=== PATIENT | female | born 1955 | race Caucasian/White ===

== ENCOUNTER 2017-07-23 15:02 | Inpatient (IN) | payer MEDICARE, OTHER ==
[2017-07-23] MEDS ORDERED: SODIUM CHLORIDE 0.9% 500 ML IV STA (15:19)
[2017-07-23] MEDS ORDERED: SODIUM CHLORIDE 0.9% 1,000 ML IV STA ×2 (15:19→16:59)
--- NOTE | 2017-07-23 15:21 | ED ---
General Adult HPI - General Chief complaint: Fall Stated complaint: FALL Time Seen by Provider: 07/23/17 15:08 Source: patient, RN notes reviewed, old records reviewed Mode of arrival: EMS Limitations: altered mental status - History of Present Illness Initial comments: This is a 62-year-old female the ER for evaluation. Patient's grandma ER for being found down. Patient apparently been lying on the ground for 4 days. Not acting appropriately. History pain from EMS and patient staff - Related Data Home Medications Medication Instructions Recorded Confirmed Ergocalciferol [Vitamin D2 50,000 units PO Q7D 06/15/14 07/23/17 (DRISDOL)] Levothyroxine Sodium [Synthroid] 50 mcg PO HS 06/15/14 07/23/17 Phenytoin Sodium Extended 100 mg PO TID 11/16/14 07/23/17 [Dilantin] Famotidine [Pepcid] 20 mg PO DAILY 01/28/15 07/23/17 Furosemide [Lasix] 40 mg PO HS 03/12/15 07/23/17 Divalproex [Depakote] 500 mg PO TID 03/15/15 07/23/17 Apixaban [Eliquis] 2.5 mg PO HS 07/23/17 07/23/17 Baclofen 5 mg PO Q8H 07/23/17 07/23/17 Betamethasone Dipropionate 1 applic TOPICAL DAILY 07/23/17 07/23/17 [Diprolene AF 0.05% Cream] Carbidopa-Levodopa 25-100 mg 1 tab PO BID 07/23/17 07/23/17 [Sinemet 25-100] Clotrimazole/Betamethasone Dip 1 applic TOPICAL DAILY 07/23/17 07/23/17 [Lotrisone Cream] Gabapentin [Neurontin] 300 mg PO Q8H 07/23/17 07/23/17 HYDROmorphone [Dilaudid] 2 mg PO DAILY 07/23/17 07/23/17 Hydrocortisone [Anusol-Hc] 1 applic RECTAL Q12H PRN 07/23/17 07/23/17 Melatonin 3 mg PO HS 07/23/17 07/23/17 Morphine Sulfate ER [Ms Contin] 30 mg PO Q8H PRN 07/23/17 07/23/17 Topiramate [Topamax] 50 mg PO BID 07/23/17 07/23/17 clonazePAM [KlonoPIN] 0.5 mg PO Q6H 07/23/17 07/23/17 Previous Rx's Medication Instructions Recorded Nystatin 100,000 Unit/gm Powd 1 applic TOPICAL BID applic 03/26/15 [Mycostatin Powder] traZODone HCL [Desyrel] 50 mg PO HS #30 tab 03/26/15 Allergies Allergy/AdvReac Type Severity Reaction Status Date / Time adhesive Allergy Severe Rash/Hives Verified 07/23/17 15:10 celecoxib [From Celebrex] Allergy Severe Vomiting Verified 07/23/17 15:10 citalopram hydrobromide Allergy Unknown Vomiting Verified 07/23/17 15:10 [From Celexa] ketorolac tromethamine Allergy Unknown Vomiting Verified 07/23/17 15:10 [From Toradol] latex Allergy Unknown Rash/Hives Verified 07/23/17 15:10 Phenothiazines Allergy Unknown Unknown Verified 07/23/17 15:10 aspirin Allergy Rash/Hives Verified 07/23/17 15:10 bee pollen [Bee Pollen] Allergy Rash/Hives Verified 07/23/17 15:10 metoclopramide Allergy Rash/Hives Verified 07/23/17 15:10 Penicillins Allergy Rash/Hives Verified 07/23/17 15:10 prochlorperazine edisylate Allergy Vomiting Verified 07/23/17 15:10 [From Compazine] prochlorperazine maleate Allergy Vomiting Verified 07/23/17 15:10 [From Compazine] rofecoxib [From Vioxx] Allergy Rash/Hives Verified 07/23/17 15:10 Salicylates Allergy Vomiting Verified 07/23/17 15:10 Review of Systems ROS Statement: Those systems with pertinent positive or pertinent negative responses have been documented in the HPI. ROS Other: All systems not noted in ROS Statement are negative. Past Medical History Past Medical History: GERD/Reflux, Hearing Disorder / Deafness, Hypertension, Osteoarthritis (OA), Seizure Disorder Additional Past Medical History / Comment(s): SEIZURES CONTROLLED BY MEDICATION , (states last seizure was 7 years ago) open wound in left buttock from removal of intrathecal pump Last Myocardial Infarction Date:: 2012 History of Any Multi-Drug Resistant Organisms: None Reported Past Surgical History: Appendectomy Additional Past Surgical History / Comment(s): 02/10/15 Pain pump insertion, 3/ gastrectomy due to ulcers, BOWEL obstruction with surgery (2003), left knee athroscopy, Past Anesthesia/Blood Transfusion Reactions: No Reported Reaction Past Psychological History: No Psychological Hx Reported Smoking Status: Never smoker Past Alcohol Use History: None Reported Past Drug Use History: None Reported - Past Family History Father Additional Family Medical History / Comment(s): UNKNOWN Mother Additional Family Medical History / Comment(s): UNKNOWN General Exam - General Exam Comments Initial Comments: large area of abdominal intertrigo Limitations: no limitations General appearance: alert, in no apparent distress Head exam: Present: atraumatic, normocephalic, normal inspection Eye exam: Present: normal appearance, PERRL, EOMI. Absent: scleral icterus, conjunctival injection, periorbital swelling ENT exam: Present: normal exam, mucous membranes moist Neck exam: Present: normal inspection. Absent: tenderness, meningismus, lymphadenopathy Respiratory exam: Present: normal lung sounds bilaterally. Absent: respiratory distress, wheezes, rales, rhonchi, stridor Cardiovascular Exam: Present: regular rate, normal rhythm, normal heart sounds. Absent: systolic murmur, diastolic murmur, rubs, gallop, clicks GI/Abdominal exam: Present: soft, normal bowel sounds. Absent: distended, tenderness, guarding, rebound, rigid Extremities exam: Present: normal inspection, full ROM, normal capillary refill. Absent: tenderness, pedal edema, joint swelling, calf tenderness Back exam: Present: normal inspection Neurological exam: Present: alert, oriented X3, CN II-XII intact Psychiatric exam: Present: normal affect, normal mood Skin exam: Present: warm, dry, intact, normal color. Absent: rash Course Vital Signs 07/23/17 15:10 Temperature 98.5 F Pulse Rate 83 Respiratory 17 Rate Blood Pressure 141/63 O2 Sat by Pulse 100 Oximetry - Reevaluation(s) Reevaluation #1: 07/23/17 16:26 Patient with no significant clinical changes or improvement EKG Findings - EKG Comments: EKG Findings:: EKG shows normal sinus rate of 80, SD 140, QRS or 2, QTC 02/24 Medical Decision Making - Medical Decision Making 62 female ER for evaluation of being found down off mental status. Unresponsiveness. Multiple days on the ground with inability to take care of herself inability to move. Patient has severe abdomen lysis and dehydration - Lab Data Result diagrams: 07/23/17 15:27 07/23/17 15:27 Lab Results 07/23/17 07/23/17 07/23/17 Range/Units 15:27 15: 15:27 WBC 8.9 (3.8-10.6) k/uL RBC 4.14 (3.80-5.40) m/uL Hgb 11.2 L (11.4-16.0) gm/dL Hct 36.4 (34.0-46.0) % MCV 88.1 (80.0-100.0) fL MCH 27.1 (25.0-35.0) pg MCHC 30.7 L (31.0-37.0) g/dL RDW 15.5 (11.5-15.5) % Plt Count 195 (150-450) k/uL Neutrophils % 86 % Lymphocytes % 6 % Monocytes % 7 % Eosinophils % 1 % Basophils % 0 % Neutrophils # 7.7 (1.3-7.7) k/uL Lymphocytes # 0.5 L (1.0-4.8) k/uL Monocytes # 0.6 (0-1.0) k/uL Eosinophils # 0.1 (0-0.7) k/uL Basophils # 0.0 (0-0.2) k/uL Hypochromasia Slight PT (9.0-12.0) sec INR (<1.2) APTT (22.0-30.0) sec Sodium 140 (137-145) mmol/L Potassium 2.8 L* (3.5-5.1) mmol/L Chloride 101 (98-107) mmol/L Carbon Dioxide 27 (22-30) mmol/L Anion Gap 12 mmol/L BUN 25 H (7-17) mg/dL Creatinine 0.60 (0.52-1.04) mg/dL Est GFR (MDRD) Af Amer >60 (>60 ml/min/1.73 sqM) Est GFR (MDRD) Non-Af >60 (>60 ml/min/1.73 sqM) Glucose 133 H (74-99) mg/dL Plasma Lactic Acid Esvin (0.7-2.0) mmol/L Calcium 8.5 (8.4-10.2) mg/dL Phosphorus 2.8 (2.5-4.5) mg/dL Magnesium 2.1 (1.6-2.3) mg/dL Total Bilirubin 0.5 (0.2-1.3) mg/dL AST 99 H (14-36) U/L ALT 57 H (9-52) U/L Alkaline Phosphatase 111 (38-126) U/L Total Creatine Kinase 4911 H (30-135) U/L CK-MB (CK-2) 10.0 H* (0.0-2.4) ng/mL CK-MB (CK-2) Rel Index Troponin I <0.012 (0.000-0.034) ng/mL Total Protein 5.6 L (6.3-8.2) g/dL Albumin 2.9 L (3.5-5.0) g/dL 07/23/17 07/23/17 Range/Units 15:27 15:27 WBC (3.8-10.6) k/uL RBC (3.80-5.40) m/uL Hgb (11.4-16.0) gm/dL Hct (34.0-46.0) % MCV (80.0-100.0) fL MCH (25.0-35.0) pg MCHC (31.0-37.0) g/dL RDW (11.5-15.5) % Plt Count (150-450) k/uL Neutrophils % % Lymphocytes % % Monocytes % % Eosinophils % % Basophils % % Neutrophils # (1.3-7.7) k/uL Lymphocytes # (1.0-4.8) k/uL Monocytes # (0-1.0) k/uL Eosinophils # (0-0.7) k/uL Basophils # (0-0.2) k/uL Hypochromasia PT 11.7 (9.0-12.0) sec INR 1.2 H (<1.2) APTT 21.6 L (22.0-30.0) sec Sodium (137-145) mmol/L Potassium (3.5-5.1) mmol/L Chloride (98-107) mmol/L Carbon Dioxide (22-30) mmol/L Anion Gap mmol/L BUN (7-17) mg/dL Creatinine (0.52-1.04) mg/dL Est GFR (MDRD) Af Amer (>60 ml/min/1.73 sqM) Est GFR (MDRD) Non-Af (>60 ml/min/1.73 sqM) Glucose (74-99) mg/dL Plasma Lactic Acid Esvin 1.0 (0.7-2.0) mmol/L Calcium (8.4-10.2) mg/dL Phosphorus (2.5-4.5) mg/dL Magnesium (1.6-2.3) mg/dL Total Bilirubin (0.2-1.3) mg/dL AST (14-36) U/L ALT (9-52) U/L Alkaline Phosphatase (38-126) U/L Total Creatine Kinase (30-135) U/L CK-MB (CK-2) (0.0-2.4) ng/mL CK-MB (CK-2) Rel Index Troponin I (0.000-0.034) ng/mL Total Protein (6.3-8.2) g/dL Albumin (3.5-5.0) g/dL - Radiology Data Radiology results: report reviewed (CT brain and C-spine, chest 100 pelvis x- ray negative for traumatic injury), image reviewed Disposition Clinical Impression: Fall, Rhabdomyolysis, Weakness, Hypokalemia, Dehydration, Altered mental state Disposition: ADMITTED IP TO THIS [facility] Condition: Serious Referrals: Roc Clements MD [Primary Care Provider] - 1-2 days
[2017-07-23 15:43] LABS: Basophils % (A) 0 %; CH 27.7; CHCM 31.6; Eosinophils # (A) 0.1 k/uL (0-0.7); Eosinophils % (A) 1 %; HCT 36.4 % (34.0-46.0); HDW 2.81; HGB 11.2 gm/dL (11.4-16.0); Hypochromasia Slight; Luc # (Auto) 0.03; Luc % (Auto) 0; Lymphocytes # (A) 0.5 k/uL (1.0-4.8); Lymphocytes % (A) 6 %; MCH 27.1 pg (25.0-35.0); MCHC 30.7 g/dL (31.0-37.0); MCV 88.1 fL (80.0-100.0); Mean Platelet Volume 7.6; Monocytes # (A) 0.6 k/uL (0-1.0); Monocytes % (A) 7 %; Neutrophils # (A) 7.7 k/uL (1.3-7.7); Neutrophils % (A) 86 %; RBC 4.14 m/uL (3.80-5.40); RDW 15.5 % (11.5-15.5); WBC 8.9 k/uL (3.8-10.6); WBC (Perox) 9.23
[2017-07-23 15:47] LABS: INR 1.2 (<1.2); Prothrombin Time 11.7 sec (9.0-12.0)
[2017-07-23 15:52] LABS: ALT 57 U/L (9-52); AST 99 U/L (14-36); Alkaline Phosphatase 111 U/L (38-126); Anion Gap 12 mmol/L; Blood Urea Nitrogen 25 mg/dL (7-17); Calcium 8.5 mg/dL (8.4-10.2); Carbon Dioxide 27 mmol/L (22-30); Chloride 101 mmol/L (98-107); Glucose 133 mg/dL (74-99); Magnesium 2.1 mg/dL (1.6-2.3); Non-African American GFR(MDRD) >60 (>60 ml/min/1.73 sqM); Phosphorus 2.8 mg/dL (2.5-4.5); Sodium 140 mmol/L (137-145); Total Bilirubin 0.5 mg/dL (0.2-1.3); Total Protein 5.6 g/dL (6.3-8.2)
[2017-07-23 15:58] LABS: Partial Thromboplastin Time 21.6 sec (22.0-30.0)
[2017-07-23 16:00] LABS: Potassium 2.8 mmol/L (3.5-5.1)
[2017-07-23] MEDS ORDERED: LORazepam 2 MG/ML INJ IV STA (16:08)
[2017-07-23] MEDS ORDERED: POTASSIUM BICARB-CITRIC ACID 25 MEQ TABLET.EFF PO STA (16:08)
[2017-07-23] MEDS ORDERED: ONDANSETRON 4 MG/2 ML VIAL IVP STA ×3 (16:08→18:57)
[2017-07-23 16:11] LABS: Troponin I <0.012 ng/mL (0.000-0.034)
[2017-07-23 16:20] LABS: Creatine Kinase 4911 U/L (30-135)
--- NOTE | 2017-07-23 16:42 | CT ---
EXAMINATION TYPE: CT brain chante chávez DATE OF EXAM: 07/23/2017 COMPARISON: Head CT scan 12/17/2013 HISTORY: FALL INJURY. CT DLP: 1170.2 mGycm Automated exposure control for dose reduction was used. TECHNIQUE: CT scan of the head and cervical spine are performed without contrast. FINDINGS: There is mild cerebral cortical atrophy. There is no mass effect nor midline shift. There is no sign of intracranial hemorrhage. There is old left temporal craniotomy defect. Cervical vertebra have normal alignment. There is mild spurring at C5-6 C6-7. Facet joints are intact . There is no evidence of a compression fracture. The skull base is intact. IMPRESSION: Mild cerebral atrophy. No acute intracranial abnormality. No change. Mild spondylotic changes in the cervical spine. No fracture.
[2017-07-23] MEDS: POTASSIUM CHLORIDE 10 MEQ, LIDOCAINE 2% INJ 10 MG in SODIUM CHLORIDE 0.9% 100 ML IVPB SCH ×4 (16:47→22:44)
--- NOTE | 2017-07-23 16:53 | XR ---
EXAMINATION TYPE: XR pelvis AP view DATE OF EXAM: 07/23/2017 COMPARISON: 02/13/2015 HISTORY: Fell 4 days ago. Pain. TECHNIQUE: Single view FINDINGS: Pelvic ring is intact. Proximal femurs and hip joints are intact. There is extensive calcif ication over both iliac crests consistent with injection sites. The sacroiliac joints are intact. IMPRESSION: No acute abnormality of the pelvis. No change.
--- NOTE | 2017-07-23 16:54 | XR ---
EXAMINATION TYPE: XR chest 1V DATE OF EXAM: 07/23/2017 COMPARISON: 02/14/2015 HISTORY: Chest pain TECHNIQUE: Single frontal view of the chest is obtained. FINDINGS: There is mild coarsening of interstitial markings. There is no heart failure. Heart size i s normal. There is no sign of pleural effusion or pneumothorax. IMPRESSION: Mild pulmonary fibrotic changes. Chest x-ray stable compared to old exam.
[2017-07-23] MEDS ORDERED: SODIUM CHLORIDE 0.9% 1,000 ML IV ONE (17:00)
--- NOTE | 2017-07-23 19:34 | P.HPIM ---
History of Present Illness H&P Date: 07/23/17 Chief Complaint: fall at home 62-year-old female with past medical history of multiple sclerosis and hypertension. Patient presented to [facility] emergency department after being found down at her room in a unsupervised mcc. She reports that she gets visiting nurse once every week to help her with food in grocery. And she gets visited by the mcc process owner once a week. Otherwise she is independent in her activities of daily living and that she utilizes a walker to ambulate. She reports that on she was trying to reach out for her medications while using the walker when her hand slipped and fell to the ground she reports that she hit her head but did not lose consciousness however she was unable to get up due to diffuse body aches and feeling weak. She remained on the floor screamed for help however she did not get any response. She remained on the floor in her room rotating herself [id number] otherwise unable to move around urinating and pooping on herself. No axis to food or water until Sunday today 4 days later when the mcc process owner visited her in the room and found her on the ground and called EMS and brought to the hospital Currently she is awake and alert denies any chest pain or trouble breathing denies any fevers or chills, nausea or vomiting. She reports chronic weakness in her lower extremity unchanged from baseline and chronic low back pain unchanged from baseline. Denies any changes in her urination or bowel movements. In the ED aggressive resuscitation with IV fluid hydration was done as patient was found to be in acute rhabdo. This most likely secondary to being down on the floor Imaging with CAT scan of the head and spine and x-rays of the pelvis was unremarkable for any acute process Patient otherwise provides very limited history upon revision of her medications she wasn't sure why she takes Eliquis. She did not remember what different medications that she is taking and upon verification of her medication list she couldn't give any clear answers as currently she is slightly confused and tired Review of Systems This is possibly not very reliable due to patient confusion Constitutional: Patient reports no fever, no chills, no night sweating, no significant weight changes Eyes: Patient reports no visual changes, no eye pain ENT: Patient reports no ear pain, no rhinorrhea, no sore throat . She admits to poor hearing Cardiovascular: Patient reports no chest pain, no exertional dyspnea, no peripheral leg edema, no orthopnea, no paroxysmal nocturnal dyspnea Respiratory:Patient reports no cough, no wheezing, no shortness of breath Gastrointestinal: Patient reports no diarrhea, no constipation, no nausea no vomiting, no abdominal pain Genitourinary: Patient reports no dysuria, no hematuria, no changes in urinary habits, no genital lesions Musculoskeletal: Patient reports no muscle pain, she admits to chronic lower extremity pain and back pain Psychiatric: Patient reports no changes in mood or memory, no suicidal ideation , no anxiety Endocrine: Patient reports no heat intolerance, no cold intolerance, no excessive thirst, no polyuria Neurological: Patient reports no focal neurologic deficits, no weakness, no numbness, no tingling, chronic weakness in her lower extremities utilizing walker to walk around and dependent in her activities daily living Hem/Lymphatic: Patient reports no bleeding tendency, no bruising, no swollen lymph glands Allergic/Immun: Patient reports no recent allergic reactions Skin: Patient reports chronic rash in her lower abdomen with pain to superficial touch of the belly Past Medical History Past Medical History: GERD/Reflux, Hearing Disorder / Deafness, Hypertension, Osteoarthritis (OA), Seizure Disorder Additional Past Medical History / Comment(s): SEIZURES CONTROLLED BY MEDICATION , (states last seizure was 7 years ago) open wound in left buttock from removal of intrathecal pump, multiple sclerosis Last Myocardial Infarction Date:: 2012 History of Any Multi-Drug Resistant Organisms: None Reported Past Surgical History: Appendectomy Additional Past Surgical History / Comment(s): 02/10/15 Pain pump insertion, 3/ gastrectomy due to ulcers, BOWEL obstruction with surgery (2003), left knee athroscopy, Past Anesthesia/Blood Transfusion Reactions: No Reported Reaction Past Psychological History: No Psychological Hx Reported Smoking Status: Never smoker Past Alcohol Use History: None Reported Past Drug Use History: None Reported - Past Family History Father Additional Family Medical History / Comment(s): With colon cancer Mother Additional Family Medical History / Comment(s): UNKNOWN Medications and Allergies Home Medications and Allergies Comment(s): Reviewed with the patient however she is only able to give very limited information about her current medications Home Medications Medication Instructions Recorded Confirmed Type Ergocalciferol [Vitamin D2 50,000 units PO Q7D 06/15/14 07/23/17 History (DRISDOL)] Levothyroxine Sodium [Synthroid] 50 mcg PO HS 06/15/14 07/23/17 History Phenytoin Sodium Extended 100 mg PO TID 11/16/14 07/23/17 History [Dilantin] Famotidine [Pepcid] 20 mg PO DAILY 01/28/15 07/23/17 History Furosemide [Lasix] 40 mg PO HS 03/12/15 07/23/17 History Divalproex [Depakote] 500 mg PO TID 03/15/15 07/23/17 History Nystatin 100,000 Unit/gm Powd 1 applic TOPICAL BID applic 03/26/15 07/23/17 Rx [Mycostatin Powder] traZODone HCL [Desyrel] 50 mg PO HS #30 tab 03/26/15 07/23/17 Rx Apixaban [Eliquis] 2.5 mg PO HS 07/23/17 07/23/17 History Baclofen 5 mg PO Q8H 07/23/17 07/23/17 History Betamethasone Dipropionate 1 applic TOPICAL DAILY 07/23/17 07/23/17 History [Diprolene AF 0.05% Cream] Carbidopa-Levodopa 25-100 mg 1 tab PO BID 07/23/17 07/23/17 History [Sinemet 25-100] Clotrimazole/Betamethasone Dip 1 applic TOPICAL DAILY 07/23/17 07/23/17 History [Lotrisone Cream] Gabapentin [Neurontin] 300 mg PO Q8H 07/23/17 07/23/17 History HYDROmorphone [Dilaudid] 2 mg PO DAILY 07/23/17 07/23/17 History Hydrocortisone [Anusol-Hc] 1 applic RECTAL Q12H PRN 07/23/17 07/23/17 History Melatonin 3 mg PO HS 07/23/17 07/23/17 History Morphine Sulfate ER [Ms Contin] 30 mg PO Q8H PRN 07/23/17 07/23/17 History Topiramate [Topamax] 50 mg PO BID 07/23/17 07/23/17 History clonazePAM [KlonoPIN] 0.5 mg PO Q6H 07/23/17 07/23/17 History Allergies Allergy/AdvReac Type Severity Reaction Status Date / Time adhesive Allergy Severe Rash/Hives Verified 07/23/17 15:10 celecoxib [From Celebrex] Allergy Severe Vomiting Verified 07/23/17 15:10 citalopram hydrobromide Allergy Unknown Vomiting Verified 07/23/17 15:10 [From Celexa] ketorolac tromethamine Allergy Unknown Vomiting Verified 07/23/17 15:10 [From Toradol] latex Allergy Unknown Rash/Hives Verified 07/23/17 15:10 Phenothiazines Allergy Unknown Unknown Verified 07/23/17 15:10 aspirin Allergy Rash/Hives Verified 07/23/17 15:10 bee pollen [Bee Pollen] Allergy Rash/Hives Verified 07/23/17 15:10 metoclopramide Allergy Rash/Hives Verified 07/23/17 15:10 Penicillins Allergy Rash/Hives Verified 07/23/17 15:10 prochlorperazine edisylate Allergy Vomiting Verified 07/23/17 15:10 [From Compazine] prochlorperazine maleate Allergy Vomiting Verified 07/23/17 15:10 [From Compazine] rofecoxib [From Vioxx] Allergy Rash/Hives Verified 07/23/17 15:10 Salicylates Allergy Vomiting Verified 07/23/17 15:10 Physical Exam Vitals: Vital Signs Temp Pulse Resp BP Pulse Ox 07/23/17 18:25 83 17 117/56 99 07/23/17 15:10 98.5 F 83 17 141/63 100 Intake and Output 07/23/17 07/23/17 07/23/17 06:59 14:59 22:59 Other: Weight 80.739 kg Patient Weight 07/24/17 06:59 Weight 80.739 kg Constitutional: No acute distress, conversant, pleasantly confused Eyes: Anicteric sclerae, moist conjunctiva, no lid-lag Pupils equal round reactive to light ENMT: NC/AT Oropharynx clear, no erythema, exudates Neck: Supple, FROM, no masses, or JVD No carotid bruits No thyromegaly Lungs: Clear to auscultation Clear to percussion Normal respiratory effort, no accessory muscle use Cardiovascular: Heart regular in rate and rhythm, No murmurs, gallops, or rubs No peripheral edema Abdominal: Soft Nontender, no guarding, rebound or rigidity Abdomen moving with respiration Normoactive bowel sounds No hepatomegaly, No splenomegaly No palpable mass No abdominal wall hernia noted Diffuse rash erythematous over the lower abdominal intertriginous moisture and slight discharge Skin: Normal temperature, tone, texture, turgor No induration No subcutaneous nodules No rash, lesions No ulcers Capillary refill is immediate over bilateral toes and fingers Tanning of the skin of the lower and upper extremities patient claimed that she was exposed to sun recently Extremities: No digital cyanosis No clubbing Pedal pulses intact and symmetrical Radial pulses intact and symmetrical No calf tenderness Psychiatric: Alert and oriented to person only Appropriate affect Neuro Muscles Strength 4/5 in upper extremities Lower extremities 3 out of 5 in strength bilaterally in proximal and distal muscle groups Sensation to light touch grossly present throughout Cranial nerves II-XII grossly intact except of hard of hearing No focal sensory deficits Lymphatics: no palpable cervical or supraclavicular , or inguinal lymph nodes Results Results: Review of CBC & Chem 7: 07/23/17 15:27 07/23/17 15:27 Labs: Abnormal Lab Results - Last 24 Hours (Table) 07/23/17 07/23/17 07/23/17 Range/Units 15:27 15:27 15:27 Hgb 11.2 L (11.4-16.0) gm/dL MCHC 30.7 L (31.0-37.0) g/dL Lymphocytes # 0.5 L (1.0-4.8) k/uL INR (<1.2) APTT (22.0-30.0) sec Potassium 2.8 L* (3.5-5.1) mmol/L BUN 25 H (7-17) mg/dL Glucose 133 H (74-99) mg/dL AST 99 H (14-36) U/L ALT 57 H (9-52) U/L Total Creatine Kinase 4911 H (30-135) U/L CK-MB (CK-2) 10.0 H* (0.0-2.4) ng/mL Total Protein 5.6 L (6.3-8.2) g/dL Albumin 2.9 L (3.5-5.0) g/dL 07/23/17 Range/Units 15:27 Hgb (11.4-16.0) gm/dL MCHC (31.0-37.0) g/dL Lymphocytes # (1.0-4.8) k/uL INR 1.2 H (<1.2) APTT 21.6 L (22.0-30.0) sec Potassium (3.5-5.1) mmol/L BUN (7-17) mg/dL Glucose (74-99) mg/dL AST (14-36) U/L ALT (9-52) U/L Total Creatine Kinase (30-135) U/L CK-MB (CK-2) (0.0-2.4) ng/mL Total Protein (6.3-8.2) g/dL Albumin (3.5-5.0) g/dL Assessment and Plan (1) Acute metabolic encephalopathy Narrative/Plan: This is improving now most likely second to underlying metabolic derangements with rhabdomyolysis and hypokalemia along with dehydration. Fall and seizure precautions CAT scan of the head reviewed no acute changes Neurology consult Check EEG rule out underlying seizures Status: Acute (2) History of seizures Narrative/Plan: Check Depakote and Dilantin levels Neurology consult with Check EEG rule out underlying seizures Patient will recent fall at home claims to be mechanical due to slipping while using her walker Status: Acute (3) DVT prophylaxis Narrative/Plan: Lovenox SC Status: Acute (4) Dehydration Narrative/Plan: Due to no access to water or food due to being down on the floor at home after falling Status post aggressive resuscitation with IV fluids Continue with IV fluid normal saline Monitor urine output Status: Acute (5) Fall Narrative/Plan: Patient claims it's mechanical fall due to slipping while using her walker Patient remains on the floor at home for 4 days with no access to food or medications Check vitamin B12 level, check vitamin D hydroxy 25 level Neurology consult at Physical and occupational therapy evaluation She possibly will benefit from placement at rehab Status: Acute (6) Hypokalemia Narrative/Plan: Replace oral and IV continue to monitor levels Follow-up magnesium, potassium, and phosphorus levels Cardiac Monitoring Status: Acute (7) Rhabdomyolysis Narrative/Plan: Due to being down on the floor for 4 days with inability to moving around Continue aggressive IV fluid hydration monitoring creatinine kinase levels Continue to monitor electrolytes and renal function Monitor phosphorus and potassium levels and calcium Status: Acute (8) EKG abnormalities Narrative/Plan: T wave inversion in lateral leads Cardiology consult at [facility] rec included Eliquis patient unable to clarify whether she's taking eliquis and what would be the reason Status: Acute (9) Mild anemia Narrative/Plan: Check fecal occult blood stool Is unclear if patient takes eliquis at home Status: Acute (10) Parkinson disease Narrative/Plan: Continue home medications Status: Acute (11) Intertriginous candidiasis Narrative/Plan: Continue with nystatin powder Status: Acute Plan: Surrogate decision-maker: Patient named her nurse caregiver Miranda Cristofer CODE STATUS: Full code Discussed with: Patient, ER physician, RN Anticipated discharge: 48-[address]: Rehab
--- NOTE | 2017-07-23 19:36 | P.HPADDEND ---
H&P Addendum H&P Addendum Date: 07/23/17 Advanced Care Planning Active diagnoses: acute metabolic encephalopathy, dehydration , acute rhabdomyolysis Background: The patient was admitted for treatment of dehydration and acute rhabdomyolysis. Confirmation and clarification of wishes upon admission. Discussion: Person(s) present and participating in discussion: The patient, and myself Summary: Patient is still slightly confused regarding her current problems. Seems like she lives alone at baseline at the skilled nursing unsupervised and she is able to take care of her activities of daily living. She utilizes a walker to ambulate. She claims that she had slipped and ended up on the floor due to generalized weakness advanced age and unable to get up. Her wishes are to be full code and perform CPR and intubation if needed. She named her caregiver registered nurse Miranda Cleveland as a surrogate decision maker in case she loses capacity to make decisions on her own. Time spent: Total time spent face to face in education and discussion directly related to advanced care planning: >15 minutes
--- NOTE | 2017-07-23 19:36 | XR ---
EXAMINATION TYPE: XR shoulder complete LT DATE OF EXAM: 07/23/2017 COMPARISON: NONE HISTORY: Pain TECHNIQUE: 3 views FINDINGS: I see no fracture nor dislocation. Glenohumeral joint is anatomic. IMPRESSION: Negative left shoulder exam
--- NOTE | 2017-07-23 19:37 | XR ---
EXAMINATION TYPE: XR humerus LT DATE OF EXAM: 07/23/2017 COMPARISON: NONE HISTORY: Pain TECHNIQUE: 2 views FINDINGS: I see no fracture nor dislocation. Elbow joint and shoulder joint appear intact. IMPRESSION: Negative left humerus exam
[2017-07-23] MEDS ORDERED: LEVOTHYROXINE 50 MCG TAB PO SCH (21:00)
[2017-07-23] MEDS: MORPHINE SULFATE ER 30 MG TABLET PO PRN (22:46)
[2017-07-23] MEDS: CARBIDOPA-LEVODOPA 25-100 MG 1 EACH TAB PO SCH (22:47)
[2017-07-23] MEDS: PHENYTOIN SODIUM EXTENDED 100 MG CAP PO SCH (22:47)
[2017-07-23] MEDS: TOPIRAMATE 25 MG TAB PO SCH (22:47)
[2017-07-23] MEDS: DIVALPROEX 500 MG TABLET.DR PO SCH (22:47)
[2017-07-23] MEDS: NYSTATIN 100,000 UNIT/GM POWD 15 GM TOPICAL SCH ×2 (22:47)
[2017-07-23] MEDS: ONDANSETRON 4 MG/2 ML VIAL IVP PRN (22:54)
[2017-07-24 01:52] LABS: Appearance,Urine Clear (Clear); Bacteria,Urine Moderate /hpf; Bilirubin,Urine Negative (Negative); Glucose,Urine (UA) Negative (Negative); Ketones,Urine 3+ (Negative); Leukocyte Esterase,Urine Trace (Negative); Mucus,Urine Rare /hpf; Nitrite,Urine Negative (Negative); Particle Count 4318; Protein,Urine Negative (Negative); RBC,Urine 2 /hpf (0-5); Specific Gravity,Urine 1.013 (1.001-1.035); Squamous Epithelial Cell,Urine 2 /hpf (0-4); UA Billing (MACRO vs. MICRO) MICRO; WBC,Urine 4 /hpf (0-5)
[2017-07-24] MEDS: LEVOTHYROXINE 50 MCG TAB PO SCH (06:49)
[2017-07-24] MEDS: CARBIDOPA-LEVODOPA 25-100 MG 1 EACH TAB PO SCH ×2 (08:32→20:27)
[2017-07-24] MEDS: CLOTRIMAZOLE/BETAMETH 1-0.05% CREAM 45 GM TUBE TOPICAL SCH (08:32)
[2017-07-24] MEDS: DIVALPROEX 500 MG TABLET.DR PO SCH ×3 (08:32→20:52)
[2017-07-24] MEDS: FAMOTIDINE 20 MG TAB PO SCH (08:33)
[2017-07-24] MEDS: PHENYTOIN SODIUM EXTENDED 100 MG CAP PO SCH ×3 (08:34→20:52)
[2017-07-24] MEDS: NYSTATIN 100,000 UNIT/GM POWD 15 GM TOPICAL SCH ×3 (08:34→20:27)
[2017-07-24] MEDS: TOPIRAMATE 25 MG TAB PO SCH ×2 (08:34→20:27)
[2017-07-24] MEDS: clonazePAM 0.5 MG TAB PO PRN ×3 (08:35→22:28)
[2017-07-24] MEDS: MORPHINE SULFATE ER 30 MG TABLET PO PRN (08:35)
[2017-07-24] MEDS: ONDANSETRON 4 MG/2 ML VIAL IVP PRN ×3 (08:36→22:28)
[2017-07-24] MEDS ORDERED: ENOXAPARIN 40 MG/0.4 ML SYRINGE SQ SCH (09:00)
[2017-07-24 10:21] LABS: Basophils % (A) 0 %; CH 27.4; CHCM 30.5; Eosinophils % (A) 0 %; HCT 34.4 % (34.0-46.0); HDW 2.83; HGB 10.2 gm/dL (11.4-16.0); Hypochromasia Moderate; Luc # (Auto) 0.06; Luc % (Auto) 1; Lymphocytes # (A) 1.3 k/uL (1.0-4.8); Lymphocytes % (A) 15 %; MCH 26.9 pg (25.0-35.0); MCHC 29.8 g/dL (31.0-37.0); MCV 90.3 fL (80.0-100.0); Mean Platelet Volume 7.8; Monocytes # (A) 0.6 k/uL (0-1.0); Monocytes % (A) 6 %; Neutrophils # (A) 6.9 k/uL (1.3-7.7); Neutrophils % (A) 77 %; RBC 3.81 m/uL (3.80-5.40); RDW 15.5 % (11.5-15.5); WBC 8.9 k/uL (3.8-10.6); WBC (Perox) 9.57
--- NOTE | 2017-07-24 10:29 | P.PN ---
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 Patient presented the hospital after found down at her unsupervised prison she claims to have fell 4 days prior secondary to slipping while using her walker. Since then she could not take any of her medications eat or drink or move around due to pain and weakness in her lower extremities. Today patient seen and examined she denies any nausea or vomiting, tolerating diet, she is able to move her lower extremities today denies any pain however does report pain in her back. Denies any fevers or chills denies any dysuria or hematuria. Patient still complaining of pain over her left elbow however she is able to move her left upper extremity with no limitations. Patient finally today kidney more history admitting 2 history of multiple DVTs in the past currently on Amanda Ovidio, and history of seizures currently on Depakote and Dilantin and Topamax. Objective - Vital Signs Vital signs: Vital Signs Temp 97.6 F 07/24/17 07:00 Pulse 89 07/24/17 07:00 Resp 16 07/24/17 07:00 BP 110/62 07/24/17 07:00 Pulse Ox 97 07/24/17 07:00 Intake & Output 07/23/17 07/24/17 07/24/17 18:59 06:59 18:59 Weight 80.739 kg Other: Voiding Method Bedpan Bedpan # Voids 1 1 # Bowel Movements 1 - Exam Constitutional: vital signs stable, Not in acute distress, pleasant, conversant Lungs: Clear to auscultation bilaterally, no use of accessory muscles Cardiovascular: Regular rate and rhythm, no murmurs, no gallops, no rubs, no peripheralfull range of motion edema Gastrointestinal: Soft, no tenderness to palpation, bowel sounds positive, erythematous rash over the lower abdominal Extremities: scraping over her left elbow intact active range of motion over the left elbow , No digital cyanosis, ischemia or clubbing, no calf muscle tenderness Psych: Alert, oriented to place, person Neuro: exam is nonfocal Labs reviewed potassium level improved other labs are pending - Labs CBC & Chem 7: 07/23/17 15:27 07/24/17 00:49 Labs: Abnormal Lab Results - Last 24 Hours (Table) 07/23/17 07/23/17 07/23/17 Range/Units 15:27 15:27 15:27 Hgb 11.2 L (11.4-16.0) gm/dL MCHC 30.7 L (31.0-37.0) g/dL Lymphocytes # 0.5 L (1.0-4.8) k/uL INR (<1.2) APTT (22.0-30.0) sec Potassium 2.8 L* (3.5-5.1) mmol/L BUN 25 H (7-17) mg/dL Glucose 133 H (74-99) mg/dL AST 99 H (14-36) U/L ALT 57 H (9-52) U/L Total Creatine Kinase 4911 H (30-135) U/L CK-MB (CK-2) 10.0 H* (0.0-2.4) ng/mL Total Protein 5.6 L (6.3-8.2) g/dL Albumin 2.9 L (3.5-5.0) g/dL Urine Ketones (Negative) Ur Leukocyte Esterase (Negative) Urine Bacteria (None) /hpf Urine Mucus (None) /hpf 07/23/17 07/24/17 07/24/17 Range/Units 15: 00:49 01:11 Hgb (11.4-16.0) gm/dL MCHC (31.0-37.0) g/dL Lymphocytes # (1.0-4.8) k/uL INR 1.2 H (<1.2) APTT 21.6 L (22.0-30.0) sec Potassium 5.4 H (3.5-5.1) mmol/L BUN (7-17) mg/dL Glucose (74-99) mg/dL AST (14-36) U/L ALT (9-52) U/L Total Creatine Kinase (30-135) U/L CK-MB (CK-2) (0.0-2.4) ng/mL Total Protein (6.3-8.2) g/dL Albumin (3.5-5.0) g/dL Urine Ketones 3+ H (Negative) Ur Leukocyte Esterase Trace H (Negative) Urine Bacteria Moderate H (None) /hpf Urine Mucus Rare H (None) /hpf Assessment and Plan (1) Fall Narrative/Plan: Patient claims it's mechanical fall at home due to slipping while using her walker Patient remains on the floor at home for 4 days with no access to food or medications Check vitamin B12 level, check vitamin D hydroxy 25 level labs are pending Neurology consult Physical and occupational therapy evaluation She possibly will benefit from placement at rehab Status: Acute (2) Rhabdomyolysis Narrative/Plan: Due to being down on the floor for 4 days with inability to moving around Continue aggressive IV fluid hydration monitoring creatinine kinase levels Continue to monitor electrolytes and renal function Monitor phosphorus and potassium levels and calcium Trend creatinine kinase level Status: Acute (3) Acute metabolic encephalopathy Narrative/Plan: This is resolved now Most likely metabolic secondary to underlying electrolyte derangements and rhabdo Concerns regarding her pain management at home patient uses MS Contin at her age this might contribute to confusion and falls I will utilize pain management input Dr. Guadarrama consult Fall and seizure precautions Neurology consult Check EEG rule out underlying seizures Status: Resolved (4) History of seizures Narrative/Plan: Check Depakote and Dilantin levels, and resume both medications Neurology consult Check EEG rule out underlying seizures Patient will recent fall at home claims to be mechanical due to slipping while using her walker Status: Acute (5) DVT prophylaxis Narrative/Plan: Patient admits today due to history of multiple DVTs in the past I will resume her home medication Eliquis that she was able to verify today Discontinue Lovenox Status: Acute (6) Dehydration Narrative/Plan: Due to no access to water or food due to being down on the floor at home after falling Status post aggressive resuscitation with IV fluids Continue with IV fluid normal saline Monitor urine output Status: Acute (7) Hypokalemia Narrative/Plan: Resolved after replacement continue to monitor Status: Resolved (8) EKG abnormalities Narrative/Plan: T wave inversion in lateral leads, denies any chest pain or trouble breathing Cardiology consult Status: Acute (9) Mild anemia Narrative/Plan: Check fecal occult blood stool Patient takes Eliquis was at home due to history of multiple DVTs in the past, will monitor hemoglobin closely Status: Acute (10) Parkinson disease Narrative/Plan: Continue home medications Status: Acute (11) Intertriginous candidiasis Narrative/Plan: Continue with nystatin powder Status: Acute (12) Chronic pain Narrative/Plan: Patient takes multiple pain medications at home including MS Contin at her age this will put her at risk of from confusion and falls Consultation made for pain management Dr. Guadarrama for further recommendations Status: Chronic
[2017-07-24] MEDS ORDERED: MORPHINE SULFATE ER 15 MG TABLET PO SCH (10:30)
[2017-07-24 11:55] LABS: ALT 33 U/L (9-52); AST 66 U/L (14-36); Alkaline Phosphatase 97 U/L (38-126); Anion Gap 9 mmol/L; Blood Urea Nitrogen 16 mg/dL (7-17); Calcium 8.2 mg/dL (8.4-10.2); Carbon Dioxide 26 mmol/L (22-30); Chloride 104 mmol/L (98-107); Glucose 107 mg/dL (74-99); Magnesium 1.9 mg/dL (1.6-2.3); Non-African American GFR(MDRD) >60 (>60 ml/min/1.73 sqM); Phosphorus 2.2 mg/dL (2.5-4.5); Potassium 3.5 mmol/L (3.5-5.1); Sodium 139 mmol/L (137-145); Total Bilirubin 0.2 mg/dL (0.2-1.3); Total Protein 5.2 g/dL (6.3-8.2)
[2017-07-24 13:01] LABS: Creatine Kinase 2206 U/L (30-135)
[2017-07-24 13:50] LABS: Vitamin B12 823 pg/mL (239-931)
--- NOTE | 2017-07-24 14:53 | P.CRDCN ---
History of Present Illness Consult date: 07/24/17 History of present illness: This is a 62 year old female. Past medical history significant for hypertension , seizure and frequent DVT's. She does not follow with any party plan dealer. We have been asked to see the patient for abnormal EKG on admission. EKG indicates sinus mechanism with ST and T wave abnormalities in inferolateral leads. When compared to old EKG from 2014 this was evident but much less prominent at that time. She is admitted to the hospital after falling at her retirement. She apparently fell and remained on the floor for 4 days before being discovered. She was severely hyperkalemic upon arrival at 2.8. also BUN 25 Cr 0.6, troponin negative x2 with elevated CK's indicative of rhabdomyolysis. She is currently on Eliquis for prevention of reccurent DVT. Although HTN is listed as history she is not currently on blood pressure medication. Blood pressure this morning 110/62 with heart rate 89. She is not currently on telemetry. Most recent echocardiogram from 01/2015 reveals mild left ventricular hypertrophy with preserved LV function with EF 55-60%, mild mitral calcification, mild MR, no eividence of pulmonary hypertension. She also underwent an Lexiscan at that time which revealed no evidence of fixed or stress induced ischemia. Prior to falling she denies chest pain, shortness of breath, palpitations, diaphoresis, nausea or vomiting. She states she did feel acutely dizzy. Review of Systems Extensive review of systems performed, negative except mentioned in HPI. Past Medical History Past Medical History: GERD/Reflux, Hearing Disorder / Deafness, Hypertension, Osteoarthritis (OA), Seizure Disorder Additional Past Medical History / Comment(s): SEIZURES CONTROLLED BY MEDICATION , (states last seizure was 7 years ago) open wound in left buttock from removal of intrathecal pump, multiple sclerosis Last Myocardial Infarction Date:: 2012 History of Any Multi-Drug Resistant Organisms: None Reported Past Surgical History: Appendectomy Additional Past Surgical History / Comment(s): 02/10/15 Pain pump insertion, 3/ gastrectomy due to ulcers, BOWEL obstruction with surgery (2003), left knee athroscopy, Past Anesthesia/Blood Transfusion Reactions: No Reported Reaction Past Psychological History: No Psychological Hx Reported Additional Psychological History / Comment(s): Pt currently resides at [facility]. She ambulates normally with a walker or sometimes uses a wheelchair. She needs some assistance with bathing and putting on her TEDs. She feeds anddresses herself. She is on a heart healthy diet. She has a R heel dressing for a R heel blister. Smoking Status: Never smoker Past Alcohol Use History: None Reported Past Drug Use History: None Reported - Past Family History Father Additional Family Medical History / Comment(s): With colon cancer Mother Additional Family Medical History / Comment(s): UNKNOWN Medications and Allergies Home Medications Medication Instructions Recorded Confirmed Type Ergocalciferol [Vitamin D2 50,000 units PO Q7D 06/15/14 07/23/17 History (DRISDOL)] Levothyroxine Sodium [Synthroid] 50 mcg PO DAILY 06/15/14 07/23/17 History Phenytoin Sodium Extended 100 mg PO TID 11/16/14 07/23/17 History [Dilantin] Famotidine [Pepcid] 20 mg PO DAILY 01/28/15 07/23/17 History Furosemide [Lasix] 40 mg PO DAILY 03/12/15 07/23/17 History Divalproex [Depakote] 500 mg PO TID 03/15/15 07/23/17 History Nystatin 100,000 Unit/gm Powd 1 applic TOPICAL BID applic 03/26/15 07/23/17 Rx [Mycostatin Powder] Apixaban [Eliquis] 2.5 mg PO HS 07/23/17 07/23/17 History Baclofen 5 mg PO Q8H 07/23/17 07/23/17 History Betamethasone Dipropionate 1 applic TOPICAL DAILY 07/23/17 07/23/17 History [Diprolene AF 0.05% Cream] Carbidopa-Levodopa 25-100 mg 1 tab PO BID 07/23/17 07/23/17 History [Sinemet 25-100] Clotrimazole/Betamethasone Dip 1 applic TOPICAL DAILY 07/23/17 07/23/17 History [Lotrisone Cream] Gabapentin [Neurontin] 300 mg PO Q8H 07/23/17 07/23/17 History HYDROmorphone [Dilaudid] 2 mg PO DAILY 07/23/17 07/23/17 History Hydrocortisone [Anusol-Hc] 1 applic RECTAL Q12H PRN 07/23/17 07/23/17 History Melatonin 3 mg PO HS 07/23/17 07/23/17 History Morphine Sulfate ER [Ms Contin] 30 mg PO Q8H PRN 07/23/17 07/23/17 History Topiramate [Topamax] 50 mg PO BID 07/23/17 07/23/17 History clonazePAM [KlonoPIN] 0.5 mg PO Q6H PRN 07/23/17 07/23/17 History traZODone HCL [TraZODone HCl] 100 mg PO HS 07/23/17 07/23/17 History Allergies Allergy/AdvReac Type Severity Reaction Status Date / Time adhesive Allergy Severe Rash/Hives Verified 07/23/17 15:10 celecoxib [From Celebrex] Allergy Severe Vomiting Verified 07/23/17 15:10 citalopram hydrobromide Allergy Unknown Vomiting Verified 07/23/17 15:10 [From Celexa] ketorolac tromethamine Allergy Unknown Vomiting Verified 07/23/17 15:10 [From Toradol] latex Allergy Unknown Rash/Hives Verified 07/23/17 15:10 Phenothiazines Allergy Unknown Unknown Verified 07/23/17 15:10 aspirin Allergy Rash/Hives Verified 07/23/17 15:10 bee pollen [Bee Pollen] Allergy Rash/Hives Verified 07/23/17 15:10 metoclopramide Allergy Rash/Hives Verified 07/23/17 15:10 Penicillins Allergy Rash/Hives Verified 07/23/17 15:10 prochlorperazine edisylate Allergy Vomiting Verified 07/23/17 15:10 [From Compazine] prochlorperazine maleate Allergy Vomiting Verified 07/23/17 15:10 [From Compazine] rofecoxib [From Vioxx] Allergy Rash/Hives Verified 07/23/17 15:10 Salicylates Allergy Vomiting Verified 07/23/17 15:10 Physical Exam Vitals: Vital Signs Temp Pulse Pulse Resp BP BP Pulse Ox 07/24/17 07:00 97.6 F 89 16 110/62 97 07/23/17 23:31 97.7 F 89 16 136/69 100 07/23/17 19:12 99.2 F 85 17 141/65 99 07/23/17 18:25 83 17 117/56 99 07/23/17 15:10 98.5 F 83 17 141/63 100 Intake and Output 07/23/17 07/24/17 07/24/17 22:59 06:59 14:59 Other: Voiding Method Bedpan Bedpan # Voids 1 1 # Bowel Movements 1 Weight 80.739 kg GENERAL: This is a 62-year-old female in no apparent distress at the time of my examination. HEENT: Head is atraumatic, normocephalic. Pupils are equal, round. Sclerae anicteric. Conjunctivae are clear. Mucous membranes of the mouth are moist. Neck is supple. There is no jugular venous distention. No carotid bruit is heard. LUNGS: Clear to auscultation no wheezes, rales or rhonchi. No chest wall tenderness is noted on palpation or with deep breathing. HEART: Regular rate and rhythm without murmurs, rubs or gallops. S1 and S2 heard. ABDOMEN: Soft, nontender. Bowel sounds are heard. No organomegaly noted. EXTREMITIES: 2+ peripheral pulses with no evidence of peripheral edema and no calf tenderness noted. NEUROLOGIC: Patient is awake, alert and oriented x3. Results 07/24/17 09:33 07/24/17 09:57 Cardiac Enzymes 07/23/17 07/23/17 07/24/17 Range/Units 15:27 15:27 09:57 AST 99 H 66 H (14-36) U/L CK-MB (CK-2) 10.0 H* (0.0-2.4) ng/mL Troponin I <0.012 (0.000-0.034) ng/mL 07/24/17 Range/Units 09:57 AST (14-36) U/L CK-MB (CK-2) (0.0-2.4) ng/mL Troponin I <0.012 (0.000-0.034) ng/mL Coagulation 07/23/17 Range/Units 15:27 PT 11.7 (9.0-12.0) sec APTT 21.6 L (22.0-30.0) sec CBC 07/23/17 07/24/17 Range/Units 15:27 09:33 WBC 8.9 8.9 (3.8-10.6) k/uL RBC 4.14 3.81 (3.80-5.40) m/uL Hgb 11.2 L 10.2 L (11.4-16.0) gm/dL Hct 36.4 34.4 (34.0-46.0) % Plt Count 195 174 (150-450) k/uL Comprehensive Metabolic Panel 07/23/17 07/24/17 07/24/17 Range/Units 15:27 00:49 09:57 Sodium 140 139 (137-145) mmol/L Potassium 2.8 L* 5.4 H 3.5 (3.5-5.1) mmol/L Chloride 101 104 (98-107) mmol/L Carbon Dioxide 27 26 (22-30) mmol/L BUN 25 H 16 (7-17) mg/dL Creatinine 0.60 0.57 (0.52-1.04) mg/dL Glucose 133 H 107 H (74-99) mg/dL Calcium 8.5 8.2 L (8.4-10.2) mg/dL AST 99 H 66 H (14-36) U/L ALT 57 H 33 (9-52) U/L Alkaline Phosphatase 111 97 (38-126) U/L Total Protein 5.6 L 5.2 L (6.3-8.2) g/dL Albumin 2.9 L 2.5 L (3.5-5.0) g/dL Current Medications Generic Name Dose Route Start Last Admin Trade Name Freq PRN Reason Stop Dose Admin Apixaban 2.5 mg 07/24/17 21:00 Eliquis PO HS KELLEE Betamethasone/Clotrimazole 1 applic 07/24/17 09:00 07/24/17 08:32 Lotrisone TOPICAL 1 applic DAILY KELLEE Administration Carbidopa/Levodopa 1 each 07/23/17 21:00 07/24/17 08:32 Sinemet 25-100 PO 1 each BID KELLEE Administration Clonazepam 0.5 mg 07/23/17 21:36 07/24/17 08:35 Klonopin PO 0.5 mg Q6H PRN Administration Anxiety Divalproex Sodium 500 mg 07/23/17 22:00 07/24/17 08:32 Depakote PO 500 mg TID KELLEE Administration Famotidine 20 mg 07/24/17 09:00 07/24/17 08:33 Pepcid PO 20 mg DAILY KELLEE Administration Levothyroxine Sodium 50 mcg 07/24/17 06:30 07/24/17 06:49 Synthroid PO 50 mcg DAILY@0630 KELLEE Administration Morphine Sulfate 15 mg 07/24/17 10:31 Ms Contin PO Q8HR PRN Pain Nystatin 1 applic 07/23/17 21:00 07/24/17 08:34 Mycostatin Powder TOPICAL Not Given BID KELLEE Ondansetron HCl 4 mg 07/23/17 21:38 07/24/17 08:36 Zofran IVP 4 mg Q6HR PRN Administration Nausea And Vomiting Phenytoin Sodium 100 mg 07/23/17 22:00 07/24/17 08:34 Dilantin PO 100 mg TID KELLEE Administration Topiramate 50 mg 07/23/17 21:00 07/24/17 08:34 Topamax PO 50 mg BID KELLEE Administration Intake and Output 07/23/17 07/24/17 07/24/17 22:59 06:59 14:59 Other: Voiding Method Bedpan Bedpan # Voids 1 1 # Bowel Movements 1 Weight 80.739 kg 07/24/17 09:33 07/24/17 09:57 EKG Interpretations (text) EKG indicated normal sinus mechanism with ST and T wave abnormalities located in the inferior lateral leads. Assessment and Plan Plan: ASSESSMENT 1. Syncopal episode with EKG changes 2. Hypokalemia 3. Rhabdomyolysis PLAN Obtain 2D echo and doppler study to assess LV structure and function. Repeat EKG now that she is normokalemic. Obtain another troponin. Further recommendations will be based upon clinical course. Nurse Practitioner note has been reviewed, I agree with a documented findings and plan of care. Patient was seen and examined.
[2017-07-24] MEDS: MORPHINE SULFATE ER 15 MG TABLET PO PRN (17:02)
[2017-07-24] MEDS ORDERED: VALPROATE SODIUM 500 MG in SODIUM CHLORIDE 0.9% 50 ML IVPB STA (20:18)
[2017-07-24] MEDS: APIXABAN 2.5 MG TABLET PO SCH (20:27)
--- NOTE | 2017-07-24 21:27 | P.CONS ---
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, and patient was on chronic use of opioids secondary to low back pain, in the past patient had intrathecal pain pump placed and later on it was explanted because she had an infection at the pump site, and patient was treated as an outpatient with morphine MS Contin 30 mg every 8 hours, and Dilaudid 2 mg every 4 hours for breakthrough pain, patient was a long-term resident and she moved to a private apartment and she was treated by the visiting physician (he doesn't know his name ) and she was on chronic pain medication MS Contin 30 mg every 8 hours and Dilaudid 2 mg every 4 hours, she denies any side effect of the medication she denies any excessive drowsiness or sleepiness, patient reported that she slipped and fell at home, and she denies any loss of consciousness, but she was not able to ambulate, and she was admitted to [facility] with a diagnosis of hypokalemia and rhabdomyolysis, and dehydration, currently patient on MS Contin 15 mg every 8 hours patient reported the current regimen is helping her pain and she denies any side effect and he reported the current regimen is helping to control her pain Past Medical History Past Medical History: GERD/Reflux, Hearing Disorder / Deafness, Hypertension, Osteoarthritis (OA), Seizure Disorder Additional Past Medical History / Comment(s): SEIZURES CONTROLLED BY MEDICATION , (states last seizure was 7 years ago) open wound in left buttock from removal of intrathecal pump, multiple sclerosis Last Myocardial Infarction Date:: 2012 History of Any Multi-Drug Resistant Organisms: None Reported Past Surgical History: Appendectomy Additional Past Surgical History / Comment(s): 02/10/15 Pain pump insertion, 3/ gastrectomy due to ulcers, BOWEL obstruction with surgery (2003), left knee athroscopy, Past Anesthesia/Blood Transfusion Reactions: No Reported Reaction Past Psychological History: No Psychological Hx Reported Additional Psychological History / Comment(s): Pt currently resides at [facility]. She ambulates normally with a walker or sometimes uses a wheelchair. She needs some assistance with bathing and putting on her TEDs. She feeds anddresses herself. She is on a heart healthy diet. She has a R heel dressing for a R heel blister. Smoking Status: Never smoker Past Alcohol Use History: None Reported Past Drug Use History: None Reported - Past Family History Father Additional Family Medical History / Comment(s): With colon cancer Mother Additional Family Medical History / Comment(s): UNKNOWN Medications and Allergies Home Medications Medication Instructions Recorded Confirmed Type Ergocalciferol [Vitamin D2 50,000 units PO Q7D 06/15/14 07/23/17 History (DRISDOL)] Levothyroxine Sodium [Synthroid] 50 mcg PO DAILY 06/15/14 07/23/17 History Phenytoin Sodium Extended 100 mg PO TID 11/16/14 07/23/17 History [Dilantin] Famotidine [Pepcid] 20 mg PO DAILY 01/28/15 07/23/17 History Furosemide [Lasix] 40 mg PO DAILY 03/12/15 07/23/17 History Divalproex [Depakote] 500 mg PO TID 03/15/15 07/23/17 History Nystatin 100,000 Unit/gm Powd 1 applic TOPICAL BID applic 03/26/15 07/23/17 Rx [Mycostatin Powder] Apixaban [Eliquis] 2.5 mg PO HS 07/23/17 07/23/17 History Baclofen 5 mg PO Q8H 07/23/17 07/23/17 History Betamethasone Dipropionate 1 applic TOPICAL DAILY 07/23/17 07/23/17 History [Diprolene AF 0.05% Cream] Carbidopa-Levodopa 25-100 mg 1 tab PO BID 07/23/17 07/23/17 History [Sinemet 25-100] Clotrimazole/Betamethasone Dip 1 applic TOPICAL DAILY 07/23/17 07/23/17 History [Lotrisone Cream] Gabapentin [Neurontin] 300 mg PO Q8H 07/23/17 07/23/17 History HYDROmorphone [Dilaudid] 2 mg PO DAILY 07/23/17 07/23/17 History Hydrocortisone [Anusol-Hc] 1 applic RECTAL Q12H PRN 07/23/17 07/23/17 History Melatonin 3 mg PO HS 07/23/17 07/23/17 History Morphine Sulfate ER [Ms Contin] 30 mg PO Q8H PRN 07/23/17 07/23/17 History Topiramate [Topamax] 50 mg PO BID 07/23/17 07/23/17 History clonazePAM [KlonoPIN] 0.5 mg PO Q6H PRN 07/23/17 07/23/17 History traZODone HCL [TraZODone HCl] 100 mg PO HS 07/23/17 07/23/17 History Allergies Allergy/AdvReac Type Severity Reaction Status Date / Time adhesive Allergy Severe Rash/Hives Verified 07/23/17 15:10 celecoxib [From Celebrex] Allergy Severe Vomiting Verified 07/23/17 15:10 citalopram hydrobromide Allergy Unknown Vomiting Verified 07/23/17 15:10 [From Celexa] ketorolac tromethamine Allergy Unknown Vomiting Verified 07/23/17 15:10 [From Toradol] latex Allergy Unknown Rash/Hives Verified 07/23/17 15:10 Phenothiazines Allergy Unknown Unknown Verified 07/23/17 15:10 aspirin Allergy Rash/Hives Verified 07/23/17 15:10 bee pollen [Bee Pollen] Allergy Rash/Hives Verified 07/23/17 15:10 metoclopramide Allergy Rash/Hives Verified 07/23/17 15:10 Penicillins Allergy Rash/Hives Verified 07/23/17 15:10 prochlorperazine edisylate Allergy Vomiting Verified 07/23/17 15:10 [From Compazine] prochlorperazine maleate Allergy Vomiting Verified 07/23/17 15:10 [From Compazine] rofecoxib [From Vioxx] Allergy Rash/Hives Verified 07/23/17 15:10 Salicylates Allergy Vomiting Verified 07/23/17 15:10 Physical Exam Vitals: Vital Signs Temp Pulse Resp BP Pulse Ox 07/24/17 20:23 96 07/24/17 15:00 97.0 F L 79 16 104/58 100 07/24/17 07:00 97.6 F 89 16 110/62 97 07/23/17 23:31 97.7 F 89 16 136/69 100 Intake and Output 07/24/17 07/24/17 07/24/17 06:59 14:59 22:59 Intake Total 600 400 Balance 600 400 Intake: Oral 600 400 Other: Voiding Method Bedpan Bedpan # Voids 1 10 6 # Bowel Movements 1 Physical Examinations : 1-Constitutiona : Cooperative , not in acute distress . 2-HEENT : nech ; supple , no Lymphadenopathy , normal thyroid size . eyes : no ptosis , no icterus, no photophobia . ENT : normal of hearing , normal oropharynx , no Thrush . 3- Respiratory : Chest clear to auscultations Bilaterally , no wheezing , no Rhonchi . 4- Cardiovascular : regular rate and rhythem , S1 , S2 , no S3 , no S4. 5- Gastrointestinal : abdomen soft no tenderness , bowel sounds positive all four quadrents , no organomegally . 6- Genitourinary : Defferred . 7- neurologic : Cranial nerve II to XII intact , no focal neurological deffecit . 8-psychatric : alert , oriented X 3 , appropriate affect , intact judgment and insight . 9-Lymphatic : no Lymphadenopathy . 10- musculoskeltal : . , Lumber spine = moter stegnth lower extremities ,thigh and legs .4/ 5 deep tendon reflexes : normal Knee Jerk , normal ankle Jerk . positive lumber facet Loading Test strait leg raising test positive at 30 degree , RT ,LT , Fabere test positive RT and positive LT . Results CBC & Chem 7: 07/24/17 09:33 07/24/17 09:57 Labs: Abnormal Lab Results - Last 24 Hours (Table) 07/24/17 07/24/17 07/24/17 Range/Units 00:49 01:11 09:33 Hgb 10.2 L (11.4-16.0) gm/dL MCHC 29.8 L (31.0-37.0) g/dL Potassium 5.4 H (3.5-5.1) mmol/L Glucose (74-99) mg/dL Calcium (8.4-10.2) mg/dL Phosphorus (2.5-4.5) mg/dL AST (14-36) U/L Creatine Kinase (30-135) U/L Total Protein (6.3-8.2) g/dL Albumin (3.5-5.0) g/dL TSH (0.465-4.680) mIU/L Urine Ketones 3+ H (Negative) Ur Leukocyte Esterase Trace H (Negative) Urine Bacteria Moderate H (None) /hpf Urine Mucus Rare H (None) /hpf 07/24/17 Range/Units 09:57 Hgb (11.4-16.0) gm/dL MCHC (31.0-37.0) g/dL Potassium (3.5-5.1) mmol/L Glucose 107 H (74-99) mg/dL Calcium 8.2 L (8.4-10.2) mg/dL Phosphorus 2.2 L (2.5-4.5) mg/dL AST 66 H (14-36) U/L Creatine Kinase 2206 H (30-135) U/L Total Protein 5.2 L (6.3-8.2) g/dL Albumin 2.5 L (3.5-5.0) g/dL TSH <0.015 L (0.465-4.680) mIU/L Urine Ketones (Negative) Ur Leukocyte Esterase (Negative) Urine Bacteria (None) /hpf Urine Mucus (None) /hpf Microbiology - Last 24 Hours (Table) 07/23/17 17:52 Blood Culture - Preliminary Blood No Growth after 24 hours Assessment and Plan Plan: Assessment and plan= 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
[2017-07-25] MEDS: MORPHINE SULFATE ER 15 MG TABLET PO PRN ×3 (01:16→20:09)
[2017-07-25] MEDS: LEVOTHYROXINE 50 MCG TAB PO SCH (06:02)
[2017-07-25] MEDS: clonazePAM 0.5 MG TAB PO PRN ×3 (06:04→17:40)
--- NOTE | 2017-07-25 08:52 | CONS ---
CONSULTATION DATE OF CONSULTATION: 07/24/2017 CHIEF COMPLAINT: Rhabdomyolysis and history of seizures. HISTORY OF PRESENT ILLNESS: Mrs. Bedoya is a pleasant 62-year-old female who is being evaluated by the Neurology Service per the request of Dr. Roxanne Bell for the above-mentioned complaints. The patient resides in an unsupervised fpc. She states that she fell 4 days ago while trying to reach her pillow and was unable to get up. The patient remained on the floor for 4 days as she was unable to call for anyone for help. When the fpc otr owner operator truck driver visited her 4 days later, he found her on the floor. The patient had defecated and urinated on herself. The patient was transferred via EMS to [facility] Emergency Room. She does inform me that she did not lose consciousness and remembers the actual fall while she was reaching for her pillow. The patient usually ambulates using a walker. A CT scan of the brain was done, which showed generalized atrophy with no acute intracranial abnormalities. CT scan of the cervical spine showed no fractures. Her CBC was normal. Initially, her comprehensive metabolic profile showed hypokalemia at 2.8 but this has improved to 3.5. Her liver enzymes were slightly elevated on admission with an AST of 99 and an ALT of 57. These have all improved to 66 and 33 respectively. Her CPK was 4911 on arrival. She was diagnosed with acute rhabdomyolysis and IV hydration was started. The patient was admitted for further workup and management. The patient states that she does have history of seizure disorder and has been on Depakote, Dilantin, and Topamax for a long time. Her last seizure was over 2 years ago. Her serum Depakote level on admission was found to be subtherapeutic at 29. The patient has not had any of her medications due to the above-mentioned fall. At the time of my evaluation, she is lying in her bed and appears to be in no acute distress. She has not had any seizure-like activity since her admission. PAST MEDICAL HISTORY: Seizure disorder, gastroesophageal reflux disease, hypertension, arthritis, history of multiple sclerosis, history of appendectomy, history of pain pump implantation with later explantation. SOCIAL HISTORY: She denies any tobacco, alcohol or drug use. FAMILY HISTORY: Positive for cancer. HOME MEDICATIONS: Reviewed in the chart. ALLERGIES: ADHESIVE TAPE, CELEBREX, TORADOL, LATEX, PHENOTHIAZINE, ASPIRIN, REGLAN, PENICILLIN, COMPAZINE, VIOXX, SALICYLATES. REVIEW OF SYSTEMS: CONSTITUTIONAL: Positive for fatigue. EYES: Negative. ENT: Negative. CARDIOVASCULAR: Negative. RESPIRATORY: Negative. NEUROLOGICAL: As mentioned above. GASTROINTESTINAL: Positive for occasional heartburn. GENITOURINARY: Negative. MUSCULOSKELETAL: Positive for occasional joint pain and low back pain. PSYCHIATRIC: Negative. ENDOCRINE: Negative. DERMATOLOGICAL: Negative. PHYSICAL EXAM: Vital signs show a temperature 97.0, pulse 79, respirations 16, blood pressure 104/58. GENERAL APPEARANCE: The patient is a well-developed, elderly female who appears to be in no acute distress. HEENT: Normocephalic, atraumatic, no facial asymmetry is seen. NECK: Supple with no masses felt. CARDIOVASCULAR: Regular rate and rhythm. ABDOMEN: Nontender nondistended. EXTREMITIES: Trace edema with no clubbing seen. NEUROLOGICAL EXAM: The patient is alert, aware and oriented x3. Speech and language are normal. Strength is 4/5 in bilateral lower extremity and 5- out of 5 in bilateral upper extremities. Sensory exam was normal to light touch in all 4 extremities. No facial asymmetry seen on cranial nerve testing. Postural tremors are noticed in bilateral upper extremities, right more than left. No seizure-like activity is seen. IMPRESSION: 1. Acute rhabdomyolysis. 2. Recent fall. 3. Seizure disorder. 4. Subtherapeutic antiepileptic medication levels. RECOMMENDATION: The patient did have a fall and she was unable to get up or call for help as mentioned above. She did develop acute rhabdomyolysis secondary to this. Continue IV hydration as tolerated and continue monitoring her renal function. Her CPK has improved. I will consult Physical Therapy to evaluate and treat. Her serum Depakote level was subtherapeutic on admission due to her not taking any pills for 4 days as mentioned above. I will add an IV dose of 500 mg of Depakote. Her home dose has been restarted. A serum Dilantin level is pending. If this comes back subtherapeutic, I will give her a loading dose of IV Dilantin. Continue Topamax at the home dose. An EEG has been ordered. Continue neuro checks. I will continue to follow with you. Further recommendations to follow. Thank you for allowing me to participate in the care of your patient. If you have any questions, please feel free to contact me. MMNAML / IJN: [id number] /
[2017-07-25 09:28] LABS: CH 26.6; CHCM 29.2; HCT 36.7 % (34.0-46.0); HDW 2.77; HGB 11.1 gm/dL (11.4-16.0); Hypochromasia Marked; MCH 27.6 pg (25.0-35.0); MCHC 30.2 g/dL (31.0-37.0); MCV 91.5 fL (80.0-100.0); RBC 4.01 m/uL (3.80-5.40); RDW 14.6 % (11.5-15.5); WBC 9.4 k/uL (3.8-10.6)
[2017-07-25 10:16] LABS: Anion Gap 8 mmol/L; Blood Urea Nitrogen 9 mg/dL (7-17); Calcium 8.9 mg/dL (8.4-10.2); Carbon Dioxide 25 mmol/L (22-30); Chloride 104 mmol/L (98-107); Creatine Kinase 593 U/L (30-135); Glucose 157 mg/dL (74-99); Magnesium 1.9 mg/dL (1.6-2.3); Non-African American GFR(MDRD) >60 (>60 ml/min/1.73 sqM); Phosphorus 1.8 mg/dL (2.5-4.5); Potassium 3.5 mmol/L (3.5-5.1); Sodium 137 mmol/L (137-145)
--- NOTE | 2017-07-25 10:16 | ECHOF ---
Referral Reason:dizziness MEASUREMENTS -------- HEIGHT: 175.3 cm WEIGHT: 80.7 kg BP: 110/62 IVSd: 1.2 cm (0.6 - 1.1) LVIDd: 3.5 cm (3.9 - 5.3) LVPWd: 1.1 cm (0.6 - 1.1) IVSs: 1.5 cm LVIDs: 2.2 cm LVPWs: 1.4 cm LA Diam: 2.6 cm (2.7 - 3.8) Ao Diam: 3.6 cm (2.0 - 3.7) AV Cusp: 1.5 cm (1.5 - 2.6) LA Diam: 2.4 cm (2.7 - 3.8) MV EXCURSION: 16.095 mm (> 18.000) MV EF SLOPE: 77 mm/s (70 - 150) EPSS: 0.5 cm RAP: 5.00 mmHg RVSP: 15.28 mmHg FINDINGS -------- Sinus rhythm. This was a technically adequate study. Test terminated after parasternals due to patient request (pain). The left ventricular size is normal. There is mild concentric left ventricular hypertrophy. Overall left ventricular systolic function is normal with, an EF between 60 - 65 %. The RV was not well visualized. The left atrial size is normal. The right atrium was not well visualized. Aortic valve is trileaflet and is mildly thickened. There is no evidence of aortic regurgitation. There is no evidence of aortic stenosis. The mitral valve leaflets are mildly thickened. Mild tricuspid regurgitation present. Right ventricular systolic pressure is normal at < 35 mmHg. There is no evidence of pulmonary hypertension. The pulmonic valve was not well visualized. The aortic root size is normal. The pericardium is normal. There is no pericardial effusion. CONCLUSIONS -------- 1. Sinus rhythm. 2. The mitral valve leaflets are mildly thickened. 3. Mild tricuspid regurgitation present. 4. Right ventricular systolic pressure is normal at < 35 mmHg. 5. There is no evidence of pulmonary hypertension. 6. The pulmonic valve was not well visualized. 7. The aortic root size is normal. 8. There is no pericardial effusion. 9. This was a technically adequate study. 10. Test terminated after parasternals due to patient request (pain). 11. The left ventricular size is normal. 12. There is mild concentric left ventricular hypertrophy. 13. Overall left ventricular systolic function is normal with, an EF between 60 - 65 %. 14. The RV was not well visualized. 15. The right atrium was not well visualized. 16. Aortic valve is trileaflet and is mildly thickened. SEWER: Stefan Trevino RDCS
[2017-07-25] MEDS: PHENYTOIN SODIUM EXTENDED 100 MG CAP PO SCH ×3 (11:49→21:16)
[2017-07-25] MEDS: TOPIRAMATE 25 MG TAB PO SCH ×2 (11:49→21:16)
[2017-07-25] MEDS: CARBIDOPA-LEVODOPA 25-100 MG 1 EACH TAB PO SCH ×2 (11:49→21:16)
[2017-07-25] MEDS: CLOTRIMAZOLE/BETAMETH 1-0.05% CREAM 45 GM TUBE TOPICAL SCH (11:49)
[2017-07-25] MEDS: DIVALPROEX 500 MG TABLET.DR PO SCH ×3 (11:55→21:16)
[2017-07-25] MEDS: FAMOTIDINE 20 MG TAB PO SCH (11:56)
[2017-07-25] MEDS: NYSTATIN 100,000 UNIT/GM POWD 15 GM TOPICAL SCH ×2 (11:56→21:17)
[2017-07-25] MEDS: ONDANSETRON 4 MG/2 ML VIAL IVP PRN ×2 (15:18→21:20)
--- NOTE | 2017-07-25 19:01 | P.PN ---
Subjective Principal diagnosis: fall and weakness with rhabdomyolysis 62 year old the female with history of multiple DVTs in the past, seizure disorder on Depakote, Dilantin, and Topamax. The Patient presented to the hospital after found down on the floor at intermediate she claims to have fell 4 days prior secondary to slipping while using her walker. Since then she could not take any of her medications eat or drink or move around due to pain and weakness in her lower extremities. Today she denies any nausea or vomiting, tolerating diet, she is able to move her lower extremities today denies any pain however c/o severe pain in her back. Denies any fevers or chills denies any dysuria or hematuria. Patient still complaining of pain over her left elbow however she is able to move her left upper extremity with no limitations. Objective - Vital Signs Vital signs: Vital Signs Temp 97.7 F 07/25/17 14:18 Pulse 87 07/25/17 14:18 Resp 16 07/25/17 14:18 BP 114/52 07/25/17 14:18 Pulse Ox 96 07/25/17 14:18 Intake & Output 07/24/17 07/25/17 07/25/17 18:59 06:59 18:59 Intake Total 1000 472 Balance 1000 472 Intake: Oral 1000 472 Other: Voiding Method Bedpan Bedpan # Voids 6 3 3 # Bowel Movements 0 - Constitutional General appearance: Present: cooperative, no acute distress - EENT Eyes: Present: anicteric sclerae, EOMI, PERRLA ENT: Present: hearing grossly normal, NA/AT, normal oropharynx Ears: bilateral: normal - Neck Neck: Present: normal ROM. Absent: lymphadenopathy, other, rigidity, stridor, thyromegaly Thyroid: negative: normal size, enlarged, firm, nodule - Respiratory Respiratory: bilateral: CTA, negative: diminished, dullness, rales, rhonchi, wheezing - Cardiovascular Rhythm: regular Heart sounds: normal: S1, S2 Abnormal Heart Sounds: Absent: systolic murmur, diastolic murmur, rub, S3 Gallop , S4 Gallop, click, other - Gastrointestinal General gastrointestinal: Present: normal bowel sounds, scaphoid, soft. Absent : absent bowel sounds, decreased bowel sounds, distended, hepatomegaly, hyperactive bowel sounds, organomegaly, rigid, splenomegaly, tenderness, umbilical hernia, ventral hernia - Integumentary Integumentary: Absent: calor, cellulitis, cyanotic, decreased turgor, flushed, jaundiced, normal, normal turgor, pale, rash, ulcer - Neurologic Neurologic: Present: CNII-XII intact, focal deficits - Musculoskeletal Musculoskeletal: Present: strength equal bilaterally - Psychiatric Psychiatric: Present: A&O x's 3, appropriate affect - Labs CBC & Chem 7: 07/25/17 08:48 07/25/17 08:48 Labs: Abnormal Lab Results - Last 24 Hours (Table) 07/24/17 07/25/17 07/25/17 Range/Units 09:33 08:48 08:48 Hgb 11.1 L (11.4-16.0) gm/dL MCHC 30.2 L (31.0-37.0) g/dL Glucose 157 H (74-99) mg/dL Phosphorus 1.8 L (2.5-4.5) mg/dL Creatine Kinase 593 H (30-135) U/L Vitamin D 25-Hydroxy 26.7 L (30.0-100.0) ng/mL Microbiology - Last 24 Hours (Table) 07/23/17 17:52 Blood Culture - Preliminary Blood No Growth after 24 hours [id number] Assessment and Plan (1) DVT prophylaxis Narrative/Plan: immobility as a high risk Status: Acute (2) Dehydration Narrative/Plan: continue iv hydration Status: Acute (3) Fall Narrative/Plan: fell down . no LOC Status: Acute (4) History of seizures Narrative/Plan: stable , not active subtherapeutic levels Neurology consult appreciated Loading with iv depakoate and dilantin EEG was ordered Status: Chronic (5) Rhabdomyolysis Narrative/Plan: continue iv hydration monitor renal fx , still wnl Status: Acute (6) Weakness Narrative/Plan: need evaluation by PT ?? need for inpatient rehab Status: Acute (7) Hypokalemia Narrative/Plan: corrected Status: Resolved Plan: Neuro and PT evaluation and decide about discharge ? need for inpatient rehabilitation Time with Patient: Less than 30
--- NOTE | 2017-07-25 20:42 | EEG ---
ELECTROENCEPHALOGRAM REPORT DATE OF SERVICE: 07/25/2017. REASON FOR TESTING: Seizures. CURRENT ANTI-EPILEPTIC MEDICATIONS: 1. Depakote and. 2. Dilantin. DESCRIPTION OF THE PROCEDURE: This EEG was performed using a 21-channel digital electroencephalograph, following international 10-20 system. DESCRIPTION OF THE RECORDING: From the beginning of the tracing, and with patient's eyes closed, the background rhythm was mostly consisting of 8 hertz alpha frequency in the posterior occipital leads. No obvious asymmetry is seen. Photic stimulation was performed with no driving response seen. No pathological waves were elicited. Hyperventilation was not performed. Occasional dysregulation is seen. Occasional muscle and movement artifacts are noticed. Hyperventilation was not performed. The patient remains awake throughout the tracing. Her EKG lead showed a regular rate and rhythm. INTERPRETATION: This awake EEG showed rare dysregulation which could be consistent with a reduced seizure threshold. No obvious epileptiform discharges were seen. Clinical correlation is recommended. MARCO / KAILEY: [id number] /
[2017-07-25] MEDS: APIXABAN 2.5 MG TABLET PO SCH (21:16)
[2017-07-26] MEDS: clonazePAM 0.5 MG TAB PO PRN ×2 (04:13→16:07)
[2017-07-26] MEDS: ONDANSETRON 4 MG/2 ML VIAL IVP PRN (04:13)
[2017-07-26] MEDS: LEVOTHYROXINE 50 MCG TAB PO SCH (06:09)
[2017-07-26] MEDS: MORPHINE SULFATE ER 15 MG TABLET PO PRN ×2 (08:40→17:07)
[2017-07-26] MEDS: TOPIRAMATE 25 MG TAB PO SCH ×2 (08:40→21:45)
[2017-07-26] MEDS: CLOTRIMAZOLE/BETAMETH 1-0.05% CREAM 45 GM TUBE TOPICAL SCH (08:41)
[2017-07-26] MEDS: CARBIDOPA-LEVODOPA 25-100 MG 1 EACH TAB PO SCH ×2 (08:41→21:45)
[2017-07-26] MEDS: PHENYTOIN SODIUM EXTENDED 100 MG CAP PO SCH ×3 (08:41→21:46)
[2017-07-26] MEDS: FAMOTIDINE 20 MG TAB PO SCH (08:41)
[2017-07-26] MEDS: DIVALPROEX 500 MG TABLET.DR PO SCH ×3 (08:41→21:46)
[2017-07-26] MEDS: NYSTATIN 100,000 UNIT/GM POWD 15 GM TOPICAL SCH ×2 (08:42→21:46)
[2017-07-26 10:19] LABS: Anion Gap 8 mmol/L; Blood Urea Nitrogen 5 mg/dL (7-17); Calcium 9.2 mg/dL (8.4-10.2); Carbon Dioxide 23 mmol/L (22-30); Chloride 110 mmol/L (98-107); Creatine Kinase 221 U/L (30-135); Glucose 145 mg/dL (74-99); Non-African American GFR(MDRD) >60 (>60 ml/min/1.73 sqM); Potassium 4.3 mmol/L (3.5-5.1); Sodium 141 mmol/L (137-145)
--- NOTE | 2017-07-26 12:55 | P.PN ---
Progress Note - Text Patient interviewed and examined. Doing well. No chest discomfort at this time. Suggest add a statin to current regimen PC full dictation by nurse practitioner please call us as needed
--- NOTE | 2017-07-26 13:54 | P.PN ---
Subjective This is a 62-year-old female we are seeing today in follow-up from initial consultation. She is seen today sitting up in bed eating lunch. She is alert and oriented. She is in no acute distress. She denies chest pain, shortness of breath, dizziness, palpitations, nausea or vomiting. Echocardiogram was obtained and revealed mild left ventricular hypertrophy with preserved LV function and ejection fraction of 60-65%. Troponin are negative. Objective - Vital Signs Vital signs: Vital Signs Temp 97.1 F L 07/26/17 07:55 Pulse 92 07/26/17 07:55 Resp 18 07/26/17 07:55 BP 143/80 07/26/17 07:55 Pulse Ox 95 07/26/17 07:55 Intake & Output 07/25/17 07/26/17 07/26/17 18:59 06:59 18:59 Intake Total 472 600 120 Balance 472 600 120 Intake: Oral 472 600 120 Other: Voiding Method Bedpan # Voids 3 1 1 # Bowel Movements 0 0 - Exam GENERAL: Well-appearing, well-nourished and in no acute distress. NECK: Supple without JVD or thyromegaly. LUNGS: Breath sounds clear to auscultation bilaterally. Respiration equal and unlabored. No wheezes, rales or rhonchi. HEART: Regular rate and rhythm without murmurs, rubs or gallops. S1 and S2 heard. EXTREMITIES: Normal range of motion, no edema. No clubbing or cyanosis. Peripheral pulses intact and strong. - Labs CBC & Chem 7: 07/25/17 08:48 07/26/17 09:11 Labs: Abnormal Lab Results - Last 24 Hours (Table) 07/26/17 Range/Units 09:11 Chloride 110 H (98-107) mmol/L BUN 5 L (7-17) mg/dL Glucose 145 H (74-99) mg/dL Creatine Kinase 221 H (30-135) U/L Microbiology - Last 24 Hours (Table) 07/23/17 17:52 Blood Culture - Preliminary Blood No Growth after 48 hours Assessment and Plan Plan: ASSESSMENT 1. Syncopal episode with EKG changes 2. Hypokalemia 3. Rhabdomyolysis PLAN Add pravachol to daily regimen. We will continue to see the patient on an as needed basis. Nurse Practitioner note has been reviewed, I agree with a documented findings and plan of care. Patient was seen and examined.
--- NOTE | 2017-07-26 17:40 | P.PN ---
Subjective Principal diagnosis: Patient is a pleasant 62-year-old female who is being followed by the neurology service for rhabdomyolysis, history of seizures, history of MS. Patient lives in an unsupervised mcc. Patient experienced a fall at home and was unable to get up. Patient states she was on the floor at home for approximately 4 days. Patient was found by caregiver of the mcc. Patient was transferred to [facility] emergency room for further evaluation. Patient denies loss of consciousness. As patient's history of MS, she ambulates with a walker in the home setting. Computed tomography scan of the brain was done which showed generalized atrophy with no acute intracranial abnormalities. Computed tomography scan of the cervical spine showed no fractures. Patient was diagnosed with acute rhabdomyolysis and IV hydration was initiated. Patient does report a long history of seizure disorder. Patient reports last seizure was approximately 3 years ago. Patient states she is on disease modifying agent for her MS but cannot remember what it is. She does see Dr. Cat in the outpatient setting. Patient serum Depakote level was subtherapeutic on admission. She was given an IV bolus dose of Depakote. Patient's Depakote level and Dilantin level were done today. No seizure activities been reported. At the time of my evaluation, patient is resting comfortably in bed and appears to be in no acute distress. 07/26/2017 Patient is a pleasant 62-year-old female who is being followed by the neurology service for history of seizures. Patient resides in an unsupervised mcc. Patient is awake alert and conversant. No seizure activity was reported. At the time of my evaluation, patient is resting complain bed and appears to be in no acute distress. Objective - Vital Signs Vital signs: Vital Signs Temp 97.9 F 07/26/17 15:00 Pulse 84 07/26/17 15:00 Resp 20 07/26/17 15:00 BP 130/75 07/26/17 15:00 Pulse Ox 98 07/26/17 15:00 Intake & Output 07/25/17 07/26/17 07/26/17 18:59 06:59 18:59 Intake Total 472 600 240 Balance 472 600 240 Intake: Oral 472 600 240 Other: Voiding Method Bedpan Bedpan # Voids 3 1 1 # Bowel Movements 0 0 - Exam PHYSICAL EXAM: GENERAL APPEARANCE: Patient is a well-developed, female who appears to be in no acute distress. HEENT: Normocephalic, atraumatic, no facial asymmetry is seen. Neck is supple with no masses felt. CARDIOVASCULAR: Regular rate and rhythm. ABDOMEN: Nontender, nondistended. EXTREMITIES: Show no edema or clubbing. NEUROLOGICAL EXAM: Patient is awake, alert, and oriented 3. Speech and language are normal. No facial asymmetry is seen on cranial nerve testing. Strength is 4+/5 in bilateral lower extremities and 5 minus/5 in bilateral upper extremities. Sensory exam to light touch is decreased in bilateral lower extremities. Mild postural tremors are noted in bilateral upper extremities. No seizure-like activity is noted. - Labs CBC & Chem 7: 07/25/17 08:48 07/26/17 09:11 Labs: Abnormal Lab Results - Last 24 Hours (Table) 07/26/17 Range/Units 09:11 Chloride 110 H (98-107) mmol/L BUN 5 L (7-17) mg/dL Glucose 145 H (74-99) mg/dL Creatine Kinase 221 H (30-135) U/L Microbiology - Last 24 Hours (Table) 07/23/17 17:52 Blood Culture - Preliminary Blood No Growth after 48 hours Assessment and Plan Plan: Impression: 1. Acute rhabdomyolysis 2. History of multiple sclerosis 3. History of seizures 4. Subtherapeutic antiepileptic medication levels 5. Recent fall Recommendation: As mentioned above, patient did have a fall at home and was unable to get up. Patient was found lying on the floor by caregiver. She did develop acute rhabdomyolysis secondary to this. She is currently receiving IV hydration. Physical therapy has been consulted. Her serum Depakote level and Dilantin level were done yesterday. No seizure activitie has been reported. Continue Dilantin, Depakote, and Topamax at the current dose. EEG been done and shows low seizure threshold. Patient has not had any seizures therefore I will continue her at her current dosing. Continue neurological checks. Continue seizure precautions. I will continue to follow with you on an as- needed basis. Feel free to call with any questions or concerns. I performed an examination of the patient and discussed the management with the PROCUREMENT CLERK. I have reviewed the PROCUREMENT CLERK notes and agree with the findings and plan of care.
--- NOTE | 2017-07-26 19:38 | P.PN ---
Subjective Principal diagnosis: fall and weakness with rhabdomyolysis 62 year old the female with history of multiple DVTs in the past, seizure disorder on Depakote, Dilantin, and Topamax. The Patient presented to the hospital after found down on the floor at halfway she claims to have fell 4 days prior secondary to slipping while using her walker. Since then she could not take any of her medications eat or drink or move around due to pain and weakness in her lower extremities. Today she denies any nausea or vomiting, tolerating diet, she is able to move her lower extremities today denies any pain however c/o severe pain in her back. Denies any fevers or chills denies any dysuria or hematuria. Patient still complaining of pain over her left elbow however she is able to move her left upper extremity with no limitations. more allert today no fever/nausea/vomiting no syncope the patient is planned to be discharged to extended care facility in a.m. Objective - Vital Signs Vital signs: Vital Signs Temp 97.9 F 07/26/17 15:00 Pulse 84 07/26/17 15:00 Resp 20 07/26/17 15:00 BP 130/75 07/26/17 15:00 Pulse Ox 98 07/26/17 15:00 Intake & Output 07/26/17 07/26/17 07/27/17 06:59 18:59 06:59 Intake Total 600 240 Balance 600 240 Intake: Oral 600 240 Other: Voiding Method Bedpan Bedpan # Voids 1 1 # Bowel Movements 0 - Constitutional General appearance: Present: cooperative, no acute distress - EENT Eyes: Present: anicteric sclerae, EOMI, PERRLA ENT: Present: NA/AT, normal oropharynx Ears: bilateral: normal - Neck Carotids: bilateral: upstroke normal, bruit absent Thyroid: negative: normal size, enlarged, firm, nodule - Respiratory Respiratory: bilateral: CTA, negative: diminished, dullness, rales, rhonchi, wheezing, prolonged expiration - Cardiovascular Rhythm: regular Heart sounds: normal: S1, S2 Abnormal Heart Sounds: Absent: systolic murmur, diastolic murmur, rub, S3 Gallop , S4 Gallop, click, other - Gastrointestinal General gastrointestinal: Absent: absent bowel sounds, decreased bowel sounds, distended, hepatomegaly, hyperactive bowel sounds, normal bowel sounds, organomegaly, rigid, scaphoid, soft, splenomegaly, tenderness, umbilical hernia , ventral hernia - Integumentary Integumentary: Absent: calor, cellulitis, cyanotic, decreased turgor, flushed, jaundiced, normal, normal turgor, pale, rash, ulcer - Neurologic Neurologic: Present: CNII-XII intact. Absent: focal deficits - Musculoskeletal Musculoskeletal: Present: gait normal, strength equal bilaterally. Absent: generalized weakness, right sided weakness, left sided weakness - Psychiatric Psychiatric: Present: appropriate affect. Absent: A&O x's 3, intact judgment & insight - Labs CBC & Chem 7: 07/25/17 08:48 07/26/17 09:11 Labs: Abnormal Lab Results - Last 24 Hours (Table) 07/26/17 Range/Units 09:11 Chloride 110 H (98-107) mmol/L BUN 5 L (7-17) mg/dL Glucose 145 H (74-99) mg/dL Creatine Kinase 221 H (30-135) U/L Microbiology - Last 24 Hours (Table) 07/23/17 17:52 Blood Culture - Preliminary Blood No Growth after 48 hours Assessment and Plan (1) DVT prophylaxis Narrative/Plan: immobility as a high risk Status: Acute (2) Dehydration Narrative/Plan: Corrected Encourage oral fluids and pleuritic Status: Acute (3) Fall Narrative/Plan: fell down . no LOC Status: Acute (4) History of seizures Narrative/Plan: stable , not active subtherapeutic levels Neurology consult appreciated Loading with iv depakoate and dilantin EEG ; negative Status: Chronic (5) Rhabdomyolysis Narrative/Plan: Normalized CK down to 221 continue iv hydration renal fx , still wnl Status: Acute (6) Weakness Narrative/Plan: need evaluation by PT ?? need for inpatient rehab Status: Acute (7) Hypokalemia Narrative/Plan: corrected Status: Resolved Plan: Neuro and PT evaluation and decide about discharge ? need for inpatient rehabilitation Plan for extended care facility admission in the a.m.
[2017-07-26 20:21] LABS: CH 26.9; CHCM 29.6; HDW 2.77; HGB 11.6 gm/dL (11.4-16.0); Hypochromasia Marked; MCH 27.9 pg (25.0-35.0); MCHC 30.5 g/dL (31.0-37.0); MCV 91.4 fL (80.0-100.0); Mean Platelet Volume 7.9; RBC 4.16 m/uL (3.80-5.40); RDW 14.9 % (11.5-15.5)
[2017-07-26] MEDS: APIXABAN 2.5 MG TABLET PO SCH (21:45)
[2017-07-26] MEDS: PRAVASTATIN SODIUM 20 MG TAB PO SCH (21:46)
[2017-07-27] MEDS: MORPHINE SULFATE ER 15 MG TABLET PO PRN ×3 (01:02→17:52)
[2017-07-27] MEDS: clonazePAM 0.5 MG TAB PO PRN (01:07)
[2017-07-27] MEDS: ONDANSETRON 4 MG/2 ML VIAL IVP PRN ×3 (01:17→21:13)
[2017-07-27] MEDS: LEVOTHYROXINE 50 MCG TAB PO SCH (06:11)
[2017-07-27] MEDS: FAMOTIDINE 20 MG TAB PO SCH (08:10)
[2017-07-27] MEDS: CARBIDOPA-LEVODOPA 25-100 MG 1 EACH TAB PO SCH ×2 (08:10→21:48)
[2017-07-27] MEDS: TOPIRAMATE 25 MG TAB PO SCH ×2 (08:10→21:48)
[2017-07-27] MEDS: PHENYTOIN SODIUM EXTENDED 100 MG CAP PO SCH ×3 (08:10→21:49)
[2017-07-27] MEDS: DIVALPROEX 500 MG TABLET.DR PO SCH ×3 (08:11→21:49)
[2017-07-27] MEDS: CLOTRIMAZOLE/BETAMETH 1-0.05% CREAM 45 GM TUBE TOPICAL SCH (08:11)
[2017-07-27] MEDS: NYSTATIN 100,000 UNIT/GM POWD 15 GM TOPICAL SCH ×2 (08:11→21:50)
[2017-07-27 09:22] LABS: Basophils % (A) 0 %; CH 26.5; CHCM 28.5; Eosinophils # (A) 0.3 k/uL (0-0.7); Eosinophils % (A) 4 %; HCT 39.8 % (34.0-46.0); HDW 2.74; HGB 11.4 gm/dL (11.4-16.0); Hypochromasia Marked; Luc # (Auto) 0.12; Luc % (Auto) 2; Lymphocytes # (A) 1.8 k/uL (1.0-4.8); Lymphocytes % (A) 26 %; MCH 26.8 pg (25.0-35.0); MCHC 28.6 g/dL (31.0-37.0); MCV 93.6 fL (80.0-100.0); Monocytes # (A) 0.5 k/uL (0-1.0); Monocytes % (A) 7 %; Neutrophils # (A) 4.2 k/uL (1.3-7.7); Neutrophils % (A) 61 %; RBC 4.25 m/uL (3.80-5.40); WBC (Perox) 7.14
[2017-07-27 09:46] LABS: Anion Gap 8 mmol/L; Blood Urea Nitrogen 5 mg/dL (7-17); Carbon Dioxide 18 mmol/L (22-30); Chloride 113 mmol/L (98-107); Glucose 134 mg/dL (74-99); Non-African American GFR(MDRD) >60 (>60 ml/min/1.73 sqM); Potassium 3.7 mmol/L (3.5-5.1); Sodium 139 mmol/L (137-145)
--- NOTE | 2017-07-27 18:17 | P.PN ---
Subjective Principal diagnosis: fall Patient is a 62-year-old female with a history of seizure disorders, HTN, and chronic low back pain who presented after a fall from home. She was [facility] floor for approximately 4 days. In the ER she underwent an extensive evaluation. She was found to have rhabdo, dehydration, and Ngoc intertrigo. She was seen by neurology for possible syncopal episode. They did not feel this is related to seizure recommended continuing her current medications. She was seen by cardiology and underwent an echocardiogram which was essentially normal. Her telemetry has been normal. Cardiology does not recommend any further testing. She was also seen by pain management for complaints of her chronic back pain. Her guardian has requested usp placement on discharge. Patient seen and examined at bedside. She states that her pain is slightly better controlled. She denies any chest pain, syncopal episodes, or shortness of breath. She states that she is having bowel movements. She has no other complaints currently but does not want to go to usp facility. Objective - Vital Signs Vital signs: Vital Signs Temp 97.0 F L 07/27/17 14:42 Pulse 86 07/27/17 14:42 Resp 16 07/27/17 14:42 BP 117/73 07/27/17 14:42 Pulse Ox 97 07/27/17 14:42 Intake & Output 07/26/17 07/27/17 07/27/17 18:59 06:59 18:59 Intake Total 240 1200 720 Balance 240 1200 720 Intake: Oral 240 1200 720 Other: Voiding Method Bedpan Bedpan Bedpan # Voids 1 4 1 # Bowel Movements 0 0 - Exam General: non toxic, no distress, appears at stated age Derm: no rashes, no lesions Head: atraumatic, normocephalic, symmetric Eyes: EOMI, no lid lag, anicteric sclera ENT: no post nasal drip, no thrush Mouth: no lip lesion, mucus membranes moist Cardiovascular: S1S2 reg, no murmur, positive posterior tibial pulse bilateral, Lungs: CTA bilateral, no rhonchi, no rales , no accessory muscle use Abdominal: soft, nontender to palpation, no guarding, no appreciable organomegaly Ext: no gross muscle atrophy, Trace edema, no contractures Neuro: CN II-XI grossly intact, no focal neuro deficits Psych: Alert, oriented, flat affect, decreased comprehension - Labs CBC & Chem 7: 07/27/17 08:57 07/27/17 08:57 Labs: Abnormal Lab Results - Last 24 Hours (Table) 07/26/17 07/27/17 07/27/17 Range/Units 19:23 08:57 08:57 MCHC 30.5 L 28.6 L (31.0-37.0) g/dL Chloride 113 H (98-107) mmol/L Carbon Dioxide 18 L (22-30) mmol/L BUN 5 L (7-17) mg/dL Glucose 134 H (74-99) mg/dL Microbiology - Last 24 Hours (Table) 07/23/17 17:52 Blood Culture - Preliminary Blood No Growth after 72 hours Assessment and Plan Plan: #Mechanical fall -PT/OT recommendations -B12 normal, TSH depressed but T4 normal, valproic acid level normal -[facility] facility at discharge #Hyperchloremic metabolic acidosis -Likely secondary to normal saline -Should [place] that off saline and drinking. #Ngoc intertrigo -Continue with nystatin powder #Chronic pain -Pain management recommendations continue MS Contin 15 mg every 8 hours # History of seizures -Neurology recommendations appreciated -Valproic acid level within normal limits -EEG with low seizure threshold -Per neurology continue medications at current dose. #History of multiple DVTs -Continue Eliquis #Rhabdomyolysis, resolved #Toxic metabolic encephalopathy, resolved # Dehydration, resolved # Hypokalemia, resolved # normocytic anemia, resolved DVT prophylaxis: Eliquis Discussed with: Patient, RN. Social work Anticipated discharge: [address]: SNF A total of 30 minutes was spent on the care of this complex patient more than 50 % of the time was spent in counseling and care coordination.
[2017-07-27] MEDS: PRAVASTATIN SODIUM 20 MG TAB PO SCH (21:48)
[2017-07-27] MEDS: APIXABAN 2.5 MG TABLET PO SCH (21:48)
[2017-07-28] MEDS: clonazePAM 0.5 MG TAB PO PRN (03:47)
[2017-07-28] MEDS: MORPHINE SULFATE ER 15 MG TABLET PO PRN ×2 (03:50→17:21)
[2017-07-28] MEDS: LEVOTHYROXINE 50 MCG TAB PO SCH (06:07)
[2017-07-28] MEDS: ONDANSETRON 4 MG/2 ML VIAL IVP PRN ×2 (08:30→16:13)
[2017-07-28] MEDS: CARBIDOPA-LEVODOPA 25-100 MG 1 EACH TAB PO SCH ×2 (09:16→22:31)
[2017-07-28] MEDS: NYSTATIN 100,000 UNIT/GM POWD 15 GM TOPICAL SCH ×2 (09:17→22:31)
[2017-07-28] MEDS: CLOTRIMAZOLE/BETAMETH 1-0.05% CREAM 45 GM TUBE TOPICAL SCH (09:17)
[2017-07-28] MEDS: TOPIRAMATE 25 MG TAB PO SCH ×2 (09:17→22:31)
[2017-07-28] MEDS: DIVALPROEX 500 MG TABLET.DR PO SCH ×3 (09:17→22:31)
[2017-07-28] MEDS: FAMOTIDINE 20 MG TAB PO SCH (09:17)
[2017-07-28] MEDS: PHENYTOIN SODIUM EXTENDED 100 MG CAP PO SCH ×3 (09:17→22:31)
[2017-07-28] MEDS ORDERED: MORPHINE SULFATE ER 15 MG TABLET PO PRN (14:15)
--- NOTE | 2017-07-28 15:02 | P.PN ---
Subjective Principal diagnosis: Rhabdomyolysis Patient has improved significantly urinating without difficulty and tolerating diet and had bowel movement. Patient reporting right lower extremity tightness and said that she never had the symptoms before on physical examination vital extremity seems to be normal without tenderness, swelling or erythema pulses are positive bilaterally. Patient is requesting her morphine to be increased as she takes 30 mg 3 times a day at home and at the hospital she's getting only 15 3 times a day. Objective - Vital Signs Vital signs: Vital Signs Temp 98.2 F 07/28/17 07:00 Pulse 84 07/28/17 07:00 Resp 20 07/28/17 07:00 BP 123/73 07/28/17 07:00 Pulse Ox 100 07/28/17 07:00 Intake & Output 07/27/17 07/28/17 07/28/17 18:59 06:59 18:59 Intake Total 720 Balance 720 Intake: Oral 720 Other: Voiding Method Bedpan # Voids 1 4 2 # Bowel Movements 0 - Constitutional General appearance: Present: no acute distress - Respiratory Respiratory: bilateral: CTA - Cardiovascular Heart sounds: normal: S1, S2 - Gastrointestinal General gastrointestinal: Present: normal bowel sounds, soft - Neurologic Neurologic: Present: CNII-XII intact (positive for tremor) - Psychiatric Psychiatric: Present: A&O x's 3 - Labs CBC & Chem 7: 07/27/17 08:57 07/27/17 08:57 Labs: Microbiology - Last 24 Hours (Table) 07/23/17 17:52 Blood Culture - Preliminary Blood No Growth after 96 hours Assessment and Plan Plan: 1. Right lower extremity pain. I would like to order venous Doppler to rule out any DVT follow-up on test results. 2. Chronic pain syndrome and morphine dependent at home. I would like to increase morphine to 15 mg every 6 hours and avoid going back to her home dose as it could be the reason for her becoming confused. Appropriate counseling was provided to the patient. 3. Parkinson disease. Patient with mild tremor. I would like to continue home regimen. 4. Severe debility and conditioning. Patient still requiring 2 person assistance and transportation and moving out of bed. I would like to continue with PT OT consider discharging patient to rehab facility once bed available. Patient is from alf for his refusing to take the patient while she is dependent. 5. Anemia. Continue monitoring. 6. Rhabdomyolysis, resolved 7. Toxic metabolic encephalopathy, resolved 8. Dehydration, resolved
--- NOTE | 2017-07-28 16:20 | US ---
EXAMINATION TYPE: US venous doppler duplex LE RT DATE OF EXAM: 07/28/2017 2:53 PM COMPARISON: NONE CLINICAL HISTORY: r/o DVT. History of DVT right leg, patient on blood thinner SIDE PERFORMED: right TECHNIQUE: The lower extremity deep venous system is examined utilizing real time linear array sonog viky with graded compression, doppler sonography and color-flow sonography. VESSELS IMAGED: External Iliac Vein (EIV) Common Femoral Vein Deep Femoral Vein Greater Saphenous Vein * Femoral Vein Popliteal Vein Small Saphenous Vein * Proximal Calf Veins (* superficial vessels) Right Leg: Non occluding thrombus noted right popliteal vein mid through distal, appears chronic, in complete compressions with thready flow. Limitations, patient unable to tolerate compressions at groi n or lower femoral vein IMPRESSION: 1. Deep venous thrombosis right popliteal vein extending to the distal femoral vein. This appears to have incomplete obstruction.
[2017-07-28] MEDS ORDERED: APIXABAN 5 MG TAB PO SCH (21:00)
[2017-07-28] MEDS: PRAVASTATIN SODIUM 20 MG TAB PO SCH (22:31)
[2017-07-29] MEDS: ONDANSETRON 4 MG TAB PO PRN ×2 (03:00→17:46)
[2017-07-29] MEDS: MORPHINE SULFATE ER 15 MG TABLET PO PRN ×2 (03:50→16:24)
[2017-07-29] MEDS: LEVOTHYROXINE 50 MCG TAB PO SCH (06:34)
[2017-07-29] MEDS: CARBIDOPA-LEVODOPA 25-100 MG 1 EACH TAB PO SCH ×2 (08:55→21:00)
[2017-07-29] MEDS: PHENYTOIN SODIUM EXTENDED 100 MG CAP PO SCH ×3 (08:55→21:01)
[2017-07-29] MEDS: FAMOTIDINE 20 MG TAB PO SCH (08:55)
[2017-07-29] MEDS: APIXABAN 2.5 MG TABLET PO SCH ×2 (08:55→21:00)
[2017-07-29] MEDS: CLOTRIMAZOLE/BETAMETH 1-0.05% CREAM 45 GM TUBE TOPICAL SCH (08:55)
[2017-07-29] MEDS: NYSTATIN 100,000 UNIT/GM POWD 15 GM TOPICAL SCH ×2 (08:55→21:01)
[2017-07-29] MEDS: TOPIRAMATE 25 MG TAB PO SCH ×2 (08:55→21:00)
[2017-07-29] MEDS: DIVALPROEX 500 MG TABLET.DR PO SCH ×3 (08:55→21:01)
--- NOTE | 2017-07-29 10:39 | P.PN ---
Subjective Principal diagnosis: Rhabdomyolisis No new complaints. Denies SOB, CP, any focal pain. Tolerates diet well. Objective - Vital Signs Vital signs: Vital Signs Temp 97.0 F L 07/29/17 07:00 Pulse 82 07/29/17 07:00 Resp 20 07/29/17 07:00 BP 122/66 07/29/17 07:00 Pulse Ox 99 07/29/17 07:00 Intake & Output 07/28/17 07/29/17 07/29/17 18:59 06:59 18:59 Intake Total 120 Balance 120 Intake: Oral 120 Other: # Voids 2 2 - Constitutional General appearance: Present: cooperative, no acute distress - EENT Eyes: Present: EOMI, PERRLA. Absent: scleral icterus - Neck Neck: Present: normal ROM. Absent: lymphadenopathy - Respiratory Respiratory: bilateral: CTA - Cardiovascular Rhythm: regular Heart sounds: normal: S1, S2 - Gastrointestinal General gastrointestinal: Present: normal bowel sounds, soft. Absent: organomegaly, tenderness - Integumentary Integumentary: Present: pale - Neurologic Neurologic: Present: CNII-XII intact. Absent: focal deficits (trace LE edema, sensitivity to prinprick preserved. no joint swelling or tenderness) - Labs CBC & Chem 7: 07/27/17 08:57 07/27/17 08:57 Labs: Microbiology - Last 24 Hours (Table) 07/23/17 17:52 Blood Culture - Preliminary Blood No Growth after 120 hours Assessment and Plan Plan: 1. Rhabdomyolisis resolved 2. Acute debility PT/OT will encurage to sitt up in the chair TID with meals 3. Chronic RLE nonoclusiv venous thrombus She is already on ELiquis 4. Parkinson disease cont home meds 5. hypothyroid Levothyroxine 6. Mild acidemia on BMP recheck in am Pt is pending discharge to SNF Time with Patient: Greater than 30
[2017-07-29] MEDS: PRAVASTATIN SODIUM 20 MG TAB PO SCH (21:00)
[2017-07-30] MEDS: MORPHINE SULFATE ER 15 MG TABLET PO PRN ×2 (01:23→09:55)
[2017-07-30] MEDS: ONDANSETRON 4 MG TAB PO PRN (01:24)
[2017-07-30] MEDS: clonazePAM 0.5 MG TAB PO PRN ×2 (01:27→09:55)
[2017-07-30] MEDS: LEVOTHYROXINE 50 MCG TAB PO SCH (06:38)
[2017-07-30 07:16] VITALS: PULSE 85
[2017-07-30 08:27] LABS: Anion Gap 7 mmol/L; Blood Urea Nitrogen 8 mg/dL (7-17); Carbon Dioxide 18 mmol/L (22-30); Chloride 113 mmol/L (98-107); Glucose 99 mg/dL (74-99); Non-African American GFR(MDRD) >60 (>60 ml/min/1.73 sqM); Sodium 138 mmol/L (137-145)
[2017-07-30 08:41] LABS: Potassium 4.6 mmol/L (3.5-5.1)
[2017-07-30] MEDS: FAMOTIDINE 20 MG TAB PO SCH (09:55)
[2017-07-30] MEDS: PHENYTOIN SODIUM EXTENDED 100 MG CAP PO SCH ×2 (09:55→16:08)
[2017-07-30] MEDS: TOPIRAMATE 25 MG TAB PO SCH (09:57)
[2017-07-30] MEDS: APIXABAN 2.5 MG TABLET PO SCH (09:57)
[2017-07-30] MEDS: CARBIDOPA-LEVODOPA 25-100 MG 1 EACH TAB PO SCH (09:58)
[2017-07-30] MEDS: DIVALPROEX 500 MG TABLET.DR PO SCH ×2 (09:58→16:08)
[2017-07-30] MEDS: NYSTATIN 100,000 UNIT/GM POWD 15 GM TOPICAL SCH (09:59)
[2017-07-30] MEDS: CLOTRIMAZOLE/BETAMETH 1-0.05% CREAM 45 GM TUBE TOPICAL SCH (09:59)
[2017-07-30 14:16] VITALS: BP 114/61; RESP 18; TEMP 97
[2017-07-30 15:38] VITALS: BMI 26.2
--- NOTE | 2017-07-30 15:58 | P.DS ---
Providers Date of admission: 07/23/17 17:00 Expected date of discharge: 07/30/17 Attending physician: Roxanne Bell DO Consults: 07/23/17 19:20 Consult Physician Routine Consulting Provider: Mimi Chen Consult Reason/Comments: history of seizures Do you want consulting provider notified?: Yes 07/24/17 10:15 Consult Physician Routine Consulting Provider: Willie Guadarrama Consult Reason/Comments: pain management Do you want consulting provider notified?: Yes Primary care physician: Roc Clements MD Hospital Course: This is a 62-year-old female that was admitted to our facility with: 1. Acute metabolic encephalopathy secondary to rhabdomyolysis from fall: This patient was found down for about 4 days in her home. The patient apparently had a fall was found to be confused had complained of generalized body aches and was brought to the emergency room. She apparently had been using her walker when she slipped and fell. She was admitted with metabolic encephalopathy due to her acute rhabdomyolysis. The patient had an extensive work up including an echocardiogram that showed a preserved ejection fraction with no significant valvular disease and LVH. Cardiology saw patient formally in consultation and recommended adding statin to her home regimen, and ongoing optimal blood pressure control. The patient was also seen by neurology due to history of seizure in past with subtherapeutic levels of her antiepileptic medications. She had EEG that showed lower seizure threshold but no acute seizure activity. The patient's extensive home medication lists was modified with multiple medications stopped due to her encephalopathy. Her mentation improved and neurology recommended to continue her home anti epileptic medications at same dose as she had no evidence of seizures. 2. Right Lower extremity DVT: Patient has history of DVT in past, had right lower extremity edema. Doppler done on 07/28/2017 showed DVT. Patient's Eliquis dose was increased to 5 mg BID. She will need lifelong anticoagulation The patient is currently stable medically but needs ongoing rehab on discharge. She had no other acute medical issues and on 07/30/2017 was deemed to be subjectively and objectively stable for discharge to SNF for ongoing PT/OT. We appreciate the opportunity to have participated in your patient's care. If you have any questions please feel free to page, [facility]. Total time spent in discharge coordination of care was greater than 30 minutes, this excludes dictation time. Pertinent Studies: 1. Echocardiogram done on 07/24/2017: Preserved ejection fraction, no significant valvular heart disease, LVH 2. EEG done on 07/25/2017: Decreased seizure threshold, no acute seizure activity 3. Right lower extremity doppler 07/28/2017: DVT Procedures: No invasive procedures Plan - Discharge Summary New Discharge Prescriptions: New Apixaban [Eliquis] 5 mg PO BID tab Morphine Sulfate ER [Ms Contin] 15 mg PO Q8HR PRN #20 tab PRN Reason: Pain Pravastatin Sodium [Pravachol] 20 mg PO HS tab Continue Ergocalciferol [Vitamin D2 (DRISDOL)] 50,000 units PO Q7D Levothyroxine Sodium [Synthroid] 50 mcg PO DAILY Phenytoin Sodium Extended [Dilantin] 100 mg PO TID Famotidine [Pepcid] 20 mg PO DAILY Divalproex [Depakote] 500 mg PO TID Nystatin 100,000 Unit/gm Powd [Mycostatin Powder] 1 applic TOPICAL BID applic clonazePAM [KlonoPIN] 0.5 mg PO Q6H PRN PRN Reason: Anxiety Gabapentin [Neurontin] 300 mg PO Q8H Carbidopa-Levodopa 25-100 mg [Sinemet 25-100 mg] 1 tab PO BID Hydrocortisone [Anusol-Hc] 1 applic RECTAL Q12H PRN PRN Reason: REDNESS/ITCHING/SWELLING Topiramate [Topamax] 50 mg PO BID Furosemide [Lasix] 40 mg PO DAILY #0 HYDROmorphone [Dilaudid] 2 mg PO DAILY #20 Discontinued Baclofen 5 mg PO Q8H Morphine Sulfate ER [Ms Contin] 30 mg PO Q8H PRN PRN Reason: Pain Apixaban [Eliquis] 2.5 mg PO HS Betamethasone Dipropionate [Diprolene AF 0.05% Cream] 1 applic TOPICAL DAILY Clotrimazole/Betamethasone Dip [Lotrisone Cream] 1 applic TOPICAL DAILY Melatonin 3 mg PO HS traZODone HCL [TraZODone HCl] 100 mg PO HS Discharge Medication List Ergocalciferol [Vitamin D2 (DRISDOL)] 50,000 units PO Q7D 06/15/14 [History] Levothyroxine Sodium [Synthroid] 50 mcg PO DAILY 06/15/14 [History] Phenytoin Sodium Extended [Dilantin] 100 mg PO TID 11/16/14 [History] Famotidine [Pepcid] 20 mg PO DAILY 01/28/15 [History] Divalproex [Depakote] 500 mg PO TID 03/15/15 [History] Nystatin 100,000 Unit/gm Powd [Mycostatin Powder] 1 applic TOPICAL BID applic 03/26/15 [Rx] Carbidopa-Levodopa 25-100 mg [Sinemet 25-100 mg] 1 tab PO BID 07/23/17 [History] Gabapentin [Neurontin] 300 mg PO Q8H 07/23/17 [History] Hydrocortisone [Anusol-Hc] 1 applic RECTAL Q12H PRN 07/23/17 [History] Topiramate [Topamax] 50 mg PO BID 07/23/17 [History] clonazePAM [KlonoPIN] 0.5 mg PO Q6H PRN 07/23/17 [History] Apixaban [Eliquis] 5 mg PO BID tab 07/30/17 [Rx] HYDROmorphone [Dilaudid] 2 mg PO DAILY #20 07/30/17 [Rx] Morphine Sulfate ER [Ms Contin] 15 mg PO Q8HR PRN #20 tab 07/30/17 [Rx] Furosemide [Lasix] 40 mg PO DAILY #0 08/06/17 [Rx] Pravastatin Sodium [Pravachol] 20 mg PO HS tab 08/06/17 [Rx] Follow up Appointment(s)/Referral(s): Roc Clements MD [Primary Care Provider] - 3 Days Mimi Chen MD [STAFF PHYSICIAN] - 1 Week Discharge Disposition: TRANSFER TO SNF/ECF
[2017-07-30] MEDS ORDERED: APIXABAN 5 MG TAB PO SCH (21:00)
== END 2017-07-30 16:30 | DRG 557 ==
LOC: EC 15:02 → EEVIPCON 15:02 → 4MS4W 17:00
PROVIDERS: ADMIT Internal Medicine; ATTEND Internal Medicine
DX: M62.82 Rhabdomyolysis (principal); G93.41 Metabolic encephalopathy; E87.2 Acidosis; E87.8 Other disorders of electrolyte and fluid balance, not elsewhere classified; G20 Parkinson's disease; B37.2 Candidiasis of skin and nail; D64.9 Anemia, unspecified; I10 Essential (primary) hypertension; E86.0 Dehydration; G40.909 Epilepsy, unspecified, not intractable, without status epilepticus; W01.0XXA Fall on same level from slipping, tripping and stumbling without subsequent striking against object, initial encounter; E87.6 Hypokalemia; G35 Multiple sclerosis; K21.9 Gastro-esophageal reflux disease without esophagitis; M19.90 Unspecified osteoarthritis, unspecified site; M54.5 Low back pain; E87.5 Hyperkalemia; R55 Syncope and collapse; G89.4 Chronic pain syndrome; H91.90 Unspecified hearing loss, unspecified ear; Z88.0 Allergy status to penicillin; Z90.3 Acquired absence of stomach [part of]; Z88.8 Allergy status to other drugs, medicaments and biological substances; Z88.6 Allergy status to analgesic agent; Z91.040 Latex allergy status; Z79.899 Other long term (current) drug therapy; Z79.891 Long term (current) use of opiate analgesic; Z79.01 Long term (current) use of anticoagulants; Z80.0 Family history of malignant neoplasm of digestive organs; Z86.718 Personal history of other venous thrombosis and embolism; Z90.49 Acquired absence of other specified parts of digestive tract; I25.2 Old myocardial infarction; Y92.009 Unspecified place in unspecified non-institutional (private) residence as the place of occurrence of the external cause
CPT/HCPCS: 36415; 70450; 71010; 72125; 72170; 80048; 80053; 80164; 80186; 81001; 82306; 82550; 82553; 82607; 83605; 83735; 84100; 84132; 84439; 84443; 84484; 85025; 85027; 85610; 85730; 87040; 93005; 93306; 94760; 95816; 95819; 96361; 96365; 96366; 96374; 96375; 99285

== ENCOUNTER 2017-09-29 16:50 | Emergency (ER) | payer MEDICARE ==
[2017-09-29] MEDS ORDERED: SODIUM CHLORIDE 0.9% 500 ML IV STA (16:54)
[2017-09-29 16:57] VITALS: TEMP 97.6
--- NOTE | 2017-09-29 16:58 | ED ---
Overdose HPI - General Stated Complaint: Possible Overdose Time Seen by Provider: 09/29/17 16:50 Source: patient, EMS, RN notes reviewed, old records reviewed Mode of arrival: EMS - History of Present Illness Initial Comments: This is a 62-year-old female history of CVA seizures hypothyroidism heart failure and anemia chronic back pain who apparently has had increased back pain over last several days a caregiver found that she had 6 morphine 15 mg tablets missing patient does admit to taking and does not know when and how many she has he took. She was sent in for evaluation she denies suicidal thoughts or ideation. She denies any fevers chills nausea vomiting sweats. She is awake and alert but confused to date and time. MD Complaint: accidental overdose - Related Data Home Medications Medication Instructions Recorded Confirmed Ergocalciferol [Vitamin D2 50,000 units PO TH 06/15/14 09/29/17 (DRISDOL)] Levothyroxine Sodium [Synthroid] 50 mcg PO DAILY 06/15/14 09/29/17 Phenytoin Sodium Extended 100 mg PO TID 11/16/14 09/29/17 [Dilantin] Famotidine [Pepcid] 20 mg PO DAILY 01/28/15 09/29/17 Divalproex [Depakote] 500 mg PO TID 03/15/15 09/29/17 Carbidopa-Levodopa 25-100 mg 1 tab PO BID 07/23/17 09/29/17 [Sinemet 25-100 mg] Gabapentin [Neurontin] 300 mg PO Q8H 07/23/17 09/29/17 Hydrocortisone [Anusol-Hc] 1 applic RECTAL Q12H PRN 07/23/17 09/29/17 Topiramate [Topamax] 50 mg PO BID 07/23/17 09/29/17 Loratadine [Claritin] 10 mg PO DAILY 09/29/17 09/29/17 Melatonin 3 mg PO HS 09/29/17 09/29/17 Previous Rx's Medication Instructions Recorded Nystatin 100,000 Unit/gm Powd 1 applic TOPICAL BID applic 03/26/15 [Mycostatin Powder] Apixaban [Eliquis] 5 mg PO BID tab 07/30/17 Morphine Sulfate ER [Ms Contin] 15 mg PO Q8HR PRN #20 tab 07/30/17 Pravastatin Sodium [Pravachol] 20 mg PO HS tab 08/06/17 Allergies Allergy/AdvReac Type Severity Reaction Status Date / Time adhesive Allergy Severe Rash/Hives Verified 09/29/17 18:23 celecoxib [From Celebrex] Allergy Severe Vomiting Verified 09/29/17 18:23 citalopram hydrobromide Allergy Unknown Vomiting Verified 09/29/17 18:23 [From Celexa] ketorolac tromethamine Allergy Unknown Vomiting Verified 09/29/17 18:23 [From Toradol] latex Allergy Unknown Rash/Hives Verified 09/29/17 18:23 Phenothiazines Allergy Unknown Unknown Verified 09/29/17 18:23 aspirin Allergy Rash/Hives Verified 09/29/17 18:23 bee pollen [Bee Pollen] Allergy Rash/Hives Verified 09/29/17 18:23 metoclopramide Allergy Rash/Hives Verified 09/29/17 18:23 Penicillins Allergy Rash/Hives Verified 09/29/17 18:23 prochlorperazine edisylate Allergy Vomiting Verified 09/29/17 18:23 [From Compazine] prochlorperazine maleate Allergy Vomiting Verified 09/29/17 18:23 [From Compazine] rofecoxib [From Vioxx] Allergy Rash/Hives Verified 09/29/17 18:23 Salicylates Allergy Vomiting Verified 09/29/17 18:23 Review of Systems ROS Statement: Those systems with pertinent positive or pertinent negative responses have been documented in the HPI. ROS Other: All systems not noted in ROS Statement are negative. Limitations: ROS unobtainable due to patients medical condition Past Medical History Past Medical History: GERD/Reflux, Hearing Disorder / Deafness, Hypertension, Osteoarthritis (OA), Seizure Disorder Additional Past Medical History / Comment(s): SEIZURES CONTROLLED BY MEDICATION , (states last seizure was 7 years ago) open wound in left buttock from removal of intrathecal pump, multiple sclerosis Last Myocardial Infarction Date:: 2012 History of Any Multi-Drug Resistant Organisms: None Reported Past Surgical History: Appendectomy Additional Past Surgical History / Comment(s): 02/10/15 Pain pump insertion, 3/ gastrectomy due to ulcers, BOWEL obstruction with surgery (2003), left knee athroscopy, Past Anesthesia/Blood Transfusion Reactions: No Reported Reaction Past Psychological History: No Psychological Hx Reported Additional Psychological History / Comment(s): Pt currently resides at [facility]. She ambulates normally with a walker or sometimes uses a wheelchair. She needs some assistance with bathing and putting on her TEDs. She feeds anddresses herself. She is on a heart healthy diet. She has a R heel dressing for a R heel blister. Smoking Status: Never smoker Past Alcohol Use History: None Reported Past Drug Use History: None Reported - Past Family History Father Additional Family Medical History / Comment(s): With colon cancer Mother Additional Family Medical History / Comment(s): UNKNOWN General Exam - General Exam Comments Initial Comments: This is a well-developed well-nourished awake alert but confused female who was loading answer questions. Limitations: altered mental status General appearance: lethargic Head exam: Present: atraumatic, normocephalic, normal inspection Eye exam: Present: normal appearance, PERRL, EOMI. Absent: scleral icterus, conjunctival injection, periorbital swelling ENT exam: Present: mucous membranes dry Neck exam: Present: normal inspection. Absent: tenderness, meningismus, lymphadenopathy Respiratory exam: Present: normal lung sounds bilaterally. Absent: respiratory distress, wheezes, rales, rhonchi, stridor Cardiovascular Exam: Present: regular rate, normal rhythm, normal heart sounds. Absent: systolic murmur, diastolic murmur, rubs, gallop, clicks GI/Abdominal exam: Present: soft, normal bowel sounds. Absent: distended, tenderness, guarding, rebound, rigid Rectal exam: Present: deferred Extremities exam: Present: full ROM, normal capillary refill, other (Stasis dermatitis in both lower extremities.). Absent: tenderness, pedal edema, joint swelling, calf tenderness Back exam: Present: normal inspection Neurological exam: Present: alert, oriented X3, CN II-XII intact Psychiatric exam: Present: normal affect, normal mood Skin exam: Present: warm, dry, intact. Absent: rash Course Vital Signs 09/29/17 09/29/17 16:54 19:28 Temperature 97.6 F Pulse Rate 47 L 79 Respiratory 14 16 Rate Blood Pressure 104/57 100/55 O2 Sat by Pulse 92 L 99 Oximetry Medical Decision Making - Medical Decision Making I did reevaluate the patient multiple occasions she is awake alert oriented in no distress no further workup was indicated this time patient will be discharged she does have anemia she is very similar to what she's been in the past. - Lab Data Result diagrams: 09/29/17 18:07 09/29/17 18:07 Lab Results 09/29/17 09/29/17 09/29/17 Range/Units 18:07 18:07 18:07 WBC 5.1 (3.8-10.6) k/uL RBC 3.54 L (3.80-5.40) m/uL Hgb 9.4 L D (11.4-16.0) gm/dL Hct 32.0 L (34.0-46.0) % MCV 90.2 (80.0-100.0) fL MCH 26.5 (25.0-35.0) pg MCHC 29.4 L (31.0-37.0) g/dL RDW 16.3 H (11.5-15.5) % Plt Count 195 (150-450) k/uL Neutrophils % 57 % Lymphocytes % 28 % Monocytes % 11 % Eosinophils % 2 % Basophils % 1 % Neutrophils # 2.9 (1.3-7.7) k/uL Lymphocytes # 1.4 (1.0-4.8) k/uL Monocytes # 0.5 (0-1.0) k/uL Eosinophils # 0.1 (0-0.7) k/uL Basophils # 0.0 (0-0.2) k/uL Hypochromasia Marked Anisocytosis Slight PT (9.0-12.0) sec INR (<1.2) Sodium 140 (137-145) mmol/L Potassium 4.7 (3.5-5.1) mmol/L Chloride 113 H (98-107) mmol/L Carbon Dioxide 20 L (22-30) mmol/L Anion Gap 7 mmol/L BUN 11 (7-17) mg/dL Creatinine 0.59 (0.52-1.04) mg/dL Est GFR (MDRD) Af Amer >60 (>60 ml/min/1.73 sqM) Est GFR (MDRD) Non-Af >60 (>60 ml/min/1.73 sqM) Glucose 85 (74-99) mg/dL Calcium 8.7 (8.4-10.2) mg/dL Total Bilirubin 0.3 (0.2-1.3) mg/dL AST 16 (14-36) U/L ALT 21 (9-52) U/L Alkaline Phosphatase 106 (38-126) U/L Total Creatine Kinase 44 (30-135) U/L CK-MB (CK-2) 1.0 (0.0-2.4) ng/mL CK-MB (CK-2) Rel Index 2.3 Troponin I <0.012 (0.000-0.034) ng/mL Total Protein 5.8 L (6.3-8.2) g/dL Albumin 2.8 L (3.5-5.0) g/dL Amylase 39 (30-110) U/L Lipase 17 L (23-300) U/L TSH 0.158 L (0.465-4.680) mIU/L Salicylates <1.0 mg/dL Urine Opiates Screen (NotDetected) Ur Oxycodone Screen (NotDetected) Urine Methadone Screen (NotDetected) Ur Propoxyphene Screen (NotDetected) Acetaminophen <10.0 ug/mL Ur Barbiturates Screen (NotDetected) Valproic Acid ug/mL U Tricyclic Antidepress (NotDetected) Ur Phencyclidine Scrn (NotDetected) Ur Amphetamines Screen (NotDetected) U Methamphetamines Scrn (NotDetected) U Benzodiazepines Scrn (NotDetected) Urine Cocaine Screen (NotDetected) U Marijuana (THC) Screen (NotDetected) Serum Alcohol <10 mg/dL 09/29/17 09/29/17 09/29/17 Range/Units 18:07 18:07 18:30 WBC (3.8-10.6) k/uL RBC (3.80-5.40) m/uL Hgb (11.4-16.0) gm/dL Hct (34.0-46.0) % MCV (80.0-100.0) fL MCH (25.0-35.0) pg MCHC (31.0-37.0) g/dL RDW (11.5-15.5) % Plt Count (150-450) k/uL Neutrophils % % Lymphocytes % % Monocytes % % Eosinophils % % Basophils % % Neutrophils # (1.3-7.7) k/uL Lymphocytes # (1.0-4.8) k/uL Monocytes # (0-1.0) k/uL Eosinophils # (0-0.7) k/uL Basophils # (0-0.2) k/uL Hypochromasia Anisocytosis PT 10.7 (9.0-12.0) sec INR 1.1 (<1.2) Sodium (137-145) mmol/L Potassium (3.5-5.1) mmol/L Chloride (98-107) mmol/L Carbon Dioxide (22-30) mmol/L Anion Gap mmol/L BUN (7-17) mg/dL Creatinine (0.52-1.04) mg/dL Est GFR (MDRD) Af Amer (>60 ml/min/1.73 sqM) Est GFR (MDRD) Non-Af (>60 ml/min/1.73 sqM) Glucose (74-99) mg/dL Calcium (8.4-10.2) mg/dL Total Bilirubin (0.2-1.3) mg/dL AST (14-36) U/L ALT (9-52) U/L Alkaline Phosphatase (38-126) U/L Total Creatine Kinase (30-135) U/L CK-MB (CK-2) (0.0-2.4) ng/mL CK-MB (CK-2) Rel Index Troponin I (0.000-0.034) ng/mL Total Protein (6.3-8.2) g/dL Albumin (3.5-5.0) g/dL Amylase (30-110) U/L Lipase (23-300) U/L TSH (0.465-4.680) mIU/L Salicylates mg/dL Urine Opiates Screen Detected H (NotDetected) Ur Oxycodone Screen Not Detected (NotDetected) Urine Methadone Screen Not Detected (NotDetected) Ur Propoxyphene Screen Not Detected (NotDetected) Acetaminophen ug/mL Ur Barbiturates Screen Detected H (NotDetected) Valproic Acid 49.6 ug/mL U Tricyclic Antidepress Not Detected (NotDetected) Ur Phencyclidine Scrn Not Detected (NotDetected) Ur Amphetamines Screen Not Detected (NotDetected) U Methamphetamines Scrn Not Detected (NotDetected) U Benzodiazepines Scrn Not Detected (NotDetected) Urine Cocaine Screen Not Detected (NotDetected) U Marijuana (THC) Screen Not Detected (NotDetected) Serum Alcohol mg/dL - EKG Data -: EKG Interpreted by Me EKG shows normal: sinus rhythm (EKG shows a sinus rhythm 83. Interval 156 QRS 74 QT since QTC of 374/[address]-T wave configuration.) - Radiology Data Radiology results: report reviewed (Imaging shows no acute findings), image reviewed Disposition Clinical Impression: Accidental drug ingestion Disposition: HOME SELF-CARE Condition: Good Instructions: Opioid Overdose (ED), Adult Overdose (ED) Referrals: Roc Clements MD [Primary Care Provider] - 1-2 days
[2017-09-29 18:25] LABS: Anisocytosis Slight; Basophils % (A) 1 %; CH 26.1; CHCM 29.1; Eosinophils # (A) 0.1 k/uL (0-0.7); Eosinophils % (A) 2 %; HDW 2.89; Hypochromasia Marked; Luc # (Auto) 0.09; Luc % (Auto) 2; Lymphocytes # (A) 1.4 k/uL (1.0-4.8); Lymphocytes % (A) 28 %; MCH 26.5 pg (25.0-35.0); MCHC 29.4 g/dL (31.0-37.0); MCV 90.2 fL (80.0-100.0); Mean Platelet Volume 8.1; Monocytes # (A) 0.5 k/uL (0-1.0); Monocytes % (A) 11 %; Neutrophils # (A) 2.9 k/uL (1.3-7.7); Neutrophils % (A) 57 %; RBC 3.54 m/uL (3.80-5.40); RDW 16.3 % (11.5-15.5); WBC 5.1 k/uL (3.8-10.6); WBC (Perox) 5.29
[2017-09-29 18:36] LABS: HGB 9.4 gm/dL (11.4-16.0)
[2017-09-29 18:40] LABS: INR 1.1 (<1.2); Prothrombin Time 10.7 sec (9.0-12.0)
--- NOTE | 2017-09-29 18:40 | XR ---
EXAMINATION TYPE: XR chest 2V DATE OF EXAM: 09/29/2017 COMPARISON: 07/23/2017 HISTORY: Cough TECHNIQUE: AP and lateral views of the chest are obtained. FINDINGS: EKG leads noted. There is no focal air space opacity, pleural effusion, or pneumothorax see n. The cardiac silhouette size is within normal limits. The osseous structures are intact. IMPRESSION: No acute cardiopulmonary process.
[2017-09-29 18:44] LABS: ALT 21 U/L (9-52); AST 16 U/L (14-36); Acetaminophen <10.0 ug/mL; Alcohol <10 mg/dL; Alkaline Phosphatase 106 U/L (38-126); Amylase 39 U/L (30-110); Anion Gap 7 mmol/L; Blood Urea Nitrogen 11 mg/dL (7-17); Calcium 8.7 mg/dL (8.4-10.2); Carbon Dioxide 20 mmol/L (22-30); Chloride 113 mmol/L (98-107); Glucose 85 mg/dL (74-99); Non-African American GFR(MDRD) >60 (>60 ml/min/1.73 sqM); Potassium 4.7 mmol/L (3.5-5.1); Salicylate <1.0 mg/dL; Sodium 140 mmol/L (137-145); Total Bilirubin 0.3 mg/dL (0.2-1.3); Total Protein 5.8 g/dL (6.3-8.2)
[2017-09-29 18:46] LABS: Creatine Kinase 44 U/L (30-135)
[2017-09-29 18:59] LABS: Troponin I <0.012 ng/mL (0.000-0.034)
[2017-09-29 19:30] VITALS: BP 100/55; PULSE 79; RESP 16
== END 2017-09-29 20:07 | disposition home or self-care (01) ==
LOC: EC 16:50
DX: T40.2X1A Poisoning by other opioids, accidental (unintentional), initial encounter (principal); K21.9 Gastro-esophageal reflux disease without esophagitis; I10 Essential (primary) hypertension; G40.909 Epilepsy, unspecified, not intractable, without status epilepticus; Z91.048 Other nonmedicinal substance allergy status; Z88.8 Allergy status to other drugs, medicaments and biological substances; Z88.6 Allergy status to analgesic agent; Z91.040 Latex allergy status; Z88.0 Allergy status to penicillin; Z91.018 Allergy to other foods; Z79.899 Other long term (current) drug therapy
CPT/HCPCS: 36415; 71020; 80053; 80164; 80306; 80320; 82150; 82550; 82553; 83520; 83690; 84439; 84443; 84484; 85025; 85610; 93005; 99284

== ENCOUNTER 2018-05-11 17:28 | Inpatient (IN) | payer MEDICARE, OTHER ==
[2018-05-11] MEDS ORDERED: HYDROCORTISONE 1% CREAM 30 GM TUBE TOPICAL STA (17:43)
--- NOTE | 2018-05-11 17:46 | ED ---
General Adult HPI - General Source: patient, EMS, RN notes reviewed Mode of arrival: EMS Limitations: no limitations <Kenyon Worthington - Last Filed: 05/11/18 19:54> <Orlando Mayo - Last Filed: 05/11/18 21:44> - General Chief complaint: Recheck/Abnormal Lab/Rx Stated complaint: Leg swelling/redness Time Seen by Provider: 05/11/18 17:34 - History of Present Illness Initial comments: Patient 63-year-old female presenting to the emergency room today by EMS, the chief complaint of bilateral lower leg swelling. Patient states that she noticed some swelling to both the left and right legs over the last few days. She does admit that she does take a blood thinner because she has a history of DVT. Patient states that she went to urgent care today for a possible bug bite to the left hand. She states she did not get much sleep last night because it was very itchy. She states that they advised her to come here to the emergency room due to the leg swelling. Patient denies any pain in the legs. She denies any increased shortness of breath. She denies any other complaints other than itching to the left hand. Patient denies any recent fever, chills, shortness of breath, chest pain, back pain, abdominal pain, nausea or vomiting, headaches or visual changes, or any other complaints. (Kenyon Worthington) - Related Data Home Medications Medication Instructions Recorded Confirmed Ergocalciferol [Vitamin D2 50,000 units PO TH 06/15/14 09/30/17 (DRISDOL)] Levothyroxine Sodium [Synthroid] 50 mcg PO DAILY 06/15/14 09/30/17 Phenytoin Sodium Extended 100 mg PO TID 11/16/14 09/30/17 [Dilantin] Famotidine [Pepcid] 20 mg PO DAILY 01/28/15 09/30/17 Divalproex [Depakote] 500 mg PO TID 03/15/15 09/30/17 Carbidopa-Levodopa 25-100 mg 1 tab PO BID 07/23/17 09/30/17 [Sinemet 25-100 mg] Gabapentin [Neurontin] 300 mg PO Q8H 07/23/17 09/30/17 Hydrocortisone [Anusol-Hc] 1 applic RECTAL Q12H PRN 07/23/17 09/30/17 Topiramate [Topamax] 50 mg PO BID 07/23/17 09/30/17 Loratadine [Claritin] 10 mg PO DAILY 09/29/17 09/30/17 Melatonin 3 mg PO HS 09/29/17 09/30/17 Previous Rx's Medication Instructions Recorded Nystatin 100,000 Unit/gm Powd 1 applic TOPICAL BID applic 03/26/15 [Mycostatin Powder] Apixaban [Eliquis] 5 mg PO BID tab 07/30/17 Pravastatin Sodium [Pravachol] 20 mg PO HS tab 08/06/17 Cephalexin [Keflex] 500 mg PO Q8HR #15 cap 10/02/17 HYDROcodone/APAP 5-325MG [Armona 1 each PO Q6HR PRN #20 tab 10/02/17 5-325] Morphine Sulfate ER [Ms Contin] 15 mg PO Q8HR PRN #10 tab 10/02/17 Allergies Allergy/AdvReac Type Severity Reaction Status Date / Time adhesive Allergy Severe Rash/Hives Verified 09/30/17 14:04 celecoxib [From Celebrex] Allergy Severe Vomiting Verified 09/30/17 14:04 citalopram hydrobromide Allergy Unknown Vomiting Verified 09/30/17 14:04 [From Celexa] ketorolac tromethamine Allergy Unknown Vomiting Verified 09/30/17 14:04 [From Toradol] latex Allergy Unknown Rash/Hives Verified 09/30/17 14:04 Phenothiazines Allergy Unknown Unknown Verified 09/30/17 14:04 aspirin Allergy Rash/Hives Verified 09/30/17 14:04 bee pollen [Bee Pollen] Allergy Rash/Hives Verified 09/30/17 14:04 metoclopramide Allergy Rash/Hives Verified 09/30/17 14:04 Penicillins Allergy Rash/Hives Verified 09/30/17 14:04 prochlorperazine edisylate Allergy Vomiting Verified 09/30/17 14:04 [From Compazine] prochlorperazine maleate Allergy Vomiting Verified 09/30/17 14:04 [From Compazine] rofecoxib [From Vioxx] Allergy Rash/Hives Verified 09/30/17 14:04 Salicylates Allergy Vomiting Verified 09/30/17 14:04 Review of Systems ROS Other: All systems not noted in ROS Statement are negative. <Kenyon Worthington - Last Filed: 05/11/18 19:54> ROS Other: All systems not noted in ROS Statement are negative. <Orlando Mayo - Last Filed: 05/11/18 21:44> ROS Statement: Those systems with pertinent positive or pertinent negative responses have been documented in the HPI. Past Medical History Past Medical History: GERD/Reflux, Hearing Disorder / Deafness, Hypertension, Osteoarthritis (OA), Seizure Disorder Additional Past Medical History / Comment(s): SEIZURES CONTROLLED BY MEDICATION , (states last seizure was 7 years ago) open wound in left buttock from removal of intrathecal pump, multiple sclerosis Last Myocardial Infarction Date:: 2012 History of Any Multi-Drug Resistant Organisms: None Reported Past Surgical History: Appendectomy Additional Past Surgical History / Comment(s): 02/10/15 Pain pump insertion, / gastrectomy due to ulcers, BOWEL obstruction with surgery (2003), left knee athroscopy, Past Anesthesia/Blood Transfusion Reactions: No Reported Reaction Past Psychological History: No Psychological Hx Reported Smoking Status: Never smoker Past Alcohol Use History: None Reported Past Drug Use History: None Reported - Past Family History Father Additional Family Medical History / Comment(s): With colon cancer Mother Additional Family Medical History / Comment(s): UNKNOWN <Kenyon Worthington - Last Filed: 05/11/18 19:54> General Exam Limitations: no limitations <Kenyon Worthington - Last Filed: 05/11/18 19:54> <Orlando Mayo - Last Filed: 05/11/18 21:44> - General Exam Comments Initial Comments: General: The patient is awake and alert, in no distress, and does not appear acutely ill. Eye: Pupils are equal, round and reactive to light, extra-ocular movements are intact. No nystagmus. There is normal conjunctiva bilaterally. No signs of icterus. Ears, nose, mouth and throat: There are moist mucous membranes and no oral lesions. Neck: The neck is supple, there is no tenderness or JVD. Cardiovascular: There is a regular rate and rhythm. No murmur, rub or gallop is appreciated. Respiratory: Lungs are clear to auscultation, respirations are non-labored, breath sounds are equal. No wheezes, stridor, rales, or rhonchi. Musculoskeletal: Normal ROM, no tenderness. Strength 5/5. Sensation intact. Pulses equal bilaterally 2+. Neurological: A&O x 3. CN II-XII intact, There are no obvious motor or sensory deficits. Coordination appears grossly intact. Speech is normal. Skin: Skin is warm and dry and intact. Increased redness to the lower extremities bilaterally. No lymphangitic streaking. Psychiatric: Cooperative, appropriate mood & affect, normal judgment. (Kenyon Worthington) Vital Signs 05/11/18 05/11/18 17:32 20:00 Temperature 97 F L Pulse Rate 81 85 Respiratory 18 18 Rate Blood Pressure 145/74 137/69 O2 Sat by Pulse 98 100 Oximetry EKG Findings - EKG Comments: EKG Findings:: EKG performed at 1826: Shows normal sinus rhythm at 81 bpm OR interval 166. QRS 84. QT/QTC 378/439. No acute ST changes. <Kenyon Worthington - Last Filed: 05/11/18 19:54> Medical Decision Making - Lab Data Result diagrams: 05/11/18 18:02 <Kenyon Worthington - Last Filed: 05/11/18 19:54> - Lab Data Result diagrams: 05/11/18 18:02 05/11/18 19:30 <Orlando Mayo - Last Filed: 05/11/18 21:44> - Medical Decision Making Medical decision making; this is a 63-year-old female who is sent emergency room from [facility]. She had gone there because of redness and irritation to her left hand index finger because she thinks she was bitten by a bug. While there is also noticed patient had hot read legs bilaterally. She states did not like that usually today's first day she had it she claims that there hot and warm. Review the patient's chart finds the patient did have methicillin sensitive staph aureus in the past. The patient has no recollection of this. Patient denies shortness of breath. No chest pain. Patient does have a history of DVT and is on a blood thinner. Labs show white count of 5.7 hemoglobin 12 hematocrit 38 with a potassium 4.5 BUN 14 creatinine 0.7 with a GFR greater than 90. Troponin less than 0.012 and urine is clean no signs of infection. Chest x-ray was done and reviewed by radiologist his impression is there is chronic parenchymal change without suspicious focal airspace opacity, pleural effusion, or pneumothorax seen. Cardiac silhouette size is stable and upper limits of normal slightly ectatic aorta. The osseous structures are demineralized. Surgical clips epigastric region are redemonstrated. Impression ; chronic parenchymal changes without suspicious new acute pulmonary process. As read by Dr. rose The patient's legs are warm red and mildly swollen. With a past history of MSSA , the patient be started on clindamycin 600 IV 3 times a day. On her chart the patient has a reported ALLERGY to penicillin. The patient be admitted to Dr. Hood further evaluation and treatment. (Orlando Mayo) - Lab Data Lab Results 05/11/18 05/11/18 05/11/18 Range/Units 18:02 18:52 19:30 WBC 5.7 (3.8-10.6) k/uL RBC 4.12 (3.80-5.40) m/uL Hgb 12.0 (11.4-16.0) gm/dL Hct 38.3 (34.0-46.0) % MCV 92.9 (80.0-100.0) fL MCH 29.2 (25.0-35.0) pg MCHC 31.4 (31.0-37.0) g/dL RDW 14.4 (11.5-15.5) % Plt Count 264 (150-450) k/uL Neutrophils % 52 % Lymphocytes % 37 % Monocytes % 6 % Eosinophils % 2 % Basophils % 0 % Neutrophils # 2.9 (1.3-7.7) k/uL Lymphocytes # 2.1 (1.0-4.8) k/uL Monocytes # 0.4 (0-1.0) k/uL Eosinophils # 0.1 (0-0.7) k/uL Basophils # 0.0 (0-0.2) k/uL Hypochromasia Slight Sodium (137-145) mmol/L Potassium (3.5-5.1) mmol/L Chloride (98-107) mmol/L Carbon Dioxide (22-30) mmol/L Anion Gap mmol/L BUN (7-17) mg/dL Creatinine (0.52-1.04) mg/dL Est GFR (CKD-EPI)AfAm (>60 ml/min/1.73 sqM) Est GFR (CKD-EPI)NonAf (>60 ml/min/1.73 sqM) Glucose (74-99) mg/dL Calcium (8.4-10.2) mg/dL Total Bilirubin (0.2-1.3) mg/dL AST (14-36) U/L ALT (9-52) U/L Alkaline Phosphatase (38-126) U/L Total Creatine Kinase (30-135) U/L CK-MB (CK-2) (0.0-2.4) ng/mL CK-MB (CK-2) Rel Index Troponin I (0.000-0.034) ng/mL NT-Pro-B Natriuret Pep 202 pg/mL Total Protein (6.3-8.2) g/dL Albumin (3.5-5.0) g/dL Urine Color Light Yellow Urine Appearance Clear (Clear) Urine pH 7.0 (5.0-8.0) Ur Specific Viola 1.005 (1.001-1.035) Urine Protein Negative (Negative) Urine Glucose (UA) Negative (Negative) Urine Ketones Negative (Negative) Urine Blood Negative (Negative) Urine Nitrite Negative (Negative) Urine Bilirubin Negative (Negative) Urine Urobilinogen <2.0 (<2.0) mg/dL Ur Leukocyte Esterase Trace H (Negative) Urine WBC 2 (0-5) /hpf Ur Squamous Epith Cells 1 (0-4) /hpf 05/11/18 05/11/18 Range/Units 19:30 19:30 WBC (3.8-10.6) k/uL RBC (3.80-5.40) m/uL Hgb (11.4-16.0) gm/dL Hct (34.0-46.0) % MCV (80.0-100.0) fL MCH (25.0-35.0) pg MCHC (31.0-37.0) g/dL RDW (11.5-15.5) % Plt Count (150-450) k/uL Neutrophils % % Lymphocytes % % Monocytes % % Eosinophils % % Basophils % % Neutrophils # (1.3-7.7) k/uL Lymphocytes # (1.0-4.8) k/uL Monocytes # (0-1.0) k/uL Eosinophils # (0-0.7) k/uL Basophils # (0-0.2) k/uL Hypochromasia Sodium 141 (137-145) mmol/L Potassium 4.5 (3.5-5.1) mmol/L Chloride 116 H (98-107) mmol/L Carbon Dioxide 19 L (22-30) mmol/L Anion Gap 6 mmol/L BUN 14 (7-17) mg/dL Creatinine 0.70 (0.52-1.04) mg/dL Est GFR (CKD-EPI)AfAm >90 (>60 ml/min/1.73 sqM) Est GFR (CKD-EPI)NonAf >90 (>60 ml/min/1.73 sqM) Glucose 77 (74-99) mg/dL Calcium 9.2 (8.4-10.2) mg/dL Total Bilirubin 0.5 (0.2-1.3) mg/dL AST 29 (14-36) U/L ALT 20 (9-52) U/L Alkaline Phosphatase 127 H (38-126) U/L Total Creatine Kinase 92 (30-135) U/L CK-MB (CK-2) 1.8 (0.0-2.4) ng/mL CK-MB (CK-2) Rel Index 2.0 Troponin I <0.012 (0.000-0.034) ng/mL NT-Pro-B Natriuret Pep pg/mL Total Protein 6.3 (6.3-8.2) g/dL Albumin 3.5 (3.5-5.0) g/dL Urine Color Urine Appearance (Clear) Urine pH (5.0-8.0) Ur Specific Viola (1.001-1.035) Urine Protein (Negative) Urine Glucose (UA) (Negative) Urine Ketones (Negative) Urine Blood (Negative) Urine Nitrite (Negative) Urine Bilirubin (Negative) Urine Urobilinogen (<2.0) mg/dL Ur Leukocyte Esterase (Negative) Urine WBC (0-5) /hpf Ur Squamous Epith Cells (0-4) /hpf Disposition <Kenyon Worthington - Last Filed: 05/11/18 19:54> Is patient prescribed a controlled substance at d/c from ED?: No <Orlando Mayo - Last Filed: 05/11/18 21:44> Clinical Impression: Cellulitis of lower extremity Disposition: ADMITTED IP TO THIS HOSP Condition: Serious Referrals: Tyree,Roc Jigar, MD [Primary Care Provider] - 1-2 days
[2018-05-11 18:13] LABS: Basophils % (A) 0 %; Eosinophils # (A) 0.1 k/uL (0-0.7); Eosinophils % (A) 2 %; HCT 38.3 % (34.0-46.0); Hypochromasia Slight; Lymphocytes # (A) 2.1 k/uL (1.0-4.8); Lymphocytes % (A) 37 %; MCH 29.2 pg (25.0-35.0); MCHC 31.4 g/dL (31.0-37.0); MCV 92.9 fL (80.0-100.0); Mean Platelet Volume 6.7; Monocytes # (A) 0.4 k/uL (0-1.0); Monocytes % (A) 6 %; Neutrophils # (A) 2.9 k/uL (1.3-7.7); Neutrophils % (A) 52 %; Platelet Count 264 k/uL (150-450); RBC 4.12 m/uL (3.80-5.40); RDW 14.4 % (11.5-15.5); WBC 5.7 k/uL (3.8-10.6)
--- NOTE | 2018-05-11 18:54 | XR ---
EXAMINATION TYPE: XR chest 2V DATE OF EXAM: 05/11/2018 COMPARISON: Chest x-ray September 30, 2017 HISTORY: History of hypertension with leg edema. TECHNIQUE: Frontal and lateral views of the chest are obtained. FINDINGS: There is chronic parenchymal change without suspicious focal air space opacity, pleural ef fusion, or pneumothorax seen. The cardiac silhouette size is stable and upper limits of normal sligh tly ectatic aorta. The osseous structures are demineralized. Surgical clips epigastric region are r edemonstrated. IMPRESSION: Chronic parenchymal changes without suspicious new acute pulmonary process.
[2018-05-11 19:34] LABS: Appearance,Urine Clear (Clear); Bilirubin,Urine Negative (Negative); Blood,Urine Negative (Negative); Color,Urine Light Yellow; Glucose,Urine (UA) Negative (Negative); Ketones,Urine Negative (Negative); Leukocyte Esterase,Urine Trace (Negative); Nitrite,Urine Negative (Negative); Protein,Urine Negative (Negative); Specific Gravity,Urine 1.005 (1.001-1.035); Squamous Epithelial Cell,Urine 1 /hpf (0-4); Urobilinogen,Urine <2.0 mg/dL (<2.0); WBC,Urine 2 /hpf (0-5)
[2018-05-11 20:27] LABS: Anion Gap 6 mmol/L; Calcium 9.2 mg/dL (8.4-10.2); Carbon Dioxide 19 mmol/L (22-30); Chloride 116 mmol/L (98-107); Creatine Kinase 92 U/L (30-135); Glucose 77 mg/dL (74-99); Sodium 141 mmol/L (137-145); Total Bilirubin 0.5 mg/dL (0.2-1.3)
[2018-05-11 20:28] LABS: Albumin 3.5 g/dL (3.5-5.0); Blood Urea Nitrogen 14 mg/dL (7-17); Potassium 4.5 mmol/L (3.5-5.1); Total Protein 6.3 g/dL (6.3-8.2)
[2018-05-11 20:29] LABS: ALT 20 U/L (9-52); AST 29 U/L (14-36); Alkaline Phosphatase 127 U/L (38-126)
[2018-05-11 20:39] LABS: Creatine Kinase MB 1.8 ng/mL (0.0-2.4); Troponin I <0.012 ng/mL (0.000-0.034)
[2018-05-11] MEDS ORDERED: CLINDAMYCIN 600 MG in DEXTROSE 5% IN WATER 50 ML IVPB STA ×2 (21:40)
[2018-05-11] MEDS ORDERED: NALOXONE 0.4 MG/ML 1 ML VIAL IV PRN (21:44)
[2018-05-11] MEDS ORDERED: HYDROCORTISONE 2.5% RECTAL CREAM 30 GM TUBE RECTAL PRN (21:48)
[2018-05-11] MEDS ORDERED: HYDROcodone/APAP 5-325MG 1 EACH TAB PO PRN (21:48)
[2018-05-11] MEDS: ACETAMINOPHEN TAB 325 MG TAB PO PRN (22:39)
[2018-05-11] MEDS: SODIUM CHLORIDE 0.9% 1,000 ML IV SCH (22:41)
[2018-05-11 23:45] VITALS: BMI 23.1
[2018-05-12] MEDS: MELATONIN 3 MG TABLET PO SCH ×2 (00:10→21:49)
[2018-05-12] MEDS: PHENYTOIN SODIUM EXTENDED 100 MG CAP PO SCH ×4 (00:10→21:48)
[2018-05-12] MEDS: PRAVASTATIN SODIUM 20 MG TAB PO SCH ×2 (00:10→21:48)
[2018-05-12] MEDS: TOPIRAMATE 25 MG TAB PO SCH ×3 (00:10→22:15)
[2018-05-12] MEDS: MORPHINE SULFATE ER 15 MG TABLET PO PRN ×3 (00:11→17:17)
[2018-05-12] MEDS: GABAPENTIN 300 MG CAP PO SCH ×4 (00:11→21:49)
[2018-05-12] MEDS: DIVALPROEX 500 MG TABLET.DR PO SCH ×4 (00:12→21:48)
[2018-05-12] MEDS: LEVOTHYROXINE 50 MCG TAB PO SCH (05:55)
[2018-05-12] MEDS: ACETAMINOPHEN TAB 325 MG TAB PO PRN (05:55)
[2018-05-12] MEDS: CLINDAMYCIN 600 MG in DEXTROSE 5% IN WATER 50 ML IVPB SCH ×4 (05:55→14:36)
[2018-05-12] MEDS: APIXABAN 5 MG TAB PO SCH ×2 (08:30→21:49)
[2018-05-12] MEDS: CARBIDOPA-LEVODOPA 25-100 MG 1 EACH TAB PO SCH ×2 (08:30→21:48)
[2018-05-12] MEDS: SODIUM CHLORIDE 0.9% 1,000 ML IV SCH (08:31)
[2018-05-12] MEDS: FAMOTIDINE 20 MG TAB PO SCH (08:31)
[2018-05-12 08:37] LABS: Basophils % (A) 0 %; Eosinophils # (A) 0.1 k/uL (0-0.7); Eosinophils % (A) 2 %; HCT 35.8 % (34.0-46.0); HGB 11.2 gm/dL (11.4-16.0); Hypochromasia Slight; Lymphocytes # (A) 1.9 k/uL (1.0-4.8); Lymphocytes % (A) 39 %; MCH 29.1 pg (25.0-35.0); MCHC 31.3 g/dL (31.0-37.0); Monocytes # (A) 0.3 k/uL (0-1.0); Monocytes % (A) 5 %; Neutrophils # (A) 2.5 k/uL (1.3-7.7); Neutrophils % (A) 52 %; Platelet Count 251 k/uL (150-450); RBC 3.85 m/uL (3.80-5.40); RDW 14.3 % (11.5-15.5); WBC 4.8 k/uL (3.8-10.6)
[2018-05-12 08:46] LABS: ALT 32 U/L (9-52); AST 19 U/L (14-36); Albumin 3.1 g/dL (3.5-5.0); Alkaline Phosphatase 119 U/L (38-126); Anion Gap 3 mmol/L; Blood Urea Nitrogen 11 mg/dL (7-17); Calcium 8.8 mg/dL (8.4-10.2); Carbon Dioxide 20 mmol/L (22-30); Chloride 119 mmol/L (98-107); Glucose 111 mg/dL (74-99); Potassium 4.4 mmol/L (3.5-5.1); Sodium 142 mmol/L (137-145); Total Bilirubin 0.2 mg/dL (0.2-1.3); Total Protein 5.4 g/dL (6.3-8.2)
[2018-05-12] MEDS ORDERED: diphenhydrAMINE 25 MG CAP PO PRN (13:34)
[2018-05-12] MEDS: TOPIRAMATE 100 MG TAB PO SCH (21:47)
[2018-05-12] MEDS: NAPROXEN 250 MG TAB PO SCH (21:48)
[2018-05-12] MEDS: traZODone HCL 50 MG TAB PO SCH (21:49)
[2018-05-12] MEDS: diphenhydrAMINE 25 MG CAP PO SCH ×2 (21:49→22:14)
[2018-05-12] MEDS: CALAMINE/ZINC OXIDE LOTION 177 ML BTL TOPICAL SCH (22:35)
--- NOTE | 2018-05-12 23:39 | HP ---
HISTORY AND PHYSICAL DATE OF ADMISSION: May 11, 2018. DATE OF SERVICE: May 12, 2018. PRESENTING COMPLAINT: Ant bites. HISTORY OF PRESENTING COMPLAINT: Pleasant 63-year-old patient follows with Dr. Roc Clements. Chronic stable medical conditions include GERD, hypertension, osteoarthritis, seizure disorder, multiple sclerosis, Parkinson disease. The patient's Parkinson disease is diagnosed. Being followed by Dr. Cat. MS does affect walking sometimes. The patient was sitting outside in the garden, went out to sleep. Noted several ants had crawled up to her legs and hands and were biting her. Other hands and legs became red and she decided to come into the ER. The patient denies any fever, chills, a lot of itching, having a lot of discomfort. The patient empirically was put on clindamycin in the ER. The patient does use a walker at baseline. No fever or chills. REVIEW OF SYSTEMS: CONSTITUTIONAL: Tired. HEENT none. RESPIRATORY none. CARDIOVASCULAR none. GASTROINTESTINAL: Heartburn. GENITOURINARY none. MUSCULOSKELETAL: Arthritic pain in joints. DERMATOLOGICAL as above. LYMPHATICS none. PSYCHIATRY: None. NEUROLOGICAL: Unsteady gait. PAST MEDICAL HISTORY: GERD, hypertension, osteoarthritis, seizure disorder, multiple sclerosis, Parkinson disease, open wound in the left buttocks, removal of intrathecal pump. PAST SURGICAL HISTORY: Appendectomy in 2014 pain pump was inserted, gastric due to ulcers, bowel obstruction with surgery 2003, left knee arthroscopy. SOCIAL HISTORY: Patient lives at [facility]. Normally uses a walker. Sometimes uses a wheelchair. Needs some assistance with bathing and putting on TEDs. Healthy diet. Does not smoke or drink alcohol. FAMILY HISTORY: Family history of lung and colon cancer. HOME MEDICATIONS: 1. MS Contin 50 mg q.8h p.r.n. 2. Melatonin 3 mg q.h.s. 3. Synthroid 75 mcg p.o. daily. 4. Neurontin 300 mg p.o. q.8 hours. 5. Pepcid 20 mg p.o. daily. 6. Trazodone 50 mg q.h.s. 7. Topamax 200 mg b.i.d. 8. Sinemet 25/100 1 tablet p.o. b.i.d. 9. Eliquis 5 mg p.o. b.i.d. 10.Dilantin 100 mg p.o. t.i.d. 11.Lipitor 20 mg p.o. daily. ALLERGIES: ADHESIVES, CELEBREX, CELEXA, KETOROLAC, LATEX, PHENOTHIAZINE, ASPIRIN, BEE POLLEN, REGLAN, PENICILLIN, COMPAZINE, VIOXX, SALICYLATE. PHYSICAL EXAMINATION: VITAL SIGNS: Vital signs on presentation, temperature 97, pulse 81, respiratory 18, blood pressure 140/74, pulse ox 98% on room air. GENERAL APPEARANCE: Average build, lying in bed, a bit anxious-appearing. EYES: Pupils are equal. Conjunctivae normal. HEENT: External appearance of nose and ears normal. Oral cavity normal. NECK: JVD not raised. Mass not palpable. RESPIRATORY: Effort normal. LUNGS fair entry. CARDIOVASCULAR: 1st and 2nd sounds normal. No edema. ABDOMEN: Soft, nontender. Liver and spleen not palpable. LYMPHATICS: No lymph nodes palpable in the neck and axilla. PSYCHIATRY: Alert and oriented x3. Mood and affect anxious-appearing. NEUROLOGICAL: Pupils equal. Cranial nerves grossly intact. Power and sensation grossly intact. DERMATOLOGICAL: Some redness in the hands and lower extremity below the knees where there were ant bites. Also patient has got some sunburns in that area. INVESTIGATIONS: White count 5.7, hemoglobin 12, potassium 4.5, BUN 14, creatinine 0.70. UA negative. ASSESSMENT: 1. Acute multiple ant bites both in the hand, lower extremity causing extreme lower itching and local anaphylaxis reaction. I do not see any of this evidence of secondary infection given that the white count is normal. There is no fever. Hence, we will discontinue the antibiotics. For itching, we will give the patient Benadryl, also use a calamine lotion. 2. Gastroesophageal reflux disease. 3. Essential hypertension. 4. Primary osteoarthritis of multiple joints. 5. Chronic multiple sclerosis. 6. Early idiopathic Parkinson disease. 7. Hypothyroidism. PLAN: Home medications will be resumed. Will DC the clindamycin and use the Benadryl. Use the calamine lotion. We will also add anti-inflammatory tonight. The patient should be able to go home tomorrow. This was discussed at length with the patient. Copy to Dr. Roc Clements. ABHINAVL / DANNYN: [id number] /
[2018-05-13] MEDS: MORPHINE SULFATE ER 15 MG TABLET PO PRN ×2 (03:20→13:10)
[2018-05-13] MEDS: SODIUM CHLORIDE 0.9% 1,000 ML IV SCH ×2 (06:00→13:07)
[2018-05-13] MEDS: LEVOTHYROXINE 50 MCG TAB PO SCH (06:25)
[2018-05-13] MEDS: FAMOTIDINE 20 MG TAB PO SCH (09:00)
[2018-05-13] MEDS: PHENYTOIN SODIUM EXTENDED 100 MG CAP PO SCH ×3 (09:00→21:39)
[2018-05-13] MEDS: CARBIDOPA-LEVODOPA 25-100 MG 1 EACH TAB PO SCH ×2 (09:01→21:40)
[2018-05-13] MEDS: TOPIRAMATE 100 MG TAB PO SCH ×2 (09:01→21:39)
[2018-05-13] MEDS: APIXABAN 5 MG TAB PO SCH ×2 (09:01→21:39)
[2018-05-13] MEDS: DIVALPROEX 500 MG TABLET.DR PO SCH ×3 (09:01→21:39)
[2018-05-13] MEDS: NAPROXEN 250 MG TAB PO SCH ×2 (09:02→21:39)
[2018-05-13] MEDS: diphenhydrAMINE 25 MG CAP PO SCH ×4 (09:05→21:39)
[2018-05-13] MEDS: CALAMINE/ZINC OXIDE LOTION 177 ML BTL TOPICAL SCH ×2 (09:06→21:39)
[2018-05-13] MEDS: GABAPENTIN 300 MG CAP PO SCH ×2 (13:06→21:39)
--- NOTE | 2018-05-13 15:46 | US ---
EXAMINATION TYPE: US venous doppler duplex LE BI DATE OF EXAM: 05/13/2018 2:37 PM COMPARISON: 07/28/2017 CLINICAL HISTORY: 63-year-old female with pain, rule out DVT. SIDE PERFORMED: Bilateral TECHNIQUE: The lower extremity deep venous system is examined utilizing real time linear array sonog viky with graded compression, doppler sonography and color-flow sonography. FINDINGS: VESSELS IMAGED: External Iliac Vein (EIV) Common Femoral Vein Deep Femoral Vein Greater Saphenous Vein * Femoral Vein Popliteal Vein Small Saphenous Vein * Proximal Calf Veins (* superficial vessels) Right Leg: Negative for DVT Left Leg: Negative for DVT IMPRESSION: No evidence for DVT within the bilateral lower extremities imaged from the groin to the upper cast. T he previous nonocclusive clot in the right popliteal vein has cleared.
--- NOTE | 2018-05-13 16:20 | P.PN ---
Subjective On-call hospitalist covering for Dr. Hood 05/13 till 05/24/2018 this is a pleasant 63 years old fema with past medical history of GERD, hypertension, ulcer arthritis, seizure disorder, multiple sclerosis, Parkinson disease. And she is being followed up by Dr. nance for her Parkinson disease. Patient was sitting outside in the garden when he went out to sleep. Noted several ants had crawled up to her legs and hands and/or beating heart. Her hands and legs became red and she decided to come to ER. Patient received 1 dose of antibiotics however was distal primary the hospitalist yesterday. Patient continued to show interval improvement with less a swelling in her legs. Some itching flores in her hands. There is no redness or warmth in either lower or upper extremity. However patient still feels generally weak Objective - Vital Signs Vital signs: Vital Signs Temp 98.3 F 05/13/18 14:00 Pulse 89 05/13/18 14:00 Resp 18 05/13/18 14:00 BP 102/64 05/13/18 14:00 Pulse Ox 98 05/13/18 14:00 Intake & Output 05/12/18 05/13/18 05/13/18 18:59 06:59 18:59 Intake Total 520 Balance 520 Intake: Oral 520 Other: Voiding Method Bedside Commode # Voids 6 3 3 - Exam GENERAL: The patient is alert and oriented x3, not in any acute distress. Well developed, well nourished. Patient feels generally weak HEENT: Pupils are round and equally reacting to light. EOMI. No scleral icterus. No conjunctival pallor. Normocephalic, atraumatic. No pharyngeal erythema. No thyromegaly. CARDIOVASCULAR: S1 and S2 present. No murmurs, rubs, or gallops. PULMONARY: Chest is clear to auscultation, no wheezing or crackles. ABDOMEN: Soft, nontender, nondistended, normoactive bowel sounds. No palpable organomegaly. MUSCULOSKELETAL: No joint swelling or deformity. EXTREMITIES: No cyanosis, clubbing -Patient has mild bilateral leg edema NEUROLOGICAL: Gross neurological examination did not reveal any focal deficits. SKIN: No rashes. - Labs CBC & Chem 7: 05/12/18 08:15 05/12/18 08:15 Assessment and Plan Assessment: ALLERGIC versus local reaction of both upper and lower extremity (hands, legs) , secondary to ant bite. Resolving Bilateral leg swelling, mild Generalized weakness History of Parkinson disease Hypothyroidism GERD History of seizure disorder Osteoarthritis Hypertension Plan: Continue with the same treatment. Continue with symptomatic treatment. Patient with generalized weakness and she might benefit from occupational and physical therapy evaluation. Patient states she uses a walker at home at her baseline. Check Doppler of the lower extremity to rule out DVT DVT prophylaxis on eliquis PT/OT: Pending
[2018-05-13] MEDS: ACETAMINOPHEN TAB 325 MG TAB PO PRN (16:51)
[2018-05-13] MEDS: traZODone HCL 50 MG TAB PO SCH (21:39)
[2018-05-13] MEDS: MELATONIN 3 MG TABLET PO SCH (21:39)
[2018-05-13] MEDS: PRAVASTATIN SODIUM 20 MG TAB PO SCH (21:39)
[2018-05-14] MEDS: SODIUM CHLORIDE 0.9% 1,000 ML IV SCH ×2 (01:00→13:10)
[2018-05-14] MEDS: ONDANSETRON 4 MG/2 ML VIAL IVP PRN ×2 (01:00→18:53)
[2018-05-14] MEDS: MORPHINE SULFATE ER 15 MG TABLET PO PRN ×3 (01:32→20:51)
[2018-05-14] MEDS ORDERED: LEVOTHYROXINE 75 MCG TAB PO SCH (06:30)
[2018-05-14] MEDS: GABAPENTIN 300 MG CAP PO SCH ×2 (06:40→13:11)
[2018-05-14 07:02] VITALS: RESP 16
[2018-05-14] MEDS: FAMOTIDINE 20 MG TAB PO SCH (08:27)
[2018-05-14] MEDS: TOPIRAMATE 100 MG TAB PO SCH (08:27)
[2018-05-14] MEDS: PHENYTOIN SODIUM EXTENDED 100 MG CAP PO SCH ×2 (08:27→16:22)
[2018-05-14] MEDS: CALAMINE/ZINC OXIDE LOTION 177 ML BTL TOPICAL SCH (08:29)
[2018-05-14] MEDS: APIXABAN 5 MG TAB PO SCH (08:29)
[2018-05-14] MEDS: CARBIDOPA-LEVODOPA 25-100 MG 1 EACH TAB PO SCH (08:30)
[2018-05-14] MEDS: DIVALPROEX 500 MG TABLET.DR PO SCH ×2 (08:31→16:22)
[2018-05-14] MEDS: NAPROXEN 250 MG TAB PO SCH (08:31)
[2018-05-14] MEDS ORDERED: PANTOPRAZOLE 40 MG/10 ML VIAL IVP SCH (09:00)
[2018-05-14] MEDS: diphenhydrAMINE 25 MG CAP PO SCH ×3 (09:36→18:18)
[2018-05-14 15:10] VITALS: BP 114/69; PULSE 85; TEMP 97
--- NOTE | 2018-05-14 15:41 | P.DS ---
Providers Date of admission: 05/11/18 21:44 Attending physician: Franco Hood Primary care physician: Roc Clements MD Hospital Course: this is a pleasant 63 years old fema with past medical history of GERD, hypertension, ulcer arthritis, seizure disorder, multiple sclerosis, Parkinson disease. And she is being followed up by Dr. nance for her Parkinson disease. Patient was sitting outside in the garden when he went out to sleep. Noted several ants had crawled up to her legs and hands and/or beating her. Her hands and legs became red and swollen and she decided to come to ER. Patient was treated symptomatically. Venous Doppler of the lower extremity was negative for DVT. Physical therapy evaluated the patient and recommended discharging the patient. Patient signs and symptoms are significantly improved and patient showed interval improvement. Her leg swelling is improved, her redness is resolved in both upper and lower extremity. She still have minimal itching in both hands. Prescription for local treatment of the habitus a provided Patient did not want any more prescription, she confirmed to me she has enough medication for Ellik risks, Depakote and Dilantin which she confirmed to me she' s been taking both of these for history of seizure, And levothyroxine. Patient returned to her baseline. Patient is found stable and can be discharged home however she needs follow-up as an outpatient. Patient states she has a visiting nurse who comes to see her tomorrow for his appointment Patient Condition at Discharge: Serious Plan - Discharge Summary Discharge Rx Participant: Yes New Discharge Prescriptions: New Calamine/Zinc Oxide Lotion [Calamine Lotion] 1 applic TOPICAL BID #1 applic diphenhydrAMINE & Zinc Cream [Benadryl Cream] 1 applic TOPICAL TID PRN #1 gm PRN Reason: Itching Divalproex [Depakote] 500 mg PO TID tablet. Continue Famotidine [Pepcid] 20 mg PO DAILY Gabapentin [Neurontin] 300 mg PO Q8H Carbidopa-Levodopa 25-100 mg [Sinemet 25-100 mg] 1 tab PO BID Apixaban [Eliquis] 5 mg PO BID tab Melatonin 3 mg PO HS Atorvastatin [Lipitor] 20 mg PO DAILY Levothyroxine Sodium [Synthroid] 75 mcg PO DAILY Phenytoin Sodium Extended [Dilantin] 100 mg PO TID Topiramate [Topamax] 200 mg PO BID traZODone HCL 50 mg PO HS Ergocalciferol [Vitamin D2 (DRISDOL)] 50,000 unit PO Q7D Ferrous Sulfate [Iron (65 MG Elemental)] 325 mg PO BID Morphine Sulfate [Ms Contin] 15 mg PO Q12HR PRN PRN Reason: Pain Discharge Medication List Famotidine [Pepcid] 20 mg PO DAILY 01/28/15 [History] Carbidopa-Levodopa 25-100 mg [Sinemet 25-100 mg] 1 tab PO BID 07/23/17 [History] Gabapentin [Neurontin] 300 mg PO Q8H 07/23/17 [History] Apixaban [Eliquis] 5 mg PO BID tab 07/30/17 [Rx] Melatonin 3 mg PO HS 09/29/17 [History] Atorvastatin [Lipitor] 20 mg PO DAILY 05/12/18 [History] Levothyroxine Sodium [Synthroid] 75 mcg PO DAILY 05/12/18 [History] Phenytoin Sodium Extended [Dilantin] 100 mg PO TID 05/12/18 [History] Topiramate [Topamax] 200 mg PO BID 05/12/18 [History] traZODone HCL 50 mg PO HS 05/12/18 [History] Ergocalciferol [Vitamin D2 (DRISDOL)] 50,000 unit PO Q7D 05/13/18 [History] Ferrous Sulfate [Iron (65 MG Elemental)] 325 mg PO BID 05/13/18 [History] Morphine Sulfate [Ms Contin] 15 mg PO Q12HR PRN 05/13/18 [History] Calamine/Zinc Oxide Lotion [Calamine Lotion] 1 applic TOPICAL BID #1 applic [Rx] Divalproex [Depakote] 500 mg PO TID tablet. 05/14/18 [Rx] diphenhydrAMINE & Zinc Cream [Benadryl Cream] 1 applic TOPICAL TID PRN #1 gm [Rx] Follow up Appointment(s)/Referral(s): Roc Clements MD [Primary Care Provider] - 05/17/18 (They will call you with appointment time ) Patient Instructions/Handouts: Cellulitis (DC) Activity/Diet/Wound Care/Special Instructions: Cardiac diet Activity as tolerated Discharge Disposition: HOME SELF-CARE
[2018-05-15] MEDS ORDERED: PANTOPRAZOLE 40 MG TABLET PO SCH (07:30)
== END 2018-05-14 21:04 | disposition home or self-care (01) | DRG 607 ==
LOC: EC 17:28 → 4MS4W 21:44
PROVIDERS: ADMIT Hospitalist; ATTEND Hospitalist
DX: S80.862A Insect bite (nonvenomous), left lower leg, initial encounter (principal); S80.861A Insect bite (nonvenomous), right lower leg, initial encounter; S60.562A Insect bite (nonvenomous) of left hand, initial encounter; S60.561A Insect bite (nonvenomous) of right hand, initial encounter; K21.9 Gastro-esophageal reflux disease without esophagitis; E03.9 Hypothyroidism, unspecified; G20 Parkinson's disease; G35 Multiple sclerosis; G40.909 Epilepsy, unspecified, not intractable, without status epilepticus; H91.90 Unspecified hearing loss, unspecified ear; I10 Essential (primary) hypertension; I25.2 Old myocardial infarction; M15.9 Polyosteoarthritis, unspecified; Z79.01 Long term (current) use of anticoagulants; Z79.899 Other long term (current) drug therapy; Z80.0 Family history of malignant neoplasm of digestive organs; Z86.19 Personal history of other infectious and parasitic diseases; Z86.718 Personal history of other venous thrombosis and embolism; Z88.0 Allergy status to penicillin; Z88.8 Allergy status to other drugs, medicaments and biological substances; Z88.6 Allergy status to analgesic agent; Z91.030 Bee allergy status; Z91.040 Latex allergy status; Z79.890 Hormone replacement therapy; Z79.891 Long term (current) use of opiate analgesic; W57.XXXA Bitten or stung by nonvenomous insect and other nonvenomous arthropods, initial encounter
CPT/HCPCS: 36415; 71046; 80053; 81001; 82550; 82553; 83880; 84484; 85025; 93005; 93970; 99285

== ENCOUNTER 2018-05-17 17:11 | Observation (INO) | payer MEDICARE, OTHER ==
[2018-05-17] MEDS ORDERED: SODIUM CHLORIDE 0.9% 1,000 ML IV STA (17:31)
--- NOTE | 2018-05-17 17:31 | CT ---
EXAMINATION TYPE: CT brain wo con for TPA DATE OF EXAM: 05/17/2018 COMPARISON: 09/30/2017 HISTORY: Code stroke. CT DLP: 1012.7 mGycm Automated exposure control for dose reduction was used. FINDINGS: There is mild cerebral atrophy. There is no mass effect nor midline shift. There is no sign of intrac ranial hemorrhage. Calvarium is intact. IMPRESSION: MILD ATROPHY. NO CHANGE COMPARED TO OLD EXAM.
--- NOTE | 2018-05-17 17:42 | ED ---
General Adult HPI - General Stated complaint: Stroke Time Seen by Provider: 05/17/18 17:31 - History of Present Illness Initial comments: Rosemary Bedoya is a 63-year-old female with a extensive past medical history listed below, most significant for concerns disease, she presents to the ED via EMS as a priority 1 for an activation of a possible stroke. Patient reports that at 4:30 this evening she was at her home, she was preparing her meal when she suddenly developed weakness in her left arm. She was concerned she may be having a stroke so she called 911. EMS does report a noted some left arm and left weight weakness. Patient reports she has a history of stroke in the distant past though she cannot recall what her symptoms were more she had any residual deficits. - Related Data Home Medications Medication Instructions Recorded Confirmed Famotidine [Pepcid] 20 mg PO DAILY 01/28/15 05/17/18 Carbidopa-Levodopa 25-100 mg 1 tab PO BID 07/23/17 05/17/18 [Sinemet 25-100 mg] Gabapentin [Neurontin] 300 mg PO Q8H 07/23/17 05/17/18 Melatonin 3 mg PO HS 09/29/17 05/17/18 Atorvastatin [Lipitor] 20 mg PO HS 05/12/18 05/17/18 Levothyroxine Sodium [Synthroid] 75 mcg PO DAILY 05/12/18 05/17/18 Topiramate [Topamax] 200 mg PO BID 05/12/18 05/17/18 traZODone HCL 50 mg PO HS 05/12/18 05/17/18 Ergocalciferol [Vitamin D2 50,000 unit PO WE 05/13/18 05/17/18 (DRISDOL)] Ferrous Sulfate [Iron (65 MG 325 mg PO BID 05/13/18 05/17/18 Elemental)] Morphine Sulfate [Ms Contin] 15 mg PO Q12HR PRN 05/13/18 05/17/18 Clotrimazole/Betameth Cream 1 applic TOPICAL DAILY PRN 05/17/18 05/17/18 [Lotrisone] Furosemide [Lasix] 20 mg PO DAILY 05/17/18 05/17/18 Nystatin [Nystop] 1 applic TOPICAL BID 05/17/18 05/17/18 clonazePAM [KlonoPIN] 0.5 mg PO BID PRN 05/17/18 05/17/18 Previous Rx's Medication Instructions Recorded Apixaban [Eliquis] 5 mg PO BID tab 07/30/17 diphenhydrAMINE & Zinc Cream 1 applic TOPICAL TID PRN #1 gm 05/14/18 [Benadryl Cream] Allergies Allergy/AdvReac Type Severity Reaction Status Date / Time adhesive Allergy Severe Rash/Hives Verified 05/17/18 19:21 celecoxib [From Celebrex] Allergy Severe Vomiting Verified 05/17/18 19:21 citalopram hydrobromide Allergy Unknown Vomiting Verified 05/17/18 19:21 [From Celexa] ketorolac tromethamine Allergy Unknown Vomiting Verified 05/17/18 19:21 [From Toradol] latex Allergy Unknown Rash/Hives Verified 05/17/18 19:21 Phenothiazines Allergy Unknown Unknown Verified 05/17/18 19:21 aspirin Allergy Rash/Hives Verified 05/17/18 19:21 bee pollen [Bee Pollen] Allergy Rash/Hives Verified 05/17/18 19:21 metoclopramide Allergy Rash/Hives Verified 05/17/18 19:21 Penicillins Allergy Rash/Hives Verified 05/17/18 19:21 prochlorperazine edisylate Allergy Vomiting Verified 05/17/18 19:21 [From Compazine] prochlorperazine maleate Allergy Vomiting Verified 05/17/18 19:21 [From Compazine] rofecoxib [From Vioxx] Allergy Rash/Hives Verified 05/17/18 19:21 Salicylates Allergy Vomiting Verified 05/17/18 19:21 Review of Systems ROS Statement: Those systems with pertinent positive or pertinent negative responses have been documented in the HPI. ROS Other: All systems not noted in ROS Statement are negative. Past Medical History Past Medical History: GERD/Reflux, Hearing Disorder / Deafness, Hypertension, Osteoarthritis (OA), Seizure Disorder Additional Past Medical History / Comment(s): SEIZURES CONTROLLED BY MEDICATION , (states last seizure was 7 years ago) open wound in left buttock from removal of intrathecal pump, multiple sclerosis. begining of parkinsons. Last Myocardial Infarction Date:: 2012 History of Any Multi-Drug Resistant Organisms: None Reported Past Surgical History: Appendectomy Additional Past Surgical History / Comment(s): 02/10/15 Pain pump insertion, 3/ 4 gastrectomy due to ulcers, BOWEL obstruction with surgery (2003), left knee athroscopy, Past Anesthesia/Blood Transfusion Reactions: No Reported Reaction Past Psychological History: No Psychological Hx Reported Additional Psychological History / Comment(s): Pt currently resides at [address] She ambulates normally with a walker or sometimes uses a wheelchair. She needs some assistance with bathing and putting on her TEDs. She feeds and dresses herself. She is on a heart healthy diet. Smoking Status: Never smoker Past Alcohol Use History: None Reported Past Drug Use History: None Reported - Past Family History Father Additional Family Medical History / Comment(s): With colon cancer Mother Additional Family Medical History / Comment(s): UNKNOWN Course Vital Signs 05/17/18 05/17/18 05/17/18 17:32 19:31 20:31 Temperature 97.7 F Pulse Rate 82 82 87 Respiratory 18 18 18 Rate Blood Pressure 157/74 130/73 158/69 O2 Sat by Pulse 99 100 100 Oximetry 05/17/18 22:15 Temperature 98.9 F Pulse Rate 93 Respiratory 18 Rate Blood Pressure 147/66 O2 Sat by Pulse 100 Oximetry EKG Findings - EKG Comments: EKG Findings:: EKG performed at 1741 the rate is 83, the rhythm is sinus, there is normal axis, there are normal intervals, VT is 152, QRS 88, QTC is 439, there are no acute ST elevations or depressions. No evidence of acute ischemia or infarction. Medical Decision Making - Medical Decision Making Patient arrived via EMS, was transported directly to CT She returned from CT, NIH score is 2 for left arm and left leg drift Patient does have a history of intracranial hemorrhage, 8 years ago however this was traumatic in nature CODE STROKE was activated Patient was evaluated by tele-neurologist who recommended no TPA due to patients comorbidities and minimal symptoms Labs were unremarkable DISMANTLER was contacted for assistance in placing a peripheral IV due to difficulty with vascular access. DISMANTLER was unable to. Anesthesiologist came to the patient 's bedside and placed a peripheral line. Labs were obtained Labs and no significant abnormalities Urine with no evidence of UTI Considering the patient's multiple comorbidities and do feel she needs to remain in the hospital for further evaluation and neurologic evaluation. Patient care was discussed with Dr. lugo who agrees that the patient requires further evaluation and neurology consultation. Admission orders were placed. Aspirin was held due to the patient's ALLERGY. - Lab Data Result diagrams: 05/17/18 19:23 05/17/18 21:06 Lab Results 05/17/18 05/17/18 05/17/18 Range/Units 19:23 19:23 20:27 WBC 5.5 (3.8-10.6) k/uL RBC 4.13 (3.80-5.40) m/uL Hgb 12.2 (11.4-16.0) gm/dL Hct 38.5 (34.0-46.0) % MCV 93.4 (80.0-100.0) fL MCH 29.7 (25.0-35.0) pg MCHC 31.8 (31.0-37.0) g/dL RDW 14.3 (11.5-15.5) % Plt Count 257 (150-450) k/uL Neutrophils % 54 % Lymphocytes % 35 % Monocytes % 6 % Eosinophils % 3 % Basophils % 1 % Neutrophils # 3.0 (1.3-7.7) k/uL Lymphocytes # 1.9 (1.0-4.8) k/uL Monocytes # 0.3 (0-1.0) k/uL Eosinophils # 0.1 (0-0.7) k/uL Basophils # 0.0 (0-0.2) k/uL PT 9.8 (9.0-12.0) sec INR 1.0 (<1.2) APTT 23.0 (22.0-30.0) sec Sodium (137-145) mmol/L Potassium (3.5-5.1) mmol/L Chloride (98-107) mmol/L Carbon Dioxide (22-30) mmol/L Anion Gap mmol/L BUN (7-17) mg/dL Creatinine (0.52-1.04) mg/dL Est GFR (CKD-EPI)AfAm (>60 ml/min/1.73 sqM) Est GFR (CKD-EPI)NonAf (>60 ml/min/1.73 sqM) Glucose (74-99) mg/dL Calcium (8.4-10.2) mg/dL Total Bilirubin (0.2-1.3) mg/dL AST (14-36) U/L ALT (9-52) U/L Alkaline Phosphatase (38-126) U/L Total Creatine Kinase 58 (30-135) U/L CK-MB (CK-2) 0.9 (0.0-2.4) ng/mL CK-MB (CK-2) Rel Index 1.6 Troponin I <0.012 (0.000-0.034) ng/mL Total Protein (6.3-8.2) g/dL Albumin (3.5-5.0) g/dL 05/17/18 Range/Units 21:06 WBC (3.8-10.6) k/uL RBC (3.80-5.40) m/uL Hgb (11.4-16.0) gm/dL Hct (34.0-46.0) % MCV (80.0-100.0) fL MCH (25.0-35.0) pg MCHC (31.0-37.0) g/dL RDW (11.5-15.5) % Plt Count (150-450) k/uL Neutrophils % % Lymphocytes % % Monocytes % % Eosinophils % % Basophils % % Neutrophils # (1.3-7.7) k/uL Lymphocytes # (1.0-4.8) k/uL Monocytes # (0-1.0) k/uL Eosinophils # (0-0.7) k/uL Basophils # (0-0.2) k/uL PT (9.0-12.0) sec INR (<1.2) APTT (22.0-30.0) sec Sodium 141 (137-145) mmol/L Potassium 4.5 (3.5-5.1) mmol/L Chloride 117 H (98-107) mmol/L Carbon Dioxide 21 L (22-30) mmol/L Anion Gap 3 mmol/L BUN 13 (7-17) mg/dL Creatinine 0.60 (0.52-1.04) mg/dL Est GFR (CKD-EPI)AfAm >90 (>60 ml/min/1.73 sqM) Est GFR (CKD-EPI)NonAf >90 (>60 ml/min/1.73 sqM) Glucose 96 (74-99) mg/dL Calcium 8.9 (8.4-10.2) mg/dL Total Bilirubin 0.3 (0.2-1.3) mg/dL AST 26 (14-36) U/L ALT 25 (9-52) U/L Alkaline Phosphatase 98 (38-126) U/L Total Creatine Kinase (30-135) U/L CK-MB (CK-2) (0.0-2.4) ng/mL CK-MB (CK-2) Rel Index Troponin I (0.000-0.034) ng/mL Total Protein 5.5 L (6.3-8.2) g/dL Albumin 3.0 L (3.5-5.0) g/dL Disposition Clinical Impression: Left-sided weakness Disposition: ADMITTED IP TO THIS [facility] Condition: Good Time of Disposition: 21:09
[2018-05-17 19:43] LABS: Basophils % (A) 1 %; Eosinophils # (A) 0.1 k/uL (0-0.7); Eosinophils % (A) 3 %; HCT 38.5 % (34.0-46.0); HGB 12.2 gm/dL (11.4-16.0); Lymphocytes # (A) 1.9 k/uL (1.0-4.8); Lymphocytes % (A) 35 %; MCH 29.7 pg (25.0-35.0); MCHC 31.8 g/dL (31.0-37.0); MCV 93.4 fL (80.0-100.0); Mean Platelet Volume 7.6; Monocytes # (A) 0.3 k/uL (0-1.0); Monocytes % (A) 6 %; Neutrophils % (A) 54 %; Platelet Count 257 k/uL (150-450); RBC 4.13 m/uL (3.80-5.40); RDW 14.3 % (11.5-15.5); WBC 5.5 k/uL (3.8-10.6)
[2018-05-17 20:28] LABS: Prothrombin Time 9.8 sec (9.0-12.0)
--- NOTE | 2018-05-17 20:34 | XR ---
EXAMINATION TYPE: XR chest 2V DATE OF EXAM: 05/17/2018 COMPARISON: 05/11/2018 HISTORY: Altered mental status TECHNIQUE: Frontal and lateral views of the chest are obtained. FINDINGS: Heart and mediastinum are normal. Lungs are clear of consolidation. There are chest leads. Costophrenic angles are clear. Bony thorax is intact. IMPRESSION: No active cardiopulmonary disease. No change. Mild pulmonary fibrotic changes.
[2018-05-17 20:48] LABS: Creatine Kinase 58 U/L (30-135)
[2018-05-17 21:01] LABS: Creatine Kinase MB 0.9 ng/mL (0.0-2.4); Troponin I <0.012 ng/mL (0.000-0.034)
[2018-05-17] MEDS ORDERED: NALOXONE 0.4 MG/ML 1 ML VIAL IV PRN (21:09)
[2018-05-17 21:27] LABS: ALT 25 U/L (9-52); AST 26 U/L (14-36); Alkaline Phosphatase 98 U/L (38-126); Anion Gap 3 mmol/L; Blood Urea Nitrogen 13 mg/dL (7-17); Calcium 8.9 mg/dL (8.4-10.2); Carbon Dioxide 21 mmol/L (22-30); Chloride 117 mmol/L (98-107); Glucose 96 mg/dL (74-99); Sodium 141 mmol/L (137-145); Total Bilirubin 0.3 mg/dL (0.2-1.3); Total Protein 5.5 g/dL (6.3-8.2)
[2018-05-17 21:29] LABS: Potassium 4.5 mmol/L (3.5-5.1)
--- NOTE | 2018-05-17 22:25 | CT ---
EXAMINATION TYPE: CT angio head neck DATE OF EXAM: 05/17/2018 HISTORY: Left side weakness. COMPARISON: None CT DLP: 231.8 mGycm. Automated Exposure Control for Dose Reduction was Utilized. TECHNIQUE: CTA scan of the neck is performed with IV Contrast, patient injected with 65ml mL of Isov ue 370, axial images are obtained, coronal and sagittal reformatted images are reviewed. Three-D eric nstructed images are created on an independent workstation and reviewed. FINDINGS: There is normal branching pattern of the great vessels on the aortic arch. Left carotid artery has or igin from the innominate artery. There is arterial flow in both vertebral arteries. There is arterial flow in the common internal and external carotid arteries bilaterally. There is bilateral wide patency of the carotid artery bifurcat ions. There is no evidence of stenosis. There is no evidence of carotid or vertebral artery aneurysm or dissection. There is arterial flow in the vertebrobasilar artery system. Basilar artery fills from both vertebral arteries. There is arterial flow in the anterior middle and posterior cerebral arteries. There is no evidence o f stenosis. I see no evidence of intracranial aneurysm or neovascularity. There is normal contrast op acification of the venous sinuses. There is no mass effect. IMPRESSION: Negative CT angiogram of the neck. Negative CT angiogram of the brain.
[2018-05-17 23:23] LABS: Appearance,Urine Clear (Clear); Bilirubin,Urine Negative (Negative); Blood,Urine Negative (Negative); Color,Urine Colorless; Glucose,Urine (UA) Negative (Negative); Ketones,Urine Negative (Negative); Leukocyte Esterase,Urine Negative (Negative); Nitrite,Urine Negative (Negative); PH, Urine 7.5 (5.0-8.0); Protein,Urine Negative (Negative); Specific Gravity,Urine 1.013 (1.001-1.035); Urobilinogen,Urine <2.0 mg/dL (<2.0)
[2018-05-18] MEDS: ACETAMINOPHEN TAB 325 MG TAB PO PRN ×3 (00:22→21:09)
[2018-05-18] MEDS: ATORVASTATIN 20 MG TAB PO SCH ×2 (00:23→21:08)
[2018-05-18] MEDS: TOPIRAMATE 100 MG TAB PO SCH ×3 (00:23→21:09)
[2018-05-18] MEDS: CARBIDOPA-LEVODOPA 25-100 MG 1 EACH TAB PO SCH ×3 (00:23→21:09)
[2018-05-18] MEDS ORDERED: ONDANSETRON 4 MG/2 ML VIAL IVP PRN (04:37)
[2018-05-18] MEDS: LEVOTHYROXINE 75 MCG TAB PO SCH (06:44)
[2018-05-18] MEDS: MORPHINE SULFATE ER 15 MG TABLET PO PRN ×2 (06:48→18:31)
[2018-05-18] MEDS: APIXABAN 5 MG TAB PO SCH ×2 (08:43→22:32)
[2018-05-18] MEDS: FUROSEMIDE 20 MG TAB PO SCH (08:43)
[2018-05-18] MEDS: FAMOTIDINE 20 MG TAB PO SCH (08:46)
[2018-05-18 11:54] VITALS: BMI 15.3
[2018-05-18] MEDS: CALAMINE/ZINC OXIDE LOTION 177 ML BTL TOPICAL PRN (12:09)
--- NOTE | 2018-05-18 14:25 | P.HPIM ---
Review of Systems this is a pleasant 63 years old fema with past medical history of GERD, hypertension, ulcer arthritis, seizure disorder, multiple sclerosis, Parkinson disease. And she is being followed up by Dr. nance for her Parkinson disease. Patient was recently discharged from the hospital this 3 days ago for possible ALLERGIC reaction versus cellulitis of her arms and legs when she field ants crawling up her skin, at that time workup did not reveal anything can patient was discharge. However she presents this time recently because of weakness and possible numbness in her left upper extremity. In the emergency room it was mentioned she does have weakness in the left upper extremity however when I see the patient she confirmed to me she did not have weakness only feeling numbness in her left upper extremity which is now resolved as per patient. Patient denies other complaints. No chest pain, no dyspnea. No change in urine bowel habits. No fever Past Medical History Past Medical History: GERD/Reflux, Hearing Disorder / Deafness, Hypertension, Osteoarthritis (OA), Seizure Disorder Additional Past Medical History / Comment(s): SEIZURES CONTROLLED BY MEDICATION , (states last seizure was 7 years ago) open wound in left buttock from removal of intrathecal pump, multiple sclerosis. begining of parkinsons. Last Myocardial Infarction Date:: 2012 History of Any Multi-Drug Resistant Organisms: None Reported Past Surgical History: Appendectomy Additional Past Surgical History / Comment(s): 02/10/15 Pain pump insertion, 3/ gastrectomy due to ulcers, BOWEL obstruction with surgery (2003), left knee athroscopy, Past Anesthesia/Blood Transfusion Reactions: No Reported Reaction Past Psychological History: No Psychological Hx Reported Additional Psychological History / Comment(s): Pt currently resides at [address] She ambulates normally with a walker or sometimes uses a wheelchair. She needs some assistance with bathing and putting on her TEDs. She feeds and dresses herself. She is on a heart healthy diet. Smoking Status: Never smoker Past Alcohol Use History: None Reported Past Drug Use History: None Reported - Past Family History Father Additional Family Medical History / Comment(s): With colon cancer Mother Additional Family Medical History / Comment(s): UNKNOWN Medications and Allergies Home Medications Medication Instructions Recorded Confirmed Type RX: Famotidine [Pepcid] 20 mg PO DAILY 01/28/15 05/17/18 History RX: Carbidopa-Levodopa 25-100 mg 1 tab PO BID 07/23/17 05/17/18 History [Sinemet 25-100 mg] RX: Gabapentin [Neurontin] 300 mg PO Q8H 07/23/17 05/17/18 History RX: Apixaban [Eliquis] 5 mg PO BID tab 07/30/17 05/17/18 Rx RX: Melatonin 3 mg PO HS 09/29/17 05/17/18 History RX: Atorvastatin [Lipitor] 20 mg PO HS 05/12/18 05/17/18 History RX: Levothyroxine Sodium 75 mcg PO DAILY 05/12/18 05/17/18 History [Synthroid] RX: Topiramate [Topamax] 200 mg PO BID 05/12/18 05/17/18 History RX: traZODone HCL 50 mg PO HS 05/12/18 05/17/18 History RX: Ergocalciferol [Vitamin D2 50,000 unit PO WE 05/13/18 05/17/18 History (DRISDOL)] RX: Ferrous Sulfate [Iron (65 MG 325 mg PO BID 05/13/18 05/17/18 History Elemental)] RX: Morphine Sulfate [Ms Contin] 15 mg PO Q12HR PRN 05/13/18 05/17/18 History diphenhydrAMINE & Zinc Cream 1 applic TOPICAL TID PRN #1 gm 05/14/18 05/17/18 Rx [Benadryl Cream] Clotrimazole/Betameth Cream 1 applic TOPICAL DAILY PRN 05/17/18 05/17/18 History [Lotrisone] Furosemide [Lasix] 20 mg PO DAILY 05/17/18 05/17/18 History Nystatin [Nystop] 1 applic TOPICAL BID 05/17/18 05/17/18 History clonazePAM [KlonoPIN] 0.5 mg PO BID PRN 05/17/18 05/17/18 History Allergies Allergy/AdvReac Type Severity Reaction Status Date / Time adhesive Allergy Severe Rash/Hives Verified 05/17/18 19:21 celecoxib [From Celebrex] Allergy Severe Vomiting Verified 05/17/18 19:21 citalopram hydrobromide Allergy Unknown Vomiting Verified 05/17/18 19:21 [From Celexa] ketorolac tromethamine Allergy Unknown Vomiting Verified 05/17/18 19:21 [From Toradol] latex Allergy Unknown Rash/Hives Verified 05/17/18 19:21 Phenothiazines Allergy Unknown Unknown Verified 05/17/18 19:21 aspirin Allergy Rash/Hives Verified 05/17/18 19:21 bee pollen [Bee Pollen] Allergy Rash/Hives Verified 05/17/18 19:21 metoclopramide Allergy Rash/Hives Verified 05/17/18 19:21 Penicillins Allergy Rash/Hives Verified 05/17/18 19:21 prochlorperazine edisylate Allergy Vomiting Verified 05/17/18 19:21 [From Compazine] prochlorperazine maleate Allergy Vomiting Verified 05/17/18 19:21 [From Compazine] rofecoxib [From Vioxx] Allergy Rash/Hives Verified 05/17/18 19:21 Salicylates Allergy Vomiting Verified 05/17/18 19:21 Physical Exam Vitals: Vital Signs Temp Pulse Pulse Resp BP BP Pulse Ox 05/18/18 11:20 88 16 118/75 98 05/18/18 08:35 98.4 F 90 16 122/62 100 05/18/18 04:30 82 16 116/67 99 05/18/18 00:08 98.1 F 87 16 146/81 100 05/17/18 22:15 98.9 F 93 18 147/66 100 05/17/18 20:31 97.7 F 87 18 158/69 100 05/17/18 19:31 82 18 130/73 100 05/17/18 17:32 82 18 157/74 99 Intake and Output 05/17/18 05/18/18 05/18/18 22:59 06:59 14:59 Intake Total 840 Balance 840 Intake: Oral 840 Other: Voiding Method Bedpan # Voids 2 Weight 71.214 kg 47 kg 47 kg Results CBC & Chem 7: 05/17/18 19:23 05/17/18 21:06 Labs: Abnormal Lab Results - Last 24 Hours (Table) 05/17/18 Range/Units 21:06 Chloride 117 H (98-107) mmol/L Carbon Dioxide 21 L (22-30) mmol/L Total Protein 5.5 L (6.3-8.2) g/dL Albumin 3.0 L (3.5-5.0) g/dL Thrombosis Risk Factor Assmnt - Choose All That Apply Any of the Below Risk Factors Present?: Yes Each Factor Represents 1 point: Swollen legs (current) Each Risk Factor Represents 2 Points: Age 61-74 years Thrombosis Risk Factor Assessment Total Risk Factor Score: 3 Thrombosis Risk Factor Assessment Level: Moderate Risk Assessment and Plan Assessment: Numbness in the left upper extremity, questionable weakness. Rule out stroke says other Delusions/hallucination of and sent crawling up her skin, the head trunk and extremities Parkinson disease Seizure Hypertension Posterior arthritis GERD Plan: Patient admitted with a possible diagnosis of stroke versus other given her symptoms in her left upper extremity. However patient states she has feeling of ants crawling all over her body . We'll continue with same treatment. Continue symptomatic treatment. Neurology consult is in process. We'll call psychiatry consults for her abnormal feelings and sensations. Patient on on liquids. As you home medications. He prophylaxis and GI prophylaxis. Further recommendation based on clinical course
--- NOTE | 2018-05-18 15:18 | P.CNNES ---
History of Present Illness Consult date: 05/18/18 Reason for Consult: Patient admitted with left arm numbness and weakness. History of Present Illness: This patient is a 63-year-old right-handed white female who was recently discharged from the hospital about 3 days ago for possible ALLERGIC reaction versus cellulitis of her arms and legs. Patient apparently had some insect bite possibly due to aunts and she states that she has been having symptoms of paresthesias. She was discharged home and apparently came back to the emergency room yesterday with symptoms of left arm numbness and weakness. She was evaluated in the emergency room by Dr. Cruz who ordered a computed tomography scan of the brain as well as a CTA angiogram of the head and neck. CAT scan of the brain revealed mild atrophy with no acute changes. CTA angiogram of the head and neck came back normal. She was evaluated in the ER by Dr. Cruz for acute stroke and her NIH stroke scale was noted to be 2.0. A code stroke was activated in she was evaluated by the neuro computer terminal operator admitted [facility]. They reviewed all of her test results and deemed her not to be a candidate for TPA due to her core morbidities and minimal symptoms. She was recommended admission to the hospital for further evaluation. The patient states she has been continuing to experience numbness and weakness on her left side. She does have a history of multiple sclerosis which was diagnosed about 30 years ago. She was treated for MS years ago with Copaxone. She states she has not been on any specific medication for multiple sclerosis but recently has been treated for Parkinson's disease. She is currently taking Sinemet twice a day which was prescribed by her neurologist Dr. Cat who follows her closely. She was last seen there about few months ago according to the patient. Patient states she has been experiencing symptoms of aunts crawling over her body. It is unclear if this was due to her recent bites that she received from aunts when she was sitting outdoors recently. Once again she was evaluated for possibility of ALLERGIC reaction to insect bite versus cellulitis and was discharged home. The patient is not a very good historian. 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 She has had some seizures following this and is on treatment for this condition as well. The patient does continue to show signs of left-sided numbness and paresthesia as well as weakness today on examination. She states this is been long-standing given her history of multiple sclerosis. She is now been admitted and neurology has been consulted for further evaluation and recommendations. Review of Systems Constitutional: Denies chills, Denies fever Eyes: denies blurred vision, denies pain Ears, nose, mouth and throat: Denies headache, Denies sore throat Cardiovascular: Denies chest pain, Denies shortness of breath Respiratory: Denies cough Gastrointestinal: Denies abdominal pain, Denies diarrhea, Denies nausea, Denies vomiting Genitourinary: Denies dysuria, Denies hematuria Musculoskeletal: Denies myalgias Integumentary: Denies pruritus, Denies rash Neurological: Reports change in mentation, Reports confusion, Reports motor disturbance, Reports paresthesias, Reports tingling, Denies numbness, Denies weakness Psychiatric: Reports disorientation, Reports hallucinations, Denies anxiety, Denies depression Endocrine: Denies fatigue, Denies weight change Past Medical History Past Medical History: GERD/Reflux, Hearing Disorder / Deafness, Hypertension, Osteoarthritis (OA), Seizure Disorder Additional Past Medical History / Comment(s): SEIZURES CONTROLLED BY MEDICATION , (states last seizure was 7 years ago) open wound in left buttock from removal of intrathecal pump, multiple sclerosis. begining of parkinsons. Last Myocardial Infarction Date:: 2012 History of Any Multi-Drug Resistant Organisms: None Reported Past Surgical History: Appendectomy Additional Past Surgical History / Comment(s): 02/10/15 Pain pump insertion, 3/ 4 gastrectomy due to ulcers, BOWEL obstruction with surgery (2003), left knee athroscopy, Past Anesthesia/Blood Transfusion Reactions: No Reported Reaction Past Psychological History: No Psychological Hx Reported Additional Psychological History / Comment(s): Pt currently resides at [address] She ambulates normally with a walker or sometimes uses a wheelchair. She needs some assistance with bathing and putting on her TEDs. She feeds and dresses herself. She is on a heart healthy diet. Smoking Status: Never smoker Past Alcohol Use History: None Reported Past Drug Use History: None Reported - Past Family History Father Additional Family Medical History / Comment(s): With colon cancer Mother Additional Family Medical History / Comment(s): UNKNOWN Medications and Allergies Home Medications Medication Instructions Recorded Confirmed Type Famotidine [Pepcid] 20 mg PO DAILY 01/28/15 05/17/18 History Carbidopa-Levodopa 25-100 mg 1 tab PO BID 07/23/17 05/17/18 History [Sinemet 25-100 mg] Gabapentin [Neurontin] 300 mg PO Q8H 07/23/17 05/17/18 History Apixaban [Eliquis] 5 mg PO BID tab 07/30/17 05/17/18 Rx Melatonin 3 mg PO HS 09/29/17 05/17/18 History Atorvastatin [Lipitor] 20 mg PO HS 05/12/18 05/17/18 History Levothyroxine Sodium [Synthroid] 75 mcg PO DAILY 05/12/18 05/17/18 History Topiramate [Topamax] 200 mg PO BID 05/12/18 05/17/18 History traZODone HCL 50 mg PO HS 05/12/18 05/17/18 History Ergocalciferol [Vitamin D2 50,000 unit PO WE 05/13/18 05/17/18 History (DRISDOL)] Ferrous Sulfate [Iron (65 MG 325 mg PO BID 05/13/18 05/17/18 History Elemental)] Morphine Sulfate [Ms Contin] 15 mg PO Q12HR PRN 05/13/18 05/17/18 History diphenhydrAMINE & Zinc Cream 1 applic TOPICAL TID PRN #1 gm 05/14/18 05/17/18 Rx [Benadryl Cream] Clotrimazole/Betameth Cream 1 applic TOPICAL DAILY PRN 05/17/18 05/17/18 History [Lotrisone] Furosemide [Lasix] 20 mg PO DAILY 05/17/18 05/17/18 History Nystatin [Nystop] 1 applic TOPICAL BID 05/17/18 05/17/18 History clonazePAM [KlonoPIN] 0.5 mg PO BID PRN 05/17/18 05/17/18 History Allergies Allergy/AdvReac Type Severity Reaction Status Date / Time adhesive Allergy Severe Rash/Hives Verified 05/17/18 19:21 celecoxib [From Celebrex] Allergy Severe Vomiting Verified 05/17/18 19:21 citalopram hydrobromide Allergy Unknown Vomiting Verified 05/17/18 19:21 [From Celexa] ketorolac tromethamine Allergy Unknown Vomiting Verified 05/17/18 19:21 [From Toradol] latex Allergy Unknown Rash/Hives Verified 05/17/18 19:21 Phenothiazines Allergy Unknown Unknown Verified 05/17/18 19:21 aspirin Allergy Rash/Hives Verified 05/17/18 19:21 bee pollen [Bee Pollen] Allergy Rash/Hives Verified 05/17/18 19:21 metoclopramide Allergy Rash/Hives Verified 05/17/18 19:21 Penicillins Allergy Rash/Hives Verified 05/17/18 19:21 prochlorperazine edisylate Allergy Vomiting Verified 05/17/18 19:21 [From Compazine] prochlorperazine maleate Allergy Vomiting Verified 05/17/18 19:21 [From Compazine] rofecoxib [From Vioxx] Allergy Rash/Hives Verified 05/17/18 19:21 Salicylates Allergy Vomiting Verified 05/17/18 19:21 Physical Examination - Vital Signs Vital Signs: Vital Signs Temp Pulse Pulse Resp BP BP Pulse Ox 05/18/18 08:35 98.4 F 90 16 122/62 100 05/18/18 04:30 82 16 116/67 99 05/18/18 00:08 98.1 F 87 16 146/81 100 05/17/18 22:15 98.9 F 93 18 147/66 100 05/17/18 20:31 97.7 F 87 18 158/69 100 05/17/18 19:31 82 18 130/73 100 05/17/18 17:32 82 18 157/74 99 Intake and Output 05/17/18 05/18/18 05/18/18 22:59 06:59 14:59 Intake Total 480 Balance 480 Intake: Oral 480 Other: Voiding Method Bedpan # Voids 2 Weight 71.214 kg 47 kg - Constitutional General appearance: average body habitus, cooperative - EENT EENT: PERRL, mucous membranes moist - Respiratory Respiratory: lungs clear, normal breath sounds - Cardiovascular Cardiovascular: regular rate, normal S1, normal S2 Extremities: no peripheral edema bilaterally - Gastrointestinal Gastrointestinal: normoactive bowel sounds - Integumentary Integumentary: normal - Neurologic Cranial nerve examination: PERRL, EOMI, VFF, V1/V2/V3 grossly intact, face symmetric, tongue midline, intact gag reflex, intact corneal reflex, normal palatal elevation Speech examination: intact Sensorimotor examination: intact Motor examination - right side: 4/5: biceps, triceps, wrist flexion, wrist extension, machine maintenance, hip flexors, knee extensors, dorsiflexion, toe extension (EHL) , plantarflexion Motor examination - left side: 3/5: biceps, triceps, wrist flexion, wrist extension, machine maintenance, hip flexors, knee extensors, dorsiflexion, toe extension (EHL) , plantarflexion Detailed sensory examination: intact Reflex and gait examination: intact Reflexes: 1+: ankle, bicep, knee, tricep - Musculoskeletal Musculoskeletal: no pain - Psychiatric Psychiatric: mood/affect appropriate, cooperative Results - Laboratory Findings CBC and BMP: 05/17/18 19:23 05/17/18 21:06 Abnormal Lab Findings: Abnormal Labs 05/17/18 21:06 Chloride 117 H Carbon Dioxide 21 L Total Protein 5.5 L Albumin 3.0 L Assessment and Plan (1) Left-sided weakness Current Visit: Yes Status: Acute Code(s): R53.1 - WEAKNESS SNOMED Code(s) : 993269516 (2) Acute metabolic encephalopathy Current Visit: Yes Status: Acute Code(s): G93.41 - METABOLIC ENCEPHALOPATHY SNOMED Code(s): 98855886 (3) Parkinson disease Current Visit: No Status: Acute Code(s): G20 - PARKINSON'S DISEASE SNOMED Code(s): 20045095 (4) History of multiple sclerosis Current Visit: Yes Status: Acute Code(s): Z86.69 - PERSONAL HISTORY OF DIS OF THE NERVOUS SYS AND SENSE ORGANS SNOMED Code(s): 715449321 (5) History of seizures Current Visit: No Status: Chronic Priority: High Onset Date: Unknown Code(s): Z87.898 - PERSONAL HISTORY OF OTHER SPECIFIED CONDITIONS SNOMED Code( s): 227605094 Plan: This patient is a 63-year-old female who was admitted to Hospital with symptoms of left-sided arm numbness and weakness. She was brought into the emergency room and was seen in the ER yesterday by Dr. Cruz. A code stroke was initiated and her NIH stroke scale was noted to be 2.0. She was sent for a computed tomography scan of the brain and CTA angiogram of the head and neck the results of which are noted above. The neuro interventionalist was contacted and reviewed all of her studies and deemed her not to be a candidate for TPA. She was subsequently admitted to Hospital. She has been having symptoms of paresthesias but is not a very good historian. She has been recently diagnosed with Parkinson's disease and is taking Sinemet. She has been having weakness on her left side which according to the patient is a long- standing given her history of multiple sclerosis in the past. Patient has been having some delusions of ants crawling over her body. A psychiatry consultation has been ordered. We will obtain a routine EEG for further evaluation. We reviewed the results of the computed tomography scan of the brain and CTA angiogram of the head and neck with the patient today in detail. As noted both studies are entirely normal. She does reveal evidence of left- sided weakness which likely is secondary to her history of MS in the past. She also gives a history of seizure disorder but has not had any recent seizure for the past 7 years. We will continue close neurological follow-up for the patient during this admission. Her overall prognosis at this time remains very guarded. Time with Patient: Greater than 30
[2018-05-19] MEDS: CALAMINE/ZINC OXIDE LOTION 177 ML BTL TOPICAL PRN (00:12)
[2018-05-19] MEDS: MORPHINE SULFATE ER 15 MG TABLET PO PRN ×2 (06:14→17:48)
[2018-05-19] MEDS: LEVOTHYROXINE 75 MCG TAB PO SCH (06:42)
[2018-05-19] MEDS: FUROSEMIDE 20 MG TAB PO SCH (09:31)
[2018-05-19] MEDS: TOPIRAMATE 100 MG TAB PO SCH ×2 (09:31→22:29)
[2018-05-19] MEDS: CARBIDOPA-LEVODOPA 25-100 MG 1 EACH TAB PO SCH ×2 (09:31→22:29)
[2018-05-19] MEDS: FAMOTIDINE 20 MG TAB PO SCH (09:31)
[2018-05-19] MEDS: APIXABAN 5 MG TAB PO SCH ×2 (09:31→22:28)
[2018-05-19] MEDS: ACETAMINOPHEN TAB 325 MG TAB PO PRN ×2 (09:35→22:49)
--- NOTE | 2018-05-19 13:24 | P.PN ---
Subjective Progress Note Date: 05/19/18 This patient is a 63-year-old female who was admitted yesterday due to Hospital with symptoms of left-sided weakness and numbness. She has also been experiencing symptoms of ants crawling over her body. We are waiting a psychiatry consultation for the patient. There is been no significant change in her overall neurological status from yesterday. Patient states that her symptoms of numbness and paresthesias have significantly improved today. She still demonstrates some left-sided weakness on examination this morning. This is felt to be old secondary to her history of MS in the past. We will continue close monitoring. We once again reviewed her recent computed tomography scan of the brain results which failed to reveal any acute changes. We will continue close neurological follow-up for the patient during this admission. Patient is awaiting consultation from psychiatry. Neurologically she remains stable and may be considered for discharge once she is cleared by psychiatry. We will continue close neurological follow-up with the patient during this admission. Objective - Vital Signs Vital signs: Vital Signs Temp 98.5 F 05/19/18 06:29 Pulse 85 05/19/18 06:29 Resp 20 05/19/18 06:29 BP 135/80 05/19/18 06:29 Pulse Ox 99 05/19/18 06:29 Intake & Output 05/18/18 05/19/18 05/19/18 18:59 06:59 18:59 Intake Total 1080 Balance 1080 Weight 47 kg Intake: Oral 1080 Other: Voiding Method Bedpan Toilet # Voids 1 4 - Exam Physical examination: PHYSICAL EXAMINATION: Patient is resting comfortably in bed. VITAL SIGNS: Blood pressure is [135/80]. Heart rate is [85]. Respiration is [20] . Temperature is [98.5]. HEENT: Head is atraumatic, neck is supple, there were no carotid bruits. CHEST: Lungs are clear to auscultation and percussion. CARDIAC: S1, S2 normal rate and rhythm. There is no murmur. ABDOMEN: Soft and nontender. Bowel sounds are present. EXTREMITIES: There is no pedal edema. Peripheral pulses are present. Neurological examination: Neurological examination is unchanged from yesterday. - Labs CBC & Chem 7: 05/17/18 19:23 05/17/18 21:06 Assessment and Plan (1) Left-sided weakness Current Visit: Yes Status: Acute Code(s): R53.1 - WEAKNESS SNOMED Code(s) : 521274652 (2) Acute metabolic encephalopathy Current Visit: Yes Status: Acute Code(s): G93.41 - METABOLIC ENCEPHALOPATHY SNOMED Code(s): 85743576 (3) Parkinson disease Current Visit: No Status: Acute Code(s): G20 - PARKINSON'S DISEASE SNOMED Code(s): 89001588 (4) History of multiple sclerosis Current Visit: Yes Status: Acute Code(s): Z86.69 - PERSONAL HISTORY OF DIS OF THE NERVOUS SYS AND SENSE ORGANS SNOMED Code(s): 184444740 (5) History of seizures Current Visit: No Status: Chronic Priority: High Onset Date: Unknown Code(s): Z87.898 - PERSONAL HISTORY OF OTHER SPECIFIED CONDITIONS SNOMED Code( s): 038240702 Plan: This patient is a 63-year-old female who was admitted to Hospital with symptoms of left-sided arm numbness and weakness. She was brought into the emergency room and was seen in the ER yesterday by Dr. Cruz. A code stroke was initiated and her NIH stroke scale was noted to be 2.0. She was sent for a computed tomography scan of the brain and CTA angiogram of the head and neck the results of which are noted above. The neuro interventionalist was contacted and reviewed all of her studies and deemed her not to be a candidate for TPA. She was subsequently admitted to Hospital. She has been having symptoms of paresthesias but is not a very good historian. She has been recently diagnosed with Parkinson's disease and is taking Sinemet. She has been having weakness on her left side which according to the patient is a long- standing given her history of multiple sclerosis in the past. Patient has been having some delusions of ants crawling over her body. A psychiatry consultation has been ordered. We will obtain a routine EEG for further evaluation. We reviewed the results of the computed tomography scan of the brain and CTA angiogram of the head and neck with the patient today in detail. As noted both studies are entirely normal. She does reveal evidence of left- sided weakness which likely is secondary to her history of MS in the past. She also gives a history of seizure disorder but has not had any recent seizure for the past 7 years. Neurologically she feels better today and has had less symptoms of paresthesias over her body. She is being evaluated by psychiatry and we're waiting they're consultation. Neurologically she remains stable today. She is being considered for possible discharge home soon. We will continue close neurological follow-up for the patient during this admission. Her overall prognosis at this time remains very guarded.
--- NOTE | 2018-05-19 14:55 | CONS ---
CONSULTATION DATE OF SERVICE: 05/19/2018. IDENTIFYING DATA: This patient is a 63-year-old female who is admitted to the hospital with a suspicion of a cerebrovascular accident. I am asked to consult regarding the report of tactile hallucinations. HISTORY OF PRESENT ILLNESS: The patient is found in her room. She is awake, watching TV. She is pleasant, cooperative on approach. She describes her mood as "good." She is reporting no depressive feelings. No particular anxiety symptoms. She is endorsing no history of panic attacks. She states her appetite has been improving. Sleep has been stable. Energy level is good. She states that she was recently in the hospital for presumed cellulitis. She states while home she had ants on her hands that were biting her, but no longer has that sensation. She is endorsing no auditory or visual hallucinations. She is endorsing no specific delusions. She endorses no history of hypomanic or manic episodes. She has been seen by internal medicine as well as Neurology. CT of the head and CTA were unremarkable for any acute event. PAST PSYCHIATRIC HISTORY: She reports she has had 1 psychiatric admission when she was in her 20s. She denies any history of suicide attempts. She is prescribed trazodone for sleep at bedtime and she states she takes Klonopin but for tremors only as it is not needed for anxiety. She does not recall being prescribed psychotropic medications for depression, anxiety, or any other mood symptom. She recalls no antipsychotic medication in the past. PAST MEDICAL HISTORY: She has a history of multiple sclerosis diagnosed when she was in her 30s, seizure disorder, hyperlipidemia, hypertension, GERD, hypothyroidism, and she states she was diagnosed with Parkinson disease. The chart indicates that was a recent diagnosis and she is now on Sinemet. The patient is unaware of how recent the Sinemet was started. ALLERGIES: CELEXA, CELEBREX, TORADOL, PHENOTHIAZINE, ASPIRIN, REGLAN, PENICILLIN, COMPAZINE, VIOXX. CHEMICAL DEPENDENCY HISTORY: She reports no use of alcohol, marijuana, or any other illicit drugs. SOCIAL HISTORY: The patient is 63 years old. She is . She lives alone. She has 3 children. They live in the area. She resides at [facility]. She has high school education. No history of service. MENTAL STATUS EXAM: The patient is a female. She is alert. She appears her stated age. She is wearing eye glasses. She is pleasant, cooperative for the interview. She denies having any suicidal or homicidal ideation, intent, or plan. She is endorsing no auditory, visual, or tactile hallucinations at this time. She remains calm during the interview and demonstrates no evidence of psychosis. Thought process is linear. She demonstrates no tangential thinking, loose associations or flight of ideas. She does not appear hypomanic or manic. She is oriented to person, place, and date. She is able to spell world backwards. Affect is appropriately expressive. She demonstrates appropriate smiling and use of humor. There is no evidence of abnormal involuntary movements. No evidence of verbal or physical aggressiveness. IMPRESSIONS: 1. Psychosis, unspecified, rule out iatrogenic psychosis secondary to Sinemet, rule out delirium reaction. 2. Medical comorbidities include diagnosis of Parkinson disease, multiple sclerosis, seizure disorder, hypothyroidism, hyperlipidemia, hypertension, gastroesophageal reflux disease. PLAN OF TREATMENT: The patient is currently denies having any symptoms of psychosis. She is endorsing no mood or significant anxiety symptoms. There appears to be no imminent safety risk. She does not require inpatient psychiatric hospitalization. If there is in fact symptoms of psychosis, I would consider lowering the dose of Sinemet. If the symptoms of psychosis cause sufficient dysfunction, we would then consider using an antipsychotic medication. MMODL / IJN: [id number] /
--- NOTE | 2018-05-19 21:39 | P.PN ---
Objective - Vital Signs Vital signs: Vital Signs Temp 96.9 F L 05/19/18 15:00 Pulse 81 05/19/18 15:00 Resp 18 05/19/18 15:00 BP 144/75 05/19/18 15:00 Pulse Ox 100 05/19/18 15:00 Intake & Output 05/19/18 05/19/18 05/20/18 06:59 18:59 06:59 Other: Voiding Method Toilet # Voids 4 8 - Exam this is a pleasant 63 years old fema with past medical history of GERD, hypertension, ulcer arthritis, seizure disorder, multiple sclerosis, Parkinson disease. And she is being followed up by Dr. nance for her Parkinson disease. Patient was recently discharged from the hospital this 3 days ago for possible ALLERGIC reaction versus cellulitis of her arms and legs when she field ants crawling up her skin, at that time workup did not reveal anything can patient was discharge. However she presents this time recently because of weakness and possible numbness in her left upper extremity. In the emergency room it was mentioned she does have weakness in the left upper extremity however when I see the patient she confirmed to me she did not have weakness only feeling numbness in her left upper extremity which is now resolved as per patient. Patient denies other complaints. No chest pain, no dyspnea. No change in urine bowel habits. No fever 05/19/2018 pt today denies to me any more itching , she states she feels better , and refer to it as numbness but resolved currently, pt has left side weakness which looks chronic as pt is telling me she is at her baseline and she feels back to her normal , neurology input is appreciated , work up has been negative so far and her symptoms has subsided , psychiatric service are to see pt for her feeling of ants crawling over her body - Labs CBC & Chem 7: 05/17/18 19:23 05/17/18 21:06 Assessment and Plan Assessment: Numbness in the left upper extremity, questionable weakness. Rule out stroke says other Delusions/hallucination of and sent crawling up her skin, the head trunk and extremities Parkinson disease Seizure Hypertension Posterior arthritis GERD Plan: Patient admitted with a possible diagnosis of stroke versus other given her symptoms in her left upper extremity. However patient states she has feeling of ants crawling all over her body . We'll continue with same treatment. Continue symptomatic treatment. Neurology consult is a[pppre. We'll call psychiatry consults for her abnormal feelings and sensations. Patient is on eliquis . resume home medications. He prophylaxis and GI prophylaxis. Further recommendation based on clinical course
[2018-05-19] MEDS: ATORVASTATIN 20 MG TAB PO SCH (22:28)
[2018-05-19] MEDS: diphenhydrAMINE 25 MG CAP PO PRN ×2 (22:35)
[2018-05-20] MEDS: MORPHINE SULFATE ER 15 MG TABLET PO PRN ×2 (05:49→17:54)
[2018-05-20] MEDS: LEVOTHYROXINE 75 MCG TAB PO SCH (06:25)
[2018-05-20] MEDS: ARTIFICIAL TEARS-HYPROMELLOSE DROPS 15 ML BTL BOTH EYES PRN ×2 (08:34→21:08)
[2018-05-20] MEDS: FAMOTIDINE 20 MG TAB PO SCH (08:35)
[2018-05-20] MEDS: TOPIRAMATE 100 MG TAB PO SCH ×2 (08:35→21:01)
[2018-05-20] MEDS: FUROSEMIDE 20 MG TAB PO SCH (08:35)
[2018-05-20] MEDS: CARBIDOPA-LEVODOPA 25-100 MG 1 EACH TAB PO SCH ×2 (08:35→21:00)
[2018-05-20] MEDS: APIXABAN 5 MG TAB PO SCH ×2 (08:35→21:00)
[2018-05-20] MEDS: CALAMINE/ZINC OXIDE LOTION 177 ML BTL TOPICAL PRN ×2 (08:36→18:30)
[2018-05-20] MEDS: ACETAMINOPHEN TAB 325 MG TAB PO PRN ×2 (08:46→21:09)
[2018-05-20] MEDS: diphenhydrAMINE 25 MG CAP PO PRN ×2 (08:47→18:29)
--- NOTE | 2018-05-20 11:51 | P.PN ---
Subjective this is a pleasant 63 years old fema with past medical history of GERD, hypertension, ulcer arthritis, seizure disorder, multiple sclerosis, Parkinson disease. And she is being followed up by Dr. nance for her Parkinson disease. Patient was recently discharged from the hospital this 3 days ago for possible ALLERGIC reaction versus cellulitis of her arms and legs when she field ants crawling up her skin, at that time workup did not reveal anything can patient was discharge. However she presents this time recently because of weakness and possible numbness in her left upper extremity. In the emergency room it was mentioned she does have weakness in the left upper extremity however when I see the patient she confirmed to me she did not have weakness only feeling numbness in her left upper extremity which is now resolved as per patient. Patient denies other complaints. No chest pain, no dyspnea. No change in urine bowel habits. No fever 05/19/2018 pt today denies to me any more itching , she states she feels better , and refer to it as numbness but resolved currently, pt has left side weakness which looks chronic as pt is telling me she is at her baseline and she feels back to her normal , neurology input is appreciated , work up has been negative so far and her symptoms has subsided , psychiatric service are to see pt for her feeling of ants crawling over her body 05/20/2018 Patient today denies the feeling of numbness, no worsening weakness. Patient denies filling of ants crawling her body. However patient stated that she actually so some ants and touch them while she was at house. Patient was counseled about personal hygiene. And if she has such feeling to contact her PCP right away or call 911 come to emergency room. Neurologist evaluated the patient. CT exam of the brain failed to show acute cause for patient's symptoms. [facility] recommended EEG: Pending Psychiatric evaluation suspected iatrogenic psychosis secondary to Sinemet, and his recommendations are noted Objective - Vital Signs Vital signs: Vital Signs Temp 97.8 F 05/20/18 06:28 Pulse 110 H 05/20/18 06:28 Resp 24 05/20/18 06:28 BP 136/85 05/20/18 06:28 Pulse Ox 99 05/20/18 06:28 Intake & Output 05/19/18 05/20/18 05/20/18 18:59 06:59 18:59 Intake Total 500 240 Balance 500 240 Intake: Oral 500 240 Other: Voiding Method Toilet # Voids 8 5 - Exam this is a pleasant 63 years old fema with past medical history of GERD, hypertension, ulcer arthritis, seizure disorder, multiple sclerosis, Parkinson disease. And she is being followed up by Dr. nance for her Parkinson disease. Patient was recently discharged from the hospital this 3 days ago for possible ALLERGIC reaction versus cellulitis of her arms and legs when she field ants crawling up her skin, at that time workup did not reveal anything can patient was discharge. However she presents this time recently because of weakness and possible numbness in her left upper extremity. In the emergency room it was mentioned she does have weakness in the left upper extremity however when I see the patient she confirmed to me she did not have weakness only feeling numbness in her left upper extremity which is now resolved as per patient. Patient denies other complaints. No chest pain, no dyspnea. No change in urine bowel habits. No fever 05/19/2018 pt today denies to me any more itching , she states she feels better , and refer to it as numbness but resolved currently, pt has left side weakness which looks chronic as pt is telling me she is at her baseline and she feels back to her normal , neurology input is appreciated , work up has been negative so far and her symptoms has subsided , psychiatric service are to see pt for her feeling of ants crawling over her body - Labs CBC & Chem 7: 05/17/18 19:23 05/17/18 21:06 Assessment and Plan Assessment: Numbness in the left upper extremity, questionable weakness. Rule out stroke says other Delusions/hallucination of and sent crawling up her skin, the head trunk and extremities Parkinson disease Seizure Hypertension Posterior arthritis GERD Plan: Patient admitted with a possible diagnosis of stroke versus other given her symptoms in her left upper extremity. However patient states she has feeling of ants crawling all over her body . We'll continue with same treatment. Continue symptomatic treatment. Neurology consult is a[pppre. We'll call psychiatry consults for her abnormal feelings and sensations. Patient is on eliquis . resume home medications. He prophylaxis and GI prophylaxis. Further recommendation based on clinical course
[2018-05-20 15:25] VITALS: RESP 16
--- NOTE | 2018-05-20 18:14 | EEG ---
ELECTROENCEPHALOGRAM REPORT DATE OF EE05/20/2018. REFERRING PHYSICIAN: Dr. Bundy. CONSULTING INTERPRETING PHYSICIAN: Dr. Víctor Gordon ELECTROENCEPHALOGRAPHIC EXAMINATION REPORT: INDICATION FOR EXAMINATION: This patient is a 63-year-old female being evaluated for left-sided weakness and possible TIA versus stroke. Patient also with history of multiple sclerosis and Parkinson disease. The patient with sensory changes and possible delirium versus medication effect. AGE: 63. EEG FINDINGS: A routine 21 channel awake digital EEG recording was accomplished utilizing the 10-20 international system with bipolar and referential montages. The background activity in the most alert resting state consists of a low to medium amplitude, poorly developed and poorly sustained 5-6 Hz activity over the posterior head region. This posterior rhythm attenuates minimally to eye opening. There is a small amount of low amplitude 18-20 Hz beta activity seen maximally over the anterior head regions. Muscle and movement artifact was observed on a few occasions during the tracing. Hyperventilation was not performed. Photic stimulation at flash frequencies of 2-30 Hz produced a minimal occipital driving response. No epileptiform discharges were seen. IMPRESSION: This EEG gives evidence of a severe widespread diffuse disturbance in cerebral function. The EEG failed to reveal any focal, lateralized, or epileptiform abnormalities. If clinically indicated a followup EEG is recommended. Clinical correlation is recommended. MMODL / IJN: [id number] /
--- NOTE | 2018-05-20 19:38 | P.PN ---
Subjective Progress Note Date: 05/20/18 This patient is a 63-year-old female who was admitted yesterday due to Hospital with symptoms of left-sided weakness and numbness. She has also been experiencing symptoms of ants crawling over her body. We are waiting a psychiatry consultation for the patient. There is been no significant change in her overall neurological status from yesterday. Patient states that her symptoms of numbness and paresthesias have significantly improved today. She still demonstrates some left-sided weakness on examination this morning. This is felt to be old secondary to her history of MS in the past. We will continue close monitoring. We once again reviewed her recent computed tomography scan of the brain results which failed to reveal any acute changes. We will continue close neurological follow-up for the patient during this admission. Patient is awaiting consultation from psychiatry. Neurologically she remains stable and may be considered for discharge once she is cleared by psychiatry. Patient was seen by psychiatry today and she does not have symptoms of psychosis. Recommendations were to consider lowering her dose of Sinemet if symptoms do not improve. If her symptoms of psychosis continue she may be considered for antipsychotic medication and we will defer to psychiatry. Patient was able to complete EEG today which was reviewed and is showing significant slowing. No epileptiform discharges were seen. Patient is anxious to be discharged to home. We will await further recommendations from Dr. Bundy. She does seem to be more alert today but denies any paresthesias or significant left-sided weakness on exam today. We will continue close neurological follow-up with the patient during this admission. Objective - Vital Signs Vital signs: Vital Signs Temp 97.8 F 05/20/18 06:28 Pulse 110 H 05/20/18 06:28 Resp 24 05/20/18 06:28 BP 136/85 05/20/18 06:28 Pulse Ox 99 05/20/18 06:28 Intake & Output 05/19/18 05/20/18 05/20/18 18:59 06:59 18:59 Intake Total 500 240 Balance 500 240 Intake: Oral 500 240 Other: Voiding Method Toilet # Voids 8 5 - Exam Physical examination: PHYSICAL EXAMINATION: Patient is resting comfortably in bed. VITAL SIGNS: Blood pressure is [132/80]. Heart rate is [90]. Respiration is [16] . Temperature is [98.5]. HEENT: Head is atraumatic, neck is supple, there were no carotid bruits. CHEST: Lungs are clear to auscultation and percussion. CARDIAC: S1, S2 normal rate and rhythm. There is no murmur. ABDOMEN: Soft and nontender. Bowel sounds are present. EXTREMITIES: There is no pedal edema. Peripheral pulses are present. Neurological examination: Neurological examination is unchanged from yesterday. Patient denies any symptoms of paresthesias today. She still demonstrates mild left sided hemiparesis. - Labs CBC & Chem 7: 05/17/18 19:23 05/17/18 21:06 Assessment and Plan (1) Left-sided weakness Current Visit: Yes Status: Acute Code(s): R53.1 - WEAKNESS SNOMED Code(s) : 622654028 (2) Acute metabolic encephalopathy Current Visit: Yes Status: Acute Code(s): G93.41 - METABOLIC ENCEPHALOPATHY SNOMED Code(s): 12643493 (3) Parkinson disease Current Visit: No Status: Acute Code(s): G20 - PARKINSON'S DISEASE SNOMED Code(s): 91562052 (4) History of multiple sclerosis Current Visit: Yes Status: Acute Code(s): Z86.69 - PERSONAL HISTORY OF DIS OF THE NERVOUS SYS AND SENSE ORGANS SNOMED Code(s): 626356999 (5) History of seizures Current Visit: No Status: Chronic Priority: High Onset Date: Unknown Code(s): Z87.898 - PERSONAL HISTORY OF OTHER SPECIFIED CONDITIONS SNOMED Code( s): 514684322 Plan: This patient is a 63-year-old female who was admitted to Hospital with symptoms of left-sided arm numbness and weakness. She was brought into the emergency room and was seen in the ER yesterday by Dr. Cruz. A code stroke was initiated and her NIH stroke scale was noted to be 2.0. She was sent for a computed tomography scan of the brain and CTA angiogram of the head and neck the results of which are noted above. The neuro interventionalist was contacted and reviewed all of her studies and deemed her not to be a candidate for TPA. She was subsequently admitted to Hospital. She has been having symptoms of paresthesias but is not a very good historian. She has been recently diagnosed with Parkinson's disease and is taking Sinemet. She has been having weakness on her left side which according to the patient is a long- standing given her history of multiple sclerosis in the past. Patient has been having some delusions of ants crawling over her body. A psychiatry consultation has been ordered. We will obtain a routine EEG for further evaluation. We reviewed the results of the computed tomography scan of the brain and CTA angiogram of the head and neck with the patient today in detail. As noted both studies are entirely normal. She does reveal evidence of left- sided weakness which likely is secondary to her history of MS in the past. She also gives a history of seizure disorder but has not had any recent seizure for the past 7 years. Neurologically she feels better today and has had less symptoms of paresthesias over her body. Patient was evaluated by psychiatry for possible iatrogenic psychosis secondary to Sinemet use. Psychiatry suggested possible antipsychotic medication if her symptoms do not improve. Her Sinemet should be further adjusted by her regular neurologist. She underwent routine EEG today which was reviewed and is showing severe slowing consistent with a diffuse encephalopathy. This can also be seen in stages of Parkinson's disease. Neurologically she remains stable today. She is being considered for possible discharge home soon. We will continue close neurological follow-up for the patient during this admission. Her overall prognosis at this time remains very guarded.
[2018-05-20] MEDS: ATORVASTATIN 20 MG TAB PO SCH (21:00)
[2018-05-21] MEDS: diphenhydrAMINE 25 MG CAP PO PRN ×2 (00:33→08:46)
[2018-05-21] MEDS: ARTIFICIAL TEARS-HYPROMELLOSE DROPS 15 ML BTL BOTH EYES PRN ×3 (02:54→08:46)
[2018-05-21] MEDS: ACETAMINOPHEN TAB 325 MG TAB PO PRN (05:38)
[2018-05-21] MEDS: MORPHINE SULFATE ER 15 MG TABLET PO PRN (06:17)
[2018-05-21] MEDS: LEVOTHYROXINE 75 MCG TAB PO SCH (06:44)
[2018-05-21] MEDS: APIXABAN 5 MG TAB PO SCH (08:46)
[2018-05-21] MEDS: CARBIDOPA-LEVODOPA 25-100 MG 1 EACH TAB PO SCH (08:46)
[2018-05-21] MEDS: TOPIRAMATE 100 MG TAB PO SCH (08:46)
[2018-05-21] MEDS: FAMOTIDINE 20 MG TAB PO SCH (08:47)
[2018-05-21] MEDS: FUROSEMIDE 20 MG TAB PO SCH (08:47)
--- NOTE | 2018-05-21 15:21 | P.DS ---
Providers Date of admission: 05/17/18 21:09 Attending physician: Saran Bundy MD Consults: 05/17/18 21:10 Consult Physician Routine Consulting Provider: Pratibha Gordon Consult Reason/Comments: code stroke Do you want consulting provider notified?: Yes 05/18/18 14:27 Consult Physician Routine Consulting Provider: Anna Sparrow Consult Reason/Comments: Pt feels ants crawling all over her Do you want consulting provider notified?: Yes Primary care physician: Roc Clements MD Hospital Course: this is a pleasant 63 years old fema with past medical history of GERD, hypertension, ulcer arthritis, seizure disorder, multiple sclerosis, Parkinson disease. And she is being followed up by Dr. nance for her Parkinson disease. Patient was recently discharged from the hospital this 3 days ago for possible ALLERGIC reaction versus cellulitis of her arms and legs when she field ants crawling up her skin, at that time workup did not reveal anything can patient was discharge. However she presents this time recently because of weakness and possible numbness in her left upper extremity. A code stroke was initiated and her NIH stroke scale was noted to be 2.0. She was sent for a computed tomography scan of the brain and CTA angiogram of the head and neck the results of which are noted above. The neuro-ending machine operator was contacted and reviewed all of her studies and deemed her not to be a candidate for TPA. She was subsequently admitted to Hospital. In the emergency room it was mentioned she does have weakness in the left upper extremity however when I see the patient she confirmed to me she did not have weakness only feeling numbness in her left upper extremity which is now resolved as per patient. patient has chronic weakness in her left side mostly related to her multiple sclerosis as per neurologist. computed tomography scan of the brain results which failed to reveal any acute changes. Patient has been evaluated by neurologist who recommended besides the above work up to do EEG: Severe slowing consistent with a diffuse encephalopathy. This can be seen in stages of Parkinson disease.(As per neurology) Patient has been having some delusions of ants crawling over her body. A psychiatry consultation has been ordered. As per psychiatric evaluation patient might have any specified psychosis to rule out iatrogenic psychosis secondary to Sinemet, and if psychosis may consider lowering the dose of sinemet or add anti-psychotic meds Patient denies other complaints. No chest pain, no dyspnea. No change in urine bowel habits. No fever Patient was cleared by neurology and psychiatry services for discharge. problem list and management plan were discussed with the patient and she verbalized understanding and acceptance. Patient was found stable, be discharged home however she needs follow-up as an outpatient. Patient instructed to follow up with her PCP she states that she has a visiting physician and she can call him to come and visit her in a week. Recommended she follow up with her neurologist, she doesn't remember if she has neurologist and she likes to make an appointment by herself with Dr. Gordon. Contact information is provided to the patient discharge summary Discharge physical exam GENERAL: The patient is alert and oriented x3, not in any acute distress. Well developed, well nourished. HEENT: Pupils are round and equally reacting to light. EOMI. No scleral icterus. No conjunctival pallor. Normocephalic, atraumatic. No pharyngeal erythema. No thyromegaly. CARDIOVASCULAR: S1 and S2 present. No murmurs, rubs, or gallops. PULMONARY: Chest is clear to auscultation, no wheezing or crackles. ABDOMEN: Soft, nontender, nondistended, normoactive bowel sounds. No palpable organomegaly. MUSCULOSKELETAL: No joint swelling or deformity. EXTREMITIES: No cyanosis, clubbing, or pedal edema. NEUROLOGICAL: Gross neurological examination did not reveal any focal deficits. SKIN: No rashes. Time spent more than 35 minutes Patient Condition at Discharge: Good Plan - Discharge Summary New Discharge Prescriptions: New Artificial Tears-Hypromellose [Artificial Tear Drops] 1 drops BOTH EYES TID PRN #1 bottle PRN Reason: Dry Eye(S) Calamine/Zinc Oxide Lotion [Calamine Lotion] 1 applic TOPICAL TID PRN applic PRN Reason: Skin Irritation Continue Famotidine [Pepcid] 20 mg PO DAILY Gabapentin [Neurontin] 300 mg PO Q8H Carbidopa-Levodopa 25-100 mg [Sinemet 25-100 mg] 1 tab PO BID Apixaban [Eliquis] 5 mg PO BID tab Melatonin 3 mg PO HS Atorvastatin [Lipitor] 20 mg PO HS Levothyroxine Sodium [Synthroid] 75 mcg PO DAILY Topiramate [Topamax] 200 mg PO BID traZODone HCL 50 mg PO HS Ergocalciferol [Vitamin D2 (DRISDOL)] 50,000 unit PO WE Ferrous Sulfate [Iron (65 MG Elemental)] 325 mg PO BID Morphine Sulfate [Ms Contin] 15 mg PO Q12HR PRN PRN Reason: Pain diphenhydrAMINE & Zinc Cream [Benadryl Cream] 1 applic TOPICAL TID PRN #1 gm PRN Reason: Itching clonazePAM [KlonoPIN] 0.5 mg PO BID PRN PRN Reason: Anxiety Clotrimazole/Betameth Cream [Lotrisone] 1 applic TOPICAL DAILY PRN PRN Reason: Rash Nystatin [Nystop] 1 applic TOPICAL BID Furosemide [Lasix] 20 mg PO DAILY Discharge Medication List Famotidine [Pepcid] 20 mg PO DAILY 01/28/15 [History] Carbidopa-Levodopa 25-100 mg [Sinemet 25-100 mg] 1 tab PO BID 07/23/17 [History] Gabapentin [Neurontin] 300 mg PO Q8H 07/23/17 [History] Apixaban [Eliquis] 5 mg PO BID tab 07/30/17 [Rx] Melatonin 3 mg PO HS 09/29/17 [History] Atorvastatin [Lipitor] 20 mg PO HS 05/12/18 [History] Levothyroxine Sodium [Synthroid] 75 mcg PO DAILY 05/12/18 [History] Topiramate [Topamax] 200 mg PO BID 05/12/18 [History] traZODone HCL 50 mg PO HS 05/12/18 [History] Ergocalciferol [Vitamin D2 (DRISDOL)] 50,000 unit PO WE 05/13/18 [History] Ferrous Sulfate [Iron (65 MG Elemental)] 325 mg PO BID 05/13/18 [History] Morphine Sulfate [Ms Contin] 15 mg PO Q12HR PRN 05/13/18 [History] diphenhydrAMINE & Zinc Cream [Benadryl Cream] 1 applic TOPICAL TID PRN #1 gm [Rx] Clotrimazole/Betameth Cream [Lotrisone] 1 applic TOPICAL DAILY PRN 05/17/18 [ History] Furosemide [Lasix] 20 mg PO DAILY 05/17/18 [History] Nystatin [Nystop] 1 applic TOPICAL BID 05/17/18 [History] clonazePAM [KlonoPIN] 0.5 mg PO BID PRN 05/17/18 [History] Artificial Tears-Hypromellose [Artificial Tear Drops] 1 drops BOTH EYES TID PRN #1 bottle 05/21/18 [Rx] Calamine/Zinc Oxide Lotion [Calamine Lotion] 1 applic TOPICAL TID PRN applic [Rx] Follow up Appointment(s)/Referral(s): Víctor Gordon MD [STAFF PHYSICIAN] - 10 Days (for your parkinson disease and other neurological problems ) Roc Clements MD [Primary Care Provider] - 1 Week (please call your visiting dotor for post hospital discharge visit ) Activity/Diet/Wound Care/Special Instructions: Cardiac diet Activity as tolerated Discharge Disposition: HOME SELF-CARE
[2018-05-21 15:29] VITALS: BP 123/72; PULSE 86; TEMP 97.1
== END 2018-05-21 16:31 | disposition home or self-care (01) ==
LOC: EC 17:11 → 6SEL 21:09 → 4MS4W 05-18 18:49
PROVIDERS: ADMIT Internal Medicine; ATTEND Internal Medicine
DX: R20.0 Anesthesia of skin (principal); R20.2 Paresthesia of skin; R53.1 Weakness; K21.9 Gastro-esophageal reflux disease without esophagitis; I10 Essential (primary) hypertension; G35 Multiple sclerosis; G20 Parkinson's disease; F22 Delusional disorders; F29 Unspecified psychosis not due to a substance or known physiological condition; E03.9 Hypothyroidism, unspecified; E78.5 Hyperlipidemia, unspecified; G93.41 Metabolic encephalopathy; R60.9 Edema, unspecified; Z91.048 Other nonmedicinal substance allergy status; M19.90 Unspecified osteoarthritis, unspecified site; H91.90 Unspecified hearing loss, unspecified ear; G40.909 Epilepsy, unspecified, not intractable, without status epilepticus; I25.2 Old myocardial infarction; Z86.73 Personal history of transient ischemic attack (TIA), and cerebral infarction without residual deficits; Z87.11 Personal history of peptic ulcer disease; Z80.0 Family history of malignant neoplasm of digestive organs; Z79.890 Hormone replacement therapy; Z79.01 Long term (current) use of anticoagulants; Z79.899 Other long term (current) drug therapy; Z88.6 Allergy status to analgesic agent; Z88.8 Allergy status to other drugs, medicaments and biological substances; Z91.040 Latex allergy status; Z91.030 Bee allergy status; Z88.5 Allergy status to narcotic agent; Z88.0 Allergy status to penicillin
CPT/HCPCS: 36415; 70450; 70496; 70498; 71046; 80053; 81003; 82550; 82553; 84484; 85025; 85610; 85730; 93005; 95819; 96360; 96361; 99285

== ENCOUNTER 2018-07-09 23:52 | Emergency (ER) | payer MEDICARE, OTHER ==
[2018-07-09 23:58] VITALS: RESP 18
[2018-07-10] MEDS ORDERED: MORPHINE SULFATE 4 MG/ML SYRINGE IM STA (00:17)
--- NOTE | 2018-07-10 00:18 | ED ---
Fall HPI - General Chief Complaint: Fall Stated Complaint: fall Time Seen by Provider: 07/09/18 23:53 Source: EMS Mode of arrival: EMS - History of Present Illness Initial Comments: This patient is a 63-year-old woman who presents to be evaluated after she had a fall at home. The patient states that she was in her kitchen and when she turned to use a light switch she lost her balance and fell. She states that she struck her right side, and that she has pain in the right upper arm and right leg. She denies loss consciousness. She is not having headache. She denies chest or abdominal pain. MD Complaint: fall Onset/Timin -: hour(s) Fall From: standing When Fall Occurred: [address] Fall Occurred: home Loss of Consciousness: none Prolonged Down Time?: no Location: neck Location - Extremities: Right: Arm, Leg Severity: moderate Context: tripped/slipped Associated Symptoms: denies - Related Data Home Medications Medication Instructions Recorded Confirmed Famotidine [Pepcid] 20 mg PO DAILY 01/28/15 05/17/18 Carbidopa-Levodopa 25-100 mg 1 tab PO BID 07/23/17 05/17/18 [Sinemet 25-100 mg] Gabapentin [Neurontin] 300 mg PO Q8H 07/23/17 05/17/18 Melatonin 3 mg PO HS 09/29/17 05/17/18 Atorvastatin [Lipitor] 20 mg PO HS 05/12/18 05/17/18 Levothyroxine Sodium [Synthroid] 75 mcg PO DAILY 05/12/18 05/17/18 Topiramate [Topamax] 200 mg PO BID 05/12/18 05/17/18 traZODone HCL 50 mg PO HS 05/12/18 05/17/18 Ergocalciferol [Vitamin D2 50,000 unit PO WE 05/13/18 05/17/18 (DRISDOL)] Ferrous Sulfate [Iron (65 MG 325 mg PO BID 05/13/18 05/17/18 Elemental)] Morphine Sulfate [Ms Contin] 15 mg PO Q12HR PRN 05/13/18 05/17/18 Clotrimazole/Betameth Cream 1 applic TOPICAL DAILY PRN 05/17/18 05/17/18 [Lotrisone] Furosemide [Lasix] 20 mg PO DAILY 05/17/18 05/17/18 Nystatin [Nystop] 1 applic TOPICAL BID 05/17/18 05/17/18 clonazePAM [KlonoPIN] 0.5 mg PO BID PRN 05/17/18 05/17/18 Previous Rx's Medication Instructions Recorded Apixaban [Eliquis] 5 mg PO BID tab 07/30/17 diphenhydrAMINE & Zinc Cream 1 applic TOPICAL TID PRN #1 gm 05/14/18 [Benadryl Cream] Artificial Tears-Hypromellose 1 drops BOTH EYES TID PRN #1 bottle 05/21/18 [Artificial Tear Drops] Calamine/Zinc Oxide Lotion 1 applic TOPICAL TID PRN applic 05/21/18 [Calamine Lotion] EPINEPHrine (Auto Inject) [Epipen] 0.3 mg IM ONCE PRN #1 syringe 05/21/18 Allergies Allergy/AdvReac Type Severity Reaction Status Date / Time adhesive Allergy Severe Rash/Hives Verified 07/09/18 23:57 celecoxib [From Celebrex] Allergy Severe Vomiting Verified 07/09/18 23:57 citalopram hydrobromide Allergy Unknown Vomiting Verified 07/09/18 23:57 [From Celexa] ketorolac tromethamine Allergy Unknown Vomiting Verified 07/09/18 23:57 [From Toradol] latex Allergy Unknown Rash/Hives Verified 07/09/18 23:57 Phenothiazines Allergy Unknown Unknown Verified 07/09/18 23:57 aspirin Allergy Rash/Hives Verified 07/09/18 23:57 bee pollen [Bee Pollen] Allergy Rash/Hives Verified 07/09/18 23:57 metoclopramide Allergy Rash/Hives Verified 07/09/18 23:57 Penicillins Allergy Rash/Hives Verified 07/09/18 23:57 prochlorperazine edisylate Allergy Vomiting Verified 07/09/18 23:57 [From Compazine] prochlorperazine maleate Allergy Vomiting Verified 07/09/18 23:57 [From Compazine] rofecoxib [From Vioxx] Allergy Rash/Hives Verified 07/09/18 23:57 Salicylates Allergy Vomiting Verified 07/09/18 23:57 Review of Systems ROS Statement: Those systems with pertinent positive or pertinent negative responses have been documented in the HPI. ROS Other: All systems not noted in ROS Statement are negative. Constitutional: Denies: fever, chills, weakness Eyes: Denies: vision change Respiratory: Denies: cough, dyspnea Cardiovascular: Denies: chest pain, syncope Gastrointestinal: Denies: abdominal pain, vomiting, diarrhea Musculoskeletal: Reports: as per HPI, arthralgia (Right shoulder and right knee) . Denies: back pain Skin: Denies: rash Neurological: Denies: headache, weakness, numbness, paresthesias Past Medical History Past Medical History: GERD/Reflux, Hearing Disorder / Deafness, Hypertension, Osteoarthritis (OA), Seizure Disorder Additional Past Medical History / Comment(s): SEIZURES CONTROLLED BY MEDICATION , (states last seizure was 7 years ago) open wound in left buttock from removal of intrathecal pump, multiple sclerosis. begining of parkinsons. Last Myocardial Infarction Date:: 2012 History of Any Multi-Drug Resistant Organisms: None Reported Past Surgical History: Appendectomy Additional Past Surgical History / Comment(s): 02/10/15 Pain pump insertion, / gastrectomy due to ulcers, BOWEL obstruction with surgery (2003), left knee athroscopy, Past Anesthesia/Blood Transfusion Reactions: No Reported Reaction Past Psychological History: No Psychological Hx Reported Smoking Status: Never smoker Past Alcohol Use History: None Reported Past Drug Use History: None Reported - Past Family History Father Additional Family Medical History / Comment(s): With colon cancer Mother Additional Family Medical History / Comment(s): UNKNOWN General Exam Limitations: no limitations General appearance: alert, in no apparent distress Head exam: Present: atraumatic, normocephalic, normal inspection Eye exam: Present: normal appearance, PERRL, EOMI. Absent: nystagmus Neck exam: Present: normal inspection, other (Cervical collar). Absent: tenderness, meningismus Respiratory exam: Present: normal lung sounds bilaterally. Absent: respiratory distress, wheezes, rales, rhonchi, stridor, chest wall tenderness Cardiovascular Exam: Present: regular rate, normal rhythm, systolic murmur ( Grade 2/6 systolic ejection murmur). Absent: diastolic murmur, rubs, gallop GI/Abdominal exam: Present: soft. Absent: distended, tenderness, guarding, rebound, rigid, mass Extremities exam: Present: normal inspection, tenderness (Proximal right humerus and right knee), normal capillary refill. Absent: pedal edema, calf tenderness Back exam: Present: normal inspection. Absent: CVA tenderness (R), CVA tenderness (L) Neurological exam: Present: alert, CN II-XII intact. Absent: oriented X3 Skin exam: Present: warm, dry, intact, normal color. Absent: rash Course Vital Signs 07/09/18 23:53 Temperature 98.3 F Pulse Rate 81 Respiratory 18 Rate Blood Pressure 122/68 O2 Sat by Pulse 81 L Oximetry Medical Decision Making - EKG Data -: EKG Interpreted by [facility] EKG shows normal: sinus rhythm (Rate 77 bpm), axis (Normal), intervals (Normal) , QRS complexes (Normal) Rate: normal Interpretation: nonspecific ST-T wave changes Disposition Clinical Impression: Fall Disposition: HOME SELF-CARE Condition: Good Instructions: Fall Prevention for Older Adults (ED) Is patient prescribed a controlled substance at d/c from ED?: No Referrals: Roc Clements MD [Primary Care Provider] - 1-2 days
--- NOTE | 2018-07-10 01:00 | CT ---
EXAMINATION TYPE: CT brain chante wo con DATE OF EXAM: 07/10/2018 COMPARISON: CT brain 05/17/2018 HISTORY: fall from standing neck pain. Headache. CT DLP: 1369.30 mGycm Automated exposure control for dose reduction was used. TECHNIQUE: CT scan of the head and cervical spine are performed without contrast. FINDINGS: Ventricles of normal size. There is no mass effect nor midline shift. There is no sign of intracranial hemorrhage. There is mild atrophy. There is old left parietal craniotomy defect. There is some mucosal thickening in the maxillary sinuses. Cervical vertebra have normal spacing and alignment. Posterior elements are intact. Facet joints appe ar intact. There is facet arthropathy in the upper cervical spine. Skull base is intact. IMPRESSION: Mild cerebral atrophy. No acute intracranial abnormality. Previous craniotomy. No change compared to old exam. Minor degenerative changes in the cervical spine. No fracture.
--- NOTE | 2018-07-10 01:15 | XR ---
EXAMINATION TYPE: XR tibia fibula RT DATE OF EXAM: 07/10/2018 COMPARISON: NONE HISTORY: Fall. Pain. TECHNIQUE: 4 views FINDINGS: Tibia and fibula appear intact. I see no fracture nor dislocation. There is soft tissue swe lling around the ankle joint. Knee joint appears intact. IMPRESSION: Ankle joint soft tissue swelling. No fracture seen.
--- NOTE | 2018-07-10 01:16 | XR ---
EXAMINATION TYPE: XR humerus RT DATE OF EXAM: 07/10/2018 COMPARISON: NONE HISTORY: Fall. Pain. TECHNIQUE: 5 views FINDINGS: Elbow joint appears intact. I see no fracture nor dislocation. The humerus appears intact. IMPRESSION: Negative right humerus exam.
[2018-07-10 02:18] VITALS: BP 135/83; PULSE 68; TEMP 97.9
== END 2018-07-10 02:38 | disposition home or self-care (01) ==
LOC: EC 23:52
DX: M79.621 Pain in right upper arm (principal); M79.604 Pain in right leg; K21.9 Gastro-esophageal reflux disease without esophagitis; I10 Essential (primary) hypertension; M19.90 Unspecified osteoarthritis, unspecified site; G40.909 Epilepsy, unspecified, not intractable, without status epilepticus; G20 Parkinson's disease; H91.90 Unspecified hearing loss, unspecified ear; G35 Multiple sclerosis; Z79.899 Other long term (current) drug therapy; Z88.8 Allergy status to other drugs, medicaments and biological substances; Z91.040 Latex allergy status; Z88.6 Allergy status to analgesic agent; Z91.030 Bee allergy status; Z88.0 Allergy status to penicillin; Z91.048 Other nonmedicinal substance allergy status; W01.10XA Fall on same level from slipping, tripping and stumbling with subsequent striking against unspecified object, initial encounter; Y93.89 Activity, other specified; Y92.090 Kitchen in other non-institutional residence as the place of occurrence of the external cause
CPT/HCPCS: 93005; 73060; 73590; 72125; 70450; 99284; 96372; J2270

== ENCOUNTER → 2018-09-26 | Outpatient (CLI) | payer MEDICARE ==
--- NOTE | 2018-09-27 01:08 | MR ---
EXAMINATION TYPE: MR lumbar spine wo con DATE OF EXAM: 09/26/2018 COMPARISON: None HISTORY: 63-year-old female low back pain TECHNIQUE: Multiplanar, multisequence images of the lumbar spine were acquired. Findings: Vertebral body heights are preserved. Degenerative trace grade 1 retrolisthesis at L2-L3 and trace grade 1 anterolisthesis at L4-L5. Facet arthropathy mid to lower lumbar spine with mild ligamentum flavum thickening. Conus medullaris terminates at the L2 level. Bilateral extrarenal pelves. No suspicious bone marrow replacement. Moderate multilevel degenerative disc disease characterized by disc desiccation, mild disc height los s, and bulging discs at multiple levels. Left paracentral and intraforaminal annular fissure noted at L4-L5. No large focal disc herniation or significant spinal canal stenosis. Disc bulges impress on the ventr al thecal sac at multiple levels. On the right, changes result in mild neural foraminal stenosis at L4-L5 and more moderate, moderate t o severe at L5-S1. On the left, changes result in mild neuroforaminal stenosis at L4-L5 and mild to moderate at L5-S1. IMPRESSION: 1. Moderate multilevel degenerative disc disease along with facet arthropathy and ligamentum flavum t hickening. 2. Trace grade 1 retrolisthesis at L2-L3 and grade 1 anterolisthesis at L5-S1. 3. No large focal disc herniation or significant spinal canal stenosis. 4. Changes result in a moderate, moderate to severe neuroforaminal stenosis on the right at L5-S1 and moderate on the left.
--- NOTE | 2018-09-27 01:32 | MR ---
EXAMINATION TYPE: MR brain wo con DATE OF EXAM: 09/26/2018 COMPARISON: Prior CT 07/10/2018 HISTORY: 63-year-old female MS/PARKINSONS/WEAKNESS TECHNIQUE: Multiplanar, multisequence images of the brain and brainstem is performed without and with IV contrast, utilizing 6.5 mL intravenous Gadavist gadolinium contrast is administered intravenously . Demyelinating disease protocol with additional Sagittal Flair sequence performed. FINDINGS: T2 Lesions Present : Dense Approximate Number of Lesions: Confluent hazy white matter changes throughout the white matter of bot h cerebral hemispheres along with moderate burden of more focal periventricular and deep white matter change. Locations Identified : Pericallosal, Periventricular, Juxtacortical, callososeptal, bilateral superi or cerebellar peduncles Size of Reference Lesion(s): 1. 8 mm right frontal periventricular white matter, axial image 22 and sagittal image 25. 2. 1.5 cm poorly defined confluent change about the left periatrial white matter, axial image 20 and sagittal image 14. Enhancing Lesion(s) Present: Not assessed T1 Hypointense Lesion(s) Present: Know, not clearly seen Change from Prior: No prior MRI for comparison There is a craniotomy flap along the left lateral convexity. Diffusion weighted images demonstrate no evidence of a recent infarct or other diffusion abnormality. Prominent perivascular spaces in the b ilateral basal ganglia. There is no worrisome extra-axial fluid collection. The ventricular system a nd cisternal spaces are normal in size and appearance. The brain volume is age appropriate. Midline structures demonstrate normal morphology. The craniocervical junction appears within normal limits. Moderate mucosal thickening within the left ethmoid air cells with leftward nasal septal deviation an d narrowing/effacement of the left nasal cavity as a result. Globes are intact. IMPRESSION: 1. Confluent hazy bright white matter change in both cerebral hemispheres along with moderate burden of patchy bright white matter change and additional bright white matter change involving the callosos eptal junction and extending along the bilateral superior cerebellar peduncles. These white matter ch anges are nonspecific and may be in keeping with the provided history of MS. 2. No acute intracranial abnormality seen.
== END | disposition home or self-care (01) ==
LOC: RADMRIMAIN 12:25
PROVIDERS: ATTEND Psychiatry & Neurology Neurology
DX: M99.73 Connective tissue and disc stenosis of intervertebral foramina of lumbar region (principal); M51.36 Other intervertebral disc degeneration, lumbar region; M46.96 Unspecified inflammatory spondylopathy, lumbar region; M24.28 Disorder of ligament, vertebrae; R90.89 Other abnormal findings on diagnostic imaging of central nervous system; G20 Parkinson's disease; G35 Multiple sclerosis
CPT/HCPCS: 70551; 72148

== ENCOUNTER 2018-09-29 22:47 | Observation (INO) | payer MEDICARE ==
[2018-09-29] MEDS ORDERED: SODIUM CHLORIDE 0.9% 500 ML 500 ML IV STA (22:50)
[2018-09-29] MEDS ORDERED: SODIUM CHLORIDE 0.9% 1,000 ML IV STA (22:50)
--- NOTE | 2018-09-29 23:20 | ED ---
Seizure HPI - General Stated Complaint: seizure Time Seen by Provider: 09/29/18 22:48 - History of Present Illness Initial Comments: Rosemary is a 63-year-old female presents the ED today via EMS after being found unresponsive on her couch at home. Patient reports she believes she had a seizure as she woke up feeling very confused and EMS transported her to the hospital. She reports that upon waking EMS was around her, she doesn't recall events leading up to that. She does report eating dinner earlier in the night and then sitting on her couch, she doesnt recall any events after that. She does not recall having a seizure. She did not lose continence of bowel or bladder. She does not believe she had any tongue biting no she was not wearing her dentures at the time. Patient does report that some of her medications were changed recently however none of her antiepileptics or change. Patient reports she's been compliant with her medications. Patient has not had a seizure in over 5 years. - Related Data Home Medications Medication Instructions Recorded Confirmed Famotidine [Pepcid] 20 mg PO DAILY 01/28/15 05/17/18 Carbidopa-Levodopa 25-100 mg 1 tab PO BID 07/23/17 05/17/18 [Sinemet 25-100 mg] Gabapentin [Neurontin] 300 mg PO Q8H 07/23/17 05/17/18 Melatonin 3 mg PO HS 09/29/17 05/17/18 Atorvastatin [Lipitor] 20 mg PO HS 05/12/18 05/17/18 Levothyroxine Sodium [Synthroid] 75 mcg PO DAILY 05/12/18 05/17/18 Topiramate [Topamax] 200 mg PO BID 05/12/18 05/17/18 traZODone HCL 50 mg PO HS 05/12/18 05/17/18 Ergocalciferol [Vitamin D2 50,000 unit PO WE 05/13/18 05/17/18 (DRISDOL)] Ferrous Sulfate [Iron (65 MG 325 mg PO BID 05/13/18 05/17/18 Elemental)] Morphine Sulfate [Ms Contin] 15 mg PO Q12HR PRN 05/13/18 05/17/18 Clotrimazole/Betameth Cream 1 applic TOPICAL DAILY PRN 05/17/18 05/17/18 [Lotrisone] Furosemide [Lasix] 20 mg PO DAILY 05/17/18 05/17/18 Nystatin [Nystop] 1 applic TOPICAL BID 05/17/18 05/17/18 clonazePAM [KlonoPIN] 0.5 mg PO BID PRN 05/17/18 05/17/18 Previous Rx's Medication Instructions Recorded Apixaban [Eliquis] 5 mg PO BID tab 07/30/17 diphenhydrAMINE & Zinc Cream 1 applic TOPICAL TID PRN #1 gm 05/14/18 [Benadryl Cream] Artificial Tears-Hypromellose 1 drops BOTH EYES TID PRN #1 bottle 05/21/18 [Artificial Tear Drops] Calamine/Zinc Oxide Lotion 1 applic TOPICAL TID PRN applic 05/21/18 [Calamine Lotion] EPINEPHrine (Auto Inject) [Epipen] 0.3 mg IM ONCE PRN #1 syringe 05/21/18 Allergies Allergy/AdvReac Type Severity Reaction Status Date / Time adhesive Allergy Severe Rash/Hives Verified 07/09/18 23:57 celecoxib [From Celebrex] Allergy Severe Vomiting Verified 07/09/18 23:57 citalopram hydrobromide Allergy Unknown Vomiting Verified 07/09/18 23:57 [From Celexa] ketorolac tromethamine Allergy Unknown Vomiting Verified 07/09/18 23:57 [From Toradol] latex Allergy Unknown Rash/Hives Verified 07/09/18 23:57 Phenothiazines Allergy Unknown Unknown Verified 07/09/18 23:57 aspirin Allergy Rash/Hives Verified 07/09/18 23:57 bee pollen [Bee Pollen] Allergy Rash/Hives Verified 07/09/18 23:57 metoclopramide Allergy Rash/Hives Verified 07/09/18 23:57 Penicillins Allergy Rash/Hives Verified 07/09/18 23:57 prochlorperazine edisylate Allergy Vomiting Verified 07/09/18 23:57 [From Compazine] prochlorperazine maleate Allergy Vomiting Verified 07/09/18 23:57 [From Compazine] rofecoxib [From Vioxx] Allergy Rash/Hives Verified 07/09/18 23:57 Salicylates Allergy Vomiting Verified 07/09/18 23:57 Review of Systems ROS Statement: Those systems with pertinent positive or pertinent negative responses have been documented in the HPI. ROS Other: All systems not noted in ROS Statement are negative. Past Medical History Past Medical History: GERD/Reflux, Hearing Disorder / Deafness, Hypertension, Osteoarthritis (OA), Seizure Disorder Additional Past Medical History / Comment(s): SEIZURES CONTROLLED BY MEDICATION , (states last seizure was 7 years ago) open wound in left buttock from removal of intrathecal pump, multiple sclerosis. begining of parkinsons. Last Myocardial Infarction Date:: 2012 History of Any Multi-Drug Resistant Organisms: None Reported Past Surgical History: Appendectomy Additional Past Surgical History / Comment(s): 02/10/15 Pain pump insertion, / gastrectomy due to ulcers, BOWEL obstruction with surgery (2003), left knee athroscopy, Past Anesthesia/Blood Transfusion Reactions: No Reported Reaction Past Psychological History: No Psychological Hx Reported Smoking Status: Never smoker Past Alcohol Use History: None Reported Past Drug Use History: None Reported - Past Family History Father Additional Family Medical History / Comment(s): With colon cancer Mother Additional Family Medical History / Comment(s): UNKNOWN General Exam - General Exam Comments Initial Comments: Physical Exam GENERAL: Patient is well-developed and well-nourished. Patient is nontoxic and well- hydrated and is in no distress. HENT: Normocephalic, Atraumatic. Edentulous EYES: PERRL, EOMI PULMONARY: Unlabored respirations. No audible rales rhonchi or wheezing was noted. CARDIOVASCULAR: There is a regular rate and rhythm without any murmurs gallops or rubs. ABDOMEN: Soft and nontender with normal bowel sounds. SKIN: Skin is clear with no lesions or rashes and otherwise unremarkable. : Deferred NEUROLOGIC: Patient is alert and oriented x3. Moving all extremities spontaneously MUSCULOSKELETAL: Normal extremities with adequate strength and full range of motion. No lower extremity swelling or edema. No calf tenderness. PSYCHIATRIC: Normal psychiatric evaluation. Limitations: no limitations Course Vital Signs 09/29/18 23:18 Temperature 98.5 F Pulse Rate 82 Respiratory 18 Rate Blood Pressure 132/77 O2 Sat by Pulse 100 Oximetry Medical Decision Making - Medical Decision Making Patient was seen and evaluated upon arrival Seizure precautions and seizure pads were ordered Labs and imaging were ordered Labs with no lifting abnormalities EKG sinus rhythm with no abnormalities CT head with no abnormalities no witnessed seizure-like activity while in the emergency department Considering the patient is a unreliable historian, uncertain if she's had changes to her antiepileptics, was found unresponsive 80 feel she warrants further observation and we'll plan to place patient in observation. - Lab Data Result diagrams: 09/29/18 23:58 09/29/18 23:58 Lab Results 09/29/18 09/29/18 09/29/18 Range/Units 23:10 23:58 23:58 WBC 5.4 (3.8-10.6) k/uL RBC 3.20 L (3.80-5.40) m/uL Hgb 9.7 L (11.4-16.0) gm/dL Hct 30.7 L (34.0-46.0) % MCV 96.0 (80.0-100.0) fL MCH 30.3 (25.0-35.0) pg MCHC 31.5 (31.0-37.0) g/dL RDW 14.7 (11.5-15.5) % Plt Count 207 (150-450) k/uL Neutrophils % 47 % Lymphocytes % 42 % Monocytes % 6 % Eosinophils % 2 % Basophils % 1 % Neutrophils # 2.6 (1.3-7.7) k/uL Lymphocytes # 2.3 (1.0-4.8) k/uL Monocytes # 0.3 (0-1.0) k/uL Eosinophils # 0.1 (0-0.7) k/uL Basophils # 0.0 (0-0.2) k/uL Sodium 140 (137-145) mmol/L Potassium 4.0 (3.5-5.1) mmol/L Chloride 118 H (98-107) mmol/L Carbon Dioxide 21 L (22-30) mmol/L Anion Gap 1 mmol/L BUN 18 H (7-17) mg/dL Creatinine 0.72 (0.52-1.04) mg/dL Est GFR (CKD-EPI)AfAm >90 (>60 ml/min/1.73 sqM) Est GFR (CKD-EPI)NonAf 89 (>60 ml/min/1.73 sqM) Glucose 86 (74-99) mg/dL Plasma Lactic Acid Esvin (0.7-2.0) mmol/L Calcium 8.3 L (8.4-10.2) mg/dL Total Bilirubin <0.1 L (0.2-1.3) mg/dL AST 20 (14-36) U/L ALT 27 (9-52) U/L Alkaline Phosphatase 68 (38-126) U/L Creatine Kinase 56 (30-135) U/L Total Protein 4.5 L (6.3-8.2) g/dL Albumin 2.2 L (3.5-5.0) g/dL Urine Color Yellow Urine Appearance Clear (Clear) Urine pH 7.0 (5.0-8.0) Ur Specific [place] 1.018 (1.001-1.035) Urine Protein Negative (Negative) Urine Glucose (UA) Negative (Negative) Urine Ketones Negative (Negative) Urine Blood Negative (Negative) Urine Nitrite Negative (Negative) Urine Bilirubin Negative (Negative) Urine Urobilinogen <2.0 (<2.0) mg/dL Ur Leukocyte Esterase Negative (Negative) 09/29/18 Range/Units 23:58 WBC (3.8-10.6) k/uL RBC (3.80-5.40) m/uL Hgb (11.4-16.0) gm/dL Hct (34.0-46.0) % MCV (80.0-100.0) fL MCH (25.0-35.0) pg MCHC (31.0-37.0) g/dL RDW (11.5-15.5) % Plt Count (150-450) k/uL Neutrophils % % Lymphocytes % % Monocytes % % Eosinophils % % Basophils % % Neutrophils # (1.3-7.7) k/uL Lymphocytes # (1.0-4.8) k/uL Monocytes # (0-1.0) k/uL Eosinophils # (0-0.7) k/uL Basophils # (0-0.2) k/uL Sodium (137-145) mmol/L Potassium (3.5-5.1) mmol/L Chloride (98-107) mmol/L Carbon Dioxide (22-30) mmol/L Anion Gap mmol/L BUN (7-17) mg/dL Creatinine (0.52-1.04) mg/dL Est GFR (CKD-EPI)AfAm (>60 ml/min/1.73 sqM) Est GFR (CKD-EPI)NonAf (>60 ml/min/1.73 sqM) Glucose (74-99) mg/dL Plasma Lactic Acid Esvin 0.8 (0.7-2.0) mmol/L Calcium (8.4-10.2) mg/dL Total Bilirubin (0.2-1.3) mg/dL AST (14-36) U/L ALT (9-52) U/L Alkaline Phosphatase (38-126) U/L Creatine Kinase (30-135) U/L Total Protein (6.3-8.2) g/dL Albumin (3.5-5.0) g/dL Urine Color Urine Appearance (Clear) Urine pH (5.0-8.0) Ur Specific [place] (1.001-1.035) Urine Protein (Negative) Urine Glucose (UA) (Negative) Urine Ketones (Negative) Urine Blood (Negative) Urine Nitrite (Negative) Urine Bilirubin (Negative) Urine Urobilinogen (<2.0) mg/dL Ur Leukocyte Esterase (Negative) Disposition Clinical Impression: Seizure Disposition: ADMITTED IP TO THIS HOSP Referrals: Roc Clements MD [Primary Care Provider] - 1-2 days
[2018-09-30 00:14] LABS: Basophils % (A) 1 %; Eosinophils # (A) 0.1 k/uL (0-0.7); Eosinophils % (A) 2 %; HCT 30.7 % (34.0-46.0); HGB 9.7 gm/dL (11.4-16.0); Lymphocytes # (A) 2.3 k/uL (1.0-4.8); Lymphocytes % (A) 42 %; MCH 30.3 pg (25.0-35.0); MCHC 31.5 g/dL (31.0-37.0); Mean Platelet Volume 6.6; Monocytes # (A) 0.3 k/uL (0-1.0); Monocytes % (A) 6 %; Neutrophils # (A) 2.6 k/uL (1.3-7.7); Neutrophils % (A) 47 %; Platelet Count 207 k/uL (150-450); RDW 14.7 % (11.5-15.5); WBC 5.4 k/uL (3.8-10.6)
[2018-09-30] MEDS ORDERED: MORPHINE SULFATE 4 MG/ML SYRINGE IVP PRN (00:21)
[2018-09-30 00:23] LABS: Appearance,Urine Clear (Clear); Bilirubin,Urine Negative (Negative); Blood,Urine Negative (Negative); Color,Urine Yellow; Glucose,Urine (UA) Negative (Negative); Ketones,Urine Negative (Negative); Leukocyte Esterase,Urine Negative (Negative); Nitrite,Urine Negative (Negative); Protein,Urine Negative (Negative); Specific Gravity,Urine 1.018 (1.001-1.035); Urobilinogen,Urine <2.0 mg/dL (<2.0)
[2018-09-30 00:28] LABS: ALT 27 U/L (9-52); AST 20 U/L (14-36); Albumin 2.2 g/dL (3.5-5.0); Alkaline Phosphatase 68 U/L (38-126); Anion Gap 1 mmol/L; Blood Urea Nitrogen 18 mg/dL (7-17); Calcium 8.3 mg/dL (8.4-10.2); Carbon Dioxide 21 mmol/L (22-30); Chloride 118 mmol/L (98-107); Creatine Kinase 56 U/L (30-135); Glucose 86 mg/dL (74-99); Sodium 140 mmol/L (137-145); Total Bilirubin <0.1 mg/dL (0.2-1.3); Total Protein 4.5 g/dL (6.3-8.2)
--- NOTE | 2018-09-30 01:00 | CT ---
EXAMINATION TYPE: CT brain wo con DATE OF EXAM: 09/30/2018 COMPARISON: 07/10/2018 HISTORY: seizure CT DLP: 1117.4 mGycm Automated exposure control for dose reduction was used. FINDINGS: There is cerebral cortical atrophy. There is no mass effect nor midline shift. There is no sign of in tracranial hemorrhage. There is old left parietal craniotomy defect.. IMPRESSION: MILD ATROPHY. NO ACUTE INTRACRANIAL ABNORMALITY. NO CHANGE COMPARED TO OLD EXAM.
[2018-09-30] MEDS ORDERED: NALOXONE 0.4 MG/ML 1 ML VIAL IV PRN (01:08)
[2018-09-30 02:45] VITALS: BMI 20.5
[2018-09-30] MEDS: GABAPENTIN 300 MG CAP PO SCH ×3 (02:57→17:39)
[2018-09-30] MEDS: LEVOTHYROXINE 75 MCG TAB PO SCH (06:05)
[2018-09-30] MEDS: TOPIRAMATE 100 MG TAB PO SCH ×2 (08:18→19:31)
[2018-09-30] MEDS: clonazePAM 0.5 MG TAB PO PRN ×2 (08:18→19:31)
[2018-09-30] MEDS: FAMOTIDINE 20 MG TAB PO SCH (08:18)
[2018-09-30] MEDS: CARBIDOPA-LEVODOPA 25-100 MG 1 EACH TAB PO SCH ×2 (08:18→19:31)
[2018-09-30] MEDS: FUROSEMIDE 20 MG TAB PO SCH (08:18)
[2018-09-30] MEDS: APIXABAN 5 MG TAB PO SCH ×2 (08:20→19:31)
[2018-09-30] MEDS: MORPHINE SULFATE ER 15 MG TABLET PO PRN ×2 (08:23→19:31)
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
[2018-09-30] MEDS ORDERED: ATORVASTATIN 20 MG TAB PO SCH (21:00)
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
[2018-10-01] MEDS: GABAPENTIN 300 MG CAP PO SCH ×2 (02:20→12:35)
--- NOTE | 2018-10-01 03:08 | CT ---
EXAMINATION TYPE: CT brain wo con DATE OF EXAM: 10/01/2018 COMPARISON: 09/30/2018 HISTORY: Headache and vision impairment CT DLP: 1093.4 mGycm Automated exposure control for dose reduction was used. FINDINGS: Ventricles of normal size. There is no mass effect nor midline shift. There is no evidence of intracr anial hemorrhage. The calvarium is intact. There is mild cerebral atrophy. IMPRESSION: MILD ATROPHY. NO ACUTE INTRACRANIAL ABNORMALITY. NO CHANGE.
[2018-10-01] MEDS: MORPHINE SULFATE ER 15 MG TABLET PO PRN ×2 (05:13→17:05)
[2018-10-01] MEDS: LEVOTHYROXINE 75 MCG TAB PO SCH (05:14)
[2018-10-01 07:23] VITALS: RESP 18
[2018-10-01] MEDS: FUROSEMIDE 20 MG TAB PO SCH (08:15)
[2018-10-01] MEDS: TOPIRAMATE 100 MG TAB PO SCH (08:15)
[2018-10-01] MEDS: APIXABAN 5 MG TAB PO SCH (08:15)
[2018-10-01] MEDS: CARBIDOPA-LEVODOPA 25-100 MG 1 EACH TAB PO SCH (08:15)
[2018-10-01] MEDS: FAMOTIDINE 20 MG TAB PO SCH (08:15)
[2018-10-01] MEDS ORDERED: diphenhydrAMINE 2% CREAM 28.4 GM TUBE TOPICAL PRN (10:14)
[2018-10-01] MEDS ORDERED: ACETAMINOPHEN TAB 325 MG TAB PO PRN (10:14)
[2018-10-01] MEDS ORDERED: APIXABAN 5 MG TAB PO SCH (10:15)
[2018-10-01] MEDS ORDERED: NYSTATIN 100,000 UNIT/GM POWD 15 GM TOPICAL SCH (10:15)
[2018-10-01] MEDS ORDERED: FERROUS SULFATE 325 MG TAB PO SCH (10:15)
[2018-10-01] MEDS ORDERED: ARIPiprazole 5 MG TAB PO SCH (10:15)
[2018-10-01] MEDS ORDERED: GABAPENTIN 400 MG CAP PO SCH (10:15)
[2018-10-01] MEDS: busPIRone HCl 10 MG TAB PO SCH ×2 (12:35→17:07)
[2018-10-01] MEDS: ARTIFICIAL TEARS-HYPROMELLOSE DROPS 15 ML BTL BOTH EYES SCH ×2 (14:51→16:45)
[2018-10-01 15:49] VITALS: BP 117/75; PULSE 88; TEMP 98.7
[2018-10-01] MEDS ORDERED: PHENYTOIN SODIUM EXTENDED 100 MG CAP PO SCH (16:00)
[2018-10-01] MEDS ORDERED: traZODone HCL 50 MG TAB PO SCH (21:00)
--- NOTE | 2018-10-02 09:24 | DS ---
DISCHARGE SUMMARY DATE OF ADMISSION: 09/30/2018 DATE OF DISCHARGE: 10/01/2018 FINAL DIAGNOSES: 1. Breakthrough seizures, last seizure was a few years ago. 2. Parkinson disease, idiopathic. 3. Gastroesophageal reflux disease. 4. Essential hypertension. 5. Primary osteoarthritis. 6. Cast on the right arm. HOSPITAL COURSE: This patient presented with breakthrough seizures, last episode was few years ago. The patient was seen by Neurology, celsa Thakkar to be discharged. No change in medications. The patient is back to her baseline at the time of discharge. The patient did have CT scan of the brain, did not show anything acute. Care was discussed with the patient. On examination, temperature 98.7, pulse 88, respiration 18, blood pressure 117/75. LUNGS: Fair entry. CARDIOVASCULAR: First and second sounds normal. PSYCH: AO x3. DISCHARGE MEDICATIONS: 1. Pepcid 20 mg a day. 2. Sinemet 25/100 one tablet p.o. b.i.d. 3. Melatonin 3 mg at bedtime. 4. Lipitor 20 mg at bedtime. 5. Synthroid 75 mcg a day. 6. Topamax 200 mg p.o. b.i.d. 7. Vitamin D2, 50,000 units on Sunday. 8. Iron 325 p.o. b.i.d. 9. MS Contin 15 mg p.o. q.12 p.r.n. 10.Benadryl cream topical t.i.d. p.r.n. 11.Lotrisone 1 application topical daily p.r.n. 12.Lasix 20 mg a day. 13.Nystatin topical b.i.d. 14.Klonopin 0.5 mg p.o. b.i.d. p.r.n. 15.EpiPen p.r.n. 16.Abilify 5 mg p.o. daily. 17.Tylenol Arthritis 650 mg p.o. b.i.d. p.r.n. 18.Eliquis 5 mg p.o. b.i.d. 19.Fioricet 1 tablet q.6 p.r.n. 20.Desloratadine 5 mg p.o. at bedtime p.r.n. 21.Neurontin 400 mg p.o. t.i.d. 22.Dilantin 100 mg t.i.d. 23.Systane Ultra 1 drop to both eyes t.i.d. 24.BuSpar 10 mg p.o. t.i.d. 25.Trazodone 150 mg p.o. at bedtime. Follow up with Dr. Roc Clements from [facility] in 3 days. Follow up with Dr. Marly Gordon in 1 week. MMODL / IJN: [id number] /
[2018-10-02] MEDS ORDERED: ERGOCALCIFEROL 50,000 UNIT CAP PO SCH (10:14)
== END 2018-10-01 19:10 | disposition home or self-care (01) ==
LOC: EC 22:47 → 1SOBS 09-30 01:08
PROVIDERS: ADMIT Hospitalist; ATTEND Hospitalist
DX: G40.909 Epilepsy, unspecified, not intractable, without status epilepticus (principal); G20 Parkinson's disease; K21.9 Gastro-esophageal reflux disease without esophagitis; I10 Essential (primary) hypertension; M19.91 Primary osteoarthritis, unspecified site; G35 Multiple sclerosis; H91.90 Unspecified hearing loss, unspecified ear; M19.90 Unspecified osteoarthritis, unspecified site; Z87.828 Personal history of other (healed) physical injury and trauma; I25.2 Old myocardial infarction; Z79.01 Long term (current) use of anticoagulants; Z79.890 Hormone replacement therapy; Z79.899 Other long term (current) drug therapy; Z90.3 Acquired absence of stomach [part of]; Z91.030 Bee allergy status; Z87.11 Personal history of peptic ulcer disease; Z88.6 Allergy status to analgesic agent; Z91.040 Latex allergy status; Z88.0 Allergy status to penicillin; Z88.8 Allergy status to other drugs, medicaments and biological substances; Z91.048 Other nonmedicinal substance allergy status; Z80.0 Family history of malignant neoplasm of digestive organs
CPT/HCPCS: 96361; 96374; 99285; 36415; 93005; 80053; 80201; 82550; 80185; 83605; 85025; 81003; 70450 ×2; G0378 ×2; J2270

== ENCOUNTER 2018-10-12 09:30 | Emergency (ER) | payer MEDICARE ==
[2018-10-12 09:35] VITALS: TEMP 98.1
[2018-10-12] MEDS ORDERED: MORPHINE SULFATE 2 MG/ML SYRINGE IVP STA (09:54)
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
[2018-10-12 10:42] LABS: Basophils % (A) 0 %; Eosinophils # (A) 0.1 k/uL (0-0.7); Eosinophils % (A) 1 %; HCT 34.5 % (34.0-46.0); HGB 10.9 gm/dL (11.4-16.0); Hypochromasia Slight; Lymphocytes # (A) 1.7 k/uL (1.0-4.8); Lymphocytes % (A) 27 %; MCH 30.9 pg (25.0-35.0); MCHC 31.5 g/dL (31.0-37.0); Mean Platelet Volume 6.8; Monocytes # (A) 0.3 k/uL (0-1.0); Monocytes % (A) 4 %; Neutrophils # (A) 4.3 k/uL (1.3-7.7); Neutrophils % (A) 67 %; Platelet Count 263 k/uL (150-450); RBC 3.52 m/uL (3.80-5.40); RDW 14.3 % (11.5-15.5); WBC 6.4 k/uL (3.8-10.6)
--- NOTE | 2018-10-12 10:46 | CT ---
EXAMINATION TYPE: CT brain chante wo con DATE OF EXAM: 10/12/2018 COMPARISON: Previous CT scan of the brain dated 10/01/2018 HISTORY: Possible seizure today. Complains of head and neck pain CT DLP: 1249.3 mGycm Automated exposure control for dose reduction was used. TECHNIQUE: CT scan of the head and cervical spine are performed without contrast. FINDINGS: BRAIN: Central structures are midline. There is no evidence of hydrocephalus. No acute focal lesion, mass effect or midline shift is seen. I do not see evidence of intracranial blood. There is mucoperiosteal thickening involving both maxillary sinuses as well as the right ethmoid sinu ses. The mastoid air cells are clear. There has been a previous left frontoparietal craniotomy. The b jose calvarium is otherwise intact. IMPRESSION: 1. NO ACUTE INTRACRANIAL ABNORMALITY. 2. POSTSURGICAL CHANGE. 3. SINUS MUCOSAL DISEASE. CERVICAL SPINE: There are mild emphysematous changes within the lungs. Prevertebral soft tissues are normal. Vertebral body height and alignment are maintained. Atlantoaxial relationships are normal. No fractur es are seen. No protrusions are demonstrated. There is mild facet arthropathy on the left at C2-3 and on the right at C3-4. IMPRESSION: 1. NO ACUTE OSSEOUS LESION. 2. MILD DEGENERATIVE CHANGE. 3. MILD EMPHYSEMATOUS CHANGE.
[2018-10-12 10:57] LABS: ALT 22 U/L (9-52); AST 21 U/L (14-36); Albumin 2.7 g/dL (3.5-5.0); Alkaline Phosphatase 82 U/L (38-126); Anion Gap 2 mmol/L; Blood Urea Nitrogen 20 mg/dL (7-17); Carbon Dioxide 19 mmol/L (22-30); Chloride 121 mmol/L (98-107); Glucose 88 mg/dL (74-99); Phenytoin (Dilantin) 3.3 ug/mL; Potassium 4.1 mmol/L (3.5-5.1); Sodium 142 mmol/L (137-145); Total Bilirubin 0.2 mg/dL (0.2-1.3); Total Protein 5.3 g/dL (6.3-8.2)
[2018-10-12 11:09] VITALS: RESP 18
--- NOTE | 2018-10-12 11:10 | XR ---
EXAMINATION TYPE: XR chest 1V DATE OF EXAM: 10/12/2018 HISTORY: seizure. REFERENCE: Previous study dated 05/17/2018. FINDINGS: Heart size is upper limits of normal. There is vascular congestion and subtle interstitial change. Some of this may be chronic. I could not exclude a mild degree of heart failure. Pleural spac es appear clear. IMPRESSION: 1. FINDINGS CONSISTENT WITH MILD HEART FAILURE. I COULD NOT EXCLUDE SOME CHRONIC INTERSTITIAL CHANGE.
[2018-10-12 11:26] LABS: Appearance,Urine Clear (Clear); Bilirubin,Urine Negative (Negative); Blood,Urine Negative (Negative); Color,Urine Light Yellow; Glucose,Urine (UA) Negative (Negative); Ketones,Urine 1+ (Negative); Leukocyte Esterase,Urine Negative (Negative); Nitrite,Urine Negative (Negative); Protein,Urine Negative (Negative); Specific Gravity,Urine 1.012 (1.001-1.035); Urobilinogen,Urine <2.0 mg/dL (<2.0)
--- NOTE | 2018-10-12 11:44 | XR ---
EXAMINATION TYPE: XR shoulder limited LT , ONE VIEW DATE OF EXAM ORDERED: 10/12/2018 HISTORY: L shoulder pain. COMPARISON: None. FINDINGS: Single frontal projection of the left shoulder is unremarkable. No fractures identified. No obvious dislocation is seen. IMPRESSION: LIMITED BUT UNREMARKABLE SINGLE VIEW OF THE LEFT SHOULDER.
[2018-10-12] MEDS ORDERED: PHENYTOIN SODIUM EXTENDED 100 MG CAP PO STA (12:00)
--- NOTE | 2018-10-12 12:15 | XR ---
EXAMINATION TYPE: XR shoulder complete RT , 3 VIEWS DATE OF EXAM ORDERED: 10/12/2018 HISTORY: Pain. COMPARISON: None. FINDINGS: No fracture, dislocation or other acute osseous lesion is seen. IMPRESSION: NO ACUTE OSSEOUS LESION.
[2018-10-12 12:31] VITALS: BP 132/69; PULSE 84
== END 2018-10-12 12:40 | disposition home or self-care (01) ==
LOC: EC 09:30
DX: G40.909 Epilepsy, unspecified, not intractable, without status epilepticus (principal); R53.83 Other fatigue; R29.898 Other symptoms and signs involving the musculoskeletal system; K21.9 Gastro-esophageal reflux disease without esophagitis; I10 Essential (primary) hypertension; M19.90 Unspecified osteoarthritis, unspecified site; G20 Parkinson's disease; I25.2 Old myocardial infarction; Z86.718 Personal history of other venous thrombosis and embolism; Z79.01 Long term (current) use of anticoagulants; Z79.899 Other long term (current) drug therapy; Z88.6 Allergy status to analgesic agent; Z88.0 Allergy status to penicillin; Z88.8 Allergy status to other drugs, medicaments and biological substances; Z91.040 Latex allergy status; Z91.030 Bee allergy status; Z91.048 Other nonmedicinal substance allergy status
CPT/HCPCS: 36415; 93005; 80053; 80201; 80185; 85025; 81003; 73020; 73030; 71045; 72125; 70450; 99285; 96374; J2270

== ENCOUNTER 2018-10-14 22:13 | Emergency (ER) | payer MEDICARE ==
[2018-10-14] MEDS ORDERED: SODIUM CHLORIDE 0.9% 1,000 ML IV STA (23:47)
[2018-10-15 00:11] LABS: Appearance,Urine Clear (Clear); Bilirubin,Urine Negative (Negative); Blood,Urine Negative (Negative); Color,Urine Light Yellow; Glucose,Urine (UA) Negative (Negative); Ketones,Urine Negative (Negative); Leukocyte Esterase,Urine Negative (Negative); Nitrite,Urine Negative (Negative); PH, Urine 7.5 (5.0-8.0); Protein,Urine Negative (Negative); Urobilinogen,Urine <2.0 mg/dL (<2.0)
[2018-10-15 00:26] LABS: Basophils % (A) 1 %; Eosinophils # (A) 0.1 k/uL (0-0.7); Eosinophils % (A) 2 %; HCT 34.7 % (34.0-46.0); HGB 10.7 gm/dL (11.4-16.0); Hypochromasia Moderate; Lymphocytes # (A) 2.4 k/uL (1.0-4.8); Lymphocytes % (A) 44 %; MCH 30.7 pg (25.0-35.0); MCHC 30.8 g/dL (31.0-37.0); MCV 99.9 fL (80.0-100.0); Macrocytosis Slight; Mean Platelet Volume 6.8; Monocytes # (A) 0.2 k/uL (0-1.0); Monocytes % (A) 4 %; Neutrophils # (A) 2.6 k/uL (1.3-7.7); Neutrophils % (A) 48 %; Platelet Count 227 k/uL (150-450); RBC 3.47 m/uL (3.80-5.40); RDW 14.2 % (11.5-15.5); WBC 5.4 k/uL (3.8-10.6)
[2018-10-15 00:34] LABS: ALT 30 U/L (9-52); AST 21 U/L (14-36); Albumin 2.6 g/dL (3.5-5.0); Alkaline Phosphatase 79 U/L (38-126); Anion Gap 3 mmol/L; Blood Urea Nitrogen 12 mg/dL (7-17); Carbon Dioxide 22 mmol/L (22-30); Chloride 115 mmol/L (98-107); Glucose 92 mg/dL (74-99); Potassium 4.1 mmol/L (3.5-5.1); Sodium 140 mmol/L (137-145); Total Bilirubin 0.2 mg/dL (0.2-1.3); Total Protein 5.1 g/dL (6.3-8.2)
[2018-10-15 00:40] LABS: Valproic Acid (Depakene) 11.1 ug/mL
[2018-10-15] MEDS ORDERED: DIVALPROEX 500 MG TABLET.DR PO STA (01:02)
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
[2018-10-15] MEDS ORDERED: ACETAMINOPHEN TAB 500 MG TAB PO STA (01:07)
[2018-10-15 01:34] VITALS: BP 122/63; PULSE 85; RESP 13; TEMP 98.3
== END 2018-10-15 01:36 | disposition home or self-care (01) ==
LOC: EC 22:13
DX: G40.909 Epilepsy, unspecified, not intractable, without status epilepticus (principal); I10 Essential (primary) hypertension; I25.2 Old myocardial infarction; Z79.01 Long term (current) use of anticoagulants; Z79.899 Other long term (current) drug therapy; Z91.048 Other nonmedicinal substance allergy status; Z88.5 Allergy status to narcotic agent; Z88.8 Allergy status to other drugs, medicaments and biological substances; Z91.040 Latex allergy status; Z88.6 Allergy status to analgesic agent; Z88.0 Allergy status to penicillin; Z91.030 Bee allergy status
CPT/HCPCS: 36415; 80053; 80164; 81003; 85025; 93005; 96360; 96361; 99284

== ENCOUNTER 2018-10-17 23:14 | Inpatient (IN) | payer MEDICARE ==
[2018-10-17] MEDS ORDERED: SODIUM CHLORIDE 0.9% 1,000 ML IV STA (23:37)
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
[2018-10-18 00:40] LABS: Basophils % (A) 0 %; Eosinophils # (A) 0.1 k/uL (0-0.7); Eosinophils % (A) 2 %; HCT 33.4 % (34.0-46.0); HGB 10.3 gm/dL (11.4-16.0); Lymphocytes # (A) 1.5 k/uL (1.0-4.8); Lymphocytes % (A) 24 %; MCH 30.2 pg (25.0-35.0); MCHC 30.9 g/dL (31.0-37.0); MCV 97.6 fL (80.0-100.0); Mean Platelet Volume 6.3; Monocytes # (A) 0.3 k/uL (0-1.0); Monocytes % (A) 4 %; Neutrophils # (A) 4.2 k/uL (1.3-7.7); Neutrophils % (A) 68 %; Platelet Count 218 k/uL (150-450); RBC 3.43 m/uL (3.80-5.40); RDW 13.9 % (11.5-15.5); WBC 6.2 k/uL (3.8-10.6)
[2018-10-18 00:52] LABS: Appearance,Urine Clear (Clear); Bilirubin,Urine Negative (Negative); Blood,Urine Negative (Negative); Color,Urine Yellow; Glucose,Urine (UA) Negative (Negative); Ketones,Urine Trace (Negative); Leukocyte Esterase,Urine Negative (Negative); Nitrite,Urine Negative (Negative); PH, Urine 7.5 (5.0-8.0); Protein,Urine Negative (Negative); Specific Gravity,Urine 1.018 (1.001-1.035)
[2018-10-18 00:53] LABS: ALT 15 U/L (9-52); AST 24 U/L (14-36); Albumin 2.6 g/dL (3.5-5.0); Alcohol <10 mg/dL; Alkaline Phosphatase 74 U/L (38-126); Anion Gap 5 mmol/L; Blood Urea Nitrogen 13 mg/dL (7-17); Calcium 8.4 mg/dL (8.4-10.2); Carbon Dioxide 19 mmol/L (22-30); Chloride 115 mmol/L (98-107); Glucose 85 mg/dL (74-99); Phenytoin (Dilantin) <3.0 ug/mL; Sodium 139 mmol/L (137-145); Total Bilirubin 0.2 mg/dL (0.2-1.3)
[2018-10-18 01:31] LABS: Cocaine Screen,Urine Not Detected (NotDetected); Phencyclidine Screen,Urine Not Detected (NotDetected); Urn Cannabinoid Scrn Not Detected (NotDetected)
[2018-10-18 01:32] LABS: Amphetamine Screen,Urine Not Detected (NotDetected); Barbiturate Screen,Urine Detected (NotDetected); Benzodiazepines Screen,Urine Not Detected (NotDetected); Methadone Screen, Urine Not Detected (NotDetected); Opiate Screen,Urine Detected (NotDetected); Oxycodone Screen, Urine Not Detected (NotDetected); Tricyclic Antidepressant,Urine Not Detected (NotDetected)
[2018-10-18] MEDS ORDERED: NALOXONE 0.4 MG/ML 1 ML VIAL IV PRN (02:06)
[2018-10-18] MEDS ORDERED: LORATADINE 10 MG TAB PO PRN (07:03)
[2018-10-18] MEDS: MORPHINE SULFATE ER 15 MG TABLET PO PRN ×2 (08:16→20:58)
[2018-10-18] MEDS: busPIRone HCl 10 MG TAB PO SCH ×3 (08:17→22:10)
[2018-10-18] MEDS: GABAPENTIN 400 MG CAP PO SCH ×3 (08:17→22:10)
[2018-10-18] MEDS: APIXABAN 5 MG TAB PO SCH ×2 (08:17→22:11)
[2018-10-18] MEDS: FUROSEMIDE 20 MG TAB PO SCH (08:17)
[2018-10-18] MEDS: FERROUS SULFATE 325 MG TAB PO SCH ×2 (08:17→22:11)
[2018-10-18] MEDS: PHENYTOIN SODIUM EXTENDED 100 MG CAP PO SCH ×3 (08:18→22:21)
[2018-10-18] MEDS: ARIPiprazole 5 MG TAB PO SCH (08:19)
[2018-10-18] MEDS: DIVALPROEX ER 250 MG TAB.ER.24H PO SCH (08:19)
[2018-10-18] MEDS: CARBIDOPA-LEVODOPA 25-100 MG 1 EACH TAB PO SCH ×2 (08:19→22:10)
[2018-10-18] MEDS: ARTIFICIAL TEARS-HYPROMELLOSE DROPS 15 ML BTL BOTH EYES SCH ×3 (08:25→22:21)
[2018-10-18] MEDS: TOPIRAMATE 100 MG TAB PO SCH ×2 (08:25→22:10)
[2018-10-18] MEDS: NYSTATIN 100,000 UNIT/GM POWD 15 GM TOPICAL SCH ×2 (08:26→22:14)
[2018-10-18] MEDS: BUTALB/APAP/CAFF 50-325-40MG TAB PO PRN ×2 (11:44→17:23)
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
[2018-10-18] MEDS: traZODone HCL 100 MG TAB PO SCH ×2 (22:06→22:11)
[2018-10-18] MEDS: MELATONIN 3 MG TABLET PO SCH (22:10)
[2018-10-18] MEDS: ATORVASTATIN 20 MG TAB PO SCH (22:11)
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
[2018-10-19] MEDS: CARBIDOPA-LEVODOPA 25-100 MG 1 EACH TAB PO SCH ×2 (05:16→21:57)
[2018-10-19] MEDS: ACETAMINOPHEN TAB 325 MG TAB PO PRN (05:16)
[2018-10-19] MEDS: LEVOTHYROXINE 75 MCG TAB PO SCH (06:28)
[2018-10-19] MEDS: busPIRone HCl 10 MG TAB PO SCH ×3 (08:24→21:57)
[2018-10-19] MEDS: GABAPENTIN 400 MG CAP PO SCH ×3 (08:24→21:57)
[2018-10-19] MEDS: APIXABAN 5 MG TAB PO SCH ×2 (08:24→21:57)
[2018-10-19] MEDS: FERROUS SULFATE 325 MG TAB PO SCH ×2 (08:24→21:57)
[2018-10-19] MEDS: FUROSEMIDE 20 MG TAB PO SCH (08:24)
[2018-10-19] MEDS: TOPIRAMATE 100 MG TAB PO SCH ×2 (08:25→21:58)
[2018-10-19] MEDS: MORPHINE SULFATE ER 15 MG TABLET PO PRN ×2 (08:25→21:57)
[2018-10-19] MEDS: ARIPiprazole 5 MG TAB PO SCH (08:25)
[2018-10-19] MEDS: DIVALPROEX ER 250 MG TAB.ER.24H PO SCH (08:26)
[2018-10-19] MEDS: PHENYTOIN SODIUM EXTENDED 100 MG CAP PO SCH ×3 (08:26→22:01)
[2018-10-19] MEDS: NYSTATIN 100,000 UNIT/GM POWD 15 GM TOPICAL SCH ×2 (08:27→22:04)
[2018-10-19] MEDS: ARTIFICIAL TEARS-HYPROMELLOSE DROPS 15 ML BTL BOTH EYES SCH ×3 (08:27→22:04)
[2018-10-19] MEDS: BUTALB/APAP/CAFF 50-325-40MG TAB PO PRN ×2 (13:13→18:46)
[2018-10-19] MEDS: MELATONIN 3 MG TABLET PO SCH (21:57)
[2018-10-19] MEDS: ATORVASTATIN 20 MG TAB PO SCH (21:57)
[2018-10-19] MEDS: traZODone HCL 100 MG TAB PO SCH (21:58)
--- NOTE | 2018-10-20 00:02 | PN ---
PROGRESS NOTE DATE OF SERVICE: 10/19/2018. PRESENTING COMPLAINT: Seizure. INTERVAL HISTORY: This patient presented with seizure. Seen by Neurology. No further intervention to be done. The patient's nursing home does not want to take her back, hence social service agency director looking into ECF placement. The patient is otherwise comfortable. REVIEW OF SYSTEMS: Done for constitutional, cardiovascular, GI, pulmonary; relevant findings above. CURRENT MEDICATIONS: Reviewed. PHYSICAL EXAMINATION: Temperature 98.1, pulse 100, respirations 16, blood pressure 104/62, pulse ox 98% on room air. GENERAL APPEARANCE: Lying in bed, comfortable. EYES: Pupils are equal. Conjunctivae normal. NECK: JVD not raised. Mass not palpable. Respiratory effort normal. LUNGS: Clear. CARDIOVASCULAR: 1st and 2nd heart sounds normal. No edema. ABDOMEN: Soft, nontender. Liver and spleen not palpable. PSYCHIATRY: Awake, answering questions appropriately. INVESTIGATIONS: No blood work from today. ASSESSMENT: 1. Recurrent seizures. The patient is known to have seizures. 2. Parkinson disease, idiopathic. 3. Gastroesophageal reflux disease. 4. Essential hypertension. 5. Primary osteoarthritis. PLAN: Continue medication and treatment plan. patch worker is involved, trying to find placement. MMODL / IJN: [id number] /
[2018-10-20 03:09] VITALS: TEMP 98
[2018-10-20] MEDS: ACETAMINOPHEN TAB 325 MG TAB PO PRN (03:15)
[2018-10-20 05:55] VITALS: BP 118/65; PULSE 87; RESP 18
[2018-10-20] MEDS: CARBIDOPA-LEVODOPA 25-100 MG 1 EACH TAB PO SCH (06:26)
[2018-10-20] MEDS: LEVOTHYROXINE 75 MCG TAB PO SCH (06:26)
[2018-10-20] MEDS: GABAPENTIN 400 MG CAP PO SCH (08:04)
[2018-10-20] MEDS: PHENYTOIN SODIUM EXTENDED 100 MG CAP PO SCH (08:04)
[2018-10-20] MEDS: FERROUS SULFATE 325 MG TAB PO SCH (08:04)
[2018-10-20] MEDS: ARIPiprazole 5 MG TAB PO SCH (08:04)
[2018-10-20] MEDS: FUROSEMIDE 20 MG TAB PO SCH (08:04)
[2018-10-20] MEDS: busPIRone HCl 10 MG TAB PO SCH (08:04)
[2018-10-20] MEDS: DIVALPROEX ER 250 MG TAB.ER.24H PO SCH (08:04)
[2018-10-20] MEDS: APIXABAN 5 MG TAB PO SCH (08:04)
[2018-10-20] MEDS: NYSTATIN 100,000 UNIT/GM POWD 15 GM TOPICAL SCH (08:05)
[2018-10-20] MEDS: ARTIFICIAL TEARS-HYPROMELLOSE DROPS 15 ML BTL BOTH EYES SCH (08:05)
[2018-10-20] MEDS: TOPIRAMATE 100 MG TAB PO SCH (08:05)
[2018-10-20] MEDS: MORPHINE SULFATE ER 15 MG TABLET PO PRN (09:06)
[2018-10-20] MEDS: BUTALB/APAP/CAFF 50-325-40MG TAB PO PRN (14:02)
--- NOTE | 2018-10-21 07:40 | DS ---
DISCHARGE SUMMARY DATE OF ADMISSION: DATE OF DISCHARGE: 10/20/2018 FINAL DIAGNOSES: 1. Recurrent seizure. 2. Parkinson's disease idiopathic. 3. Gastroesophageal reflux disease. 4. Essential hypertension. 5. Primary osteoarthritis. 6. The patient has a legal guardian. HOSPITAL COURSE: This patient presented with seizure episode. Seen by Dr. Chen from Neurology. No change in medications. There was a question about the patient not being taken back at the assisted, but the nurse called patient's legal guardian who called the assisted. They will take the patient back and everything was settled. The patient is going back. The patient had no further episodes. PHYSICAL EXAMINATION: Temperature 98, pulse 87, respiratory 18, blood pressure 108/65, pulse 100 percent on room air. DISCHARGE MEDICATIONS: 1. Sinemet 25/100 one tablet p.o. b.i.d. 2. Melatonin 3 mg p.o. q.h.s. 3. Lipitor 20 mg q.h.s. 4. Synthroid 75 mcg p.o. daily. 5. Topamax 200 mg p.o. b.i.d. 6. Vitamin D2 78370 units p.o. on Sunday. 7. Iron 325 p.o. b.i.d. 8. MS Contin 50 mg p.o. q.12h p.r.n. 9. Lasix 20 mg p.o. daily. 10.Nystatin topical b.i.d. 11.EpiPen p.r.n. 12.Abilify 5 mg a day. 13.Tylenol Arthritis 650 mg p.o. b.i.d. p.r.n. 14.Eliquis 5 mg p.o. b.i.d. 15.Fioricet 1 tab q.6h p.r.n. 16.Desloratadine 5 mg q.h.s. p.r.n. 17.Neurontin 400 mg p.o. t.i.d. 18.Dilantin 100 mg p.o. t.i.d. 19.Systane Ultra 1 drop both eyes t.i.d. 20.Buspar 10 mg p.o. t.i.d. 21.Trazodone 150 mg p.o. at bedtime. 22.Depakote ER 250 mg p.o. daily. FOLLOWUP: Follow up with Dr. Roc Clements from [facility] 1 or 2 days. Follow up with her own neurologist in a week. Copy to visiting physician Dr. Roc Clements. MMFELIPE / DANNYN: [id number] /
[2018-10-23] MEDS ORDERED: ERGOCALCIFEROL 50,000 UNIT CAP PO SCH (12:00)
== END 2018-10-20 14:42 | disposition home health service (06) | DRG 101 ==
LOC: EC 23:14 → 1SOBS 10-18 02:06 → 4MS4W 10-18 15:04 → OBSVTOIN 10-18 17:00 → INTOOBSV 10-18 17:00 → OBSVTOIN 10-19 08:38
PROVIDERS: ADMIT Hospitalist; ATTEND Hospitalist
DX: G40.909 Epilepsy, unspecified, not intractable, without status epilepticus (principal); G20 Parkinson's disease; G35 Multiple sclerosis; E86.0 Dehydration; H91.90 Unspecified hearing loss, unspecified ear; I10 Essential (primary) hypertension; I25.2 Old myocardial infarction; K21.9 Gastro-esophageal reflux disease without esophagitis; M19.91 Primary osteoarthritis, unspecified site; Z79.01 Long term (current) use of anticoagulants; Z79.890 Hormone replacement therapy; Z79.899 Other long term (current) drug therapy; Z80.0 Family history of malignant neoplasm of digestive organs; Z90.3 Acquired absence of stomach [part of]; Z88.0 Allergy status to penicillin; Z88.8 Allergy status to other drugs, medicaments and biological substances; Z88.6 Allergy status to analgesic agent; Z91.040 Latex allergy status; Z87.11 Personal history of peptic ulcer disease
CPT/HCPCS: 36415; 80053; 80164; 80185; 80306; 80320; 81003; 85025; 93005; 96360; 96361; 99285

== ENCOUNTER 2018-10-31 04:49 | Observation (INO) | payer MEDICARE ==
[2018-10-31] MEDS ORDERED: ONDANSETRON 4 MG/2 ML VIAL IVP STA ×2 (07:13→14:48)
[2018-10-31] MEDS ORDERED: SODIUM CHLORIDE 0.9% 500 ML 500 ML IV STA (07:13)
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
[2018-10-31 07:53] LABS: Appearance,Urine Clear (Clear); Bilirubin,Urine Negative (Negative); Blood,Urine Negative (Negative); Color,Urine Yellow; Glucose,Urine (UA) Negative (Negative); Ketones,Urine Negative (Negative); Leukocyte Esterase,Urine Negative (Negative); Nitrite,Urine Negative (Negative); Protein,Urine Negative (Negative); Specific Gravity,Urine 1.016 (1.001-1.035)
--- NOTE | 2018-10-31 08:24 | XR ---
EXAMINATION TYPE: XR KUB DATE OF EXAM: 10/31/2018 8:14 AM CLINICAL HISTORY: Abdominal pain TECHNIQUE: Single upright image of the abdomen is obtained. COMPARISON: 07/04/2012. FINDINGS: Surgical sutures are seen at the gastroesophageal junction and within the left lower quadra nt as well as within the right upper quadrant Midline. Scattered gas is seen in nondilated small bowel loops. Gas and fecal material is seen in non dilated colon. There is no visceromegaly, pneumoperitoneum, or abnormal calcification appreciated. Th e lung bases are clear and the osseous structures are intact. Dystrophic calcifications overlying the bilateral iliac bones are present dating back to 07/04/2012. IMPRESSION: Nonobstructive bowel gas pattern.
[2018-10-31 09:38] LABS: Basophils % (A) 0 %; Eosinophils # (A) 0.1 k/uL (0-0.7); Eosinophils % (A) 3 %; HCT 34.3 % (34.0-46.0); HGB 10.8 gm/dL (11.4-16.0); Lymphocytes # (A) 1.9 k/uL (1.0-4.8); Lymphocytes % (A) 36 %; MCHC 31.6 g/dL (31.0-37.0); MCV 98.2 fL (80.0-100.0); Mean Platelet Volume 6.9; Monocytes # (A) 0.3 k/uL (0-1.0); Monocytes % (A) 6 %; Neutrophils # (A) 2.8 k/uL (1.3-7.7); Neutrophils % (A) 53 %; Platelet Count 227 k/uL (150-450); RBC 3.49 m/uL (3.80-5.40); RDW 13.8 % (11.5-15.5); WBC 5.3 k/uL (3.8-10.6)
[2018-10-31 09:52] LABS: ALT 34 U/L (9-52); AST 15 U/L (14-36); Albumin 2.5 g/dL (3.5-5.0); Alkaline Phosphatase 62 U/L (38-126); Amylase 52 U/L (30-110); Anion Gap 3 mmol/L; Blood Urea Nitrogen 21 mg/dL (7-17); Calcium 8.8 mg/dL (8.4-10.2); Carbon Dioxide 25 mmol/L (22-30); Chloride 112 mmol/L (98-107); Glucose 86 mg/dL (74-99); Lipase 65 U/L (23-300); Phenytoin (Dilantin) 8.4 ug/mL; Potassium 4.2 mmol/L (3.5-5.1); Sodium 140 mmol/L (137-145); Total Bilirubin 0.2 mg/dL (0.2-1.3); Total Protein 4.8 g/dL (6.3-8.2)
[2018-10-31 09:55] LABS: Valproic Acid (Depakene) <10.0 ug/mL
[2018-10-31] MEDS ORDERED: VALPROATE SODIUM 500 MG in SODIUM CHLORIDE 0.9% 50 ML IVPB STA (10:23)
[2018-10-31] MEDS ORDERED: PHENYTOIN SODIUM INJ 500 MG in SODIUM CHLORIDE 0.9% 100 ML IVPB STA (10:24)
[2018-10-31] MEDS ORDERED: SODIUM CHLORIDE 0.9% 1,000 ML IV ONE (10:42)
[2018-10-31] MEDS ORDERED: ACETAMINOPHEN TAB 500 MG TAB PO STA (11:32)
[2018-10-31] MEDS ORDERED: MORPHINE SULFATE 2 MG/ML SYRINGE IVP STA (12:30)
[2018-10-31] MEDS ORDERED: MORPHINE SULFATE ER 15 MG TABLET PO PRN (17:13)
[2018-10-31] MEDS ORDERED: LORATADINE 10 MG TAB PO PRN (17:13)
[2018-10-31] MEDS: ACETAMINOPHEN TAB 325 MG TAB PO PRN (17:31)
[2018-10-31] MEDS ORDERED: PHENYTOIN SODIUM EXTENDED 100 MG CAP PO STA (19:26)
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
[2018-10-31] MEDS: GABAPENTIN 400 MG CAP PO SCH (20:36)
[2018-10-31] MEDS: CARBIDOPA-LEVODOPA 25-100 MG 1 EACH TAB PO SCH (20:36)
[2018-10-31] MEDS: busPIRone HCl 10 MG TAB PO SCH (20:36)
[2018-10-31] MEDS: APIXABAN 5 MG TAB PO SCH (20:36)
[2018-10-31] MEDS: ATORVASTATIN 20 MG TAB PO SCH (20:36)
[2018-10-31] MEDS: TOPIRAMATE 100 MG TAB PO SCH (20:36)
[2018-10-31] MEDS: FERROUS SULFATE 325 MG TAB PO SCH (20:36)
[2018-10-31] MEDS: MORPHINE SULFATE ER 15 MG TABLET PO SCH (20:37)
[2018-10-31] MEDS: MELATONIN 3 MG TABLET PO SCH (20:47)
[2018-10-31] MEDS: traZODone HCL 50 MG TAB PO SCH (20:49)
[2018-10-31] MEDS: NYSTATIN 100,000 UNIT/GM POWD 15 GM TOPICAL SCH (20:50)
[2018-10-31] MEDS: PHENYTOIN SODIUM EXTENDED 100 MG CAP PO SCH (22:32)
[2018-10-31] MEDS: ARTIFICIAL TEARS-HYPROMELLOSE DROPS 15 ML BTL BOTH EYES SCH (22:32)
--- NOTE | 2018-10-31 22:34 | HP ---
HISTORY AND PHYSICAL CHIEF COMPLAINT: Seizure disorder. HISTORY OF PRESENT ILLNESS: This 63-year-old woman with a past medical history of multiple medical problems, including closed-head injury, CAD, COPD, DVT, GERD, GI bleed, history of hypertension, history of DJD, history of seizures, hypothyroidism, being followed by Dr. Clements from [facility] in the outpatient setting, had recurrent seizures. The patient had a seizure last week. The patient also had a seizure this morning and did vomit once. Because of recurrent seizures, the patient was taken to [facility] and admitted for evaluation. The seizures were generalized tonic-clonic apparently. The patient also reports that he is living in an assisted-living facility and was not receiving his medications. The Dilantin level was found to be subtherapeutic at 8.4. Also valproic acid level was less than 10. The patient was admitted for further evaluation. Dr. Gordon is following the patient closely. There is no history of any fever, rigor or chills. No history of headache. The patient has significant dysarthria. PAST MEDICAL HISTORY: 1. History of recurrent seizures. 2. History of CAD. 3. COPD. 4. History of DVT. 5. GERD. 6. GI bleed. 7. Hypertension. 8. History of DJD. 9. History of hypothyroidism. HOME MEDICATIONS: 1. Trazodone 50 mg p.o. at bedtime. 2. BuSpar 10 mg p.o. t.i.d. 3. Topamax 200 mg p.o. b.i.d. 4. Propylene Glycol 1 drop both eyes t.i.d. 5. Dilantin 100 mg p.o. t.i.d. 6. Nystop 1 application b.i.d. 7. MS Contin 15 mg b.i.d. p.r.n. 8. Melatonin 3 mg p.o. at bedtime. 9. Synthroid 75 mcg p.o. daily. 10.Neurontin 400 mg p.o. t.i.d. 11.Lasix 20 mg p.o. daily. 12.Iron sulfate 320 mg p.o. b.i.d. 13.Drisdol 50,000 Sunday. 14.EpiPen. 15.Depakote ER 250 mg p.o. daily. 16.Desloratadine 5 mg at bedtime p.r.n. 17.Sinemet 25/100 one p.o. b.i.d. 18.Fioricet 50/325/40 one p.o. q.6 p.r.n. 19.Lipitor 20 mg at bedtime. 20.Eliquis 5 mg p.o. b.i.d. 21.Tylenol Arthritis 650 mg b.i.d. p.r.n. 22.Abilify 5 mg p.o. daily. ALLERGIES: 1. ADHESIVE. 2. CELEBREX. 3. CELEXA. 4. TORADOL. 5. LATEX. 6. PHENOTHIAZINES. 7. ASPIRIN. 8. BEE POLLEN. 9. METOCLOPRAMIDE. 10.PENICILLIN. 11.COMPAZINE. 12.VIOXX. 13.SALICYLATES. FAMILY HISTORY: History of colon cancer in the family. SOCIAL HISTORY: No history of smoking. No history of alcohol. REVIEW OF SYSTEMS: ENT: Diminished hearing. Diminished vision. CARDIOVASCULAR SYSTEM: No angina, palpitations. RESPIRATORY SYSTEM: As mentioned earlier. GI: No nausea, vomiting. : No dysuria or retention. NERVOUS SYSTEM: As mentioned earlier. ALLERGY/IMMUNOLOGY: No asthma. MUSCULOSKELETAL: As mentioned earlier. HEMATOLOGY/ONCOLOGY: No history of anemia. ENDOCRINE: No history of diabetes, hypothyroidism. CONSTITUTIONAL: As mentioned earlier. DERMATOLOGY: Negative. RHEUMATOLOGY: Negative. PSYCHIATRY: As mentioned earlier. PHYSICAL EXAMINATION: Patient alert and oriented x3. Pulse is 86, blood pressure 133/86, respiration 18, temperature 97 degrees, pulse ox 100% on room air. HEENT: Conjunctivae normal. Oral mucosa moist. NECK: No jugular venous distention. No carotid bruit. No lymph node enlargement. CARDIOVASCULAR SYSTEM: S1, S2 muffled. RESPIRATORY SYSTEM: Breath sounds diminished at the bases. A few scattered rhonchi and crackles. ABDOMEN: Soft, non-tender. No mass palpable. LEGS: No edema. No swelling. NERVOUS SYSTEM: Higher functions as mentioned earlier. Moves all 4 limbs. No focal motor or sensory deficit. LYMPHATICS: No lymph node palpable in neck, axillae or groin. SKIN: No ulcer, rash, bleeding. LABS: WBC 5.3, hemoglobin 10.8. Sodium 140, potassium 4.2, and albumin is 2.5. ASSESSMENT: 1. Recurrent seizures and breakthrough seizures. 2. Coronary artery disease. 3. Chronic obstructive pulmonary disease. 4. History of deep vein thrombosis. 5. History of gastrointestinal bleed. 6. Hypertension. 7. History of degenerative joint disease. 8. History of seizure disorder. 9. Hypothyroidism. 10.History of closed-head injury. 11.History of cerebrovascular accident. 12.History of Parkinson's. 13.History of appendectomy. 14.History of cholecystectomy. 15.History of anxiety. RECOMMENDATIONS AND DISCUSSION: I recommend to continue current medication, continue with symptomatic treatment. Resume the home medications. Dr. Gordon has recommended phenytoin 200 mg today and check the levels. Otherwise, resume the home medications. Guarded prognosis because of multiple complex medical issues. Further recommendations to follow. A copy of this dictation is being forwarded to Dr. Clements, who is the primary physician. Repeat labs will be ordered. MMODL / DANNYN: [id number] /
[2018-11-01] MEDS: ACETAMINOPHEN TAB 325 MG TAB PO PRN (02:12)
[2018-11-01] MEDS: LEVOTHYROXINE 75 MCG TAB PO SCH (04:53)
[2018-11-01] MEDS: CARBIDOPA-LEVODOPA 25-100 MG 1 EACH TAB PO SCH ×2 (04:53→22:17)
[2018-11-01] MEDS: NYSTATIN 100,000 UNIT/GM POWD 15 GM TOPICAL SCH ×2 (09:39→22:21)
[2018-11-01] MEDS: MORPHINE SULFATE ER 15 MG TABLET PO SCH (09:39)
[2018-11-01] MEDS: ARTIFICIAL TEARS-HYPROMELLOSE DROPS 15 ML BTL BOTH EYES SCH ×3 (09:39→22:21)
[2018-11-01] MEDS: APIXABAN 5 MG TAB PO SCH ×2 (09:40→22:16)
[2018-11-01] MEDS: TOPIRAMATE 100 MG TAB PO SCH ×2 (09:40→22:16)
[2018-11-01] MEDS: FUROSEMIDE 20 MG TAB PO SCH (09:40)
[2018-11-01] MEDS: GABAPENTIN 400 MG CAP PO SCH ×3 (09:40→22:17)
[2018-11-01] MEDS: FERROUS SULFATE 325 MG TAB PO SCH ×2 (09:40→22:17)
[2018-11-01] MEDS: PHENYTOIN SODIUM EXTENDED 100 MG CAP PO SCH (09:41)
[2018-11-01] MEDS: busPIRone HCl 10 MG TAB PO SCH ×3 (09:41→22:17)
[2018-11-01] MEDS: DIVALPROEX ER 250 MG TAB.ER.24H PO SCH (09:41)
[2018-11-01] MEDS: ARIPiprazole 5 MG TAB PO SCH (09:41)
[2018-11-01 09:48] LABS: Basophils % (A) 0 %; Eosinophils # (A) 0.1 k/uL (0-0.7); Eosinophils % (A) 2 %; HCT 35.4 % (34.0-46.0); HGB 10.9 gm/dL (11.4-16.0); Hypochromasia Slight; Lymphocytes # (A) 1.9 k/uL (1.0-4.8); Lymphocytes % (A) 29 %; MCH 30.5 pg (25.0-35.0); MCHC 30.8 g/dL (31.0-37.0); MCV 98.9 fL (80.0-100.0); Mean Platelet Volume 7.5; Monocytes # (A) 0.3 k/uL (0-1.0); Monocytes % (A) 5 %; Neutrophils # (A) 4.1 k/uL (1.3-7.7); Neutrophils % (A) 62 %; Platelet Count 219 k/uL (150-450); RBC 3.58 m/uL (3.80-5.40); RDW 13.7 % (11.5-15.5); WBC 6.6 k/uL (3.8-10.6)
[2018-11-01 10:12] LABS: Anion Gap 2 mmol/L; Blood Urea Nitrogen 13 mg/dL (7-17); Carbon Dioxide 22 mmol/L (22-30); Chloride 114 mmol/L (98-107); Glucose 111 mg/dL (74-99); Potassium 4.5 mmol/L (3.5-5.1); Sodium 138 mmol/L (137-145)
[2018-11-01] MEDS ORDERED: PHENYTOIN SODIUM EXTENDED 100 MG CAP PO STA (11:08)
[2018-11-01] MEDS ORDERED: PHENYTOIN SODIUM EXTENDED 100 MG CAP PO SCH (12:45)
--- NOTE | 2018-11-01 17:05 | PN ---
PROGRESS NOTE DATE OF SERVICE: 11/01/2018 This 63-year-old woman who was admitted with seizure disorder with seizures is being closely monitored. The patient apparently had history of noncompliance also. Dilantin has been discontinued. No chest pain. No palpitations. No fever. PHYSICAL EXAMINATION: Alert and oriented x3. Pulse 59, blood pressure 120/61, respiration 16, temperature 98.6, pulse ox 100% on room air. HEENT: Conjunctivae normal. NECK: No jugular venous distention. CARDIOVASCULAR SYSTEM: S1, S2 muffled. RESPIRATORY SYSTEM: Breath sounds diminished at the bases. No rhonchi. No crackles. ABDOMEN: Soft, non-tender. LEGS: No edema. No swelling. NERVOUS SYSTEM: No focal deficit. LABS: WBC 6.6, hemoglobin 10.9. Dilantin level is 9. ASSESSMENT: 1. History of recurrent seizures and breakthrough seizures. 2. Coronary artery disease. 3. History of possible noncompliance. 4. Subtherapeutic Dilantin levels. 5. Chronic obstructive pulmonary disease. 6. History of deep vein thrombosis. 7. Gastrointestinal bleed. 8. Hypertension. 9. History of degenerative joint disease. 10.History of seizure disorder. 11.Hypothyroidism. 12.History of closed-head injury. 13.History of cerebrovascular accident. 14.Parkinson's. 15.Appendectomy. 16.Cholecystectomy. 17.History of anxiety. RECOMMENDATIONS AND DISCUSSION: I recommend to continue current medication, continue with the monitoring, symptomatic treatment. Closely follow with Dr. Gordon. The patient has also been started on Keppra at this time. Will continue to monitor. Further recommendations to follow. MMODL / IJN: [id number] /
[2018-11-01] MEDS: BUTALB/APAP/CAFF 50-325-40MG TAB PO PRN (17:47)
[2018-11-01] MEDS: traZODone HCL 50 MG TAB PO SCH (22:16)
[2018-11-01] MEDS: ATORVASTATIN 20 MG TAB PO SCH (22:16)
[2018-11-01] MEDS: MELATONIN 3 MG TABLET PO SCH (22:17)
[2018-11-01] MEDS: levETIRAcetam IV 1,000 MG in SALINE 1 100ML.BAG IVPB SCH (22:21)
[2018-11-01 23:26] VITALS: PULSE 81
[2018-11-02] MEDS: CARBIDOPA-LEVODOPA 25-100 MG 1 EACH TAB PO SCH (06:41)
[2018-11-02] MEDS: LEVOTHYROXINE 75 MCG TAB PO SCH (06:42)
[2018-11-02 07:44] VITALS: BP 100/61; RESP 16; TEMP 98.6
[2018-11-02] MEDS: GABAPENTIN 400 MG CAP PO SCH (08:32)
[2018-11-02] MEDS: BUTALB/APAP/CAFF 50-325-40MG TAB PO PRN (08:32)
[2018-11-02] MEDS: levETIRAcetam IV 1,000 MG in SALINE 1 100ML.BAG IVPB SCH (08:32)
[2018-11-02] MEDS: busPIRone HCl 10 MG TAB PO SCH (08:33)
[2018-11-02] MEDS: TOPIRAMATE 100 MG TAB PO SCH (08:33)
[2018-11-02] MEDS: ARIPiprazole 5 MG TAB PO SCH (08:33)
[2018-11-02] MEDS: DIVALPROEX ER 250 MG TAB.ER.24H PO SCH (08:33)
[2018-11-02] MEDS: APIXABAN 5 MG TAB PO SCH (08:33)
[2018-11-02] MEDS: FUROSEMIDE 20 MG TAB PO SCH (08:33)
[2018-11-02] MEDS: FERROUS SULFATE 325 MG TAB PO SCH (08:33)
[2018-11-02] MEDS: ARTIFICIAL TEARS-HYPROMELLOSE DROPS 15 ML BTL BOTH EYES SCH (08:34)
[2018-11-02] MEDS: NYSTATIN 100,000 UNIT/GM POWD 15 GM TOPICAL SCH (08:34)
[2018-11-02] MEDS ORDERED: PHENYTOIN SODIUM EXTENDED 100 MG CAP PO SCH (09:00)
[2018-11-02 12:03] LABS: Basophils % (A) 1 %; Eosinophils # (A) 0.1 k/uL (0-0.7); Eosinophils % (A) 1 %; HCT 36.9 % (34.0-46.0); Hypochromasia Moderate; Lymphocytes # (A) 1.7 k/uL (1.0-4.8); Lymphocytes % (A) 35 %; MCH 30.2 pg (25.0-35.0); MCHC 29.8 g/dL (31.0-37.0); MCV 101.4 fL (80.0-100.0); Macrocytosis Slight; Mean Platelet Volume 6.8; Monocytes # (A) 0.2 k/uL (0-1.0); Monocytes % (A) 5 %; Neutrophils # (A) 2.6 k/uL (1.3-7.7); Neutrophils % (A) 56 %; Platelet Count 223 k/uL (150-450); RBC 3.64 m/uL (3.80-5.40); RDW 13.8 % (11.5-15.5); WBC 4.7 k/uL (3.8-10.6)
[2018-11-02 12:19] LABS: Anion Gap 5 mmol/L; Blood Urea Nitrogen 20 mg/dL (7-17); Calcium 8.8 mg/dL (8.4-10.2); Carbon Dioxide 21 mmol/L (22-30); Chloride 113 mmol/L (98-107); Glucose 104 mg/dL (74-99); Phenytoin (Dilantin) 9.1 ug/mL; Potassium 4.2 mmol/L (3.5-5.1); Sodium 139 mmol/L (137-145)
[2018-11-06] MEDS ORDERED: ERGOCALCIFEROL 50,000 UNIT CAP PO SCH (12:00)
--- NOTE | 2018-11-13 05:30 | DS ---
DISCHARGE SUMMARY FINAL DIAGNOSES: 1. History of recurrent seizures and breakthrough seizures. 2. Coronary artery disease. 3. History of possible noncompliance. 4. Subtherapeutic Dilantin levels. 5. Chronic obstructive pulmonary disease. 6. History of deep vein thrombosis. 7. Gastrointestinal bleed. 8. Hypertension. 9. History of degenerative joint disease. 10.History of seizure disorder. 11.Hypothyroidism. 12.History of closed-head injury. 13.History of cerebrovascular accident. 14.History of Parkinson's. 15.History of appendectomy. 16.History of cholecystectomy. 17.History of anxiety. DISCHARGE DISPOSITION: The patient will be discharged in stable condition with guarded prognosis. HISTORY OF PRESENT ILLNESS: This 63-year-old woman with past medical history admitted with breakthrough seizures and recurrent seizures. Neurology saw the patient. Medications adjusted. Patient improved significantly. Please also refer to the staff notes regarding a phone call. Otherwise, the patient improved significantly. On exam, alert and oriented x3. CARDIOVASCULAR: S1, S2 normal. ABDOMEN: Soft. NERVOUS SYSTEM: No focal deficit. DISCHARGE ADVICE AND MEDICATIONS: 1. Diet is cardiac. 2. Activity limited until followup. 3. Follow up with primary physician in 1 to 2 days. 4. Follow up with Neurology in 1 week. MEDICATIONS ARE: 1. Tylenol 650 b.i.d. p.r.n. 2. Eliquis 5 mg p.o. b.i.d. 3. Abilify 5 mg p.o. daily. 4. Lipitor 20 mg q.h.s. 5. BuSpar 10 mg p.o. t.i.d. 6. Fioricet one q.6 p.r.n. 7. Carbidopa-levodopa 25/100 one p.o. b.i.d. 8. Desloratadine 5 mg p.o. q.h.s. p.r.n. 9. Depakote ER 250 mg p.o. daily. 10.Drisdol 50,000 p.o. Sunday. 11.Iron 325 mg p.o. b.i.d. 12.Lasix 20 mg daily. 13.Neurontin 400 mg p.o. t.i.d. 14.Synthroid 75 mcg p.o. daily. 15.Melatonin 3 mg p.o. q.h.s. 16.Morphine, MS Contin, 15 mg p.o. b.i.d. p.r.n. 17.Nystop 1 application b.i.d. 18.Systane 1 drop both eyes . 19.Topamax 200 mg p.o. b.i.d. 20.Trazodone 150 mg q.h.s. 21.Tylenol 650 q.6 b.i.d. p.r.n. 22.EpiPen p.r.n. 23.Keppra 1000 mg p.o. b.i.d. MMNAML / DANNYN: [id number] / MTDD
== END 2018-11-02 11:52 | disposition home health service (06) ==
LOC: EC 04:49 → 4MS4W 10:55
PROVIDERS: ADMIT Hospitalist; ATTEND Hospitalist
DX: G40.909 Epilepsy, unspecified, not intractable, without status epilepticus (principal); I25.10 Atherosclerotic heart disease of native coronary artery without angina pectoris; J44.9 Chronic obstructive pulmonary disease, unspecified; Z86.718 Personal history of other venous thrombosis and embolism; Z87.19 Personal history of other diseases of the digestive system; I10 Essential (primary) hypertension; M19.90 Unspecified osteoarthritis, unspecified site; E03.9 Hypothyroidism, unspecified; Z86.73 Personal history of transient ischemic attack (TIA), and cerebral infarction without residual deficits; G20 Parkinson's disease; Z90.49 Acquired absence of other specified parts of digestive tract; F41.9 Anxiety disorder, unspecified; K21.9 Gastro-esophageal reflux disease without esophagitis; R47.1 Dysarthria and anarthria; H91.93 Unspecified hearing loss, bilateral; G89.29 Other chronic pain; M54.5 Low back pain; R51 Headache; M79.606 Pain in leg, unspecified; I25.2 Old myocardial infarction; D64.9 Anemia, unspecified; G35 Multiple sclerosis; T42.76XA Underdosing of unspecified antiepileptic and sedative-hypnotic drugs, initial encounter; R11.2 Nausea with vomiting, unspecified; R10.9 Unspecified abdominal pain; Z79.899 Other long term (current) drug therapy; Z79.890 Hormone replacement therapy; Z91.048 Other nonmedicinal substance allergy status; Z91.030 Bee allergy status; Z88.6 Allergy status to analgesic agent; Z91.040 Latex allergy status; Z88.5 Allergy status to narcotic agent; Z88.0 Allergy status to penicillin; Z88.8 Allergy status to other drugs, medicaments and biological substances; R29.6 Repeated falls; Z80.0 Family history of malignant neoplasm of digestive organs; Z87.01 Personal history of pneumonia (recurrent); Z87.828 Personal history of other (healed) physical injury and trauma; Z87.442 Personal history of urinary calculi
CPT/HCPCS: 96361 ×2; 96366 ×2; 96376; 96365; 96367; 96375; 99285; 36415; 93005; 97530; 97162; 97535; 97166; 80164; 80053; 80048 ×2; 80201; 82150; 80185 ×3; 83605; 83690; 85025 ×3; 81003; 74018; G0378 ×3; J1165; J2405; J2270; J1953 ×2

== ENCOUNTER 2018-11-02 15:04 | Observation (INO) | payer MEDICARE ==
[2018-11-02] MEDS ORDERED: SODIUM CHLORIDE 0.9% 500 ML 500 ML IV STA (15:21)
[2018-11-02 16:14] LABS: Basophils % (A) 1 %; Eosinophils # (A) 0.1 k/uL (0-0.7); Eosinophils % (A) 1 %; HCT 35.7 % (34.0-46.0); HGB 11.1 gm/dL (11.4-16.0); Lymphocytes % (A) 43 %; MCH 30.7 pg (25.0-35.0); MCV 98.8 fL (80.0-100.0); Mean Platelet Volume 6.8; Monocytes # (A) 0.2 k/uL (0-1.0); Monocytes % (A) 5 %; Neutrophils # (A) 2.2 k/uL (1.3-7.7); Neutrophils % (A) 47 %; Platelet Count 221 k/uL (150-450); RBC 3.62 m/uL (3.80-5.40); RDW 13.8 % (11.5-15.5); WBC 4.7 k/uL (3.8-10.6)
[2018-11-02 16:27] LABS: ALT 25 U/L (9-52); AST 20 U/L (14-36); Albumin 2.4 g/dL (3.5-5.0); Alkaline Phosphatase 66 U/L (38-126); Anion Gap 3 mmol/L; Blood Urea Nitrogen 19 mg/dL (7-17); Calcium 8.8 mg/dL (8.4-10.2); Carbon Dioxide 23 mmol/L (22-30); Chloride 112 mmol/L (98-107); Glucose 85 mg/dL (74-99); Phenytoin (Dilantin) 8.7 ug/mL; Potassium 4.2 mmol/L (3.5-5.1); Sodium 138 mmol/L (137-145); Total Bilirubin 0.2 mg/dL (0.2-1.3); Total Protein 4.7 g/dL (6.3-8.2)
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
[2018-11-02 16:30] LABS: Valproic Acid (Depakene) 14.7 ug/mL
[2018-11-02] MEDS ORDERED: ACETAMINOPHEN TAB 325 MG TAB PO STA (18:16)
[2018-11-02] MEDS ORDERED: MORPHINE SULFATE 4 MG/ML SYRINGE IVP STA (18:48)
[2018-11-02] MEDS ORDERED: LORATADINE 10 MG TAB PO PRN (18:48)
--- NOTE | 2018-11-02 18:49 | CT ---
EXAMINATION TYPE: CT brain wo con DATE OF EXAM: 11/02/2018 COMPARISON: 10/12/2018 HISTORY: Seizure. CT DLP: 1194.4 mGycm Automated exposure control for dose reduction was used. FINDINGS: There is mild cerebral cortical atrophy. There is no mass effect nor midline shift. There is no sign of intracranial hemorrhage. The calvarium is intact. There is old left parietal craniotomy defect. IMPRESSION: NEGATIVE CT SCAN OF THE BRAIN. NO CHANGE. MILD ATROPHY.
[2018-11-02] MEDS ORDERED: NALOXONE 0.4 MG/ML 1 ML VIAL IV PRN (18:51)
[2018-11-02 21:15] VITALS: BMI 21.1
[2018-11-02] MEDS: busPIRone HCl 10 MG TAB PO SCH (21:30)
[2018-11-02] MEDS: GABAPENTIN 400 MG CAP PO SCH (21:30)
[2018-11-02] MEDS: APIXABAN 5 MG TAB PO SCH (21:30)
[2018-11-02] MEDS: CARBIDOPA-LEVODOPA 25-100 MG 1 EACH TAB PO SCH (21:30)
[2018-11-02] MEDS: levETIRAcetam 500 MG TAB PO SCH (21:30)
[2018-11-02] MEDS: MELATONIN 3 MG TABLET PO SCH (21:31)
[2018-11-02] MEDS: ATORVASTATIN 20 MG TAB PO SCH (21:31)
[2018-11-02] MEDS: traZODone HCL 50 MG TAB PO SCH (21:31)
[2018-11-02] MEDS: TOPIRAMATE 100 MG TAB PO SCH (21:31)
[2018-11-02] MEDS: ONDANSETRON 4 MG/2 ML VIAL IVP PRN (21:32)
[2018-11-03] MEDS: BUTALB/APAP/CAFF 50-325-40MG TAB PO PRN ×2 (00:05→15:33)
[2018-11-03] MEDS: ONDANSETRON 4 MG/2 ML VIAL IVP PRN ×3 (05:19→19:41)
[2018-11-03] MEDS: LEVOTHYROXINE 75 MCG TAB PO SCH (05:24)
[2018-11-03] MEDS: MORPHINE SULFATE ER 15 MG TABLET PO PRN ×2 (08:08→19:40)
[2018-11-03] MEDS: ARIPiprazole 5 MG TAB PO SCH (08:08)
[2018-11-03] MEDS: DIVALPROEX ER 250 MG TAB.ER.24H PO SCH (08:09)
[2018-11-03] MEDS: GABAPENTIN 400 MG CAP PO SCH ×3 (08:09→22:18)
[2018-11-03] MEDS: levETIRAcetam 500 MG TAB PO SCH ×2 (08:09→22:16)
[2018-11-03] MEDS: FUROSEMIDE 20 MG TAB PO SCH (08:09)
[2018-11-03] MEDS: busPIRone HCl 10 MG TAB PO SCH ×3 (08:09→22:20)
[2018-11-03] MEDS: CARBIDOPA-LEVODOPA 25-100 MG 1 EACH TAB PO SCH ×2 (08:10→22:16)
[2018-11-03] MEDS: APIXABAN 5 MG TAB PO SCH ×2 (08:10→22:15)
[2018-11-03] MEDS: TOPIRAMATE 100 MG TAB PO SCH ×2 (08:11→22:18)
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
[2018-11-03] MEDS: ATORVASTATIN 20 MG TAB PO SCH (22:16)
[2018-11-03] MEDS: MELATONIN 3 MG TABLET PO SCH (22:17)
[2018-11-03] MEDS: traZODone HCL 50 MG TAB PO SCH (22:19)
[2018-11-03] MEDS: FAMOTIDINE 20 MG/2 ML VIAL IV SCH (22:21)
[2018-11-04] MEDS: BUTALB/APAP/CAFF 50-325-40MG TAB PO PRN ×4 (00:42→17:47)
[2018-11-04] MEDS: ONDANSETRON 4 MG/2 ML VIAL IVP PRN ×3 (03:40→20:02)
[2018-11-04] MEDS: LEVOTHYROXINE 75 MCG TAB PO SCH (05:52)
[2018-11-04] MEDS: FAMOTIDINE 20 MG/2 ML VIAL IV SCH (08:16)
[2018-11-04] MEDS: busPIRone HCl 10 MG TAB PO SCH ×3 (08:16→22:17)
[2018-11-04] MEDS: ARIPiprazole 5 MG TAB PO SCH (08:17)
[2018-11-04] MEDS: levETIRAcetam 500 MG TAB PO SCH ×2 (08:17→22:15)
[2018-11-04] MEDS: TOPIRAMATE 100 MG TAB PO SCH ×2 (08:17→22:18)
[2018-11-04] MEDS: FUROSEMIDE 20 MG TAB PO SCH (08:17)
[2018-11-04] MEDS: GABAPENTIN 400 MG CAP PO SCH ×3 (08:17→22:14)
[2018-11-04] MEDS: DIVALPROEX ER 250 MG TAB.ER.24H PO SCH (08:17)
[2018-11-04] MEDS: CARBIDOPA-LEVODOPA 25-100 MG 1 EACH TAB PO SCH ×2 (08:17→22:17)
[2018-11-04] MEDS: APIXABAN 5 MG TAB PO SCH ×2 (08:17→22:15)
[2018-11-04] MEDS: MORPHINE SULFATE ER 15 MG TABLET PO PRN ×2 (08:20→20:00)
--- NOTE | 2018-11-04 20:38 | P.PN ---
Subjective Progress Note Date: 11/04/18 The patient is a 63-year-old woman with seizure disorder who was recently hospitalized and readmitted with reported seizure. The seizure was not witnessed by any caregiver. The patient is suspected to have some pseudoseizures. Her medication was switched from Dilantin to Keppra. She reports that she is some prepared to go to [facility] for further epilepsy monitoring to see whether some of these anticonvulsant medications can be weaned off. The patient is unable to give a clear history as to how long she 's had epilepsy. She has been on multiple anticonvulsants including Topamax Neurontin Depakote and Dilantin for some time. Her Dilantin levels have been subtherapeutic and numbness which was made for a less toxic drug such as Keppra. Keppra level is drawn this morning and is pending. The patient resides at [facility]. She has multiple other medical issues. Objective - Vital Signs Vital signs: Vital Signs Temp 98 F 11/04/18 12:22 Pulse 85 11/04/18 14:35 Resp 20 11/04/18 14:35 BP 101/62 11/04/18 12:22 Pulse Ox 98 11/04/18 12:22 Intake & Output 11/04/18 11/04/18 11/05/18 06:59 18:59 06:59 Intake Total 690 1150 Balance 690 1150 Weight 65 kg Intake: Oral 690 1150 Other: Voiding Method Bedside Commode Toilet Diaper # Voids 2 6 - Constitutional General appearance: Present: cooperative - EENT Eyes: Present: EOMI - Respiratory Respiratory: bilateral: CTA - Neurologic Neurologic Comment(s): Neurologic examination: Mental status: He was awake alert and oriented. There was no a aphasia or dysarthria. Cranial nerve examination: Cranial nerves II through XII grossly intact Motor examination she was able to move all 4 extremities with some left leg weakness which is old. Gait: Not tested - Labs CBC & Chem 7: 11/02/18 15:50 11/02/18 15:50 Assessment and Plan (1) Breakthrough seizure Current Visit: Yes Status: Acute SNOMED Code(s): 435453719 (2) History of multiple sclerosis Current Visit: Yes Status: Acute SNOMED Code(s): 291249740 (3) History of Parkinson's disease Current Visit: Yes Status: Acute SNOMED Code(s): 640289059 Plan: The patient is a 63-year-old woman with reported history of seizure disorder who is on Topamax Neurontin Dilantin and Keppra. She has had a CT of the brain which showed mild atrophy and is stable. She was recently admitted to the hospital and a switch was initiated from Dilantin to Keppra. Her Keppra level is a send out and pending. She will has been switched to oral Keppra. She has been in and out of hospitals for the last several weeks. The patient may be having some pseudoseizure-type activity. The patient is willing to go to tertiary center for EMU monitoring and potentially be taken off off of some of her numerous anticonvulsant medications. Also we will like to determine whether there is pseudoseizure activity.
[2018-11-04] MEDS: ATORVASTATIN 20 MG TAB PO SCH (22:14)
[2018-11-04] MEDS: MELATONIN 3 MG TABLET PO SCH (22:14)
[2018-11-04] MEDS: FAMOTIDINE 20 MG TAB PO SCH (22:15)
[2018-11-04] MEDS: traZODone HCL 50 MG TAB PO SCH (22:16)
--- NOTE | 2018-11-04 23:56 | PN ---
PROGRESS NOTE SUBJECTIVE: A white female with severe seizures. States she wants to be transferred down to [facility] for seizure control. Waiting for Neurology recommendations from Evan. Neurology did see her today. She was readmitted with worsening seizures, but not witnessed by the caregiver, possible pseudoseizures. Medicines switched from Dilantin to Keppra. She has been on multiple anticonvulsants in the past. Keppra level is pending. The patient possibly will be discharged over to the snf or to a [facility] for further care of her seizures in the morning. OBJECTIVE: Vital signs stable, afebrile. Cardiovascular S1, S2. Lungs clear. GI soft. ASSESSMENT: Seizure disorder. PLAN: Please see further orders. MMODL / IJN: [id number] /
[2018-11-05] MEDS: BUTALB/APAP/CAFF 50-325-40MG TAB PO PRN (01:58)
[2018-11-05] MEDS: ONDANSETRON 4 MG/2 ML VIAL IVP PRN (03:52)
[2018-11-05 05:33] VITALS: BP 99/63; PULSE 72; RESP 16; TEMP 97.8
[2018-11-05] MEDS: LEVOTHYROXINE 75 MCG TAB PO SCH (05:35)
[2018-11-05] MEDS: TOPIRAMATE 100 MG TAB PO SCH (08:08)
[2018-11-05] MEDS: busPIRone HCl 10 MG TAB PO SCH (08:08)
[2018-11-05] MEDS: DIVALPROEX ER 250 MG TAB.ER.24H PO SCH (08:09)
[2018-11-05] MEDS: CARBIDOPA-LEVODOPA 25-100 MG 1 EACH TAB PO SCH (08:09)
[2018-11-05] MEDS: GABAPENTIN 400 MG CAP PO SCH (08:20)
[2018-11-05] MEDS: FUROSEMIDE 20 MG TAB PO SCH (08:20)
[2018-11-05] MEDS: APIXABAN 5 MG TAB PO SCH (08:20)
[2018-11-05] MEDS: FAMOTIDINE 20 MG TAB PO SCH (08:20)
[2018-11-05] MEDS: MORPHINE SULFATE ER 15 MG TABLET PO PRN (08:20)
[2018-11-05] MEDS: ARIPiprazole 5 MG TAB PO SCH (08:22)
[2018-11-05] MEDS ORDERED: levETIRAcetam 250 MG TAB PO SCH (09:00)
== END 2018-11-05 10:55 | disposition other institution (70) ==
LOC: EC 15:04 → 4MS4W 18:51 → 3NMEDONC 19:19
PROVIDERS: ADMIT Family Medicine; ATTEND Family Medicine
DX: G40.909 Epilepsy, unspecified, not intractable, without status epilepticus (principal); I25.10 Atherosclerotic heart disease of native coronary artery without angina pectoris; K21.9 Gastro-esophageal reflux disease without esophagitis; I10 Essential (primary) hypertension; E03.9 Hypothyroidism, unspecified; F41.9 Anxiety disorder, unspecified; J44.9 Chronic obstructive pulmonary disease, unspecified; M19.90 Unspecified osteoarthritis, unspecified site; G35 Multiple sclerosis; G20 Parkinson's disease; R29.6 Repeated falls; H91.93 Unspecified hearing loss, bilateral; G89.29 Other chronic pain; M54.5 Low back pain; M79.606 Pain in leg, unspecified; I25.2 Old myocardial infarction; Z90.49 Acquired absence of other specified parts of digestive tract; Z79.890 Hormone replacement therapy; Z79.01 Long term (current) use of anticoagulants; Z80.0 Family history of malignant neoplasm of digestive organs; Z86.718 Personal history of other venous thrombosis and embolism; Z87.19 Personal history of other diseases of the digestive system; Z87.442 Personal history of urinary calculi; Z87.01 Personal history of pneumonia (recurrent); Z79.899 Other long term (current) drug therapy; Z91.048 Other nonmedicinal substance allergy status; Z88.6 Allergy status to analgesic agent; Z91.040 Latex allergy status; Z91.030 Bee allergy status; Z88.0 Allergy status to penicillin; Z88.5 Allergy status to narcotic agent; Z88.8 Allergy status to other drugs, medicaments and biological substances; Z86.73 Personal history of transient ischemic attack (TIA), and cerebral infarction without residual deficits
CPT/HCPCS: 96376 ×3; 96375 ×2; 96374; 99285; 36415; 93005; 97116; 97162; 80164; 80053; 80177; 80185; 85025; 70450; G0378 ×4; J2270; J2405 ×4

== ENCOUNTER 2018-12-14 05:50 | Emergency (ER) | payer MEDICARE ==
[2018-12-14] MEDS ORDERED: SODIUM CHLORIDE 0.9% 1,000 ML IV ONE (05:58)
[2018-12-14 06:03] VITALS: RESP 18
[2018-12-14 07:05] LABS: Basophils # (A) 0.1 k/uL (0-0.2); Basophils % (A) 1 %; Eosinophils # (A) 0.2 k/uL (0-0.7); Eosinophils % (A) 3 %; HCT 32.7 % (34.0-46.0); HGB 10.4 gm/dL (11.4-16.0); Hypochromasia Slight; Lymphocytes # (A) 2.4 k/uL (1.0-4.8); Lymphocytes % (A) 30 %; MCH 31.3 pg (25.0-35.0); MCHC 31.7 g/dL (31.0-37.0); MCV 98.9 fL (80.0-100.0); Mean Platelet Volume 6.4; Monocytes # (A) 0.4 k/uL (0-1.0); Monocytes % (A) 5 %; Neutrophils # (A) 4.7 k/uL (1.3-7.7); Neutrophils % (A) 59 %; Platelet Count 277 k/uL (150-450); RBC 3.31 m/uL (3.80-5.40); RDW 13.5 % (11.5-15.5); WBC 7.9 k/uL (3.8-10.6)
[2018-12-14 07:15] LABS: Appearance,Urine Clear (Clear); Bacteria,Urine Many /hpf; Bilirubin,Urine Negative (Negative); Blood,Urine Negative (Negative); Color,Urine Yellow; Glucose,Urine (UA) Negative (Negative); Ketones,Urine Negative (Negative); Leukocyte Esterase,Urine Large (Negative); Mucus,Urine Rare /hpf; Nitrite,Urine Negative (Negative); Protein,Urine Negative (Negative); RBC,Urine 1 /hpf (0-5); Specific Gravity,Urine 1.013 (1.001-1.035); WBC,Urine 51 /hpf (0-5)
[2018-12-14 07:17] LABS: Amphetamine Screen,Urine Not Detected (NotDetected); Cocaine Screen,Urine Not Detected (NotDetected); Methadone Screen, Urine Not Detected (NotDetected); Opiate Screen,Urine Detected (NotDetected); Oxycodone Screen, Urine Not Detected (NotDetected); Phencyclidine Screen,Urine Not Detected (NotDetected); Tricyclic Antidepressant,Urine Not Detected (NotDetected); Urn Cannabinoid Scrn Not Detected (NotDetected)
[2018-12-14 07:18] LABS: ALT 19 U/L (9-52); AST 17 U/L (14-36); Albumin 2.7 g/dL (3.5-5.0); Alcohol <10 mg/dL; Alkaline Phosphatase 107 U/L (38-126); Anion Gap 5 mmol/L; Blood Urea Nitrogen 25 mg/dL (7-17); Calcium 8.9 mg/dL (8.4-10.2); Carbon Dioxide 20 mmol/L (22-30); Chloride 114 mmol/L (98-107); Glucose 94 mg/dL (74-99); Potassium 4.2 mmol/L (3.5-5.1); Sodium 139 mmol/L (137-145); Total Bilirubin 0.4 mg/dL (0.2-1.3); Total Protein 5.5 g/dL (6.3-8.2); Valproic Acid (Depakene) 13.6 ug/mL
[2018-12-14 07:18] LABS: Barbiturate Screen,Urine Detected (NotDetected); Benzodiazepines Screen,Urine Not Detected (NotDetected)
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
[2018-12-14] MEDS ORDERED: cefTRIAXone 1,000 MG VIAL (IM USE) IM STA (07:56)
[2018-12-14] MEDS ORDERED: LIDOCAINE 1% INJ 10MG/ML (20 ML MDV) IM ONE (07:57)
[2018-12-14 09:13] VITALS: BP 128/75; PULSE 73; TEMP 98.2
== END 2018-12-14 09:13 | disposition home or self-care (01) ==
LOC: EC 05:50
DX: N39.0 Urinary tract infection, site not specified (principal); I10 Essential (primary) hypertension; G40.909 Epilepsy, unspecified, not intractable, without status epilepticus; E03.9 Hypothyroidism, unspecified; G20 Parkinson's disease; I25.2 Old myocardial infarction; F41.9 Anxiety disorder, unspecified; Z79.01 Long term (current) use of anticoagulants; Z79.890 Hormone replacement therapy; Z79.899 Other long term (current) drug therapy; Z91.048 Other nonmedicinal substance allergy status; Z88.6 Allergy status to analgesic agent; Z88.8 Allergy status to other drugs, medicaments and biological substances; Z91.040 Latex allergy status; Z91.030 Bee allergy status; Z88.0 Allergy status to penicillin; Z86.718 Personal history of other venous thrombosis and embolism; Z86.73 Personal history of transient ischemic attack (TIA), and cerebral infarction without residual deficits
CPT/HCPCS: 36415; 80164; 80053; 80201; 83605; 85025; 81001; 80306; 99284; 96360; 96372 ×2; G0480; J2001; J0696; 80320

== ENCOUNTER 2019-03-09 00:38 | Observation (INO) | payer MEDICARE ==
[2019-03-09] MEDS ORDERED: SODIUM CHLORIDE 0.9% 500 ML 500 ML IV STA (01:04)
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
[2019-03-09 02:10] LABS: Basophils % (A) 1 %; Eosinophils # (A) 0.3 k/uL (0-0.7); Eosinophils % (A) 5 %; HCT 32.3 % (34.0-46.0); HGB 9.8 gm/dL (11.4-16.0); Lymphocytes # (A) 2.1 k/uL (1.0-4.8); Lymphocytes % (A) 42 %; MCH 29.1 pg (25.0-35.0); MCHC 30.2 g/dL (31.0-37.0); MCV 96.2 fL (80.0-100.0); Mean Platelet Volume 6.9; Monocytes # (A) 0.3 k/uL (0-1.0); Monocytes % (A) 6 %; Neutrophils # (A) 2.2 k/uL (1.3-7.7); Neutrophils % (A) 44 %; Platelet Count 195 k/uL (150-450); RBC 3.36 m/uL (3.80-5.40)
[2019-03-09 02:18] LABS: ALT 8 U/L (9-52); AST 14 U/L (14-36); Albumin 2.8 g/dL (3.5-5.0); Alkaline Phosphatase 54 U/L (38-126); Anion Gap 4 mmol/L; Blood Urea Nitrogen 16 mg/dL (7-17); Calcium 8.8 mg/dL (8.4-10.2); Carbon Dioxide 25 mmol/L (22-30); Chloride 111 mmol/L (98-107); Creatine Kinase 47 U/L (30-135); Glucose 94 mg/dL (74-99); Potassium 3.7 mmol/L (3.5-5.1); Sodium 140 mmol/L (137-145); Total Bilirubin 0.2 mg/dL (0.2-1.3); Total Protein 5.1 g/dL (6.3-8.2)
[2019-03-09 02:23] LABS: Valproic Acid (Depakene) 18.7 ug/mL
[2019-03-09] MEDS ORDERED: DIVALPROEX 250 MG TABLET.DR PO STA (02:25)
[2019-03-09] MEDS ORDERED: levETIRAcetam 500 MG TAB PO STA (02:25)
[2019-03-09] MEDS ORDERED: NALOXONE 0.4 MG/ML 1 ML VIAL IV PRN (02:28)
[2019-03-09] MEDS ORDERED: NON-FORMULARY DRUG (Acetaminophen [Tylenol Arthritis] 650 MG) PO PRN (03:54)
[2019-03-09] MEDS: LORazepam 2 MG/ML INJ IV PRN ×2 (04:24→11:06)
[2019-03-09] MEDS ORDERED: DIVALPROEX ER 250 MG TAB.ER.24H PO SCH (09:00)
[2019-03-09] MEDS: GABAPENTIN 400 MG CAP PO SCH ×3 (09:57→22:07)
[2019-03-09] MEDS: APIXABAN 5 MG TAB PO SCH ×2 (09:57→22:07)
[2019-03-09] MEDS: levETIRAcetam 500 MG TAB PO SCH ×2 (09:57→22:48)
[2019-03-09] MEDS: MORPHINE SULFATE ER 15 MG TABLET PO PRN (10:28)
[2019-03-09] MEDS: CARBIDOPA-LEVODOPA 25-100 MG 1 EACH TAB PO SCH ×2 (10:42→22:07)
[2019-03-09 11:10] LABS: Appearance,Urine Clear (Clear); Bilirubin,Urine Negative (Negative); Blood,Urine Negative (Negative); Color,Urine Light Yellow; Glucose,Urine (UA) Negative (Negative); Ketones,Urine Negative (Negative); Leukocyte Esterase,Urine Negative (Negative); Nitrite,Urine Negative (Negative); PH, Urine 7.5 (5.0-8.0); Protein,Urine Negative (Negative); Specific Gravity,Urine 1.009 (1.001-1.035); Urobilinogen,Urine <2.0 mg/dL (<2.0)
--- NOTE | 2019-03-09 13:04 | CT ---
EXAMINATION TYPE: CT brain wo con DATE OF EXAM: 03/09/2019 COMPARISON: Previous study dated 11/02/2018 HISTORY: trauma CT DLP: 1091.4 mGycm Automated exposure control for dose reduction was used. FINDINGS: There are mild changes of sulcal prominence and ventriculomegaly, compatible with mild atrophic hernandez e. There is mild, diffuse periventricular white matter lucency, compatible with small vessel ischemic change. There is no acute focal lesion, mass effect or midline shift identified. I do not see eviden ce of intracranial blood. Visualized portions of the paranasal sinuses and mastoids are clear. There hasn't been a previous lef t frontal craniotomy. IMPRESSION: 1. NO ACUTE INTRACRANIAL ABNORMALITY. 2. MILD DEGENERATIVE CHANGE. 3. EVIDENCE OF AN OLD LEFT-SIDED CRANIOTOMY.
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
--- NOTE | 2019-03-09 13:18 | XR ---
EXAMINATION TYPE: XR lumbar spine 2 or 3V , 3 VIEWS DATE OF EXAM ORDERED: 03/09/2019 HISTORY: trauma. COMPARISON: None. FINDINGS: There is a previous epigastric surgery as well as a cholecystectomy. Vertebral body height and alignment are maintained. No fractures are seen. There is no spondylolysis or spondylolisthesis. The pedicles are intact. IMPRESSION: NO ACUTE OSSEOUS LESION.
--- NOTE | 2019-03-09 14:29 | XR ---
EXAMINATION TYPE: XR cervical spine limited DATE OF EXAM: 03/09/2019 COMPARISON: NONE HISTORY: Neck pain. Trauma. TECHNIQUE: 3 views FINDINGS: Frontal lateral and odontoid views were obtained. Vertebra have normal alignment. Disc spac es are fairly normal. There is mild anterior spurring at C5-6. Posterior elements are intact. Atlanto axial facet joint is normal. There is no evidence of a fracture. IMPRESSION: Negative cervical spine exam. No fracture.
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
[2019-03-09] MEDS: DIVALPROEX ER 250 MG TAB.ER.24H PO SCH (16:30)
[2019-03-09] MEDS: TOPIRAMATE 100 MG TAB PO SCH ×2 (16:30→22:07)
[2019-03-09] MEDS: FUROSEMIDE 20 MG TAB PO SCH (16:31)
[2019-03-09] MEDS: ACETAMINOPHEN TAB 325 MG TAB PO PRN (16:31)
[2019-03-09] MEDS ORDERED: traZODone HCL 50 MG TAB PO SCH (21:00)
[2019-03-10] MEDS: MORPHINE SULFATE ER 15 MG TABLET PO PRN ×2 (00:03→13:35)
[2019-03-10] MEDS: ACETAMINOPHEN TAB 325 MG TAB PO PRN (01:13)
[2019-03-10 02:08] VITALS: TEMP 98.1
[2019-03-10 07:35] VITALS: BP 108/64; PULSE 71; RESP 15
[2019-03-10] MEDS: CARBIDOPA-LEVODOPA 25-100 MG 1 EACH TAB PO SCH (08:21)
[2019-03-10] MEDS: GABAPENTIN 400 MG CAP PO SCH (08:21)
[2019-03-10] MEDS: TOPIRAMATE 100 MG TAB PO SCH (08:22)
[2019-03-10] MEDS: FUROSEMIDE 20 MG TAB PO SCH (08:22)
[2019-03-10] MEDS: levETIRAcetam 500 MG TAB PO SCH (08:22)
[2019-03-10] MEDS: APIXABAN 5 MG TAB PO SCH (08:23)
[2019-03-10] MEDS: DIVALPROEX ER 250 MG TAB.ER.24H PO SCH (08:23)
--- NOTE | 2019-03-10 11:31 | P.DS ---
Providers Date of admission: 03/09/19 02:33 Expected date of discharge: 03/10/19 Attending physician: Ty Hyman Consults: 03/09/19 02:29 Consult Physician Routine Consulting Provider: Colby Slaughter Consult Reason/Comments: recurrent seizures Do you want consulting provider notified?: Yes, Notify in am Primary care physician: Ty Hyman [facility] Course: -Epileptic seizure , breakthrough seizures with subtherapeutic Depakote level -Chronic anemia -History of Parkinson's disease -History of MS Hospital course: This is a 63-year-old female admitted with breakthrough s eizures secondary to subtherapeutic Depakote. Valproic acid level 18.[address] reported no acute intracranial abnormality, mild degenerative change. Lumbar spine with no acute osseous lesion. C-spine reported negative cervical spine exam with no fracture. Patient was also seen by neurologist Dr. Gordon on 11/04/2018, who had recommended [facility] for video EEG monitoring at EMU. Results of EMU testing, unknown.Evaluated by neurology patient to continue on Topamax 200 mg twice daily, with Depakote increased- changed to Depakote ER 750 daily. No further breakthrough seizures. Patient has been cleared by neurology for discharge. Patient will be discharged home with daughter in a stable condition with guarded prognosis. Patient will need to repeat valproic acid level outpatient/ follow-up with her own neurologist outpatient -Dr. Bob Gordon. EXAM: GENERAL: Alert and oriented 3, no acute distress CARDIOVASCULAR: S1, S2 regular. No murmur RESPIRATION: Breath sounds diminished in the bases. No rhonchi or crackles. No wheezing ABDOMEN: Soft, nontender . No guarding. no masses palpable. Bowel sounds heard. LEGS: No edema. no swelling. NERVOUS SYSTEM: Cranial N 2-12 grossly normal. Moves all 4 limbs. Diffuse weakness No focal deficits. The impression and plan of care has been dictated as directed. : I performed a history and examination of this patient, discussed the same with the dictator. I agree with the dictator's note ,documented as a scribe. Any additional findings or plans will be noted. Time taken: 35 minutes Patient Condition at Discharge: Stable Plan - Discharge Summary New Discharge Prescriptions: New Divalproex ER [Depakote ER] 750 mg PO DAILY #90 tab.er.24h Continue Carbidopa-Levodopa 25-100 mg [Sinemet 25-100 mg] 1 tab PO BID@744,2099 Atorvastatin [Lipitor] 20 mg PO HS@2099 Levothyroxine Sodium [Synthroid] 75 mcg PO DAILY@744 Topiramate [Topamax] 200 mg PO BID@744,2099 Ergocalciferol [Vitamin D2 (DRISDOL)] 50,000 unit PO FR Ferrous Sulfate [Iron (65 MG Elemental)] 325 mg PO BID@744,2099 Morphine Sulfate [Ms Contin] 15 mg PO DAILY@744,2099 Furosemide [Lasix] 20 mg PO BID@744,1414 EPINEPHrine (Auto Inject) [Epipen] 0.3 mg IM ONCE PRN #1 syringe PRN Reason: Anaphylaxis Acetaminophen [Tylenol Arthritis] 650 mg PO BID PRN PRN Reason: Pain Or Fever > 100.5 Apixaban [Eliquis] 5 mg PO BID@744,2099 ARIPiprazole [Abilify] 5 mg PO DAILY@744 Butalb/APAP/Caff 50-325-40Mg [Fioricet 50-325-40] 1 tab PO Q6H PRN PRN Reason: Headache Gabapentin [Neurontin] 400 mg PO TID@744,1414,2099 traZODone HCL 150 mg PO HS@2099 levOCARNitine [levOCARNitine Oral Solution 100mg/ml] 1 gm PO BID@744,2099 busPIRone HCL 5 mg PO BID@744,2099 busPIRone HCL 15 mg PO DAILY@1414 levETIRAcetam [levETIRAcetam Oral Solution] 1,000 mg PO BID@744,2099 Discontinued Divalproex Sodium [Depakote Sprinkle] 250 mg PO BID@744,2099 Discharge Medication List Carbidopa-Levodopa 25-100 mg [Sinemet 25-100 mg] 1 tab PO BID@744,209907/23/17 [History] Atorvastatin [Lipitor] 20 mg PO HS@209905/12/18 [History] Levothyroxine Sodium [Synthroid] 75 mcg PO DAILY@74405/12/18 [History] Topiramate [Topamax] 200 mg PO BID@744,209905/12/18 [History] Ergocalciferol [Vitamin D2 (DRISDOL)] 50,000 unit PO FR 05/13/18 [History] Ferrous Sulfate [Iron (65 MG Elemental)] 325 mg PO BID@744,209905/13/18 [History] Morphine Sulfate [Ms Contin] 15 mg PO DAILY@744,209905/13/18 [History] Furosemide [Lasix] 20 mg PO BID@744,141405/17/18 [History] EPINEPHrine (Auto Inject) [Epipen] 0.3 mg IM ONCE PRN #1 syringe 05/21/18 [Rx] ARIPiprazole [Abilify] 5 mg PO DAILY@74409/30/18 [History] Acetaminophen [Tylenol Arthritis] 650 mg PO BID PRN 09/30/18 [History] Apixaban [Eliquis] 5 mg PO BID@744,209909/30/18 [History] Butalb/APAP/Caff 50-325-40Mg [Fioricet 50-325-40] 1 tab PO Q6H PRN 09/30/18 [History] Gabapentin [Neurontin] 400 mg PO TID@744,1414,209909/30/18 [History] traZODone HCL 150 mg PO HS@209909/30/18 [History] busPIRone HCL 5 mg PO BID@744,209903/09/19 [History] busPIRone HCL 15 mg PO DAILY@141403/09/19 [History] levETIRAcetam [levETIRAcetam Oral Solution] 1,000 mg PO BID@744,209903/09/19 [History] levOCARNitine [levOCARNitine Oral Solution 100mg/ml] 1 gm PO BID@744,209903/09/19 [History] Divalproex ER [Depakote ER] 750 mg PO DAILY #90 tab.er.24h 03/10/19 [Rx] Follow up Appointment(s)/Referral(s): Ty Hyman MD [Primary Care Provider] - 3 Days Víctor Gordon MD [STAFF PHYSICIAN] - 1 Week Activity/Diet/Wound Care/Special Instructions: Patient will need further outpatient valproic acid level /follow-up with Dr. Bob Gordon. CBC/BMP/Valproic Acid Level in 3 days results to PCP & Dr. Bob Gordon
== END 2019-03-10 13:52 | disposition home or self-care (01) ==
LOC: EC 00:38 → 4SSUR 02:33
PROVIDERS: ADMIT Family Medicine; ATTEND Family Medicine
DX: G40.409 Other generalized epilepsy and epileptic syndromes, not intractable, without status epilepticus (principal); D64.9 Anemia, unspecified; E03.9 Hypothyroidism, unspecified; M54.5 Low back pain; M54.2 Cervicalgia; I25.10 Atherosclerotic heart disease of native coronary artery without angina pectoris; J44.9 Chronic obstructive pulmonary disease, unspecified; I10 Essential (primary) hypertension; H91.90 Unspecified hearing loss, unspecified ear; G20 Parkinson's disease; G35 Multiple sclerosis; K21.9 Gastro-esophageal reflux disease without esophagitis; W19.XXXA Unspecified fall, initial encounter; Z86.718 Personal history of other venous thrombosis and embolism; Z79.890 Hormone replacement therapy; Z79.01 Long term (current) use of anticoagulants; Z79.899 Other long term (current) drug therapy; Z88.6 Allergy status to analgesic agent; Z91.030 Bee allergy status; Z88.0 Allergy status to penicillin; Z88.8 Allergy status to other drugs, medicaments and biological substances; Z91.048 Other nonmedicinal substance allergy status; Z87.01 Personal history of pneumonia (recurrent); Z98.51 Tubal ligation status; Z98.890 Other specified postprocedural states; Z90.710 Acquired absence of both cervix and uterus; Z90.49 Acquired absence of other specified parts of digestive tract; Z80.0 Family history of malignant neoplasm of digestive organs; I25.2 Old myocardial infarction; Z86.73 Personal history of transient ischemic attack (TIA), and cerebral infarction without residual deficits; Z87.11 Personal history of peptic ulcer disease; Z87.442 Personal history of urinary calculi
CPT/HCPCS: 96376; 96361; 96374; 99285; 36415; 93005; 80164; 80053; 82550; 85025; 81003; 72040; 72100; 70450; G0378 ×2; J2060

== ENCOUNTER 2019-03-18 18:34 | Inpatient (IN) | payer MEDICARE ==
[2019-03-18] MEDS ORDERED: SODIUM CHLORIDE 0.9% 1,000 ML IV STA (18:36)
[2019-03-18] MEDS ORDERED: PHENYTOIN SODIUM INJ 1,000 MG in SODIUM CHLORIDE 0.9% 100 ML IVPB STA (18:36)
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
[2019-03-18] MEDS ORDERED: DIAZEPAM 5 MG/ML 2 ML INJ IVP STA (19:52)
[2019-03-18 20:26] LABS: Basophils % (A) 1 %; Eosinophils # (A) 0.3 k/uL (0-0.7); Eosinophils % (A) 5 %; HCT 36.9 % (34.0-46.0); HGB 11.1 gm/dL (11.4-16.0); Lymphocytes # (A) 2.5 k/uL (1.0-4.8); Lymphocytes % (A) 46 %; MCH 28.9 pg (25.0-35.0); MCHC 30.2 g/dL (31.0-37.0); MCV 95.6 fL (80.0-100.0); Mean Platelet Volume 6.9; Monocytes # (A) 0.3 k/uL (0-1.0); Monocytes % (A) 5 %; Neutrophils # (A) 2.2 k/uL (1.3-7.7); Neutrophils % (A) 41 %; Platelet Count 224 k/uL (150-450); RBC 3.85 m/uL (3.80-5.40); RDW 12.6 % (11.5-15.5); WBC 5.4 k/uL (3.8-10.6)
[2019-03-18 20:45] LABS: ALT 14 U/L (9-52); AST 15 U/L (14-36); Acetaminophen <10.0 ug/mL; Albumin 3.2 g/dL (3.5-5.0); Alkaline Phosphatase 68 U/L (38-126); Anion Gap 5 mmol/L; Blood Urea Nitrogen 19 mg/dL (7-17); Calcium 9.2 mg/dL (8.4-10.2); Carbamazepine (Tegretol) <3.0 ug/mL; Carbon Dioxide 25 mmol/L (22-30); Chloride 109 mmol/L (98-107); Glucose 88 mg/dL (74-99); Lithium <0.2 mmol/L; Phenytoin (Dilantin) <3.0 ug/mL; Potassium 4.1 mmol/L (3.5-5.1); Salicylate <1.0 mg/dL; Sodium 139 mmol/L (137-145); Total Bilirubin 0.1 mg/dL (0.2-1.3); Total Protein 5.7 g/dL (6.3-8.2)
[2019-03-18 21:21] LABS: Appearance,Urine Clear (Clear); Bilirubin,Urine Negative (Negative); Blood,Urine Negative (Negative); Color,Urine Colorless; Glucose,Urine (UA) Negative (Negative); Ketones,Urine Negative (Negative); Leukocyte Esterase,Urine Negative (Negative); Nitrite,Urine Negative (Negative); Protein,Urine Negative (Negative); Specific Gravity,Urine 1.007 (1.001-1.035); Urobilinogen,Urine <2.0 mg/dL (<2.0)
[2019-03-18 21:36] LABS: Amphetamine Screen,Urine Not Detected (NotDetected); Barbiturate Screen,Urine Not Detected (NotDetected); Benzodiazepines Screen,Urine Not Detected (NotDetected); Cocaine Screen,Urine Not Detected (NotDetected); Methadone Screen, Urine Not Detected (NotDetected); Opiate Screen,Urine Detected (NotDetected); Oxycodone Screen, Urine Not Detected (NotDetected); Phencyclidine Screen,Urine Not Detected (NotDetected); Tricyclic Antidepressant,Urine Not Detected (NotDetected); Urn Cannabinoid Scrn Not Detected (NotDetected)
[2019-03-19] MEDS: LORazepam 2 MG/ML INJ IV PRN ×2 (02:37→08:05)
[2019-03-19] MEDS: busPIRone HCl 5 MG TAB PO SCH ×4 (04:26→22:32)
[2019-03-19 06:39] LABS: Cholesterol 155 mg/dL (<200); HDL Cholesterol 104 mg/dL (40-60); LDL Cholesterol,Calculated 38 mg/dL (0-99); Triglycerides 67 mg/dL (<150)
[2019-03-19] MEDS: ACETAMINOPHEN TAB 325 MG TAB PO PRN (06:47)
[2019-03-19] MEDS ORDERED: DIVALPROEX ER 250 MG TAB.ER.24H PO SCH (09:00)
[2019-03-19] MEDS: ENOXAPARIN 40 MG/0.4 ML SYRINGE SQ SCH (09:31)
[2019-03-19] MEDS: MORPHINE SULFATE ER 15 MG TABLET PO SCH ×2 (09:31→22:25)
[2019-03-19] MEDS: GABAPENTIN 400 MG CAP PO SCH ×3 (09:31→22:27)
[2019-03-19] MEDS: levETIRAcetam ORAL SOLN 500 MG/5 ML CUP PO SCH ×2 (09:32→23:19)
[2019-03-19] MEDS: CARBIDOPA-LEVODOPA 25-100 MG 1 EACH TAB PO SCH ×2 (09:32→22:27)
[2019-03-19] MEDS: TOPIRAMATE 100 MG TAB PO SCH ×2 (09:32→22:27)
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
[2019-03-19] MEDS ORDERED: DIVALPROEX ER 250 MG TAB.ER.24H PO ONE (10:00)
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
[2019-03-19] MEDS: LEVOTHYROXINE 75 MCG TAB PO SCH (12:21)
[2019-03-19] MEDS: BUTALB/APAP/CAFF 50-325-40MG TAB PO PRN ×2 (16:32→23:28)
[2019-03-19] MEDS ORDERED: traZODone HCL 50 MG TAB PO SCH (21:00)
[2019-03-19] MEDS ORDERED: ATORVASTATIN 20 MG TAB PO SCH (21:00)
[2019-03-20] MEDS: ACETAMINOPHEN TAB 325 MG TAB PO PRN ×2 (04:11→14:09)
[2019-03-20] MEDS: BUTALB/APAP/CAFF 50-325-40MG TAB PO PRN (05:40)
[2019-03-20] MEDS: busPIRone HCl 5 MG TAB PO SCH (08:21)
[2019-03-20] MEDS: LEVOTHYROXINE 75 MCG TAB PO SCH (08:21)
[2019-03-20] MEDS: CARBIDOPA-LEVODOPA 25-100 MG 1 EACH TAB PO SCH (08:21)
[2019-03-20] MEDS: MORPHINE SULFATE ER 15 MG TABLET PO SCH (08:22)
[2019-03-20] MEDS: TOPIRAMATE 100 MG TAB PO SCH (08:22)
[2019-03-20] MEDS: ENOXAPARIN 40 MG/0.4 ML SYRINGE SQ SCH (08:22)
[2019-03-20] MEDS: GABAPENTIN 400 MG CAP PO SCH ×2 (08:22→14:09)
[2019-03-20] MEDS: levETIRAcetam ORAL SOLN 500 MG/5 ML CUP PO SCH (08:25)
[2019-03-20] MEDS ORDERED: DIVALPROEX ER 500 MG TAB.ER.24H PO SCH (09:00)
--- NOTE | 2019-03-20 11:47 | P.DS ---
Providers Date of admission: 03/18/19 20:54 Expected date of discharge: 03/20/19 Attending physician: Ty Ram Consults: 03/18/19 20:55 Consult Physician Routine Consulting Provider: Colby Slaughter Consult Reason/Comments: sz Do you want consulting provider notified?: Yes Primary care physician: Ty Ram [facility] Course: Final Diagnoses: Epileptic Breakthrough seizure in a patient with seizure disorder, subtherapeutic Depakote level -Chronic anemia -History of multiple sclerosis -History of Parkinson's disease Hospital course:This is 64-year-old female with history of both seizures,pseudoseizures, recently hospitalized with breakthrough seizure admitted with complaints of seizure at home-she does not recall specific details .On last hospitalization in February 2019, Depakote had increased as per neurology. Current Depakote level subtherapeutic at 37. UA negative. Drug screen positive for opiates. Received antiepileptic in the ER ,Neurology consulted. EKG reporting sinus rhythm. Denies chest pain, palpitations or shortness of breath. Denies lightheadedness dizziness or focal deficits. Denies headache. Denies gait disturbance. Denies difficulty swallowing. Denies increased loss of strength or sensation. Evaluated by neurology, recommendations noted including Depakote dose increased,recommending EEG monitoring at epilepsy monitoring unit to rule out nonepileptic seizures to be arranged by patient's own neurologist Dr. Bob Gordon. Patient also had been on Levaquin prior to admission, which has mild risks of interfering with the seizure threshold.Significant clinical improvement,seizure precautions maintained, no further seizure activity reported..urine culture pending.patient will need to follow-up with Dr. Bob Gordon,neurology ,next week and have Depakote level repeated as well.patient will be discharged home in a stable condition with guarded prognosis pending final DC recommendations and clearance from neurology. EXAM: GENERAL: alert and oriented 3, no acute distress CARDIOVASCULAR: S1, S2 muffled. No murmur RESPIRATION: Breath sounds diminished in the bases. No rhonchi or crackles. no wheezing. ABDOMEN: Soft, nontender . No guarding. no masses palpable. Bowel sounds heard. NERVOUS SYSTEM: No focal deficits. The impression and plan of care has been dictated as directed. : I performed a history and examination of this patient, discussed the same with the dictator. I agree with the dictator's note ,documented as a scribe. Any additional findings or plans will be noted. Time taken: 35 minutes Patient Condition at Discharge: Stable Plan - Discharge Summary Discharge Rx Participant: No New Discharge Prescriptions: New Divalproex ER [Depakote ER] 1,000 mg PO DAILY #60 tab.er.24h Continue Carbidopa-Levodopa 25-100 mg [Sinemet 25-100 mg] 1 tab PO BID@744,2099 Atorvastatin [Lipitor] 20 mg PO HS@2100 Levothyroxine Sodium [Synthroid] 75 mcg PO DAILY@744 Ergocalciferol [Vitamin D2 (DRISDOL)] 50,000 unit PO FR Ferrous Sulfate [Iron (65 MG Elemental)] 325 mg PO BID@744,2099 Morphine Sulfate [Ms Contin] 15 mg PO DAILY@744,2099 Furosemide [Lasix] 20 mg PO BID@744,1414 EPINEPHrine (Auto Inject) [Epipen] 0.3 mg IM ONCE PRN #1 syringe PRN Reason: Anaphylaxis Apixaban [Eliquis] 5 mg PO BID@744,2099 ARIPiprazole [Abilify] 5 mg PO DAILY@744 Butalb/APAP/Caff 50-325-40Mg [Fioricet 50-325-40] 1 tab PO Q6H PRN PRN Reason: Headache Gabapentin [Neurontin] 400 mg PO TID@744,1414,2099 traZODone HCL 150 mg PO HS@2099 levOCARNitine [levOCARNitine Oral Solution 100mg/ml] 1 gm PO BID@744,2099 levETIRAcetam [levETIRAcetam Oral Solution] 1,000 mg PO BID@744,2099 Oxymetazoline 0.05% Nasl [place] [Afrin 0.05% Nasal [place]] 1 spray EA NOSTRIL DIRECTED Acetaminophen [Tylenol Arthritis] 650 mg PO Q6H PRN PRN Reason: PAIN/FEVER Topiramate 200 mg PO Q12HR busPIRone HCl [Buspar] 10 mg PO TID Discontinued Divalproex ER [Depakote ER] 750 mg PO DAILY #90 tab.er.24h Ciprofloxacin HCl [Cipro] 500 mg PO BID Discharge Medication List Carbidopa-Levodopa 25-100 mg [Sinemet 25-100 mg] 1 tab PO BID@744,209907/23/17 [History] Atorvastatin [Lipitor] 20 mg PO HS@209905/12/18 [History] Levothyroxine Sodium [Synthroid] 75 mcg PO DAILY@74405/12/18 [History] Ergocalciferol [Vitamin D2 (DRISDOL)] 50,000 unit PO FR 05/13/18 [History] Ferrous Sulfate [Iron (65 MG Elemental)] 325 mg PO BID@744,209905/13/18 [History] Morphine Sulfate [Ms Contin] 15 mg PO DAILY@744,209905/13/18 [History] Furosemide [Lasix] 20 mg PO BID@744,141405/17/18 [History] EPINEPHrine (Auto Inject) [Epipen] 0.3 mg IM ONCE PRN #1 syringe 05/21/18 [Rx] ARIPiprazole [Abilify] 5 mg PO DAILY@74409/30/18 [History] Apixaban [Eliquis] 5 mg PO BID@744,209909/30/18 [History] Butalb/APAP/Caff 50-325-40Mg [Fioricet 50-325-40] 1 tab PO Q6H PRN 09/30/18 [History] Gabapentin [Neurontin] 400 mg PO TID@744,1414,209909/30/18 [History] traZODone HCL 150 mg PO HS@209909/30/18 [History] levETIRAcetam [levETIRAcetam Oral Solution] 1,000 mg PO BID@744,209903/09/19 [History] levOCARNitine [levOCARNitine Oral Solution 100mg/ml] 1 gm PO BID@744,209903/09/19 [History] Acetaminophen [Tylenol Arthritis] 650 mg PO Q6H PRN 03/18/19 [History] Oxymetazoline 0.05% Nasl [place] [Afrin 0.05% Nasal [place]] 1 spray EA NOSTRIL DIRECTED 03/18/19 [History] Topiramate 200 mg PO Q12HR 03/18/19 [History] busPIRone HCl [Buspar] 10 mg PO TID 03/18/19 [History] Divalproex ER [Depakote ER] 1,000 mg PO DAILY #60 tab.er.24h 03/20/19 [Rx] Follow up Appointment(s)/Referral(s): Víctor Gordon MD [STAFF PHYSICIAN] - 1 Week Ty Ram MD [Primary Care Provider] - 3 Days Ambulatory/Diagnostic Orders: Complete Blood Count w/diff [LAB.AMB] Time Frame: 3 Days, Location: None Selected Patient Instructions/Handouts: Heart Healthy Diet (DC), Recurrent Seizures in Adults (ED) Activity/Diet/Wound Care/Special Instructions: Please update [facility] when patient is d/c [phone]. fax final urine culture results to Dr. Ram Patient will need WC Van arranged to return to [facility]. patient will need to repeat Depokote levels with Dr. Bob Gordon next week.Please schedule apt. prior to dc seizure precautions, no driving Diet: Low-cholesterol Activity: Limited until follow up Discharge Disposition: HOME WITH HOME HEALTH SERVICES
[2019-03-20 14:20] VITALS: BP 129/69; PULSE 84; RESP 16; TEMP 98
== END 2019-03-20 15:21 | disposition home health service (06) | DRG 101 ==
LOC: EC 18:34 → 3NMEDONC 20:54 → 4MS4W 03-19 14:13
PROVIDERS: ADMIT Family Medicine; ATTEND Family Medicine
DX: G40.909 Epilepsy, unspecified, not intractable, without status epilepticus (principal); G20 Parkinson's disease; G35 Multiple sclerosis; J44.9 Chronic obstructive pulmonary disease, unspecified; D64.9 Anemia, unspecified; H91.90 Unspecified hearing loss, unspecified ear; I10 Essential (primary) hypertension; I25.10 Atherosclerotic heart disease of native coronary artery without angina pectoris; I25.2 Old myocardial infarction; R29.6 Repeated falls; K21.9 Gastro-esophageal reflux disease without esophagitis; F41.9 Anxiety disorder, unspecified; M19.90 Unspecified osteoarthritis, unspecified site; E03.9 Hypothyroidism, unspecified; R01.1 Cardiac murmur, unspecified; G43.909 Migraine, unspecified, not intractable, without status migrainosus; G89.29 Other chronic pain; M54.5 Low back pain; Z79.01 Long term (current) use of anticoagulants; Z79.890 Hormone replacement therapy; Z79.899 Other long term (current) drug therapy; Z86.73 Personal history of transient ischemic attack (TIA), and cerebral infarction without residual deficits; Z90.710 Acquired absence of both cervix and uterus; Z86.718 Personal history of other venous thrombosis and embolism; Z87.01 Personal history of pneumonia (recurrent); Z90.49 Acquired absence of other specified parts of digestive tract; Z87.442 Personal history of urinary calculi; Z98.51 Tubal ligation status; Z88.5 Allergy status to narcotic agent; Z88.0 Allergy status to penicillin; Z88.8 Allergy status to other drugs, medicaments and biological substances; Z88.6 Allergy status to analgesic agent; Z91.040 Latex allergy status; Z91.030 Bee allergy status; Z80.0 Family history of malignant neoplasm of digestive organs; Z80.1 Family history of malignant neoplasm of trachea, bronchus and lung
CPT/HCPCS: 36415; 80053; 80061; 80156; 80164; 80178; 80185; 80306; 80329; 81003; 83520; 85025; 87086; 93005; 96361; 96365; 96372; 96374; 96375; 96376; 99285

== ENCOUNTER → 2019-04-03 | Outpatient (CLI) | payer MEDICARE | END | disposition home or self-care (01) | LOC: LABWHC1 07:25 | PROVIDERS: ATTEND Psychiatry & Neurology Neurology | DX: G40.209 Localization-related (focal) (partial) symptomatic epilepsy and epileptic syndromes with complex partial seizures, not intractable, without status epilepticus (principal) | CPT/HCPCS: 36415; 80164; 80177 ==

== ENCOUNTER → 2019-04-22 | Outpatient (CLI) | payer MEDICARE | END | disposition home or self-care (01) | LOC: LABWHC1 06:53 | PROVIDERS: ATTEND Psychiatry & Neurology Neurology | DX: G40.209 Localization-related (focal) (partial) symptomatic epilepsy and epileptic syndromes with complex partial seizures, not intractable, without status epilepticus (principal) | CPT/HCPCS: 36415; 80164 ==

== ENCOUNTER 2019-07-28 11:36 | Inpatient (IN) | payer MEDICARE ==
[2019-07-28] MEDS ORDERED: ONDANSETRON 4 MG/2 ML VIAL IVP STA (12:26)
[2019-07-28] MEDS ORDERED: SODIUM CHLORIDE 0.9% 1,000 ML IV STA (12:26)
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
[2019-07-28 13:03] LABS: Basophils % (A) 0 %; Eosinophils # (A) 0.1 k/uL (0-0.7); Eosinophils % (A) 1 %; HCT 40.6 % (34.0-46.0); Lymphocytes # (A) 0.7 k/uL (1.0-4.8); Lymphocytes % (A) 11 %; MCHC 34.4 g/dL (31.0-37.0); MCV 93.2 fL (80.0-100.0); Mean Platelet Volume 6.1; Monocytes # (A) 0.3 k/uL (0-1.0); Monocytes % (A) 4 %; Neutrophils # (A) 5.4 k/uL (1.3-7.7); Neutrophils % (A) 83 %; Platelet Count 145 k/uL (150-450); RBC 4.36 m/uL (3.80-5.40); RDW 13.1 % (11.5-15.5); WBC 6.5 k/uL (3.8-10.6)
[2019-07-28 13:08] LABS: ALT <6 U/L (9-52); AST 59 U/L (14-36); African American GFR (CKD) 66 (>60 ml/min/1.73 sqM); Albumin 4.1 g/dL (3.5-5.0); Alkaline Phosphatase 98 U/L (38-126); Amylase 61 U/L (30-110); Anion Gap 12 mmol/L; Blood Urea Nitrogen 34 mg/dL (7-17); Calcium 10.2 mg/dL (8.4-10.2); Carbon Dioxide 27 mmol/L (22-30); Chloride 98 mmol/L (98-107); Glucose 88 mg/dL (74-99); Non-African American GFR(CKD) 57 (>60 ml/min/1.73 sqM); Potassium 5.4 mmol/L (3.5-5.1); Sodium 137 mmol/L (137-145); Total Bilirubin 0.9 mg/dL (0.2-1.3); Total Protein 7.9 g/dL (6.3-8.2)
--- NOTE | 2019-07-28 13:11 | XR ---
EXAMINATION TYPE: XR KUB DATE OF EXAM: 07/28/2019 1:02 PM CLINICAL HISTORY: Weakness and black stool TECHNIQUE: Single supine KUB image of the abdomen is obtained. COMPARISON: None. FINDINGS: There is dilatation of the transverse colon up to 7.4 cm. Supine examination technique limi ts visualization for pneumoperitoneum although no gross evidence of pneumoperitoneum is seen. Air is noted within the distal colon. Lung bases are not seen. Geographic density overlying the iliac crests likely relates to myositis ossificans and appears extra osseous unchanged from 10/31/2018 overall. Inj ection granulomas are also seen in the left gluteal subcutaneous tissues. Surgical sutures are presen t in all abdominal quadrants. Osseous structures appear intact. IMPRESSION: Dilatation of the transverse colon up to 7.5 cm. Air is seen more distally in the sigmoid colon. Colonic ileus is favored versus early large bowel obstruction.
[2019-07-28 14:05] LABS: Appearance,Urine Cloudy (Clear); Bacteria,Urine Occasional /hpf; Bilirubin,Urine Negative (Negative); Blood,Urine Trace (Negative); Color,Urine Yellow; Glucose,Urine (UA) Negative (Negative); Hyaline Casts,Urine 1 /lpf (0-2); Ketones,Urine 1+ (Negative); Leukocyte Esterase,Urine Small (Negative); Mucus,Urine Rare /hpf; Nitrite,Urine Positive (Negative); PH, Urine 5.5 (5.0-8.0); Protein,Urine Negative (Negative); RBC,Urine 1 /hpf (0-5); Squamous Epithelial Cell,Urine <1 /hpf (0-4); Urobilinogen,Urine <2.0 mg/dL (<2.0); WBC,Urine 6 /hpf (0-5)
[2019-07-28] MEDS ORDERED: cefTRIAXone IN SWFI 1,000 MG/10 ML SYRINGE IVP STA (14:15)
[2019-07-28] MEDS ORDERED: SODIUM CHLORIDE 0.9% 1,000 ML IV ONE (16:11)
[2019-07-29] MEDS: traMADol 50 MG TAB PO SCH ×5 (02:12→22:26)
[2019-07-29] MEDS: CARBIDOPA-LEVODOPA 25-100 MG 1 EACH TAB PO SCH ×2 (02:12→13:35)
[2019-07-29] MEDS: LEVOTHYROXINE 75 MCG TAB PO SCH (05:57)
--- NOTE | 2019-07-29 08:10 | HP ---
HISTORY AND PHYSICAL This is a 64-year-old white female weakness, nausea, vomiting, poor historian, none one here to give any more history, possible black stools. History of fever. No difficulty breathing. HOME MEDICATIONS: Home medications include; 1. Sinemet. 2. Lipitor. 3. Synthroid. 4. Drisdol. 5. Iron. 6. Lasix. 7. BuSpar. 8. Eliquis. 9. Topamax. 10.Neurontin. 11.Trazodone. 12.Abilify. 13.Klor-Con. 14. . 15.BuSpar. ALLERGIES: ADHESIVES, CELEBREX, CELEXA, TORADOL, BEE POLLEN, REGLAN, PENICILLIN, COMPAZINE, VIOXX, SALICYLATES. REVIEW OF SYSTEMS: Fourteen-point review of systems negative except for mentioned in HPI. PAST MEDICAL HISTORY: Coronary artery disease, COPD, DVT, GERD, hearing disorder, deafness, hypertension, musculoskeletal disorder, osteoarthritis, seizure disorder, hypothyroidism, multiple sclerosis, Parkinson disease, multiple fractures, bilateral pneumonia in the past, bowel obstruction with surgery, renal stones, sinus problems. SURGERIES: Appendectomy, cholecystectomy, hernia repair, hysterectomy, orthopedic surgery, tubal ligation, pain pump insertion and removal due to chronic pain, lithotripsy, rotator cuff repair, elbow surgery, EGD, colonoscopies. FAMILY HISTORY: Father with lung, liver, colon cancer. Mother lived to 89 years old. PHYSICAL EXAM: VITAL SIGNS: Stable, afebrile. CARDIOVASCULAR: S1, S2. LUNGS: Transmitted upper airway sounds. HEMATOLOGY: Negative Homans. PSYCH: Fair mood and affect. NEUROLOGIC: Alert, orient x2. GI: bowel sounds. Generalized tenderness. EKG sinus rhythm. ASSESSMENT: 1. Dehydration, progressive vomiting. 2. Prerenal renal failure. 3. Hyperkalemia of unclear etiology. 4. Generalized weakness. 5. Urinary tract infection with leukocyte esterase, white cells high, started on empiric antibiotics. Await for Surgical and GI evaluation for issues with GI tract. Continue home medications. MMODL / IJN: [id number] /
[2019-07-29] MEDS: ARIPiprazole 5 MG TAB PO SCH (08:38)
[2019-07-29] MEDS: DIVALPROEX ER 500 MG TAB.ER.24H PO SCH ×2 (08:38→22:26)
[2019-07-29] MEDS: FUROSEMIDE 20 MG TAB PO SCH ×2 (08:39→22:25)
[2019-07-29] MEDS: busPIRone HCl 10 MG TAB PO SCH ×2 (08:39→17:39)
[2019-07-29] MEDS: FERROUS SULFATE 325 MG TAB PO SCH (08:39)
[2019-07-29] MEDS: APIXABAN 5 MG TAB PO SCH ×2 (08:39→22:25)
[2019-07-29] MEDS: POTASSIUM CHLORIDE ER 20 MEQ TAB.ER PO SCH ×3 (08:40→22:25)
[2019-07-29] MEDS: TOPIRAMATE 100 MG TAB PO SCH ×2 (08:45→22:25)
[2019-07-29] MEDS: GABAPENTIN 400 MG CAP PO SCH ×3 (08:45→22:26)
[2019-07-29] MEDS ORDERED: VALPROIC ACID ORAL SOLN 250 MG/5 ML CUP PO SCH (09:00)
--- NOTE | 2019-07-29 09:23 | CT ---
EXAMINATION TYPE: CT abdomen pelvis wo con DATE OF EXAM: 07/29/2019 COMPARISON: 02/13/2015 HISTORY: generalized pain CT DLP: 371.2 mGycm Examination of the solid and hollow viscera is limited given the lack of contrast. FINDINGS: LUNG BASES: No evidence for nodule. No evidence for infiltrate. LIVER/GB: The gallbladder is unremarkable. No space-occupying hepatic lesion. PANCREAS: No pancreatic mass identified. No inflammatory process seen. SPLEEN: No evidence for splenomegaly. No intrasplenic lesions seen. ADRENALS: No adrenal nodules identified. No evidence for thickening. KIDNEYS: No evidence for renal mass. No nephrolithiasis. No hydronephrosis. BOWEL: Distal esophagus and stomach. Drains and sutures compatible with bowel resection. Appendix has a normal appearance. No evidence of bowel obstruction. No inflammatory process. Lymph nodes: No evidence for adenopathy greater than 1 cm. Abdominal aorta: Atheromatous changes seen. No evidence for aneurysm. Genital organs: No significant abnormality. Other: No free air. No abscess seen. Soft tissue calcifications identified. IMPRESSION: POSTSURGICAL CHANGES NOTED
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
[2019-07-29 15:26] VITALS: BMI 19.0
--- NOTE | 2019-07-29 21:16 | CONS ---
CONSULTATION DATE OF DICTATION: July 29, 2019. REQUESTING PHYSICIAN: Dr. Ty Hyman. REASON FOR CONSULTATION: Weakness, nausea, vomiting. HISTORY OF PRESENT ILLNESS: The patient is a 64-year-old pleasant white female with history of Parkinson disease who is in an adult foster senior care, was sent to the emergency room because of nausea and vomiting that started yesterday morning. The patient has been progressively developing weakness and has been having a poor appetite. Since being in the hospital, as per the nursing staff, she did not have any further episodes of nausea, vomiting. She did have a CT of the abdomen and pelvis done today that was unremarkable. She, however, has a poor appetite. She reports no fever, chills, night sweats. Does complain of some vague abdominal pain in the right lower quadrant area. Has normal bowel movements. PAST MEDICAL HISTORY: Significant for Parkinson disease, hypertension, hyperlipidemia, hypothyroidism, history of DVT in the past on Eliquis. PAST SURGICAL HISTORY: Cholecystectomy, appendectomy, hernia repair, hysterectomy, tubal ligation, patella surgery, right rotator cuff surgery, lithotripsy. MEDICATIONS: At home include: Buspar, valproic acid, Depakote, Eliquis, trazodone, Neurontin, Abilify, Lasix, iron, vitamin D2, Lipitor, Synthroid, Sinemet. ALLERGIES: CELEBREX, ASPIRIN, PHENOTHIAZINE, METOCLOPRAMIDE, PENICILLIN, COMPAZINE, VIOXX, SALICYLATES. SOCIAL HISTORY: No smoking. No alcohol use. FAMILY HISTORY: Father colon cancer. Mother 80 years old and healthy. REVIEW OF SYSTEMS: CARDIOPULMONARY: She denies any chest pain or shortness of breath. GENITOURINARY: No dysuria or hematuria. MUSCULOSKELETAL: Back pain. NEUROLOGY: History of Parkinson's disease. ENT/vision unremarkable. GI as mentioned above. Constitutional: Weight loss of about 10 pounds as per the nursing staff. No fever, chills or night sweats. PHYSICAL EXAMINATION: She appears comfortable. No apparent distress. Blood pressure 101/58, pulse is 76, temperature 97.5. HEENT examination unremarkable. Conjunctivae pink. Sclerae anicteric. Oral cavity no lesions. NECK: No JVD or lymph node enlargement. CHEST: Clear to auscultation. HEART: Regular rate and rhythm. ABDOMEN: Soft. There was minimal tenderness in the right lower quadrant area but the rest of the abdomen was benign. Bowel sounds are positive. No organomegaly. EXTREMITIES: No pedal edema. SKIN no rashes. NEUROLOGIC: Alert and oriented x3. No focal deficits. LABS: WBC 6.5, hemoglobin 14, platelets 145. Basic metabolic panel is within normal limits. BUN 34, creatinine 1.03. AST and ALT 59 and 60 respectively. T-bilirubin, alkaline phosphatase is within normal limits. Stool occult blood was negative. IMPRESSION: 1. This is a lady who was transferred from foster senior care because of nausea and vomiting that happened yesterday, but since being in the hospital had no further episodes. She did have a CT of the abdomen and pelvis done that was unremarkable. 2. Parkinson disease. 3. Decreased appetite. 4. Progressive weakness. RECOMMENDATIONS: 1. Continue with Protonix 40 mg daily. 2. Encouraged to increase oral intake. 3. Antiemetics as needed. 4. No plans on any endoscopic intervention at the present time. 5. Continue with supportive and symptomatic care. 6. Will follow with you closely during hospital stay. Thank you for this consultation. MMODL / IJN: [id number] /
[2019-07-29] MEDS: ATORVASTATIN 20 MG TAB PO SCH (22:25)
[2019-07-29] MEDS: busPIRone HCl 5 MG TAB PO SCH (22:25)
[2019-07-29] MEDS: traZODone HCL 50 MG TAB PO SCH (22:26)
[2019-07-30] MEDS: CARBIDOPA-LEVODOPA 25-100 MG 1 EACH TAB PO SCH ×2 (03:11→14:35)
[2019-07-30] MEDS: LEVOTHYROXINE 75 MCG TAB PO SCH (05:23)
[2019-07-30] MEDS: ONDANSETRON 4 MG/2 ML VIAL IVP PRN ×2 (09:31→16:04)
[2019-07-30] MEDS: GABAPENTIN 400 MG CAP PO SCH ×4 (09:35→21:25)
[2019-07-30] MEDS: traMADol 50 MG TAB PO SCH ×4 (09:35→21:23)
[2019-07-30] MEDS: busPIRone HCl 10 MG TAB PO SCH ×2 (10:44→17:49)
[2019-07-30] MEDS: APIXABAN 5 MG TAB PO SCH ×2 (10:44→21:17)
[2019-07-30] MEDS: FERROUS SULFATE 325 MG TAB PO SCH (10:44)
[2019-07-30] MEDS: TOPIRAMATE 100 MG TAB PO SCH ×2 (10:44→21:21)
[2019-07-30] MEDS: DIVALPROEX ER 500 MG TAB.ER.24H PO SCH ×2 (10:45→21:20)
[2019-07-30] MEDS: ARIPiprazole 5 MG TAB PO SCH (11:02)
[2019-07-30] MEDS: POTASSIUM CHLORIDE ER 20 MEQ TAB.ER PO SCH ×4 (13:46→22:58)
[2019-07-30] MEDS: FUROSEMIDE 20 MG TAB PO SCH ×2 (14:31→21:20)
[2019-07-30] MEDS: SODIUM CHLORIDE 0.9% 1,000 ML IV SCH (14:32)
[2019-07-30 15:36] LABS: Basophils # (A) 0.1 k/uL (0-0.2); Basophils % (A) 1 %; Eosinophils # (A) 0.1 k/uL (0-0.7); Eosinophils % (A) 2 %; HCT 34.3 % (34.0-46.0); Hypochromasia Slight; Lymphocytes # (A) 1.4 k/uL (1.0-4.8); Lymphocytes % (A) 21 %; MCH 32.4 pg (25.0-35.0); MCHC 31.9 g/dL (31.0-37.0); Macrocytosis Slight; Mean Platelet Volume 7.2; Monocytes # (A) 0.4 k/uL (0-1.0); Monocytes % (A) 7 %; Neutrophils # (A) 4.6 k/uL (1.3-7.7); Neutrophils % (A) 68 %; Platelet Count 108 k/uL (150-450); RBC 3.38 m/uL (3.80-5.40); RDW 13.2 % (11.5-15.5); WBC 6.8 k/uL (3.8-10.6)
[2019-07-30 15:46] LABS: HGB 10.9 gm/dL (11.4-16.0)
[2019-07-30 15:47] LABS: ALT 10 U/L (9-52); AST 29 U/L (14-36); African American GFR (CKD) >90 (>60 ml/min/1.73 sqM); Albumin 2.7 g/dL (3.5-5.0); Alkaline Phosphatase 54 U/L (38-126); Anion Gap 6 mmol/L; Blood Urea Nitrogen 20 mg/dL (7-17); Calcium 8.7 mg/dL (8.4-10.2); Carbon Dioxide 26 mmol/L (22-30); Chloride 101 mmol/L (98-107); Glucose 127 mg/dL (74-99); MCV 101.7 fL (80.0-100.0); Non-African American GFR(CKD) >90 (>60 ml/min/1.73 sqM); Sodium 133 mmol/L (137-145); Total Bilirubin 0.5 mg/dL (0.2-1.3); Total Protein 5.8 g/dL (6.3-8.2)
[2019-07-30 16:05] LABS: Potassium 4.8 mmol/L (3.5-5.1)
--- NOTE | 2019-07-30 18:36 | P.PN ---
Progress Note - Text Progress Note Date: 07/30/19 The patient is resting comfortably in bed. She has some mild complaints of abdominal pain. She appears to be slightly improved from yesterday. On exam her vital signs are stable. Her abdomen soft. UTI with resolving ileus. Patient will be managed medically. No surgical intervention is planned.
[2019-07-30] MEDS: busPIRone HCl 5 MG TAB PO SCH (21:17)
[2019-07-30] MEDS: ATORVASTATIN 20 MG TAB PO SCH (21:17)
[2019-07-30] MEDS: traZODone HCL 50 MG TAB PO SCH (21:22)
--- NOTE | 2019-07-30 21:44 | PN ---
PROGRESS NOTE DATE OF SERVICE: July 30, 2019 Patient is a 64-year-old pleasant white female with history of Parkinson disease who was admitted to the hospital because of abdominal pain with nausea, vomiting. As per the nursing staff, she is presently on IV Protonix as well as Zofran as needed. She had no episodes of emesis. However, she continues to complain of diffuse abdominal pain. She denies any diarrhea or constipation. No rectal bleeding. PHYSICAL EXAMINATION: Appears comfortable, no apparent distress. VITAL SIGNS: Stable. Blood pressure 104/57, pulse 80, temperature 97.7. HEENT examination unremarkable. Conjunctivae pink. Sclerae anicteric. Oral cavity no lesions. NECK: No JVD or lymph node enlargement. CHEST: Clear to auscultation. HEART: Regular rate and rhythm. Abdomen soft. Tenderness in the epigastric area as well as the lower abdominal area. No rebound or rigidity. EXTREMITIES: No pedal edema. SKIN: No rashes. NEUROLOGIC: Alert, awake, oriented to name and place but not to time. LABS: WBC 6.8, hemoglobin 10.9, platelets 108. Basic metabolic panel is within normal limits. BUN 20, creatinine 0.6. IMPRESSION: 1. Nausea, vomiting for the last 2 days duration, has resolved. Presently on IV Protonix as well as Zofran. 2. Diffuse abdominal pain which is gradually improving. 3. Urinary tract infection on ceftriaxone. 4. Atrial fibrillation on Eliquis. 5. Parkinson disease. RECOMMENDATIONS: 1. Continue with antiemetics and IV proton pump inhibitors. 2. Advance diet as tolerated. 3. No plans on any endoscopic intervention at the present time. 4. Continue with broad-spectrum antibiotics for UTI. 5. We will follow with you closely. Thank you for this consultation. MMODL / IJN: [id number] /
--- NOTE | 2019-07-30 22:44 | PN ---
PROGRESS NOTE The patient is a 64-year-old white female with UTI, generalized weakness, progressive vomiting . We had Neurology examine her for severe worsening tremors. She apparently threw up once today. GI and Surgery are seeing. CARDIOVASCULAR: S1, S2. LUNGS: Clear. GI: Soft. EXTREMITIES: Large amount of tremors. ASSESSMENT: 1. Urinary tract infection. 2. Generalized weakness. 3. . Continue current IV antibiotics. Await possible surgery and GI. Continue to monitor for vomiting. MMODL / IJN: [id number] /
[2019-07-31] MEDS: CARBIDOPA-LEVODOPA 25-100 MG 1 EACH TAB PO SCH ×3 (03:22→21:44)
[2019-07-31] MEDS: LEVOTHYROXINE 75 MCG TAB PO SCH (05:22)
[2019-07-31] MEDS: busPIRone HCl 10 MG TAB PO SCH ×2 (07:58→17:25)
[2019-07-31] MEDS: ARIPiprazole 5 MG TAB PO SCH (07:58)
[2019-07-31] MEDS: FUROSEMIDE 20 MG TAB PO SCH ×2 (07:58→21:45)
[2019-07-31] MEDS: traMADol 50 MG TAB PO SCH ×4 (07:58→21:45)
[2019-07-31] MEDS: TOPIRAMATE 100 MG TAB PO SCH ×2 (07:59→21:45)
[2019-07-31] MEDS: GABAPENTIN 400 MG CAP PO SCH ×3 (07:59→21:45)
[2019-07-31] MEDS: FERROUS SULFATE 325 MG TAB PO SCH (07:59)
[2019-07-31] MEDS: DIVALPROEX ER 500 MG TAB.ER.24H PO SCH ×2 (07:59→21:45)
[2019-07-31] MEDS: APIXABAN 5 MG TAB PO SCH ×2 (07:59→21:44)
[2019-07-31] MEDS: POTASSIUM CHLORIDE ER 20 MEQ TAB.ER PO SCH ×3 (08:00→21:45)
[2019-07-31] MEDS: SODIUM CHLORIDE 0.9% 1,000 ML IV SCH (08:00)
--- NOTE | 2019-07-31 15:01 | PN ---
PROGRESS NOTE DATE OF SERVICE: 07/31/2019 Patient is a 64-year-old pleasant lady with a history of Parkinson's disease, admitted to the hospital with severe nausea, vomiting of 2-3 days' duration. She was also complaining of epigastric pain. She was started on Protonix 40 mg daily and Zofran as needed. Her symptoms are gradually improving. She is having her lunch today, tolerating well. She denies any further episodes of emesis. She still has complains of some lower abdominal discomfort. PHYSICAL EXAMINATION: Appears comfortable, in no apparent distress. Vital signs are stable, blood pressure is 93/49, pulse is 70, temperature 97.7. HEENT: Examination unremarkable, conjunctivae are pink, sclerae nonicteric, oral activity no lesions. NECK: No JVD or lymph node enlargement. CHEST: Clear to the auscultation. HEART: Regular rate and rhythm. ABDOMEN: Soft. There was mild tenderness in the epigastric and in the lower abdominal area. EXTREMITIES: No pedal edema. Essential tremor noted. NEUROLOGIC: Alert and oriented x3. No focal deficits. LABS: From today are not available. Yesterday hemoglobin 10.9, WBC 6.8, and platelets 108 and basic metabolic panel is within normal limits. IMPRESSION: 1. Acute onset of epigastric pain associated with nausea, vomiting for the last 3 days duration. Presently on IV Protonix and Zofran, doing much better. She is able to tolerate regular diet well, possibly dealing with gastritis or gastroesophageal reflux disease. 2. Parkinson's disease on medications. 3. Urinary tract infection on broad-spectrum antibiotics. RECOMMENDATION: 1. Continue with PPI and Zofran as needed. 2. We have no plans for any endoscopy intervention at the present time. Will sign off at this time. Please call us if needed if she has any recurrent symptoms. Thank you for this consultation. MMODL / IJN: [id number] /
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
[2019-07-31] MEDS: busPIRone HCl 5 MG TAB PO SCH (21:44)
[2019-07-31] MEDS: ATORVASTATIN 20 MG TAB PO SCH (21:44)
[2019-07-31] MEDS: traZODone HCL 50 MG TAB PO SCH (21:45)
[2019-08-01] MEDS: LEVOTHYROXINE 75 MCG TAB PO SCH (05:42)
--- NOTE | 2019-08-01 06:37 | PN ---
PROGRESS NOTE SUBJECTIVE: This is a 64-year-old white female with UTI, generalized weakness, ileus, acute on chronic anemia with 5 points of hemoglobin drop since yesterday. Discussed case with surgeon who will evaluate her for possible GI bleeding. Wait for Neurology consult for tremor. Otherwise, continue with current treatments, broad-spectrum antibiotic treatments for UTI. ASSESSMENT: 1. Urinary tract infection. 2. Generalized weakness. 3. Ileus. 4. Anemia. 5. Possible gastrointestinal bleed. 6. Tremors, rule out Parkinson disease. Wait for Neurology, Infectious Disease recommendations as well as Surgery. MMODL / IJN: [id number] /
[2019-08-01 07:55] VITALS: BP 101/58; PULSE 71; RESP 16; TEMP 97.7
[2019-08-01 08:01] LABS: Basophils % (A) 1 %; Eosinophils # (A) 0.2 k/uL (0-0.7); Eosinophils % (A) 3 %; HCT 36.5 % (34.0-46.0); HGB 11.6 gm/dL (11.4-16.0); Lymphocytes % (A) 29 %; MCH 31.9 pg (25.0-35.0); MCHC 31.9 g/dL (31.0-37.0); MCV 100.2 fL (80.0-100.0); Mean Platelet Volume 6.4; Monocytes # (A) 0.4 k/uL (0-1.0); Monocytes % (A) 6 %; Neutrophils # (A) 4.2 k/uL (1.3-7.7); Neutrophils % (A) 61 %; Platelet Count 137 k/uL (150-450); RBC 3.65 m/uL (3.80-5.40); RDW 13.2 % (11.5-15.5)
[2019-08-01 08:15] LABS: ALT 8 U/L (9-52); AST 17 U/L (14-36); African American GFR (CKD) >90 (>60 ml/min/1.73 sqM); Albumin 2.8 g/dL (3.5-5.0); Alkaline Phosphatase 62 U/L (38-126); Anion Gap 6 mmol/L; Blood Urea Nitrogen 16 mg/dL (7-17); Calcium 9.8 mg/dL (8.4-10.2); Carbon Dioxide 27 mmol/L (22-30); Chloride 103 mmol/L (98-107); Glucose 91 mg/dL (74-99); Non-African American GFR(CKD) >90 (>60 ml/min/1.73 sqM); Potassium 4.5 mmol/L (3.5-5.1); Sodium 136 mmol/L (137-145); Total Bilirubin 0.4 mg/dL (0.2-1.3); Total Protein 5.7 g/dL (6.3-8.2)
--- NOTE | 2019-08-01 08:50 | P.PN ---
Progress Note - Text Progress Note Date: 08/01/19 I was called by Dr. Boyd. The patient has had progressive anemia. Patient denies any significant blood loss. She's had no rectal bleeding no hematemesis. On exam her vital signs appear stable. Her abdomen soft. Patient will be observed. If she has further evidence of anemia we will perform upper and lower endoscopy.
[2019-08-01] MEDS: traMADol 50 MG TAB PO SCH ×2 (09:00→14:38)
[2019-08-01] MEDS: DIVALPROEX ER 500 MG TAB.ER.24H PO SCH (09:00)
[2019-08-01] MEDS ORDERED: ERGOCALCIFEROL 50,000 UNIT CAP PO SCH (09:00)
[2019-08-01] MEDS: CARBIDOPA-LEVODOPA 25-100 MG 1 EACH TAB PO SCH ×2 (09:00→14:39)
[2019-08-01] MEDS: FUROSEMIDE 20 MG TAB PO SCH (09:01)
[2019-08-01] MEDS: busPIRone HCl 10 MG TAB PO SCH (09:01)
[2019-08-01] MEDS: GABAPENTIN 400 MG CAP PO SCH (09:01)
[2019-08-01] MEDS: APIXABAN 5 MG TAB PO SCH (09:01)
[2019-08-01] MEDS: TOPIRAMATE 100 MG TAB PO SCH (09:01)
[2019-08-01] MEDS: ARIPiprazole 5 MG TAB PO SCH (09:01)
[2019-08-01] MEDS: POTASSIUM CHLORIDE ER 20 MEQ TAB.ER PO SCH (09:03)
[2019-08-01] MEDS: FERROUS SULFATE 325 MG TAB PO SCH (09:03)
--- NOTE | 2019-08-01 14:44 | CDI ---
Documentation Clarification Form Date: 08/01/2019 2:37:28 PM From: Kya Merchant CCS, CCDS Admit Date: 07/28/2019 4:12:00 PM Patient Name: Rosemary Bedoya Visit Number: [id number] Discharge Date: ATTENTION: The Clinical Documentation Specialists (CDI) and [facility] Coding Staff appreciate your assistance in clarifying documentation. Please respond to the clarification below the line at the bottom and electronically sign. The CDI & [facility] Coding staff will review the response and follow-up if needed. Please note: Queries are made part of the Legal Health Record. If you have any questions, please contact the author of this message via ITS. Dr. Ty Hyman: Per the History & Physical: "Prerenal renal failure." History/Risk Factors: CAD, COPD, DVT, GERD, GI bleed, [place], Hypertension, OA, Seizure disorder, Hypothyroidism, Parkinson's Disease. Baseline BUN/Cr/GFR unknown or not documented. Clinical Indicators: Presented with weakness, nausea & vomiting, diagnosed with UTI, dehydration & Ileus. BUN: 34^ - 20^ - (16) Creatinine: (1.03) - (0.60) - (0.67) GFR: (57) - (>90) - (>90) Treatment: IV Zofran, IV fluid bolus, IV Rocephin, IV fluid rate 50. In order to capture the severity of condition, please clarify if the condition signifies: Acute renal failure, Please specify etiology (if known): Acute on chronic renal failure, please stage CKD if present & known: o CKD Stage 1 GFR >90 o CKD Stage 2 GFR 60-89 o CKD Stage 3 GFR 30-59 Other, please specify Unable to determine (Last Revision: January 2018) MTDD
--- NOTE | 2019-08-01 14:51 | CDI ---
Documentation Clarification Form Date: 08/01/2019 2:45:20 PM From: Kya Merchant CCS, CCDS Admit Date: 07/28/2019 4:12:00 PM Patient Name: Rosemary Bedoya Visit Number: [id number] Discharge Date: ATTENTION: The Clinical Documentation Specialists (CDI) and [facility] Coding Staff appreciate your assistance in clarifying documentation. Please respond to the clarification below the line at the bottom and electronically sign. The CDI & [facility] Coding staff will review the response and follow-up if needed. Please note: Queries are made part of the Legal Health Record. If you have any questions, please contact the author of this message via ITS. Dr. Ty Hyman: A diagnosis of anemia lacks specificity to accurately reflect your patients severity of condition and clarification is needed. Per the 07/31 PN: "This is a 64-year-old white female with UTI, generalized weakness, ileus, acute on chronic anemia with 5 points of hemoglobin drop since yesterday." History/Risk Factors: CAD, COPD, Hyperlidemia, Hypertension, OA, Seizure disorder, MS, Parkinson's disease & Anemia. Clinical indicators: Presented with weakness, nausea & vomiting. Diagnosed with UTI, dehydration, Ileus & anemia. BMI: 19.0 Hemoglobin: (14.0) - 10.9* - 11.6 Hematocrit: (40.6) - (34.3) - (36.5) Treatment: IV Zofran, IV fluid bolus, IV Rocephin, IV fl rate 75, po Feosol Surgery consult, GI consult, Dietitian consult In order to capture the severity of condition, please clarify the type of anemia and etiology if known: Acute blood loss anemia Acute on chronic blood loss anemia Chronic blood loss anemia Iron deficiency anemia Hemolytic anemia Drug induced anemia Nutritional anemia Anemia of chronic kidney disease Unable to determine Other, please specify (Last Revision: July 2017) MTDD
--- NOTE | 2019-08-02 11:14 | DS ---
DISCHARGE SUMMARY Please add to discharge summary: Acute on chronic renal failure stage 3. Chronic blood-loss anemia. MMODL / IJN: [id number] /
--- NOTE | 2019-08-20 05:39 | DS ---
DISCHARGE SUMMARY DATE OF ADMISSION: 07/28/2019 DATE OF DISCHARGE: 08/01/2019 DISCHARGE MEDICATIONS: 1. Sinemet 25/100 q.12 hours. 2. Lipitor 20 q.h.s. 3. Synthroid 75 mcg daily. 4. Vitamin D 50,000 units q. week. 5. Ferrous sulfate 325 daily. 6. Lasix 20 mg b.i.d. 7. Abilify 5 mg daily. 8. Neurontin 400 t.i.d. 9. Trazodone 150 q.h.s. 10.Topiramate 200 q.12 hours. 11.BuSpar 10 mg a.c. b.i.d. 12.Depakote ER 1000 daily. 13.Eliquis 5 mg b.i.d. 14.Valproic acid 250 q.i.d. 15.Depakote 500 q.h.s. 16.BuSpar 15 mg q.h.s. 17.KCl 20 mEq t.i.d. Patient came in with a tremor, possible seizure disorder. Cleared by Neurology for discharge. Depakote was increased from 500 to 1000 mg daily for seizures. I will continue with Topamax mg b.i.d. and Keppra 1000 b.i.d. The EEG was negative. As mentioned, medications were adjusted. She was cleared for discharge. Dr. Torre saw her for abdominal pain. Dr. Waite saw her for stool abnormalities. Parkinson disease was treated. She was treated for severe nausea, vomiting of 2 to 3 days duration and epigastric pain, was started on Protonix and Zofran. She was cleared for discharge to follow up as an outpatient. MMODL / IJN: [id number] /
== END 2019-08-01 15:50 | disposition home health service (06) | DRG 690 ==
LOC: EC 11:36 → 4SSUR 16:12
PROVIDERS: ADMIT Family Medicine; ATTEND Family Medicine
DX: N39.0 Urinary tract infection, site not specified (principal); K56.7 Ileus, unspecified; G20 Parkinson's disease; G35 Multiple sclerosis; E87.5 Hyperkalemia; I48.91 Unspecified atrial fibrillation; D50.0 Iron deficiency anemia secondary to blood loss (chronic); E03.9 Hypothyroidism, unspecified; N18.3 Chronic kidney disease, stage 3 (moderate); J44.9 Chronic obstructive pulmonary disease, unspecified; I12.9 Hypertensive chronic kidney disease with stage 1 through stage 4 chronic kidney disease, or unspecified chronic kidney disease; E86.0 Dehydration; E78.5 Hyperlipidemia, unspecified; K21.9 Gastro-esophageal reflux disease without esophagitis; H91.90 Unspecified hearing loss, unspecified ear; G40.909 Epilepsy, unspecified, not intractable, without status epilepticus; I25.10 Atherosclerotic heart disease of native coronary artery without angina pectoris; F41.9 Anxiety disorder, unspecified; I25.2 Old myocardial infarction; M19.90 Unspecified osteoarthritis, unspecified site; M47.9 Spondylosis, unspecified; Z79.01 Long term (current) use of anticoagulants; Z79.890 Hormone replacement therapy; Z79.899 Other long term (current) drug therapy; Z86.718 Personal history of other venous thrombosis and embolism; Z86.73 Personal history of transient ischemic attack (TIA), and cerebral infarction without residual deficits; Z87.828 Personal history of other (healed) physical injury and trauma; Z87.01 Personal history of pneumonia (recurrent); Z87.11 Personal history of peptic ulcer disease; Z87.442 Personal history of urinary calculi; Z90.710 Acquired absence of both cervix and uterus; Z90.49 Acquired absence of other specified parts of digestive tract; Z97.4 Presence of external hearing-aid; Z98.51 Tubal ligation status; Z88.6 Allergy status to analgesic agent; Z91.030 Bee allergy status; Z91.040 Latex allergy status; Z88.5 Allergy status to narcotic agent; Z88.0 Allergy status to penicillin; Z88.8 Allergy status to other drugs, medicaments and biological substances; Z91.048 Other nonmedicinal substance allergy status; Z80.0 Family history of malignant neoplasm of digestive organs; Z80.1 Family history of malignant neoplasm of trachea, bronchus and lung
CPT/HCPCS: 36415; 74018; 74176; 80053; 80164; 81001; 82150; 82272; 83690; 83735; 85025; 87077; 87086; 87186; 93005; 96361; 96374; 96375; 99285

== ENCOUNTER 2019-08-28 17:53 | Emergency (ER) | payer MEDICARE ==
[2019-08-28] MEDS ORDERED: ACETAMINOPHEN TAB 325 MG TAB PO STA (18:16)
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
--- NOTE | 2019-08-28 19:35 | CT ---
EXAMINATION TYPE: CT brain [facility] con DATE OF EXAM: 08/28/2019 COMPARISON: CT brain 03/09/2019 HISTORY: Fall, head injury. Neck pain. Headache. CT DLP: 1237.6 mGycm Automated exposure control for dose reduction was used. TECHNIQUE: CT scan of the head and cervical spine are performed without contrast. FINDINGS: There is cerebral cortical atrophy. There is no mass effect nor midline shift. There is n o sign of intracranial hemorrhage. The calvarium is intact. Cervical vertebra have normal alignment. Posterior element are intact. There is mild hypertrophic fac et arthropathy. Skull base is intact. There is mild spurring at C5-6 C6-7. IMPRESSION: Negative CT scan of the cervical spine. No fracture. Minor degenerative spurring. Negative CT scan of the brain. Brain unchanged compared to old exam.
--- NOTE | 2019-08-28 19:37 | XR ---
EXAMINATION TYPE: XR ankle complete LT DATE OF EXAM: 08/28/2019 COMPARISON: NONE HISTORY: Ankle pain TECHNIQUE: 3 views FINDINGS: There are plantar and Achilles calcaneal spurs. There is mild soft tissue swelling around t he ankle joint. I see no fracture. IMPRESSION: No fracture seen.
[2019-08-28 22:53] VITALS: BP 123/65; PULSE 77; RESP 18; TEMP 98
== END 2019-08-28 22:00 | disposition home or self-care (01) ==
LOC: EC 17:53
DX: S00.03XA Contusion of scalp, initial encounter (principal); S93.402A Sprain of unspecified ligament of left ankle, initial encounter; F41.9 Anxiety disorder, unspecified; G40.909 Epilepsy, unspecified, not intractable, without status epilepticus; I10 Essential (primary) hypertension; I25.10 Atherosclerotic heart disease of native coronary artery without angina pectoris; I25.2 Old myocardial infarction; K21.9 Gastro-esophageal reflux disease without esophagitis; K56.609 Unspecified intestinal obstruction, unspecified as to partial versus complete obstruction; M19.90 Unspecified osteoarthritis, unspecified site; G35 Multiple sclerosis; G20 Parkinson's disease; G89.29 Other chronic pain; M54.9 Dorsalgia, unspecified; E03.9 Hypothyroidism, unspecified; Z79.01 Long term (current) use of anticoagulants; Z79.899 Other long term (current) drug therapy; Z88.0 Allergy status to penicillin; Z91.030 Bee allergy status; Z91.040 Latex allergy status; Z88.6 Allergy status to analgesic agent; Z91.048 Other nonmedicinal substance allergy status; Z86.73 Personal history of transient ischemic attack (TIA), and cerebral infarction without residual deficits; Z86.718 Personal history of other venous thrombosis and embolism; Z88.8 Allergy status to other drugs, medicaments and biological substances; Z98.890 Other specified postprocedural states; Z79.890 Hormone replacement therapy; W18.30XA Fall on same level, unspecified, initial encounter; Y93.89 Activity, other specified; Y92.009 Unspecified place in unspecified non-institutional (private) residence as the place of occurrence of the external cause
CPT/HCPCS: 70450; 72125; 99284

== ENCOUNTER 2019-09-14 12:58 | Emergency (ER) | payer MEDICARE ==
[2019-09-14 13:08] VITALS: RESP 18; TEMP 97.9
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
--- NOTE | 2019-09-14 14:02 | XR ---
EXAMINATION TYPE: XR chest 2V DATE OF EXAM: 09/14/2019 HISTORY: Choking episode. REFERENCE: Previous study dated 10/12/2018. FINDINGS: The lungs are clear. Pleural space are clear. The heart is not enlarged. IMPRESSION: NO ACTIVE INTRATHORACIC DISEASE.
[2019-09-14 14:17] VITALS: BP 100/54; PULSE 88
== END 2019-09-14 14:14 | disposition home or self-care (01) ==
LOC: EC 12:58
DX: T18.128A Food in esophagus causing other injury, initial encounter (principal); I25.10 Atherosclerotic heart disease of native coronary artery without angina pectoris; I10 Essential (primary) hypertension; G40.909 Epilepsy, unspecified, not intractable, without status epilepticus; G20 Parkinson's disease; E03.9 Hypothyroidism, unspecified; D64.9 Anemia, unspecified; I25.2 Old myocardial infarction; Z86.73 Personal history of transient ischemic attack (TIA), and cerebral infarction without residual deficits; Z86.718 Personal history of other venous thrombosis and embolism; Z79.890 Hormone replacement therapy; Z79.01 Long term (current) use of anticoagulants; Z79.899 Other long term (current) drug therapy; Z91.048 Other nonmedicinal substance allergy status; Z88.6 Allergy status to analgesic agent; Z88.8 Allergy status to other drugs, medicaments and biological substances; Z91.040 Latex allergy status; Z88.0 Allergy status to penicillin
CPT/HCPCS: 71046; 99283

== ENCOUNTER 2019-09-28 12:57 | Emergency (ER) | payer MEDICARE ==
[~2019-09-28 12:57] MED LIST: CHLORHEXIDINE GLUCONATE 15 ML CUP MUCOUS MEM ONE; HUMAN PROTHROMBIN COMPLX 500 UNIT/16 ML VIAL IV ONE
[2019-09-28] MEDS ORDERED: SODIUM CHLORIDE 0.9% 500 ML 500 ML IV STA (13:05)
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
[2019-09-28 13:12] VITALS: TEMP 98.7
[2019-09-28 13:19] LABS: Glucose,Whole Blood 108 mg/dL (75-99)
[2019-09-28] MEDS ORDERED: Kcentra PER PHARMACY 1 EACH MISC MISCELLANE PRN (13:20)
[2019-09-28 13:28] LABS: Calcium 9.3 mg/dL (8.4-10.2); Potassium 4.1 mmol/L (3.5-5.1); Total Protein 5.8 g/dL (6.3-8.2)
[2019-09-28 13:31] VITALS: RESP 16
[2019-09-28 13:33] LABS: Basophils % (A) 0 %; Eosinophils % (A) 0 %; HCT 31.3 % (34.0-46.0); HGB 10.2 gm/dL (11.4-16.0); Lymphocytes # (A) 0.5 k/uL (1.0-4.8); Lymphocytes % (A) 5 %; MCH 33.3 pg (25.0-35.0); MCHC 32.6 g/dL (31.0-37.0); Macrocytosis Slight; Mean Platelet Volume 7.5; Monocytes # (A) 0.9 k/uL (0-1.0); Monocytes % (A) 8 %; Neutrophils # (A) 9.8 k/uL (1.3-7.7); Neutrophils % (A) 86 %; Platelet Count 122 k/uL (150-450); RBC 3.07 m/uL (3.80-5.40); RDW 13.7 % (11.5-15.5); WBC 11.4 k/uL (3.8-10.6)
--- NOTE | 2019-09-28 13:35 | CT ---
EXAMINATION TYPE: CT brain [facility]ante cerda con DATE OF EXAM: 09/28/2019 COMPARISON: 08/28/2019 HISTORY: unresponsive, fall, on blood thinner CT DLP: 1191.[address] of the brain was performed. There is a left sided subdural hematoma extending from the left frontal to the parietal region measur ing 9.9 mm. Internal decreased attenuation is felt to reflect active hemorrhage. There is evidence of subfalcine herniation with left to right midline shift of 5.4 mm. Additional subdural hematomas seen on the right in the tentorial region with smaller components within the right frontal and right thi etal regions with thickness of the 2.6 mm. High right frontal component measures approximately 6 mm. There is decreased attenuation of the left frontal lobe. The ventricles are of normal caliber. There has been prior left-sided craniotomy. If symptoms persist consider MRI. Osseous calvarium is intact. IMPRESSION: 1. Left-sided subdural hematoma with areas of active internal hemorrhage as discussed above with left -to-right midline shift of 5.4 mm and subfalcine herniation. 2. Right-sided subdural hematomas as noted. Results were discussed via telephone with Dr. Cespedes. CT Cervical Spine: Unenhanced CT of the cervical spine was performed with bone and soft tissue window settings submitted . Coronal and sagittal reconstruction is obtained. There is normal alignment and prevertebral soft tissues. No evidence for acute cervical fracture . Scattered degenerative disc disease and spondylosis. Biapical scarring. IMPRESSION: 1. No evidence for acute fracture or subluxation of the cervical spine.
[2019-09-28 13:45] LABS: INR 0.9 (<1.2); Prothrombin Time 9.9 sec (9.0-12.0)
[2019-09-28] MEDS ORDERED: HUMAN PROTHROMBIN COMPLX IV ONE (13:45)
[2019-09-28 13:51] LABS: Partial Thromboplastin Time 20.4 sec (22.0-30.0)
--- NOTE | 2019-09-28 14:05 | XR ---
EXAMINATION TYPE: XR chest 1V portable DATE OF EXAM: 09/28/2019 COMPARISON: 09/14/2019 HISTORY: Shortness of breath TECHNIQUE: Frontal and lateral views of the chest are obtained. FINDINGS: Endotracheal and NG tubes are appropriately placed. Scattered senescent parenchymal changes noted. Hyperinflation compatible with COPD. No evidence for infiltrate. No evidence for atelectasis. Heart size is stable. Mediastinal structures are stable and grossly unremarkable. No evidence for hilar prominence. Degenerative changes dorsal spine. IMPRESSION: 1. Endotracheal and NG tubes are appropriately placed.
[2019-09-28 14:09] VITALS: BP 132/79; PULSE 86
== END 2019-09-28 14:19 | disposition other institution (70) ==
LOC: EC 12:57
DX: S06.5X9A Traumatic subdural hemorrhage with loss of consciousness of unspecified duration, initial encounter (principal); R94.31 Abnormal electrocardiogram [ECG] [EKG]; R40.2430 Glasgow coma scale score 3-8, unspecified time; E03.9 Hypothyroidism, unspecified; G89.29 Other chronic pain; H91.90 Unspecified hearing loss, unspecified ear; G20 Parkinson's disease; G35 Multiple sclerosis; F41.9 Anxiety disorder, unspecified; I25.10 Atherosclerotic heart disease of native coronary artery without angina pectoris; I10 Essential (primary) hypertension; G40.909 Epilepsy, unspecified, not intractable, without status epilepticus; I25.2 Old myocardial infarction; M19.90 Unspecified osteoarthritis, unspecified site; Z79.01 Long term (current) use of anticoagulants; Z91.048 Other nonmedicinal substance allergy status; Z88.6 Allergy status to analgesic agent; Z91.040 Latex allergy status; Z88.8 Allergy status to other drugs, medicaments and biological substances; Z88.0 Allergy status to penicillin; Z79.899 Other long term (current) drug therapy; Z86.718 Personal history of other venous thrombosis and embolism; Z86.73 Personal history of transient ischemic attack (TIA), and cerebral infarction without residual deficits
CPT/HCPCS: 99291 ×2; 96365 ×2; 96361 ×2; 31500 ×2; 36415; 36600; 93005; 80053; 83735; 84484; 85025; 85610; 85730; 87070; 87205; 71045; 72125; 70450; C9132; 94002